=== PATIENT | male | born 1965 | race Caucasian/White ===

== ENCOUNTER 2018-01-11 09:26 | Inpatient (IN) | payer MEDICARE, OTHER ==
[2018-01-11 09:26] VITALS: BMI 33.5
--- NOTE | 2018-01-11 09:33 | C.PDOC ---
History Of Present Illness 52 years old male is transferred from [facility] for admission for cellulitis and Hemodialysis.Patient denies new symptoms since transfer. Patient also reports last Hemodialysis was 5 days ago. TRANSFERED FROM [facility] FOR ADMISSION CELLULITIS AND HD. PER PT, NO NEW SX SINCE TRANSFER. LAST HD 5 DAYS AGO. EXAM NAD NONTOXIC SKIN right 1st and 3rd toe discoloration C/W GANGRENE REMAINDER NEG Time Seen by Provider: 01/11/18 09:32 History Per: Patient History/Exam Limitations: no limitations Onset/Duration Of Symptoms: Hrs Current Symptoms Are (Timing): Still Present Recent travel outside of the [place]: No Past Medical History Reviewed: Historical Data, Nursing Documentation, Vital Signs Vital Signs: Last Vital Signs Temp 97.8 F 01/11/18 09:43 Pulse 80 01/11/18 09:43 Resp 18 01/11/18 09:43 BP 131/59 L 01/11/18 09:43 Pulse Ox 95 01/11/18 09:43 - Medical History PMH: Anemia (With transfusions), Anxiety, Arthritis, Asthma, Benign Prostatic Hyperplasia (on Flomax, seen by Dr. Shay), Bronchitis, CHF, Colonic Polyps, COPD, Diabetes, Fractures (L arm), Gall Bladder Disease (CHOLECYSTECTOMY), HTN, Hypercholesterolemia, Hyperlipidemia, Kidney Stones (08/15), Pancreatitis, Peripheral Edema, Pneumonia, End Stage Renal Disease, Chronic Kidney Disease, Sleep Apnea (c pap 2), TIA Surgical History: Cholecystectomy (12/27/12), Coronary Stent (x2 tuesday10/25/17 ), Pacemaker - [facility] Procedures (12/20/17) ASSISTANCE WITH RESPIRATORY VENTILATION, 24-96 HRS, CPAP (11/04/17) ASSISTANCE WITH RESPIRATORY VENTILATION, <24 HRS, CPAP (12/20/17) CENTRAL VENOUS CATHETER PLACEMENT WITH GUIDANCE (12/11/12) CLOSED ENDOSCOPIC BIOPSY OF LARGE INTESTINE (03/14/14) CORONAR ARTERIOGR-2 CATH (03/07/15) DILATION OF 1 COR ART WITH 2 DRUG-ELUT, PERC APPROACH (10/23/17) DX ULTRASOUND-DIGESTIVE (06/20/12) ENDO RECTUM POLYPECTOMY (03/14/14) ESOPHAGOGASTRODUODENOSCOPY [EGD] W/CLOSED BIOPSY (12/11/12) EXCISION OF LEFT FOOT SKIN, EXTERNAL APPROACH (12/03/17) FLUOROSCOPY OF LEFT HEART USING OTHER CONTRAST (10/23/17) FLUOROSCOPY OF MULTIPLE CORONARY ARTERIES USING OTH CONTRAST (10/23/17) GAIT TRAINING/AMBULAT TREATMENT USING ASSIST EQUIPMENT (11/16/17) HEMODIALYSIS (03/07/15) HOME MANAGEMENT TREATMENT (11/16/17) INJECT STEROID (04/21/14) INJECT/INFUSE NEC (08/31/13) INJECT/INFUSE THROMBOLYTIC AGENT (11/22/14) INJECTION INTO JOINT (04/21/14) INSERT PACE. DUAL TABITHA IN CHEST SUBCU/FASCIA, OPEN (11/04/17) INSERTION OF INFUSION DEVICE INTO LOWER VEIN, PERC APPROACH (12/20/17) INSERTION OF INFUSION DEVICE INTO UPPER VEIN, PERC APPROACH (12/20/17) INSERTION OF ONE VASCULAR STENT (03/07/15) INSERTION OF PACEMAKER LEAD INTO R VENTRICLE, PERC APPROACH (11/04/17) INSERTION OF PACEMAKER LEAD INTO RIGHT ATRIUM, PERC APPROACH (11/04/17) INSRT OF DRUG-ELUTING CORON ARTERY STENTS(S) (03/07/15) INTRAOPER CHOLANGIOGRAM (12/27/12) INTRODUCE OF OTH THERAP SUBST INTO RESP TRACT, VIA OPENING (12/20/17) LAPAROSCOP LYSIS-PERITONEAL ADHES (12/27/12) LAPAROSCOPIC CHOLECYSTECTOMY (12/27/12) LEFT HEART CARDIAC CATH (03/07/15) LT HEART ANGIOCARDIOGRAM (03/07/15) MEASURE OF CARDIAC SAMPL & PRESSURE, L HEART, PERC APPROACH (10/23/17) MEASUREMENT OF ARTERIAL FLOW, CORONARY, PERC APPROACH (04/24/16) MEASUREMENT OF ARTERIAL PRESSURE, CORONARY, PERC APPROACH (10/23/17) MEASUREMENT OF CARDIAC PACEMAKER, EXTERNAL APPROACH (12/20/17) NEBULIZER THERAPY (11/22/14) NON-INVASIVE MECHANICAL VENTILATION (11/27/14) OCCUPATIONAL THERAPY (11/27/14) OTHER ENDOSCOPY OF SM INTEST (06/20/12) OTHER SKIN & SUBQ I D (07/05/02) PACKED CELL TRANSFUSION (05/04/14) PERCUTANEOUS TRANSLUMINAL CORONARY ANGIOPLASTY [PTCA] (03/07/15) PERFORMANCE OF URINARY FILTRATION, MULTIPLE (04/24/16) PERFORMANCE OF URINARY FILTRATION, SINGLE (10/28/15) PHYSICAL THERAPY NEC (11/27/14) PLAIN RADIOGRAPHY OF LEFT HEART USING LOW OSMOLAR CONTRAST (04/24/16) PLAIN RADIOGRAPHY OF MULT COR ART USING L OSM CONTRAST (04/24/16) PROCEDURE ON SINGLE VESSEL (03/07/15) TETANUS TOXOID ADMINIST (08/10/14) TRANSFUSE NONAUT FROZEN PLASMA IN PERIPH VEIN, PERC (12/20/17) TRANSFUSE NONAUT PLATELETS IN PERIPH VEIN, PERC (12/20/17) TRANSFUSE NONAUT RED BLOOD CELLS IN PERIPH VEIN, PERC (10/28/17) ULTRASONOGRAPHY OF MULTIPLE CORONARY ARTERIES, INTRAVASCULAR (04/24/16) Family History: States: Diabetes (mother & grandmother) - Social History Hx Tobacco Use: No Hx Alcohol Use: No Hx Substance Use: No - Immunization History Hx Tetanus Toxoid Vaccination: No Hx Influenza Vaccination: No Hx Pneumococcal Vaccination: No Review Of Systems Constitutional: Negative for: Fever, Chills Gastrointestinal: Negative for: Nausea, Vomiting, Abdominal Pain, Diarrhea Neurological: Negative for: Weakness, Numbness Physical Exam - Physical Exam Appears: Non-toxic, No Acute Distress Skin: Other (Right 1st and 3rd toe discoloration consistent with GANGRENE) Head: Atraumatic, Normacephalic Eye(s): bilateral: Normal Inspection, PERRL, EOMI Oral Mucosa: Moist Neck: Supple Chest: Symmetrical, No Tenderness Cardiovascular: Rhythm Regular, No Murmur Respiratory: Normal Breath Sounds, No Decreased Breath Sounds, No Rales, No Rhonchi, No Wheezing Gastrointestinal/Abdominal: Soft, No Tenderness Extremity: Normal ROM, No Deformity Extremity: Bilateral: Atraumatic, Normal Color And Temperature, Normal ROM Pulses: Left Radial: Normal, Right Radial: Normal Neurological/Psych: Oriented x3 (Awake and Alert), Normal Speech, Other (No focal deficits ) Gait: Steady Progress - Re-Evaluation Re-evaluation Note: 01/11/18 09:33 D/W DR LAGUNAS FROM [facility], STATES PT ACCEPTED FOR ADMISSION BY DR DONATO. NEPHRO CONSULT TO BE ARRANGED BY PMD. Disposition Counseled Patient/Family Regarding: Diagnosis - Disposition Disposition: HOSPITALIZED Disposition Time: 09:32 Condition: STABLE - POA Present On Arrival: None - Clinical Impression Clinical Impression: Cellulitis, ESRD (end stage renal disease) - Scribe Statement The provider has reviewed the documentation as recorded by the Kathleenibmervin Mock All medical record entries made by the Scribe were at my direction and personally dictated by me. I have reviewed the chart and agree that the record accurately reflects my personal performance of the history, physical exam, medical decision making, and the department course for this patient. I have also personally directed, reviewed, and agree with the discharge instructions and disposition. Decision To Admit - Pt Status Changed To: Hospital Disposition Of: Inpatient - Admit Certification Admit to Inpatient:: After my assessment, the patient will require hospitalization for at least two midnights. This is because of the severity of symptoms shown, intensity of services needed, and/or the medical risk in this patient being treated as an outpatient. - InPatient: Physician Admission Certification: I certify that this patient requires 2 or more midnights of care for the following reason:: SEE NOTE - . Bed Request Type: Regular Admitting Physician: Nel Donato Patient Diagnosis: Cellulitis, ESRD (end stage renal disease)
[2018-01-11 11:43] VITALS: O2SAT 99
[2018-01-11 14:34] LABS: HEPATITIS B SURFACE AG Negative (NEGATIVE)
[2018-01-11 14:39] LABS: HEPATITIS B CORE AB NEGATIVE (NEGATIVE)
[2018-01-11 14:52] LABS: HEPATITIS C ANTIBODY NEGATIVE (NEGATIVE)
[2018-01-11] MEDS ORDERED: Sodium Chloride Nasal 0.65% Soln (30ml) NAS PRN (15:25)
[2018-01-11] MEDS ORDERED: Albuterol-Ipratrop 3 mg / 0.5 (3 ml) UD IH SCH (15:30)
[2018-01-11 16:23] VITALS: BP 132/53; PULSE 72; RESP 20; TEMP 97.5
[2018-01-11] MEDS ORDERED: Ergocalciferol 50,000 Intl Units Cap PO SCH (16:30)
[2018-01-11] MEDS ORDERED: CALCIUM ACETATE 1334 MG PO SCH (16:30)
[2018-01-11] MEDS ORDERED: Omega-3-Acid Ethyl Esters 1 GM Cap PO SCH (18:00)
[2018-01-11] MEDS ORDERED: (Novolin N) Insulin Human Isophane (NPH) 100 u/ml 10 ml vial SC SCH ×2 (18:00)
--- NOTE | 2018-01-11 19:41 | CP.PCM.HP ---
History of Present Illness - History of Present Illness History of Present Illness: CC: hypocalcemia 43F presents to ED sent from clinic for Hypocalcemia with cramping of hands, numbness and tingling to hands for 3 days. Patient reports taking calcium and vitamin D at home. Patient states she felt a little shaky prior to being given calcium here. Patient denies weakness, headache, lightheadedness, nausea, vomiting or any other complaints at this time. PMH: hyperthyroid s/p thyroidectomy with hypocalcemia PSH: Thyroid surgery in 2004 with calcium supplementation started in in 2011 Social: never smoker, never drinker, no illicit drug us family history: mother and father have hyperthyroid, aunt has thyroid nodules Allergies: insulin aspart, moxifloxacin, penicillins Present on Admission - Present on Admission Any Indicators Present on Admission: No History of DVT/PE: No History of Uncontrolled Diabetes: No Urinary Catheter: No Decubitus Ulcer Present: No Review of Systems - Review of Systems All systems: reviewed and no additional remarkable complaints except - Constitutional Constitutional: absent: Chills, Frequent Falls, Lethargy, Malaise, Weight Gain, Weight Loss - EENT Eyes: absent: Change in Vision, Decreased Night Vision, Exophthalmos Ears: absent: Abnormal Hearing, Disequilibrium Nose/Mouth/Throat: absent: Dry Mouth, Dysphagia - Cardiovascular Cardiovascular: absent: Chest Pain, Chest Pain at Rest - Respiratory Respiratory: absent: Dyspnea, Hemoptysis, Dyspnea on Exertion - Musculoskeletal Musculoskeletal: absent: Abnormal Gait, Back Pain - Neurological Neurological: Tremor. absent: Abnormal Gait, Dizziness, Focal Weakness, Lack of Coordination, Loss of Vision, Restless Legs, Tingling Past Patient History - Infectious Disease Hx of Infectious Diseases: None - Tetanus Immunizations Tetanus Immunization: Up to Date - Past Medical History & Family History Past Medical History?: Yes - Past Social History Smoking Status: Never Smoked - CARDIAC Hx Congestive Heart Failure: Yes Hx Hypercholesterolemia: Yes Hx Hypertension: Yes Hx Pacemaker: Yes Hx Peripheral Edema: Yes - PULMONARY Hx Asthma: Yes Hx Bronchitis: Yes Hx Chronic Obstructive Pulmonary Disease (COPD): Yes Hx Pneumonia: Yes Hx Sleep Apnea: Yes (c pap 2) - NEUROLOGICAL Hx Transient Ischemic Attacks (TIA): Yes - HEENT Hx HEENT Problems: Yes (BILATERAL EYE WITH BLURRY VISION) Hx Cataracts: Yes (HAD SX 10/10/12) Other/Comment: left eye cornea transplant,RENAL RETINOPATHY, glasses - RENAL Hx Chronic Kidney Disease: Yes Date of Last Dialysis Treatment: 01/06/18 Hx Kidney Stones: Yes (08/15) - ENDOCRINE/METABOLIC Hx Endocrine Disorders: Yes Hx Diabetes Mellitus Type 2: Yes - HEMATOLOGICAL/ONCOLOGICAL Hx Anemia: Yes (With transfusions) - INTEGUMENTARY Hx Dermatological Problems: Yes (BILATERAL EDEMA TO UPPER AND LE,SKIN DRYNESS) - MUSCULOSKELETAL/RHEUMATOLOGICAL Hx Arthritis: Yes Hx Falls: No Hx Fractures: Yes (L arm) - GASTROINTESTINAL Hx Gall Bladder Disease: Yes (CHOLECYSTECTOMY) Hx Pancreatitis: Yes - GENITOURINARY/GYNECOLOGICAL Hx Genitourinary Disorders: Yes (esrd on HD MWF) - PSYCHIATRIC Hx Anxiety: Yes Hx Substance Use: No - SURGICAL HISTORY Hx Cholecystectomy: Yes (12/27/12) Hx Coronary Stent: Yes (tuesday10/25/17) - ANESTHESIA Hx Anesthesia: Yes Hx Anesthesia Reactions: No Hx Malignant Hyperthermia: No Meds Allergies/Adverse Reactions: Allergies Allergy/AdvReac Type Severity Reaction Status Date / Time insulin aspart [From Novolog] Allergy Intermediate ITCHING Verified 01/11/18 09: 48 moxifloxacin Allergy Intermediate ITCHING Verified 01/11/18 09:48 Penicillins Allergy Intermediate ITCHING Verified 01/11/18 09:48 Physical Exam - Constitutional Appears: Non-toxic, Younger Than Stated Age - Head Exam Head Exam: ATRAUMATIC, NORMAL INSPECTION, NORMOCEPHALIC - Eye Exam Eye Exam: EOMI, Normal appearance Pupil Exam: NORMAL ACCOMODATION, PERRL - ENT Exam ENT Exam: Mucous Membranes Moist, Normal Exam - Neck Exam Neck exam: Positive for: Full Rom, Normal Inspection - Respiratory Exam Respiratory Exam: Clear to Auscultation Bilateral, NORMAL BREATHING PATTERN. absent: Decreased Breath Sounds - Cardiovascular Exam Cardiovascular Exam: REGULAR RHYTHM, +S1, +S2. absent: Bradycardia, Tachycardia - GI/Abdominal Exam GI & Abdominal Exam: Soft. absent: Tenderness - Extremities Exam Extremities exam: Positive for: full ROM. Negative for: pedal edema - Neurological Exam Neurological exam: Alert, CN II-XII Intact, Normal Gait - Psychiatric Exam Psychiatric exam: Flat Affect, Normal Affect, Normal Mood - Skin Skin Exam: Dry, Intact, Normal Color, Warm Results - Vital Signs Recent Vital Signs: Last Vital Signs Temp 97.5 F L 06/13/18 16:22 Pulse 72 01/11/18 16:22 Resp 20 01/11/18 16:22 BP 132/53 L 01/11/18 16:22 Pulse Ox 99 01/11/18 16:22 - Labs Labs: Laboratory Results - last 24 hr 01/11/18 01/11/18 01/11/18 13:44 13:44 16:34 POC Glucose (mg/dL) 145 H Hep Bs Antigen Negative Hep Bs Antibody Positive Hep B Core IgM Ab Negative Hepatitis C Antibody Negative
[2018-01-11] MEDS ORDERED: Fluticasone-Salmeterol 250-50mcg Diskus INH SCH (20:00)
[2018-01-11] MEDS ORDERED: (Novolog) Insulin Aspart, Recombinant 100 u/ml 10 ml vial SC SCH (22:00)
[2018-01-11] MEDS ORDERED: Latanoprost 2.5 ml Opht Soln OU SCH (22:00)
[2018-01-11] MEDS ORDERED: Rosuvastatin Calcium 2.5 mg Tab PO SCH (22:00)
--- NOTE | 2018-01-12 04:37 | CON ---
DATE: 01/11/2018 NEPHROLOGY CONSULTATION HISTORY OF PRESENT ILLNESS: The patient is a 52-year-old male with a past medical history of hypertension, diabetes, COPD, CAD, status post stents, status post pacemaker placement, and ESRD, on hemodialysis (Tuesday, Tuesday, Tuesday). Medical Records Assistant, Dr. Sabina Hnery presented to [place] ED today with complaint of darkening discoloration of right third toe. Subsequently, the patient was transferred to [facility] due to dialysis need. Nephrology being consulted for ESRD care. The patient with recent admission for intracranial hemorrhage, which was relatively mild; he had been taken off Brilinta, had Brilinta held for almost two weeks before being restarted last week. The patient, otherwise, reports feeling well. Denies any shortness of breath. Denies any chest pain or palpitations; appetite has been well. Denies any nausea or vomiting or diarrhea; does not make any urine. PAST MEDICAL HISTORY: As above. SOCIAL HISTORY: Denies smoking. FAMILY HISTORY: Mother CAD, diabetes, hypertension, ESRD, on hemodialysis. REVIEW OF SYSTEMS: CONSTITUTIONAL: No fevers or chills. HEENT: Reportedly legally blind. Reports some nasal discomfort. RESPIRATORY: No difficulty breathing. CARDIOVASCULAR: As per HPI. GI: As per HPI. : As per HPI. MUSCULOSKELETAL: Denies any aches or pains. PSYCHIATRIC: Has issues with anxiety. Does not take any anti-anxiety medications. NEUROLOGIC: Has some numbness in his feet. PHYSICAL EXAMINATION: VITAL SIGNS: This afternoon, blood pressure 114/52, heart rate 66, respirations 20, temperature 97.2, O2 saturation 99% on room air. GENERAL: No distress, lying comfortably in bed, receiving hemodialysis. HEENT: Moist mucous membranes. Nonicteric. No cervical lymphadenopathy. RESPIRATORY: Lungs are clear to auscultation bilaterally. No rales. No rhonchi. No wheezes. CARDIOVASCULAR: Heart sounds S1 and S2 normal. No murmurs. No gallops. No rubs. GASTROINTESTINAL: Abdomen is soft, nontender, and nondistended. GENITOURINARY: No bladder distention. EXTREMITIES: Mild lower leg edema. SKIN: Warm. No cyanosis, darkened discoloration at the base of first right toe and affecting third right toe. NEUROLOGIC: Decreased sensation of the right foot. PSYCHIATRIC: Normal mood. Normal affect. LABORATORY DATA: From this morning, CBC, WBC 8.1, hemoglobin 8.9, hematocrit 27.7, platelets 126. Chemistry panel: Sodium 141, potassium 6, chloride 96, bicarbonate 23, BUN 79, creatinine 12.5, glucose 240, calcium 8.7. AST 93, ALT 53, albumin 3.9. Coags: PT 19.2, PTT 34.8, INR 1.67. ASSESSMENT AND PLAN: 1. End-stage renal disease, on hemodialysis; patient with mild hyperkalemia today, dialyzing per routine. Otherwise relatively stable volume status, targeting 3.5 L net ultrafiltration. 2. Hypertensive chronic kidney disease/end-stage renal disease, currently on hydralazine 25 mg b.i.d. Blood pressure relatively well controlled. Continue the same. 3. Anemia of end-stage renal disease, hemoglobin well below goal, but stable; we will give Epogen if not given recently. 4. Chronic kidney disease, mineral bone disorder. The patient was relatively well controlled per labs last week. We will continue with binders. We will give sevelamer three tablets with each meal. 5. Right foot cellulitis/dry gangrene. The patient with multiple risk factors for peripheral vascular disease, needs podiatry evaluation; was given 1 gm of vancomycin earlier today. Should re-dose after checking random level tomorrow as the patient was dialyzed this afternoon. 6. Pulmonary hypertension per echocardiogram report was relatively severe; has mild leg edema currently, but is otherwise appearing asymptomatic; we will continue to target the patient's dry weight. Thank you for this referral. We will be following up closely. Reginaldo Penny MD
[2018-01-12] MEDS ORDERED: Levothyroxine 25 MCG TAB PO SCH (06:30)
[2018-01-12] MEDS ORDERED: Multivitamin With Minerals Tab PO SCH (10:00)
[2018-01-12] MEDS ORDERED: Capsaicin 0.025% Cream (60 gm) TOP SCH (10:00)
[2018-01-12] MEDS ORDERED: Pantoprazole 40 mg EC Tab PO SCH (10:00)
== END 2018-01-11 20:34 | disposition left against medical advice (07) | DRG 299 ==
LOC: C.ER 09:26 → C.3T 09:49
PROVIDERS: ADMIT Internal Medicine; ATTEND Internal Medicine
PROC: 5A1D70Z Performance of Urinary Filtration, Intermittent, Less than 6 Hours Per Day (ICD-10-PCS; principal; 2018-01-11)
DX: E11.52 Type 2 diabetes mellitus with diabetic peripheral angiopathy with gangrene (principal); N18.6 End stage renal disease; I13.2 Hypertensive heart and chronic kidney disease with heart failure and with stage 5 chronic kidney disease, or end stage renal disease; L03.115 Cellulitis of right lower limb; D63.1 Anemia in chronic kidney disease; E11.22 Type 2 diabetes mellitus with diabetic chronic kidney disease; E78.00 Pure hypercholesterolemia, unspecified; E87.5 Hyperkalemia; I50.9 Heart failure, unspecified; J44.9 Chronic obstructive pulmonary disease, unspecified; I27.20 Pulmonary hypertension, unspecified; I25.10 Atherosclerotic heart disease of native coronary artery without angina pectoris; N40.0 Benign prostatic hyperplasia without lower urinary tract symptoms; Z99.2 Dependence on renal dialysis; Z86.73 Personal history of transient ischemic attack (TIA), and cerebral infarction without residual deficits

== ENCOUNTER 2018-01-13 21:53 | Inpatient (IN) | payer MEDICARE, OTHER ==
[2018-01-13 21:54] VITALS: BMI 33.5
--- NOTE | 2018-01-13 22:11 | C.PDOC ---
History Of Present Illness Patient is a 52 y/o male who presents to the ED transferred from [facility] for admission for cellulitis and ESRD. Patient was previously admitted here 01/11 but left AMA. Patient denies any new symptoms since transfer. TRANSFERRED FROM [facility], ADMISSION FOR CELLULITIS, ESRD. ADMITTED @ [facility] BUT PS LEFT AMA. NO NEW SX SINCE TRANSFER EXAM NAD NONTOXIC HEENT +R NARE NASAL PACKING IN PLACE SKIN B/L LOWER LEG CELLULITIS REMAINDER NEG Time Seen by Provider: 01/13/18 22:07 Chief Complaint (Nursing): Abnormal Skin Integrity History Per: Patient, Other ([facility]) History/Exam Limitations: no limitations Onset/Duration Of Symptoms: Hrs Current Symptoms Are (Timing): Still Present Recent travel outside of the [place]: No Past Medical History Reviewed: Historical Data, Nursing Documentation, Vital Signs Vital Signs: Last Vital Signs Temp 98.2 F 01/13/18 22:05 Pulse 89 01/13/18 22:05 Resp 16 01/13/18 22:05 BP 158/63 H 01/13/18 22:05 Pulse Ox 100 01/13/18 22:13 - Medical History PMH: Anemia (With transfusions), Anxiety, Arthritis, Asthma, Benign Prostatic Hyperplasia (on Flomax, seen by Dr. Shay), Bronchitis, CHF, Colonic Polyps, COPD, Diabetes, Fractures (L arm), Gall Bladder Disease (CHOLECYSTECTOMY), HTN, Hypercholesterolemia, Hyperlipidemia, Kidney Stones (08/15), Pancreatitis, Peripheral Edema, Pneumonia, End Stage Renal Disease, Chronic Kidney Disease, Sleep Apnea (c pap 2), TIA Denies: Cardia Arrhythmia, Depression, Emphysema Surgical History: Cholecystectomy (12/27/12), Coronary Stent (x2 tuesday10/25/17 ), Pacemaker - [facility] Procedures (01/11/18) ASSISTANCE WITH RESPIRATORY VENTILATION, 24-96 HRS, CPAP (11/04/17) ASSISTANCE WITH RESPIRATORY VENTILATION, <24 HRS, CPAP (12/20/17) CENTRAL VENOUS CATHETER PLACEMENT WITH GUIDANCE (12/11/12) CLOSED ENDOSCOPIC BIOPSY OF LARGE INTESTINE (03/14/14) CORONAR ARTERIOGR-2 CATH (03/07/15) DILATION OF 1 COR ART WITH 2 DRUG-ELUT, PERC APPROACH (10/23/17) DX ULTRASOUND-DIGESTIVE (06/20/12) ENDO RECTUM POLYPECTOMY (03/14/14) ESOPHAGOGASTRODUODENOSCOPY [EGD] W/CLOSED BIOPSY (12/11/12) EXCISION OF LEFT FOOT SKIN, EXTERNAL APPROACH (12/03/17) FLUOROSCOPY OF LEFT HEART USING OTHER CONTRAST (10/23/17) FLUOROSCOPY OF MULTIPLE CORONARY ARTERIES USING OTH CONTRAST (10/23/17) GAIT TRAINING/AMBULAT TREATMENT USING ASSIST EQUIPMENT (11/16/17) HEMODIALYSIS (03/07/15) HOME MANAGEMENT TREATMENT (11/16/17) INJECT STEROID (04/21/14) INJECT/INFUSE NEC (08/31/13) INJECT/INFUSE THROMBOLYTIC AGENT (11/22/14) INJECTION INTO JOINT (04/21/14) INSERT PACE. DUAL TABITHA IN CHEST SUBCU/FASCIA, OPEN (11/04/17) INSERTION OF INFUSION DEVICE INTO LOWER VEIN, PERC APPROACH (12/20/17) INSERTION OF INFUSION DEVICE INTO UPPER VEIN, PERC APPROACH (12/20/17) INSERTION OF ONE VASCULAR STENT (03/07/15) INSERTION OF PACEMAKER LEAD INTO R VENTRICLE, PERC APPROACH (11/04/17) INSERTION OF PACEMAKER LEAD INTO RIGHT ATRIUM, PERC APPROACH (11/04/17) INSRT OF DRUG-ELUTING CORON ARTERY STENTS(S) (03/07/15) INTRAOPER CHOLANGIOGRAM (12/27/12) INTRODUCE OF OTH THERAP SUBST INTO RESP TRACT, VIA OPENING (12/20/17) LAPAROSCOP LYSIS-PERITONEAL ADHES (12/27/12) LAPAROSCOPIC CHOLECYSTECTOMY (12/27/12) LEFT HEART CARDIAC CATH (03/07/15) LT HEART ANGIOCARDIOGRAM (03/07/15) MEASURE OF CARDIAC SAMPL & PRESSURE, L HEART, PERC APPROACH (10/23/17) MEASUREMENT OF ARTERIAL FLOW, CORONARY, PERC APPROACH (04/24/16) MEASUREMENT OF ARTERIAL PRESSURE, CORONARY, PERC APPROACH (10/23/17) MEASUREMENT OF CARDIAC PACEMAKER, EXTERNAL APPROACH (12/20/17) NEBULIZER THERAPY (11/22/14) NON-INVASIVE MECHANICAL VENTILATION (11/27/14) OCCUPATIONAL THERAPY (11/27/14) OTHER ENDOSCOPY OF SM INTEST (06/20/12) OTHER SKIN & SUBQ I D (07/05/02) PACKED CELL TRANSFUSION (05/04/14) PERCUTANEOUS TRANSLUMINAL CORONARY ANGIOPLASTY [PTCA] (03/07/15) PERFORMANCE OF URINARY FILTRATION, MULTIPLE (04/24/16) PERFORMANCE OF URINARY FILTRATION, SINGLE (10/28/15) PHYSICAL THERAPY NEC (11/27/14) PLAIN RADIOGRAPHY OF LEFT HEART USING LOW OSMOLAR CONTRAST (04/24/16) PLAIN RADIOGRAPHY OF MULT COR ART USING L OSM CONTRAST (04/24/16) PROCEDURE ON SINGLE VESSEL (03/07/15) TETANUS TOXOID ADMINIST (08/10/14) TRANSFUSE NONAUT FROZEN PLASMA IN PERIPH VEIN, PERC (12/20/17) TRANSFUSE NONAUT PLATELETS IN PERIPH VEIN, PERC (12/20/17) TRANSFUSE NONAUT RED BLOOD CELLS IN PERIPH VEIN, PERC (10/28/17) ULTRASONOGRAPHY OF MULTIPLE CORONARY ARTERIES, INTRAVASCULAR (04/24/16) Family History: States: Diabetes (mother & grandmother) - Social History Hx Tobacco Use: No Hx Alcohol Use: No Hx Substance Use: No - Immunization History Hx Tetanus Toxoid Vaccination: No Hx Influenza Vaccination: No Hx Pneumococcal Vaccination: No Review Of Systems Constitutional: Negative for: Fever, Chills Genitourinary: Positive for: Other (ESRD) Skin: Positive for: Other (cellulitis) Neurological: Negative for: Weakness, Numbness Physical Exam - Physical Exam Appears: Non-toxic, No Acute Distress Skin: Other (bilateral lower leg cellulitis) Head: Atraumatic, Normacephalic Nose: No Flaring, Other (right nare nasal packing in place) Oral Mucosa: Moist Chest: Symmetrical Cardiovascular: Rhythm Regular, No Murmur Respiratory: Normal Breath Sounds, No Rales, No Rhonchi, No Wheezing Gastrointestinal/Abdominal: Soft, No Tenderness, No Guarding, No Rebound Extremity: Normal ROM (x4), No Swelling Neurological/Psych: Oriented x3, Normal Speech, Normal Cognition Gait: Steady ED Course And Treatment O2 Sat by Pulse Oximetry: 100 Progress Note: Patient admitted and accepted under Dr Donato. Progress - Re-Evaluation Re-evaluation Note: 01/13/18 22:13 PER XIN, ADMISSION ACCEPTED BY DR DONATO - Data Reviewed Data Reviewed: Old records Disposition Counseled Patient/Family Regarding: Diagnosis - Disposition Disposition: HOSPITALIZED Disposition Time: 22:12 Condition: STABLE Forms: [employer] (Czech) - POA Present On Arrival: None - Clinical Impression Clinical Impression: ESRD (end stage renal disease) on dialysis, Cellulitis - Scribe Statement The provider has reviewed the documentation as recorded by the Scribe Bridgett Dimas All medical record entries made by the Kathleenibe were at my direction and personally dictated by me. I have reviewed the chart and agree that the record accurately reflects my personal performance of the history, physical exam, medical decision making, and the department course for this patient. I have also personally directed, reviewed, and agree with the discharge instructions and disposition. Decision To Admit - Pt Status Changed To: Hospital Disposition Of: Inpatient - Admit Certification Admit to Inpatient:: After my assessment, the patient will require hospitalization for at least two midnights. This is because of the severity of symptoms shown, intensity of services needed, and/or the medical risk in this patient being treated as an outpatient. - InPatient: Physician Admission Certification: I certify that this patient requires 2 or more midnights of care for the following reason:: SEE NOTE - . Bed Request Type: Regular Admitting Physician: Nel Donato Patient Diagnosis: ESRD (end stage renal disease) on dialysis, Cellulitis
[2018-01-13] MEDS ORDERED: Home Med 1 UNIT (Atorvastatin [Lipitor] 40 MG) PO SCH (23:30)
[2018-01-14] MEDS: Oxycodone/Acetaminophen 5/325 mg Tab PO PRN ×3 (03:50→20:38)
[2018-01-14] MEDS: Sodium Chloride Nasal 0.65% Soln (30ml) NAS PRN ×2 (03:59→12:11)
[2018-01-14] MEDS: Levothyroxine 25 MCG TAB PO SCH (06:13)
[2018-01-14 06:31] LABS: HEMOGLOBIN 9.5 g/dL (12.0-18.0); MEAN CELL VOLUME 94.2 fL (80.0-94.0); MEAN CORPUSCULAR HEMOGLOBIN 30.7 pg (27.0-31.0); MEAN CORPUSCULAR HGB CONC 32.6 g/dL (33.0-37.0); MEAN PLATELET VOLUME 10.3 fL (7.2-11.7); RBC 3.1 Mil/uL (4.40-5.90); RED CELL DISTRIBUTION WIDTH 18.8 % (11.5-14.5); WHITE BLOOD COUNT 4.8 K/uL (4.8-10.8)
[2018-01-14 06:46] LABS: CALCIUM 8.2 mg/dl (8.6-10.4)
[2018-01-14] MEDS ORDERED: Fluticasone-Salmeterol 250-50mcg Diskus INH SCH (08:00)
[2018-01-14] MEDS: Albuterol-Ipratrop 3 mg / 0.5 (3 ml) UD IH SCH ×4 (08:20→19:51)
[2018-01-14] MEDS: (Novolin N) Insulin Human Isophane (NPH) 100 u/ml 10 ml vial SC SCH ×2 (08:26→10:00)
[2018-01-14] MEDS: (Novolin R) Insulin Human Regular 100 units/ml vial SC SCH ×4 (08:26→22:07)
[2018-01-14] MEDS: Multivitamin With Minerals Tab PO SCH (09:58)
[2018-01-14] MEDS: Pantoprazole 40 mg EC Tab PO SCH (09:58)
[2018-01-14] MEDS: Omega-3-Acid Ethyl Esters 1 GM Cap PO SCH ×2 (09:58→17:20)
[2018-01-14] MEDS ORDERED: (Novolin N) Insulin Human Isophane (NPH) 100 u/ml 10 ml vial SC SCH (10:00)
--- NOTE | 2018-01-14 13:00 | CP.PCM.CON ---
History of Present Illness - History of Present Illness History of Present Illness: Podiatry consult note: Dr. Colon 52 year old male was seen and evaluated at bedside for discolored digits on the right foot and healing ulceration of left foot. Patient reports that he was seen at [place] prior to coming to the hospital here. Reports that he was not able to stay at [place] because he is currently on dialysis. Reports that his friend noticed his foot and said he needs to be admitted to the hospital which led him here. Denies of any pain to the legs today. Denies any recent N/V/F/C/CP /SOB/D/posterior calf pain when squeezed. No other pedal complains at this time. PMH: As stated above PMH: COPD, CAD with 4 stents, ESRD on HD MWF, IDDM2 and HTN PSH: Multiple cardiac caths, left cornea transplant and AV fistula in left arm Family History: Mother-CAD, IDDM2, HTN Social history: Denies tobacco, alcohol or illicit drug use; Lives at home with mother Allergies: insulin aspart, moxifloxacin, penicillin Home Medications: As per MAR Review of Systems - Constitutional Constitutional: As Per HPI Past Patient History - Infectious Disease Hx of Infectious Diseases: None - Tetanus Immunizations Tetanus Immunization: Up to Date - Past Medical History & Family History Past Medical History?: Yes - Past Social History Smoking Status: Never Smoked - CARDIAC Hx Cardia Arrhythmia: No Hx Congestive Heart Failure: Yes Hx Hypercholesterolemia: Yes Hx Hypertension: Yes Hx Pacemaker: Yes Hx Peripheral Edema: Yes - PULMONARY Hx Asthma: Yes Hx Bronchitis: Yes Hx Emphysema: No Hx Pneumonia: Yes Hx Sleep Apnea: Yes (c pap 2) - NEUROLOGICAL Hx Transient Ischemic Attacks (TIA): Yes - HEENT Hx HEENT Problems: Yes (BILATERAL EYE WITH BLURRY VISION) Hx Cataracts: Yes (HAD SX 10/10/12) Other/Comment: left eye cornea transplant,RENAL RETINOPATHY, glasses - RENAL Date of Last Dialysis Treatment: 01/13/18 - ENDOCRINE/METABOLIC Hx Endocrine Disorders: Yes Hx Diabetes Mellitus Type 2: Yes Hx Hypothyroidism: Yes - HEMATOLOGICAL/ONCOLOGICAL Hx Anemia: Yes (With transfusions) - INTEGUMENTARY Hx Dermatological Problems: Yes (BILATERAL EDEMA TO UPPER AND LE,SKIN DRYNESS) - MUSCULOSKELETAL/RHEUMATOLOGICAL Hx Falls: Yes - GASTROINTESTINAL Hx Gall Bladder Disease: Yes (CHOLECYSTECTOMY) Hx Pancreatitis: Yes - GENITOURINARY/GYNECOLOGICAL Hx Genitourinary Disorders: Yes (esrd on HD MWF) - PSYCHIATRIC Hx Substance Use: No - SURGICAL HISTORY Hx Cholecystectomy: Yes (12/27/12) Hx Coronary Stent: Yes (x2 tuesday10/25/17) - ANESTHESIA Hx Anesthesia: Yes Hx Anesthesia Reactions: No Hx Malignant Hyperthermia: No Has any member of the family had a problem w/ anesthesia?: No Meds Allergies/Adverse Reactions: Allergies Allergy/AdvReac Type Severity Reaction Status Date / Time insulin aspart [From Novolog] Allergy Intermediate ITCHING Verified 01/11/18 09: 48 moxifloxacin Allergy Intermediate ITCHING Verified 01/11/18 09:48 Penicillins Allergy Intermediate ITCHING Verified 01/11/18 09:48 - Medications Medications: Current Medications Albuterol/Ipratropium (Duoneb 3 Mg/0.5 Mg (3 Ml) Ud) 3 ml IH RQ6 [facility] Last Admin: 01/14/18 08:20 Dose: 3 ml Aspirin (Ecotrin) 81 mg PO DAILY [facility] Last Admin: 01/14/18 09:58 Dose: 81 mg Calcium Acetate (Phoslo) 1,334 mg PO ACTID [facility] Last Admin: 01/14/18 12:12 Dose: 1,334 mg Ergocalciferol (Drisdol 50,000 Intl Units Cap) 1 cap PO QWK [facility] Gemfibrozil (Lopid) 600 mg PO BID [facility] Glipizide (Glucotrol) 5 mg PO BID [facility] Last Admin: 01/14/18 09:59 Dose: 5 mg Heparin Sodium (Porcine) (Heparin) 5,000 units SC Q12 [facility] Last Admin: 01/14/18 09:59 Dose: Not Given Hydralazine HCl (Apresoline) 25 mg PO BID [facility] Last Admin: 01/14/18 09:59 Dose: 25 mg Insulin Human NPH (Novolin N) 60 unit SC DAILY [facility] Last Admin: 01/14/18 10:00 Dose: Not Given Insulin Human Regular (Novolin R) 0 unit SC ACHS [facility] PRN Reason: Protocol Last Admin: 01/14/18 12:12 Dose: 2 units Latanoprost (Xalatan Opht) 0 ml OU HS [facility] Levothyroxine Sodium (Synthroid) 25 mcg PO DAILY@0630 [facility] Last Admin: 01/14/18 06:13 Dose: 25 mcg Montelukast Sodium (Singulair) 10 mg PO HS [facility] Multivitamins/Minerals (Therapeutic-M Tab) 1 tab PO DAILY [facility] Last Admin: 01/14/18 09:58 Dose: 1 tab Vfoah-[id number] Ethyl Esters (Lovaza) 2 gm PO BID [facility] Last Admin: 01/14/18 09:58 Dose: 2 gm Oxycodone/Acetaminophen (Percocet 5/325 Mg Tab) 1 tab PO Q8H PRN PRN Reason: Pain, severe (8-10) Stop: 01/17/18 03:34 Last Admin: 01/14/18 12:14 Dose: 1 tab Pantoprazole Sodium (Protonix Ec Tab) 40 mg PO DAILY [facility] Last Admin: 01/14/18 09:58 Dose: 40 mg Pregabalin (Lyrica) 50 mg PO HS [facility] Rosuvastatin Calcium (Crestor) 20 mg PO HS [facility] Fluticasone/Salmeterol (Advair Diskus 250/50) 1 puff INH RQ12 [facility] Sevelamer Carbonate (Renvela) 1,600 mg PO TID [facility] Last Admin: 01/14/18 09:58 Dose: 1,600 mg Sodium Chloride ([place] Baby Saline 30 Ml) 0 ml VIRAL Q2H PRN PRN Reason: Nasal congestion Last Admin: 01/14/18 12:11 Dose: 2 spray Tamsulosin HCl (Flomax) 0.4 mg PO DAILY [facility] Last Admin: 01/14/18 09:58 Dose: 0.4 mg Ticagrelor (Brilinta) 90 mg PO BID [facility] Last Admin: 01/14/18 09:59 Dose: 90 mg Physical Exam - Constitutional Appears: Well, Non-toxic, No Acute Distress - Extremities Exam Additional comments: Lower extremity focused exam: Vasc: DP/PT pulses are faintly palpable 1/4. Cap refill time: < 3 sec to all digits; Temp gradient: warm to cool with patches of warmth from proximal to distal, mild non-pitting edema noted on the right LE Derm: hyperpigmentation changes to the RLE digit 1 and 3 on the dorsal and plantar aspect, no active drainage, erythema extending proximally from the foot up to the leg, ulceration roofed with hyperkeratotic skin measuring approx 0.6cm x 0.6cm x 0.1cm noted to level of plantar first metatarsal head. No malodor, no saba-wound erythema, no fluctuance, no drainage, no tunneling, no probe to bone or undermining. No sinus tract formation in any direction. No other clinic signs of infection. L Neuro: Epicritic and protective sensation grossly absent b/l Ortho: No tenderness to palpation of left foot sub met 1 ulceration or right heel fissure. No other gross deformities noted - Neurological Exam Neurological exam: Alert, Oriented x3 - Psychiatric Exam Psychiatric exam: Normal Affect, Normal Mood Results - Vital Signs Recent Vital Signs: Last Vital Signs Temp 97.6 F 01/14/18 08:48 Pulse 62 01/14/18 09:57 Resp 20 01/14/18 08:48 BP 136/56 L 01/14/18 09:57 Pulse Ox 96 01/14/18 08:48 - Labs Result Diagrams: 01/14/18 06:23 01/14/18 06:23 Labs: Laboratory Results - last 24 hr 01/13/18 01/14/18 01/14/18 23:41 06:23 06:23 WBC 4.8 RBC 3.10 L Hgb 9.5 L D Hct 29.2 L MCV 94.2 H D MCH 30.7 MCHC 32.6 L RDW 18.8 H Plt Count 106 L D MPV 10.3 Sodium 141 Potassium 4.6 Chloride 95 L Carbon Dioxide 33 H Anion Gap 18 BUN 33 H Creatinine 6.3 H Est GFR ( Amer) 11 Est GFR (Non-Af Amer) 9 POC Glucose (mg/dL) 154 H Random Glucose 181 H Calcium 8.2 L 01/14/18 01/14/18 06:36 11:50 WBC RBC Hgb Hct MCV MCH MCHC RDW Plt Count MPV Sodium Potassium Chloride Carbon Dioxide Anion Gap BUN Creatinine Est GFR ( Amer) Est GFR (Non-Af Amer) POC Glucose (mg/dL) 174 H 248 H Random Glucose Calcium Assessment & Plan - Assessment and Plan (Free Text) Assessment: 52 year old male was seen and evaluated for necrotic changes to hallux and 3rd digit on the right foot and pressure induced ulceration of left foot. Plan: Patient seen and evaluated at bedside with attending Dr. Colon Labs, vitals and charts reviewed - afebrile, absent leukocytosis Right foot dressed with betadine, DSD, no dressing on the left X-rays of the Right foot reviewed - No acute signs of OM, cellulitic changes noted, previously healed fractures noted at the 5th metatarsal level, fracture noted on the distal medial aspect of the proximal phalanx of the 2nd digit MARY/PVR ordered Vascular Consult - recs appreciated Continue IV abx as per ID Podiatry will follow vascular recs prior to considering surgical intervention Continue local wound care Thank you for the podiatry consult and allowing to take part in patient care Will monitor patient closely while on floor - Date & Time Date: 01/14/18 Time: 13:19
[2018-01-14] MEDS ORDERED: Vancomycin 1 gm/NS 200 ml 1 GM/200 ML BAG IVPB STA (13:04)
--- NOTE | 2018-01-14 13:06 | CP.PCM.CON ---
History of Present Illness - History of Present Illness History of Present Illness: INFECTIOUS DISEASE CONSULT; HPI; 52-year-old male with history off end-stage renal disease on hemodialysis MWF, IDDM2, HTN, CAD with 4 stents, COPD, diabetic retinopathy, left corneal transplant, AV fistula left arm was admitted to the emergency room on 01/13/18 and he presented to the hospital because off discolored digits on the right foot and a healing ulceration plantar aspect of the left foot. He was also told by his friend that he is having hyperpigmentation his legs and that he has bilateral lower extremity foot pain with decrease in sensation. Patient denies any fever or chills, nausea vomiting or shortness of breath or chest pain at present. INFECTIOUS DISEASE CONSULTATION REQUESTED BY DR. DONATO FOR CELLULITIS AND IMPENDING GANGRENE AND BILATERAL DIABETIC FOOT ULCERS. PMH: COPD, CAD with 4 stents, ESRD on HD MWF, IDDM2 and HTN PSH: Multiple cardiac caths, left cornea transplant and AV fistula in left arm Family History: Mother-CAD, IDDM2, HTN Social history: Denies tobacco, alcohol or illicit drug use; Lives at home with mother Allergies: insulin aspart, moxifloxacin, penicillin. Home Medications: As per MAR Review of Systems - Constitutional Constitutional: absent: Chills, Fever, Weight Loss - EENT Eyes: Blurred Vision Nose/Mouth/Throat: absent: Dry Mouth, Mouth Lesions - Cardiovascular Cardiovascular: absent: Chest Pain, Dyspnea - Respiratory Respiratory: absent: Cough, Hemoptysis - Genitourinary Genitourinary: As Per HPI (PATIENT ON HEMODIALYSIS MWF .) - Integumentary Integumentary: Dry Skin, Non-Healing Lesions - Neurological Neurological: Sensory Deficit (LOWER EXTREMITIES) - Hematologic/Lymphatic Hematologic: As Per HPI Past Patient History - Infectious Disease Hx of Infectious Diseases: None - Tetanus Immunizations Tetanus Immunization: Up to Date - Past Medical History & Family History Past Medical History?: Yes - Past Social History Smoking Status: Never Smoked - CARDIAC Hx Cardia Arrhythmia: No Hx Congestive Heart Failure: Yes Hx Hypercholesterolemia: Yes Hx Hypertension: Yes Hx Pacemaker: Yes Hx Peripheral Edema: Yes - PULMONARY Hx Asthma: Yes Hx Bronchitis: Yes Hx Emphysema: No Hx Pneumonia: Yes Hx Sleep Apnea: Yes (c pap 2) - NEUROLOGICAL Hx Transient Ischemic Attacks (TIA): Yes - HEENT Hx HEENT Problems: Yes (BILATERAL EYE WITH BLURRY VISION) Hx Cataracts: Yes (HAD SX 10/10/12) Other/Comment: left eye cornea transplant,RENAL RETINOPATHY, glasses - RENAL Date of Last Dialysis Treatment: 01/13/18 - ENDOCRINE/METABOLIC Hx Endocrine Disorders: Yes Hx Diabetes Mellitus Type 2: Yes Hx Hypothyroidism: Yes - HEMATOLOGICAL/ONCOLOGICAL Hx Anemia: Yes (With transfusions) - INTEGUMENTARY Hx Dermatological Problems: Yes (BILATERAL EDEMA TO UPPER AND LE,SKIN DRYNESS) - MUSCULOSKELETAL/RHEUMATOLOGICAL Hx Falls: Yes - GASTROINTESTINAL Hx Gall Bladder Disease: Yes (CHOLECYSTECTOMY) Hx Pancreatitis: Yes - GENITOURINARY/GYNECOLOGICAL Hx Genitourinary Disorders: Yes (esrd on HD MWF) - PSYCHIATRIC Hx Substance Use: No - SURGICAL HISTORY Hx Cholecystectomy: Yes (12/27/12) Hx Coronary Stent: Yes (x2 tuesday10/25/17) - ANESTHESIA Hx Anesthesia: Yes Hx Anesthesia Reactions: No Hx Malignant Hyperthermia: No Has any member of the family had a problem w/ anesthesia?: No Meds Allergies/Adverse Reactions: Allergies Allergy/AdvReac Type Severity Reaction Status Date / Time insulin aspart [From Novolog] Allergy Intermediate ITCHING Verified 01/11/18 09: 48 moxifloxacin Allergy Intermediate ITCHING Verified 01/11/18 09:48 Penicillins Allergy Intermediate ITCHING Verified 01/11/18 09:48 - Medications Medications: Current Medications Albuterol/Ipratropium (Duoneb 3 Mg/0.5 Mg (3 Ml) Ud) 3 ml IH RQ6 [facility] Last Admin: 01/14/18 08:20 Dose: 3 ml Aspirin (Ecotrin) 81 mg PO DAILY [facility] Last Admin: 01/14/18 09:58 Dose: 81 mg Calcium Acetate (Phoslo) 1,334 mg PO ACTID [facility] Last Admin: 01/14/18 12:12 Dose: 1,334 mg Ergocalciferol (Drisdol 50,000 Intl Units Cap) 1 cap PO QWK [facility] Gemfibrozil (Lopid) 600 mg PO BID [facility] Glipizide (Glucotrol) 5 mg PO BID [facility] Last Admin: 01/14/18 09:59 Dose: 5 mg Heparin Sodium (Porcine) (Heparin) 5,000 units SC Q12 [facility] Last Admin: 01/14/18 09:59 Dose: Not Given Hydralazine HCl (Apresoline) 25 mg PO BID [facility] Last Admin: 01/14/18 09:59 Dose: 25 mg Vancomycin/Sodium Chloride (Vancomycin 1 Gm/Ns 200 Ml) 1 gm in 200 mls @ 166.7 mls/hr IVPB STAT STA PRN Reason: Protocol Stop: 01/14/18 14:15 Insulin Human NPH (Novolin N) 60 unit SC DAILY [facility] Last Admin: 01/14/18 10:00 Dose: Not Given Insulin Human Regular (Novolin R) 0 unit SC ACHS [facility] PRN Reason: Protocol Last Admin: 01/14/18 12:12 Dose: 2 units Latanoprost (Xalatan Opht) 0 ml OU HS [facility] Levothyroxine Sodium (Synthroid) 25 mcg PO DAILY@0630 [facility] Last Admin: 01/14/18 06:13 Dose: 25 mcg Montelukast Sodium (Singulair) 10 mg PO HS [facility] Multivitamins/Minerals (Therapeutic-M Tab) 1 tab PO DAILY [facility] Last Admin: 01/14/18 09:58 Dose: 1 tab Yhnzx-2-Aifu Ethyl Esters (Lovaza) 2 gm PO BID [facility] Last Admin: 01/14/18 09:58 Dose: 2 gm Oxycodone/Acetaminophen (Percocet 5/325 Mg Tab) 1 tab PO Q8H PRN PRN Reason: Pain, severe (8-10) Stop: 01/17/18 03:34 Last Admin: 01/14/18 12:14 Dose: 1 tab Pantoprazole Sodium (Protonix Ec Tab) 40 mg PO DAILY [facility] Last Admin: 01/14/18 09:58 Dose: 40 mg Pregabalin (Lyrica) 50 mg PO HS [facility] Rosuvastatin Calcium (Crestor) 20 mg PO HS [facility] Fluticasone/Salmeterol (Advair Diskus 250/50) 1 puff INH RQ12 [facility] Sevelamer Carbonate (Renvela) 1,600 mg PO TID [facility] Last Admin: 01/14/18 09:58 Dose: 1,600 mg Sodium Chloride ([place] Baby Saline 30 Ml) 0 ml VIRAL Q2H PRN PRN Reason: Nasal congestion Last Admin: 01/14/18 12:11 Dose: 2 spray Tamsulosin HCl (Flomax) 0.4 mg PO DAILY [facility] Last Admin: 01/14/18 09:58 Dose: 0.4 mg Ticagrelor (Brilinta) 90 mg PO BID [facility] Last Admin: 01/14/18 09:59 Dose: 90 mg Physical Exam - Constitutional Appears: No Acute Distress - Head Exam Head Exam: NORMAL INSPECTION - Eye Exam Eye Exam: EOMI, PERRL - ENT Exam ENT Exam: Normal Oropharynx - Neck Exam Neck exam: Positive for: Normal Inspection - Respiratory Exam Respiratory Exam: Clear to Auscultation Bilateral - Cardiovascular Exam Cardiovascular Exam: REGULAR RHYTHM, +S1, +S2 - GI/Abdominal Exam GI & Abdominal Exam: Normal Bowel Sounds, Soft - Extremities Exam Extremities exam: Positive for: full ROM. Negative for: calf tenderness Additional comments: BILATERAL LOWER EXTREMITY CELLULITIS. ULCER LEFT PLANTAR ASPECT FIRST METATARSAL-DRY NO DRAINAGE. RIGHT LOWER EXTREMITY FIRST AND THIRD DIGIT DISCOLORATION AND HYPERPIGMENTATION- WITH NO ACTIVE DRAINAGE, CELLULITIS AND ERYTHEMA EXTENDING FROM THE FOOT UP TO THE MID LEG. - Neurological Exam Neurological exam: Alert, CN II-XII Intact, Oriented x3, Reflexes Normal - Psychiatric Exam Psychiatric exam: Normal Mood - Skin Skin Exam: Normal Color, Warm Results - Vital Signs Recent Vital Signs: Last Vital Signs Temp 97.6 F 01/14/18 08:48 Pulse 62 01/14/18 09:57 Resp 20 01/14/18 08:48 BP 136/56 L 01/14/18 09:57 Pulse Ox 96 01/14/18 08:48 - Labs Result Diagrams: 01/15/18 09:29 01/15/18 09:29 Labs: Laboratory Results - last 24 hr 01/13/18 01/14/18 01/14/18 23:41 06:23 06:23 WBC 4.8 RBC 3.10 L Hgb 9.5 L D Hct 29.2 L MCV 94.2 H D MCH 30.7 MCHC 32.6 L RDW 18.8 H Plt Count 106 L D MPV 10.3 Sodium 141 Potassium 4.6 Chloride 95 L Carbon Dioxide 33 H Anion Gap 18 BUN 33 H Creatinine 6.3 H Est GFR ( Amer) 11 Est GFR (Non-Af Amer) 9 POC Glucose (mg/dL) 154 H Random Glucose 181 H Calcium 8.2 L 01/14/18 01/14/18 06:36 11:50 WBC RBC Hgb Hct MCV MCH MCHC RDW Plt Count MPV Sodium Potassium Chloride Carbon Dioxide Anion Gap BUN Creatinine Est GFR ( Amer) Est GFR (Non-Af Amer) POC Glucose (mg/dL) 174 H 248 H Random Glucose Calcium - Imaging and Cardiology X-RAY RIGHT FOOT Status: Report reviewed by me (SEE HIS REPORT) Assessment & Plan (1) Diabetic foot ulcers Assessment and Plan: -Xrays of the Right foot reviewed - No acute signs of OM, cellulitic changes noted, previously healed fractures noted at the 5th metatarsal level, fracture noted on the distal medial aspect of the proximal phalanx of the 2nd digit START iv VANCOMYCIN 1 G POST EACH HEMODIALYSIS MWF X TOTAL 6 DOSES.FIRST DOSE WAS GIVEN ON 01/13/18. MONITOR VANCO TROUGH LEVEL PRIOR TO THE THIRD DOSE AND KEEP BETWEEN 10 AND 20. PERIPHERAL VASCULAR DISEASE RECOMMENDATIONS PER VASCULAR SURGERY LOCAL WOUND CARE PER PODIATRY. Status: Acute (2) Cellulitis Assessment and Plan: PATIENT ON iv ANTIBIOTICS. Status: Acute (3) ESRD (end stage renal disease) on dialysis Assessment and Plan: LEFT av FISTULA IN PLACE. hEMODIALYSIS ON mwf PER RENAL Status: Acute (4) Diabetes Status: Chronic (5) Hypertension Status: Acute
[2018-01-14 16:35] LABS: ALB/GLOB RATIO 0.9 (1.0-2.1); ALBUMIN 3.9 g/dL (3.5-5.0); BILIRUBIN,DIRECT 1.1 mg/dL (0.0-0.4)
--- NOTE | 2018-01-14 17:58 | CP.PCM.CON ---
History of Present Illness - History of Present Illness History of Present Illness: SURGERY CONSULT NOTE FOR DR. LECHUGA 52M presents with bilateral lower extremity foot pain. Patient states he as been having neuropathic pains for a long time and states he came to the hospital because his friend told him he was having hyperpigmentation in his legs. He describes the pain as He admits in decrease in sensation, but motor function is still there. He does have ulceration in the left feet on the plantar surface, and he is not sure when that first began. PMH: COPD, CAD, ERSD, IDDM, HTN PSH: Cardiac stent, left cornea transplant, Left AVF Allergies: Insulin, Aspart, moxifloxacin, penicillins Past Patient History - Infectious Disease Hx of Infectious Diseases: None - Tetanus Immunizations Tetanus Immunization: Up to Date - Past Medical History & Family History Past Medical History?: Yes - Past Social History Smoking Status: Never Smoked - CARDIAC Hx Cardia Arrhythmia: No Hx Congestive Heart Failure: Yes Hx Hypercholesterolemia: Yes Hx Hypertension: Yes Hx Pacemaker: Yes Hx Peripheral Edema: Yes - PULMONARY Hx Asthma: Yes Hx Bronchitis: Yes Hx Emphysema: No Hx Pneumonia: Yes Hx Sleep Apnea: Yes (c pap 2) - NEUROLOGICAL Hx Transient Ischemic Attacks (TIA): Yes - HEENT Hx HEENT Problems: Yes (BILATERAL EYE WITH BLURRY VISION) Hx Cataracts: Yes (HAD SX 10/10/12) Other/Comment: left eye cornea transplant,RENAL RETINOPATHY, glasses - RENAL Date of Last Dialysis Treatment: 01/13/18 - ENDOCRINE/METABOLIC Hx Endocrine Disorders: Yes Hx Diabetes Mellitus Type 2: Yes Hx Hypothyroidism: Yes - HEMATOLOGICAL/ONCOLOGICAL Hx Anemia: Yes (With transfusions) - INTEGUMENTARY Hx Dermatological Problems: Yes (BILATERAL EDEMA TO UPPER AND LE,SKIN DRYNESS) - MUSCULOSKELETAL/RHEUMATOLOGICAL Hx Falls: Yes - GASTROINTESTINAL Hx Gall Bladder Disease: Yes (CHOLECYSTECTOMY) Hx Pancreatitis: Yes - GENITOURINARY/GYNECOLOGICAL Hx Genitourinary Disorders: Yes (esrd on HD MWF) - PSYCHIATRIC Hx Substance Use: No - SURGICAL HISTORY Hx Cholecystectomy: Yes (12/27/12) Hx Coronary Stent: Yes (x2 tuesday10/25/17) - ANESTHESIA Hx Anesthesia: Yes Hx Anesthesia Reactions: No Hx Malignant Hyperthermia: No Has any member of the family had a problem w/ anesthesia?: No Meds Allergies/Adverse Reactions: Allergies Allergy/AdvReac Type Severity Reaction Status Date / Time insulin aspart [From Novolog] Allergy Intermediate ITCHING Verified 01/11/18 09: 48 moxifloxacin Allergy Intermediate ITCHING Verified 01/11/18 09:48 Penicillins Allergy Intermediate ITCHING Verified 01/11/18 09:48 - Medications Medications: Current Medications Albuterol/Ipratropium (Duoneb 3 Mg/0.5 Mg (3 Ml) Ud) 3 ml IH RQ6 [facility] Last Admin: 01/14/18 13:44 Dose: 3 ml Aspirin (Ecotrin) 81 mg PO DAILY [facility] Last Admin: 01/14/18 09:58 Dose: 81 mg Calcium Acetate (Phoslo) 1,334 mg PO ACTID [facility] Last Admin: 01/14/18 17:16 Dose: 1,334 mg Ergocalciferol (Drisdol 50,000 Intl Units Cap) 1 cap PO QWK [facility] Gemfibrozil (Lopid) 600 mg PO BID [facility] Glipizide (Glucotrol) 5 mg PO BID [facility] Last Admin: 01/14/18 17:17 Dose: Not Given Heparin Sodium (Porcine) (Heparin) 5,000 units SC Q12 [facility] Last Admin: 01/14/18 09:59 Dose: Not Given Hydralazine HCl (Apresoline) 25 mg PO BID [facility] Last Admin: 01/14/18 17:09 Dose: 25 mg Insulin Human NPH (Novolin N) 60 unit SC DAILY [facility] Last Admin: 01/14/18 10:00 Dose: Not Given Insulin Human Regular (Novolin R) 0 unit SC ACHS [facility] PRN Reason: Protocol Last Admin: 01/14/18 17:13 Dose: 2 units Latanoprost (Xalatan Opht) 0 ml OU HS [facility] Levothyroxine Sodium (Synthroid) 25 mcg PO DAILY@0630 [facility] Last Admin: 01/14/18 06:13 Dose: 25 mcg Montelukast Sodium (Singulair) 10 mg PO HS [facility] Multivitamins/Minerals (Therapeutic-M Tab) 1 tab PO DAILY [facility] Last Admin: 01/14/18 09:58 Dose: 1 tab Gwhod-8-[id number] Ethyl Esters (Lovaza) 2 gm PO BID [facility] Last Admin: 01/14/18 17:20 Dose: 2 gm Oxycodone/Acetaminophen (Percocet 5/325 Mg Tab) 1 tab PO Q8H PRN PRN Reason: Pain, severe (8-10) Stop: 01/17/18 03:34 Last Admin: 01/14/18 12:14 Dose: 1 tab Pantoprazole Sodium (Protonix Ec Tab) 40 mg PO DAILY [facility] Last Admin: 01/14/18 09:58 Dose: 40 mg Pregabalin (Lyrica) 50 mg PO HS [facility] Rosuvastatin Calcium (Crestor) 20 mg PO HS [facility] Fluticasone/Salmeterol (Advair Diskus 250/50) 1 puff INH RQ12 [facility] Sevelamer Carbonate (Renvela) 1,600 mg PO TID [facility] Last Admin: 01/14/18 17:16 Dose: 1,600 mg Sodium Chloride ([place] Baby Saline 30 Ml) 0 ml VIRAL Q2H PRN PRN Reason: Nasal congestion Last Admin: 01/14/18 12:11 Dose: 2 spray Tamsulosin HCl (Flomax) 0.4 mg PO DAILY [facility] Last Admin: 01/14/18 09:58 Dose: 0.4 mg Ticagrelor (Brilinta) 90 mg PO BID [facility] Last Admin: 01/14/18 17:19 Dose: 90 mg Physical Exam - Constitutional Appears: Non-toxic, No Acute Distress - Respiratory Exam Respiratory Exam: Clear to Auscultation Bilateral, NORMAL BREATHING PATTERN - Cardiovascular Exam Cardiovascular Exam: REGULAR RHYTHM, +S1, +S2 - GI/Abdominal Exam GI & Abdominal Exam: Soft. absent: Distended, Firm, Guarding, Rebound, Rigid, Tenderness - Extremities Exam Additional comments: left arm AVF with palpable thrill Left lower extremity: ulceration on the plantar aspect of first metatarsal head , erythematous changes around the ulcer and extending up the leg bilaterally. Palpable pulses on left DP/PT. Palpable right DP/PT slightly weak. Dopplerable signals DP/PT bilaterally Tenderness to palpation bilaterally from mid lower leg to distal - Neurological Exam Neurological exam: Alert, Oriented x3 - Psychiatric Exam Psychiatric exam: Normal Affect, Normal Mood - Skin Skin Exam: Dry, Intact, Normal Color, Warm Results - Vital Signs Recent Vital Signs: Last Vital Signs Temp 98.5 F 01/14/18 16:40 Pulse 64 01/14/18 16:40 Resp 20 01/14/18 16:40 BP 127/46 L 01/14/18 16:40 Pulse Ox 97 01/14/18 16:40 - Labs Result Diagrams: 01/14/18 06:23 01/14/18 06:23 Labs: Laboratory Results - last 24 hr 01/13/18 01/14/18 01/14/18 23:41 06:23 06:23 WBC 4.8 RBC 3.10 L Hgb 9.5 L D Hct 29.2 L MCV 94.2 H D MCH 30.7 MCHC 32.6 L RDW 18.8 H Plt Count 106 L D MPV 10.3 Sodium 141 Potassium 4.6 Chloride 95 L Carbon Dioxide 33 H Anion Gap 18 BUN 33 H Creatinine 6.3 H Est GFR ( Amer) 11 Est GFR (Non-Af Amer) 9 POC Glucose (mg/dL) 154 H Random Glucose 181 H Calcium 8.2 L Total Bilirubin Direct Bilirubin AST ALT Alkaline Phosphatase C-Reactive Protein Total Protein Albumin Globulin Albumin/Globulin Ratio 01/14/18 01/14/18 01/14/18 06:36 11:50 16:12 WBC RBC Hgb Hct MCV MCH MCHC RDW Plt Count MPV Sodium Potassium Chloride Carbon Dioxide Anion Gap BUN Creatinine Est GFR ( Amer) Est GFR (Non-Af Amer) POC Glucose (mg/dL) 174 H 248 H 249 H Random Glucose Calcium Total Bilirubin Direct Bilirubin AST ALT Alkaline Phosphatase C-Reactive Protein Total Protein Albumin Globulin Albumin/Globulin Ratio 01/14/18 16:23 WBC RBC Hgb Hct MCV MCH MCHC RDW Plt Count MPV Sodium Potassium Chloride Carbon Dioxide Anion Gap BUN Creatinine Est GFR ( Amer) Est GFR (Non-Af Amer) POC Glucose (mg/dL) Random Glucose Calcium Total Bilirubin 1.2 Direct Bilirubin 1.1 H AST 101 H ALT 50 Alkaline Phosphatase 77 C-Reactive Protein 74.10 H Total Protein 8.3 Albumin 3.9 Globulin 4.4 H Albumin/Globulin Ratio 0.9 L Assessment & Plan - Assessment and Plan (Free Text) Assessment: 52M with infected diabetic foot ulcers Plan: - consider CTA of lower extremities to fully evaluate vasculature Further recs discuss with Dr. Ellen Conley, PGY2
[2018-01-15] MEDS: Latanoprost 2.5 ml Opht Soln OU SCH ×2 (00:06→21:33)
[2018-01-15] MEDS: Albuterol-Ipratrop 3 mg / 0.5 (3 ml) UD IH SCH ×4 (01:23→19:37)
[2018-01-15] MEDS: Oxycodone/Acetaminophen 5/325 mg Tab PO PRN ×3 (06:09→21:34)
[2018-01-15] MEDS: Levothyroxine 25 MCG TAB PO SCH (06:27)
[2018-01-15] MEDS: (Novolin R) Insulin Human Regular 100 units/ml vial SC SCH ×4 (08:13→22:02)
[2018-01-15] MEDS: Pantoprazole 40 mg EC Tab PO SCH (09:46)
[2018-01-15 09:47] LABS: HEMOGLOBIN 9.6 g/dL (12.0-18.0); MEAN CELL VOLUME 94.7 fL (80.0-94.0); MEAN CORPUSCULAR HEMOGLOBIN 30.6 pg (27.0-31.0); MEAN CORPUSCULAR HGB CONC 32.3 g/dL (33.0-37.0); MEAN PLATELET VOLUME 11.2 fL (7.2-11.7); RBC 3.12 Mil/uL (4.40-5.90); RED CELL DISTRIBUTION WIDTH 18.5 % (11.5-14.5); WHITE BLOOD COUNT 7.2 K/uL (4.8-10.8)
[2018-01-15] MEDS: Multivitamin With Minerals Tab PO SCH (09:54)
[2018-01-15] MEDS: Omega-3-Acid Ethyl Esters 1 GM Cap PO SCH ×2 (09:55→17:22)
[2018-01-15 10:42] LABS: CALCIUM 8.6 mg/dl (8.6-10.4)
[2018-01-15] MEDS: (Novolin N) Insulin Human Isophane (NPH) 100 u/ml 10 ml vial SC SCH (11:37)
--- NOTE | 2018-01-15 14:20 | CP.PCM.PN ---
Subjective - Date & Time of Evaluation Date of Evaluation: 01/15/18 Time of Evaluation: 14:17 - Subjective Subjective: Podiatry Progress note: Dr. Colon 52 year old male was seen and evaluated at bedside for ischemic digits on the right foot and healing ulceration of left foot. Patient appears to be resting comfortably, AAOx3 and in NAD. Denies of having acute overnight events. Denies F /N/V/C/SOB/CP/headache. Denies any other pedal complains at this time. Objective - Vital Signs/Intake and Output Vital Signs (last 24 hours): Temp Pulse Resp BP Pulse Ox 97.7 F 68 20 156/68 H 100 01/15/18 07:00 01/15/18 07:00 01/15/18 07:00 01/15/18 07:00 01/15/18 07:00 - Medications Medications: Current Medications Albuterol/Ipratropium (Duoneb 3 Mg/0.5 Mg (3 Ml) Ud) 3 ml IH RQ6 [facility] Last Admin: 01/15/18 13:19 Dose: 3 ml Aspirin (Ecotrin) 81 mg PO DAILY [facility] Last Admin: 01/15/18 09:47 Dose: 81 mg Calcium Acetate (Phoslo) 1,334 mg PO ACTID [facility] Last Admin: 01/15/18 13:58 Dose: 1,334 mg Ergocalciferol (Drisdol 50,000 Intl Units Cap) 1 cap PO QWK [facility] Glipizide (Glucotrol) 5 mg PO BID ON [facility] Last Admin: 01/15/18 09:47 Dose: 5 mg Heparin Sodium (Porcine) (Heparin) 5,000 units SC Q12 [facility] Last Admin: 01/15/18 10:00 Dose: Not Given Hydralazine HCl (Apresoline) 25 mg PO BID [facility] Last Admin: 01/15/18 09:55 Dose: 25 mg Insulin Human NPH (Novolin N) 60 unit SC DAILY [facility] Last Admin: 01/15/18 11:37 Dose: 60 units Insulin Human Regular (Novolin R) 0 unit SC ACHS [facility] PRN Reason: Protocol Last Admin: 01/15/18 11:37 Dose: 6 units Latanoprost (Xalatan Opht) 0 ml OU HS [facility] Last Admin: 01/15/18 00:06 Dose: 1 ml Levothyroxine Sodium (Synthroid) 25 mcg PO DAILY@0630 [facility] Last Admin: 01/15/18 06:27 Dose: 25 mcg Montelukast Sodium (Singulair) 10 mg PO HS [facility] Last Admin: 01/14/18 22:06 Dose: 10 mg Multivitamins/Minerals (Therapeutic-M Tab) 1 tab PO DAILY [facility] Last Admin: 01/15/18 09:54 Dose: 1 tab Cyhmc-2-Wvmp Ethyl Esters (Lovaza) 2 gm PO BID [facility] Last Admin: 01/15/18 09:55 Dose: 2 gm Oxycodone/Acetaminophen (Percocet 5/325 Mg Tab) 1 tab PO Q8H PRN PRN Reason: Pain, severe (8-10) Stop: 01/17/18 03:34 Last Admin: 01/15/18 13:52 Dose: 1 tab Pantoprazole Sodium (Protonix Ec Tab) 40 mg PO DAILY [facility] Last Admin: 01/15/18 09:46 Dose: 40 mg Pregabalin (Lyrica) 50 mg PO HS [facility] Last Admin: 01/14/18 22:06 Dose: 50 mg Rosuvastatin Calcium (Crestor) 5 mg PO HS [facility] Fluticasone/Salmeterol (Advair Diskus 250/50) 1 puff INH RQ12 [facility] Sevelamer Carbonate (Renvela) 1,600 mg PO TID ON [facility] Last Admin: 01/15/18 09:45 Dose: 1,600 mg Sodium Chloride ([place] Baby Saline 30 Ml) 0 ml VIRAL Q2H PRN PRN Reason: Nasal congestion Last Admin: 01/14/18 12:11 Dose: 2 spray Tamsulosin HCl (Flomax) 0.4 mg PO DAILY [facility] Last Admin: 01/15/18 09:54 Dose: 0.4 mg Ticagrelor (Brilinta) 90 mg PO BID [facility] Last Admin: 01/15/18 09:54 Dose: 90 mg - Labs Labs: 01/15/18 09:29 01/15/18 09:29 - Constitutional Appears: Well, Non-toxic, No Acute Distress - Extremities Exam Additional comments: Lower extremity focused exam: Vasc: DP/PT pulses are faintly palpable 1/4. Cap refill time: < 3 sec to all digits; Temp gradient: warm to cool with patches of warmth from proximal to distal, mild non-pitting edema noted on the right LE Derm: hyperpigmentation changes to the RLE digit 1 and 3 on the dorsal and plantar aspect, no active drainage, erythema extending proximally from the foot up to the leg, ulceration roofed with hyperkeratotic skin measuring approx 0.6cm x 0.6cm x 0.1cm noted to level of plantar first metatarsal head. No malodor, no saba-wound erythema, no fluctuance, no drainage, no tunneling, no probe to bone or undermining. No sinus tract formation in any direction. No other clinic signs of infection. L Neuro: Epicritic and protective sensation grossly absent b/l Ortho: No tenderness to palpation of left foot sub met 1 ulceration or right heel fissure. No other gross deformities noted - Neurological Exam Neurological Exam: Alert, Awake, Oriented x3 - Psychiatric Exam Psychiatric exam: Normal Affect, Normal Mood Assessment and Plan - Assessment and Plan (Free Text) Assessment: 52 year old male was seen and evaluated for necrotic changes to hallux and 3rd digit on the right foot and pressure induced ulceration of left foot. Plan: Patient seen and evaluated at bedside Discussed plan with attending Dr. Colon Labs, vitals and charts reviewed - afebrile, absent leukocytosis Right foot dressed with betadine, DSD, no dressing on the left - Will debride the left wound tomorrow and take cultures X-rays of the Right foot reviewed - No acute signs of OM, cellulitic changes noted, previously healed fractures noted at the 5th metatarsal level, fracture noted on the distal medial aspect of the proximal phalanx of the 2nd digit MARY/PVR ordered - pending Vascular Consult - recs appreciated Continue IV abx as per ID Podiatry will follow vascular recs prior to considering surgical intervention Continue local wound care Will monitor patient closely while on floor
--- NOTE | 2018-01-15 23:57 | CP.PCM.PN ---
Subjective - Date & Time of Evaluation Date of Evaluation: 01/15/18 Time of Evaluation: 23:57 - Subjective Subjective: CHIEF COMPLAINTS TODAY : afebrile. AAO No new complaints ROS. HEENT : N. Resp : No cough, wheezing ,pleuritic CP ,or hemoptysis Cardio : No anginal CP, PND, orthopnea, palpitation GI : No abd.pain, n/v ,diarrhea or GI bleeding . 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 Musculoskel : No joint swelling , Derm : No rash Psych : Normal affect. Ext : No swelling ,calf pain PE. Pt. is alert awake in no distress. V.S As noted in the chart Head ,ear nose,throat and eyes : Normal. Neck : Supple with normal carotids. Lungs: Clear air entry. Heart : S1 & S2 normal with S4. No murmur. Abd : Soft non tender with normal bowel sounds. Neuro : Moves all ext. with no localized deficit. Ext : BILATERAL LOWER EXTREMITY CELLULITIS. ULCER LEFT PLANTAR ASPECT 1st METATARSAL-DRY NO DRAINAGE. RIGHT LOWER EXTREMITY 1st AND 3rd DIGIT DISCOLORATION AND HYPERPIGMENTATION- WITH NO ACTIVE DRAINAGE, RT. LE CELLULITIS AND ERYTHEMA EXTENDING FROM THE FOOT UP TO THE MID LEG. NO CALF TENDERNESS Derm : No rashes LABS/RADIOLOGY: REVIEWED ESR 100. CRP 74.35 HIGH BLOOD CULTURES 2:2 SET -VE X 24HRS. : Objective - Vital Signs/Intake and Output Vital Signs (last 24 hours): Temp Pulse Resp BP Pulse Ox 98.1 F 68 20 159/61 H 99 01/15/18 15:50 01/15/18 15:50 01/15/18 15:50 01/15/18 15:50 01/15/18 15:50 - Medications Medications: Current Medications Albuterol/Ipratropium (Duoneb 3 Mg/0.5 Mg (3 Ml) Ud) 3 ml IH RQ6 [facility] Last Admin: 01/15/18 19:37 Dose: 3 ml Aspirin (Ecotrin) 81 mg PO DAILY [facility] Last Admin: 01/15/18 09:47 Dose: 81 mg Calcium Acetate (Phoslo) 1,334 mg PO ACTID [facility] Last Admin: 01/15/18 16:05 Dose: 1,334 mg Ergocalciferol (Drisdol 50,000 Intl Units Cap) 1 cap PO QWK [facility] Glipizide (Glucotrol) 5 mg PO BID [facility] Last Admin: 01/15/18 17:22 Dose: 5 mg Heparin Sodium (Porcine) (Heparin) 5,000 units SC Q12 [facility] Last Admin: 01/15/18 21:35 Dose: Not Given Hydralazine HCl (Apresoline) 25 mg PO BID [facility] Last Admin: 01/15/18 17:22 Dose: 25 mg Insulin Human NPH (Novolin N) 60 unit SC DAILY [facility] Last Admin: 01/15/18 11:37 Dose: 60 units Insulin Human Regular (Novolin R) 0 unit SC ACHS [facility] PRN Reason: Protocol Last Admin: 01/15/18 22:02 Dose: Not Given Latanoprost (Xalatan Opht) 0 ml OU HS [facility] Last Admin: 01/15/18 21:33 Dose: 2.5 ml Levothyroxine Sodium (Synthroid) 25 mcg PO DAILY@0630 [facility] Last Admin: 01/15/18 06:27 Dose: 25 mcg Montelukast Sodium (Singulair) 10 mg PO HS [facility] Last Admin: 01/15/18 21:33 Dose: 10 mg Multivitamins/Minerals (Therapeutic-M Tab) 1 tab PO DAILY [facility] Last Admin: 01/15/18 09:54 Dose: 1 tab Eqdvn-7-Flew Ethyl Esters (Lovaza) 2 gm PO BID [facility] Last Admin: 01/15/18 17:22 Dose: 2 gm Oxycodone/Acetaminophen (Percocet 5/325 Mg Tab) 1 tab PO Q8H PRN PRN Reason: Pain, severe (8-10) Stop: 01/17/18 03:34 Last Admin: 01/15/18 21:34 Dose: 1 tab Pantoprazole Sodium (Protonix Ec Tab) 40 mg PO DAILY [facility] Last Admin: 01/15/18 09:46 Dose: 40 mg Pregabalin (Lyrica) 50 mg PO HS [facility] Last Admin: 01/15/18 21:33 Dose: 50 mg Rosuvastatin Calcium (Crestor) 5 mg PO HS [facility] Last Admin: 01/15/18 21:33 Dose: 5 mg Fluticasone/Salmeterol (Advair Diskus 250/50) 1 puff INH RQ12 [facility] Sevelamer Carbonate (Renvela) 1,600 mg PO TID [facility] Last Admin: 01/15/18 17:22 Dose: 1,600 mg Sodium Chloride ([place] Baby Saline 30 Ml) 0 ml VIRAL Q2H PRN PRN Reason: Nasal congestion Last Admin: 01/14/18 12:11 Dose: 2 spray Tamsulosin HCl (Flomax) 0.4 mg PO DAILY [facility] Last Admin: 01/15/18 09:54 Dose: 0.4 mg Ticagrelor (Brilinta) 90 mg PO BID [facility] Last Admin: 01/15/18 17:22 Dose: 90 mg - Labs Labs: 01/15/18 09:29 01/15/18 09:29 Assessment and Plan (1) Diabetic foot ulcers Assessment & Plan: CONTINUE iv VANCOMYCIN 1 G POST EACH HEMODIALYSIS MWF X TOTAL 6 DOSES.FIRST DOSE WAS GIVEN ON 01/13/18. MONITOR VANCO TROUGH LEVEL PRIOR TO THE THIRD DOSE AND KEEP BETWEEN 10 AND 20. PERIPHERAL VASCULAR DISEASE RECOMMENDATIONS PER VASCULAR SURGERY. LOCAL WOUND CARE PER PODIATRY. Status: Acute (2) Cellulitis Assessment & Plan: PATIENT ON iv VANCOMYCIN. sINCE 01/13/18. Status: Acute (3) ESRD (end stage renal disease) on dialysis Assessment & Plan: LEFT av FISTULA IN PLACE. HEMODIALYSIS ON MWF PER RENAL Status: Acute (4) Diabetes Status: Chronic (5) Hypertension Status: Acute
[2018-01-16] MEDS: Albuterol-Ipratrop 3 mg / 0.5 (3 ml) UD IH SCH ×4 (02:25→20:10)
[2018-01-16] MEDS: Levothyroxine 25 MCG TAB PO SCH (06:10)
[2018-01-16] MEDS ORDERED: Dextrose 50% SYRINGE Inj (50 ml) ONE (06:58)
[2018-01-16] MEDS ORDERED: Dextrose 50% SYRINGE Inj (50 ml) IV STA (07:00)
--- NOTE | 2018-01-16 07:45 | CON ---
DATE: 01/15/2018 ENDOCRINOLOGY CONSULTATION Coverage for Dr. Gracie Waters. LOCATION: Room 668. HISTORY OF PRESENT ILLNESS: This is a 52-year-old male with known history of type 1 insulin-dependent diabetes, presenting here with lower extremity cellulitis and underlying neuropathic foot ulcerations with possible gangrene and is now being referred for diabetic evaluation because of extremes of glycemic fluctuations as noted thereof. PAST MEDICAL HISTORY: History of type 1 insulin-dependent diabetes, currently on high-dose insulin therapy with NPH given as 90 units subcutaneous b.i.d. with regular insulin only at 2 units b.i.d. with Glucotrol 10 mg once daily as noted. History of hypertension and dyslipidemia. History of diabetic retinopathy, polyneuropathy, and nephropathy with end-stage renal disease and dialysis dependence. History of coronary artery disease with prior coronary stent placement as noted. History of chronic obstructive lung disease. He also had a previous left corneal transplant as noted. History of peripheral arterial disease and vasculopathy with lower extremity neuropathic ulcerations as noted. FAMILY HISTORY: Positive for diabetes and hypertension. SOCIAL HISTORY: The patient has a supportive family. No known substance use. He lives with his mother at home. REVIEW OF SYSTEMS: Admits to generalized body weakness with easy fatigability and tiredness and suboptimal energy level. Also admits to episodic bouts of dizziness and lightheadedness with visual blurring. No chest pain or palpitations or PNDs. His oral intake is variable with nausea, dyspepsia, and vague upper abdominal pain. Also admits to lower extremity painful paresthesias, especially nocturnally. PHYSICAL EXAMINATION: GENERAL: This is an average-built male, in no apparent distress. VITAL SIGNS: Blood pressure of 150/90, pulse of 100 beats per minute and regular, temperature 98, respirations 20, height is 5 feet 6 inches, weight is 206 pounds. HEENT: Head is normocephalic. Eyes are anicteric with pink conjunctivae. Funduscopy not possible at this time. Ears, nose, and throat otherwise normal. NECK: Supple. Thyroid gland is normal size. No carotid bruits or any cervical adenopathy. CARDIOPULMONARY: Some adynamic precordium. S1 and S2 are rapid and regular. LUNGS: Clear to auscultation. ABDOMEN: Flat, soft with positive bowel sounds. EXTREMITIES: There is hyperpigmentation in both distal lower extremities with a healing ulceration on the plantar aspect of the left foot and discolored in the right foot and possible gangrene as noted. LABORATORY DATA: His chemistries showed a BUN of 54, sodium 137, potassium 5, chloride 91, CO2 of 30, glucose 276, and creatinine 8.7. His glucose levels have ranged today from 78 to 312 and 400 mg/dL. ASSESSMENT: This is a 52-year-old male with uncontrolled and decompensated type 1 insulin-dependent diabetes, presenting here with nonhealing neuropathic ulcerations with possible gangrene and concomitant cellulitis with severe underlying peripheral arterial disease and vasculopathy. He also has diabetic microvascular complications of retinopathy, polyneuropathy, and nephropathy with end-stage renal disease and dialysis dependence. Moreover, he also has diabetic macrovascular complications of coronary artery disease and peripheral arterial disease and vasculopathy. PLAN OF MANAGEMENT: I have discussed with the patient lengthily at bedside. We will continue the current basal insulin, which is really much lower dose than his whole insulin regimen with NPH given at 60 units once daily in the morning as ordered. However, if prandial or mealtime glucose acceleration persist, then may decide to add Humalog or NovoLog given 3 times a day as indicated. We will modify his coverage scale to obviate hypoglycemia and detailed orders have been given. We will obtain a hemoglobin A1c to confirm his prior poor glycemic control and baseline thyroid function studies and lipid panel with a PTH level will be ordered accordingly. We will follow. Em Yost MD
--- NOTE | 2018-01-16 07:49 | HP ---
The patient is a 52-year-old male. CHIEF COMPLAINT: DRESSing in the right nostril, cellulitis of the leg HISTORY OF PRESENT ILLNESS: A 52-year-old likely a private patient was admitted in [facility] Emergency Room but because of dialysis problem, the patient was transferred to [facility]. Has cellulitis of the legs and has packing in the right nostril. admitted in [facility] on 01/11/2018, but left against medical advice. Denies fever or chills. Was admitted to [facility] for cellulitis of the legs. Has right nasal packing. Both legs are red and warm, especially right one streaking up. No fever. No chills. No headaches or dizziness. PAST MEDICAL HISTORY: Anemia, with transfusion, anxiety, arthritis, asthma, benign prostatic hyperplasia, bronchitis, congestive heart failure, colonic polyps, COPD, diabetes mellitus, cholecystectomy, hypertension, hypercholesterolemia, hyperlipidemia, kidney stones, pancreatitis, peripheral edema, pneumonia, chronic kidney disease, sleep apnea, cardiac arrhythmia, depression, emphysema. HABITS: Never smoking. No drugs. No ethanol. FAMILY HISTORY: Father and brother have kidney failure, on dialysis. REVIEW OF SYSTEMS: The patient was seen and examined in the emergency room. Having a packing in the right nostril. According to him, it is still hurting. He is feeling pressure in the nostril. Legs are red and warm, especially the right one. No weakness or numbness. No fevers. No chills. No hematuria or hematochezia. PHYSICAL EXAMINATION: VITAL SIGNS: Temperature 98.5, pulse 64, blood pressure 127/46, respiratory rate 20. HEENT: Head is normocephalic and atraumatic. Eyes: PERRLA. Extraocular movements intact. Conjunctivae clear. Nose patent. Mucous membranes moist. NECK: Supple. No carotid bruits, JVD, or thyromegaly. CHEST: Bilaterally symmetrical. HEART: S1 and S2 are positive. LUNGS: Clear to auscultation. ABDOMEN: Soft. Bowel sounds present. No organomegaly. EXTREMITIES: No edema. No cyanosis. NEUROLOGIC: Alert and awake x3. Follows simple commands. LABORATORY DATA: White blood cells 4.8, hemoglobin 9.5, hematocrit 29.2, platelets 106. Sodium 141, potassium 4.6, BUN 30, creatinine 6.3, glucose 174. ASSESSMENT AND PLAN: The patient is a 52-year-old male with hypochloremia, renal insufficiency, hyperglycemia, hypocalcemia, abnormal liver function tests, and anemia. Seen by Dr. Israel Perez of Infectious Disease. 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 Gastrointestinal and deep venous thrombosis prophylaxis. Repeat labs. Infectious Disease is on the case. Podiatry is on the case. Call ENT consult. Waiting for the input. We will follow up. Nel Montalvo MD MTDD
[2018-01-16] MEDS ORDERED: Iodixanol 320 mg/ml 150 ml Bottle IV ONE (08:15)
[2018-01-16] MEDS: (Novolin R) Insulin Human Regular 100 units/ml vial SC SCH ×6 (08:30→17:38)
[2018-01-16] MEDS: Multivitamin With Minerals Tab PO SCH (10:50)
[2018-01-16] MEDS: Pantoprazole 40 mg EC Tab PO SCH (10:50)
[2018-01-16] MEDS: Omega-3-Acid Ethyl Esters 1 GM Cap PO SCH ×2 (10:55→18:32)
--- NOTE | 2018-01-16 11:23 | CP.PCM.PN ---
<Patria Mujica - Last Filed: 01/16/18 11:20> Subjective - Date & Time of Evaluation Date of Evaluation: 01/16/18 Time of Evaluation: 10:20 - Subjective Subjective: Podiatry Progress note: Dr. Colon 52 year old male was seen and evaluated at bedside for ischemic hallux and 3rd digit on the right foot and unstageable ulceration to left foot. Patient appears to be resting comfortably, AAOx3 and in NAD. Patient complains of pain to right foot secondary to ischemia. Denies N/V/F/C or SOB today. Denies any other pedal complains at this time. Objective - Vital Signs/Intake and Output Vital Signs (last 24 hours): Temp Pulse Resp BP Pulse Ox 97.2 F L 61 20 109/49 L 97 01/16/18 08:29 01/16/18 08:29 01/16/18 08:29 01/16/18 08:29 01/16/18 08:29 Intake and Output: 01/16/18 01/16/18 06:59 18:59 Intake Total 480 Balance 480 - Medications Medications: Current Medications Albuterol/Ipratropium (Duoneb 3 Mg/0.5 Mg (3 Ml) Ud) 3 ml IH RQ6 [facility] Last Admin: 01/16/18 08:19 Dose: 3 ml Aspirin (Ecotrin) 81 mg PO DAILY [facility] Last Admin: 01/15/18 09:47 Dose: 81 mg Calcium Acetate (Phoslo) 1,334 mg PO ACTID [facility] Last Admin: 01/16/18 08:40 Dose: 1,334 mg Ergocalciferol (Drisdol 50,000 Intl Units Cap) 1 cap PO QWK [facility] Glipizide (Glucotrol) 10 mg PO ACBD [facility] Last Admin: 01/16/18 08:30 Dose: Not Given Heparin Sodium (Porcine) (Heparin) 5,000 units SC Q12 [facility] Last Admin: 01/15/18 21:35 Dose: Not Given Hydralazine HCl (Apresoline) 25 mg PO BID [facility] Last Admin: 01/15/18 17:22 Dose: 25 mg Insulin Human NPH (Novolin N) 50 unit SC DAILY [facility] Insulin Human Regular (Novolin R) 8 unit SC AC [facility] Last Admin: 01/16/18 08:30 Dose: Not Given Insulin Human Regular (Novolin R) 0 unit SC ACHS [facility] Last Admin: 01/16/18 08:30 Dose: Not Given Latanoprost (Xalatan Opht) 0 ml OU HS [facility] Last Admin: 01/15/18 21:33 Dose: 2.5 ml Levothyroxine Sodium (Synthroid) 25 mcg PO DAILY@0630 [facility] Last Admin: 01/16/18 06:10 Dose: 25 mcg Montelukast Sodium (Singulair) 10 mg PO HS [facility] Last Admin: 01/15/18 21:33 Dose: 10 mg Multivitamins/Minerals (Therapeutic-M Tab) 1 tab PO DAILY [facility] Last Admin: 01/15/18 09:54 Dose: 1 tab [id number] Ethyl Esters (Lovaza) 2 gm PO BID [facility] Last Admin: 01/15/18 17:22 Dose: 2 gm Oxycodone/Acetaminophen (Percocet 5/325 Mg Tab) 1 tab PO Q8H PRN PRN Reason: Pain, severe (8-10) Stop: 01/17/18 03:34 Last Admin: 01/15/18 21:34 Dose: 1 tab Pantoprazole Sodium (Protonix Ec Tab) 40 mg PO DAILY [facility] Last Admin: 01/15/18 09:46 Dose: 40 mg Pregabalin (Lyrica) 50 mg PO HS [facility] Last Admin: 01/15/18 21:33 Dose: 50 mg Rosuvastatin Calcium (Crestor) 5 mg PO HS [facility] Last Admin: 01/15/18 21:33 Dose: 5 mg Fluticasone/Salmeterol (Advair Diskus 250/50) 1 puff INH RQ12 [facility] Sevelamer Carbonate (Renvela) 1,600 mg PO TID [facility] Last Admin: 01/15/18 17:22 Dose: 1,600 mg Sodium Chloride ([place] Baby Saline 30 Ml) 0 ml VIRAL Q2H PRN PRN Reason: Nasal congestion Last Admin: 01/14/18 12:11 Dose: 2 spray Tamsulosin HCl (Flomax) 0.4 mg PO DAILY [facility] Last Admin: 01/15/18 09:54 Dose: 0.4 mg Ticagrelor (Brilinta) 90 mg PO BID [facility] Last Admin: 01/15/18 17:22 Dose: 90 mg - Labs Labs: 01/15/18 09:29 06/17/18 09:29 - Constitutional Appears: Well, Non-toxic, No Acute Distress - Head Exam Head Exam: ATRAUMATIC - Extremities Exam Additional comments: Lower extremity focused exam: Derm: Right lower extremity: Gangrenous change to RLE digit 1 and 3, no active drainage, Erythema appears to be resolving with marked reduction in area. Mild mal odor present, no PTB, No purulent drainage noted. Left lower extremity: Open wound noted to plantar aspect of 1st meatatarsal head. No malodor, no saba- wound erythema, no fluctuance, no drainage, no tunneling, no probe to bone or undermining. No sinus tract formation in any direction. No other clinic signs of infection. L Vasc: DP/PT pulses are faintly palpable 1/4. Cap refill time: < 3 sec to all digits; Temp gradient: warm to cool with patches of warmth from proximal to distal, mild non-pitting edema noted on the right LE Neuro: Epicritic and protective sensation grossly absent b/l Ortho: No tenderness to palpation of left foot sub met 1 ulceration or right heel fissure. No other gross deformities noted - Neurological Exam Neurological Exam: Alert, Awake, Oriented x3 - Psychiatric Exam Psychiatric exam: Normal Affect, Normal Mood - Skin Skin Exam: Normal Color, Warm Assessment and Plan - Assessment and Plan (Free Text) Assessment: 52 year old male was seen and evaluated for right foot necrotic hallux and 3rd digit and open ulceration to left foot. Plan: Patient seen and evaluated at bedside Discussed plan with attending Dr. Colon Labs, vitals and charts reviewed - afebrile, absent leukocytosis Right foot dressed with betadine, DSD, Left foot hyperkaratotic lesion debrided with #15 blade, revealing superficial ulceration. Left foot wound culture taken X-rays of the Right foot reviewed - No acute signs of OM, cellulitic changes noted, previously healed fractures noted at the 5th metatarsal level, fracture noted on the distal medial aspect of the proximal phalanx of the 2nd digit MARY/PVR ordered - pending Vascular Consult - recs appreciated Continue IV abx as per ID Podiatry will follow vascular recs prior to considering surgical intervention Continue local wound care Will monitor patient closely while on floor <Ollie Colon - Last Filed: 01/17/18 22:13> Subjective - Subjective Subjective: pt was seen at bedside with resident and condition of foot was discussed in detail as was need for vascular testing and determination by Dr Hughes if vascular intervention would be needed ./Dr Cloon . Objective - Vital Signs/Intake and Output Vital Signs (last 24 hours): Temp Pulse Resp BP Pulse Ox 98 F 74 16 116/76 98 01/16/18 18:00 01/16/18 18:00 01/16/18 18:00 01/16/18 18:00 01/16/18 18:00 - Labs Labs: 01/16/18 15:40 01/16/18 15:20
--- NOTE | 2018-01-16 13:54 | CP.PCM.PN ---
Subjective - Date & Time of Evaluation Date of Evaluation: 01/16/18 Time of Evaluation: 13:48 - Subjective Subjective: Surgery Pt seen and examined with Dr. Hughes. CTA reviewed with attending. No vascular disease seen. Denies fever, nausea, diarrhea. Pain controlled. Objective - Vital Signs/Intake and Output Vital Signs (last 24 hours): Temp Pulse Resp BP Pulse Ox 97.2 F L 61 20 109/49 L 97 01/16/18 08:29 01/16/18 08:29 01/16/18 08:29 01/16/18 08:29 01/16/18 08:29 Intake and Output: 01/16/18 01/16/18 06:59 18:59 Intake Total 480 Balance 480 - Medications Medications: Current Medications Albuterol/Ipratropium (Duoneb 3 Mg/0.5 Mg (3 Ml) Ud) 3 ml IH RQ6 [facility] Last Admin: 01/16/18 13:23 Dose: 3 ml Aspirin (Ecotrin) 81 mg PO DAILY [facility] Last Admin: 01/16/18 10:50 Dose: Not Given Calcium Acetate (Phoslo) 1,334 mg PO ACTID [facility] Last Admin: 01/16/18 11:37 Dose: 1,334 mg Ergocalciferol (Drisdol 50,000 Intl Units Cap) 1 cap PO QWK [facility] Glipizide (Glucotrol) 10 mg PO ACBD [facility] Last Admin: 01/16/18 08:30 Dose: Not Given Heparin Sodium (Porcine) (Heparin) 5,000 units SC Q12 [facility] Last Admin: 01/16/18 10:52 Dose: Not Given Hydralazine HCl (Apresoline) 25 mg PO BID [facility] Last Admin: 01/16/18 10:50 Dose: Not Given Insulin Human NPH (Novolin N) 50 unit SC DAILY [facility] Insulin Human Regular (Novolin R) 8 unit SC AC [facility] Last Admin: 01/16/18 12:30 Dose: Not Given Insulin Human Regular (Novolin R) 0 unit SC ACHS [facility] Last Admin: 01/16/18 12:30 Dose: Not Given Latanoprost (Xalatan Opht) 0 ml OU HS [facility] Last Admin: 01/15/18 21:33 Dose: 2.5 ml Levothyroxine Sodium (Synthroid) 25 mcg PO DAILY@0630 [facility] Last Admin: 01/16/18 06:10 Dose: 25 mcg Montelukast Sodium (Singulair) 10 mg PO HS [facility] Last Admin: 01/15/18 21:33 Dose: 10 mg Multivitamins/Minerals (Therapeutic-M Tab) 1 tab PO DAILY [facility] Last Admin: 01/16/18 10:50 Dose: 1 tab Hopjj-1-Exwd Ethyl Esters (Lovaza) 2 gm PO BID [facility] Last Admin: 01/16/18 10:55 Dose: 1 gm Oxycodone/Acetaminophen (Percocet 5/325 Mg Tab) 1 tab PO Q8H PRN PRN Reason: Pain, severe (8-10) Stop: 01/17/18 03:34 Last Admin: 01/15/18 21:34 Dose: 1 tab Pantoprazole Sodium (Protonix Ec Tab) 40 mg PO DAILY [facility] Last Admin: 01/16/18 10:50 Dose: 40 mg Pregabalin (Lyrica) 50 mg PO HS [facility] Last Admin: 01/15/18 21:33 Dose: 50 mg Rosuvastatin Calcium (Crestor) 5 mg PO HS [facility] Last Admin: 01/15/18 21:33 Dose: 5 mg Fluticasone/Salmeterol (Advair Diskus 250/50) 1 puff INH RQ12 [facility] Sevelamer Carbonate (Renvela) 1,600 mg PO TID [facility] Last Admin: 01/16/18 10:50 Dose: 1,600 mg Sodium Chloride ([place] Baby Saline 30 Ml) 0 ml VIRAL Q2H PRN PRN Reason: Nasal congestion Last Admin: 01/14/18 12:11 Dose: 2 spray Tamsulosin HCl (Flomax) 0.4 mg PO DAILY [facility] Last Admin: 01/16/18 10:50 Dose: 0.4 mg Ticagrelor (Brilinta) 90 mg PO BID [facility] Last Admin: 01/16/18 10:50 Dose: Not Given - Labs Labs: 01/15/18 09:29 01/15/18 09:29 - Constitutional Appears: No Acute Distress - Head Exam Head Exam: ATRAUMATIC, NORMAL INSPECTION, NORMOCEPHALIC - Eye Exam Eye Exam: EOMI, Normal appearance, PERRL Pupil Exam: NORMAL ACCOMODATION, PERRL - ENT Exam ENT Exam: Mucous Membranes Moist, Normal Exam - Neck Exam Neck Exam: Full ROM, Normal Inspection. absent: Lymphadenopathy - Respiratory Exam Respiratory Exam: Clear to Ausculation Bilateral, NORMAL BREATHING PATTERN - Cardiovascular Exam Cardiovascular Exam: REGULAR RHYTHM, +S1, +S2. absent: Murmur - GI/Abdominal Exam GI & Abdominal Exam: Soft, Normal Bowel Sounds. absent: Tenderness - Extremities Exam Extremities Exam: Full ROM. absent: Normal Inspection Additional comments: L LE dressing in place. TTP. Thready palpable popliteal pulses - Back Exam Back Exam: NORMAL INSPECTION - Neurological Exam Neurological Exam: Alert, Awake, CN II-XII Intact, Normal Gait, Oriented x3 - Psychiatric Exam Psychiatric exam: Normal Affect, Normal Mood - Skin Skin Exam: Warm Assessment and Plan - Assessment and Plan (Free Text) Assessment: 52M with infected diabetic foot ulcers Plan: -Glucose control -CTA reviewed with Dr. Hughes: patent distal LE vessels -No surgical intervention at this time. discussed with Dr. Hughes
[2018-01-16] MEDS: Oxycodone/Acetaminophen 5/325 mg Tab PO PRN (15:21)
[2018-01-16 15:33] VITALS: O2SAT 98
[2018-01-16 15:43] LABS: BASO % 0.4 % (0.0-2.0); EOS # 0.2 K/uL (0.0-0.7); EOS % 3.3 % (0.0-4.0); HEMOGLOBIN 8.9 g/dL (12.0-18.0); LYMPH # 1.2 K/uL (1.0-4.3); LYMPH % 23.5 % (20.0-40.0); MEAN CELL VOLUME 93.1 fL (80.0-94.0); MEAN CORPUSCULAR HEMOGLOBIN 30.4 pg (27.0-31.0); MEAN CORPUSCULAR HGB CONC 32.7 g/dL (33.0-37.0); MEAN PLATELET VOLUME 10.5 fL (7.2-11.7); MONO # 0.6 K/uL (0.0-0.8); MONO % 12.1 % (0.0-10.0); NEUT # 3.2 K/uL (1.8-7.0); NEUT % 60.7 % (50.0-75.0); NRBC % 0.1 % (0.0-2.0); RBC 2.94 Mil/uL (4.40-5.90); RED CELL DISTRIBUTION WIDTH 18.1 % (11.5-14.5); WHITE BLOOD COUNT 5.2 K/uL (4.8-10.8)
[2018-01-16 15:58] LABS: ALB/GLOB RATIO 0.9 (1.0-2.1); ALBUMIN 3.8 g/dL (3.5-5.0); CALCIUM 8.6 mg/dl (8.6-10.4)
--- NOTE | 2018-01-16 17:13 | CP.PCM.PN ---
Subjective - Date & Time of Evaluation Date of Evaluation: 01/16/18 Time of Evaluation: 17:13 - Subjective Subjective: CHIEF COMPLAINTS TODAY : afebrile. AAO,VERY EMOTIONAL, CRYING. SEEN WITH RENAL DR MEDINA. S/P B/L WOUND DRESSINGS PER \ PODIATRY ROS. HEENT : N. Resp : No cough, wheezing ,pleuritic CP ,or hemoptysis Cardio : No anginal CP, PND, orthopnea, palpitation GI : No abd.pain, n/v ,diarrhea or GI bleeding . PILING SETTER : No headache, vertigo, focal deficit. Musculoskel : No joint swelling , Derm : No rash Psych : Normal affect. Ext : No swelling ,calf pain PE. Pt. is alert awake in no distress. V.S As noted in the chart Head ,ear nose,throat and eyes : Normal. Neck : Supple with normal carotids. Lungs: Clear air entry. Heart : S1 & S2 normal with S4. No murmur. Abd : Soft non tender with normal bowel sounds. Neuro : Moves all ext. with no localized deficit. Ext : BILATERAL LOWER EXTREMITY CELLULITIS IMPROVING . ULCER LEFT PLANTAR ASPECT 1st METATARSAL-DRY NO DRAINAGE. RIGHT LOWER EXTREMITY 1st AND 3rd DIGIT DISCOLORATION AND HYPERPIGMENTATION- WITH NO ACTIVE DRAINAGE, RT. LE CELLULITIS AND ERYTHEMA EXTENDING FROM THE FOOT UP TO THE MID LEG IMPROVING. NO CALF TENDERNESS Derm : No rashes LABS/RADIOLOGY: REVIEWED ESR 100. CRP 74.35 HIGH BLOOD CULTURES 2:2 SET -VE X 24HRS. : Objective - Vital Signs/Intake and Output Vital Signs (last 24 hours): Temp Pulse Resp BP Pulse Ox 98.2 F 67 18 129/59 L 98 01/16/18 14:30 01/16/18 16:28 01/16/18 16:28 01/16/18 16:28 01/16/18 14:30 Intake and Output: 01/16/18 01/16/18 06:59 18:59 Intake Total 480 Balance 480 - Medications Medications: Current Medications Albuterol/Ipratropium (Duoneb 3 Mg/0.5 Mg (3 Ml) Ud) 3 ml IH RQ6 [facility] Last Admin: 01/16/18 13:23 Dose: 3 ml Aspirin (Ecotrin) 81 mg PO DAILY [facility] Last Admin: 01/16/18 10:50 Dose: Not Given Calcium Acetate (Phoslo) 1,334 mg PO ACTID [facility] Last Admin: 01/16/18 11:37 Dose: 1,334 mg Ergocalciferol (Drisdol 50,000 Intl Units Cap) 1 cap PO QWK [facility] Glipizide (Glucotrol) 10 mg PO ACBD [facility] Last Admin: 01/16/18 08:30 Dose: Not Given Heparin Sodium (Porcine) (Heparin) 5,000 units SC Q12 [facility] Last Admin: 01/16/18 10:52 Dose: Not Given Hydralazine HCl (Apresoline) 25 mg PO BID [facility] Last Admin: 01/16/18 10:50 Dose: Not Given Insulin Human NPH (Novolin N) 50 unit SC DAILY [facility] Insulin Human Regular (Novolin R) 8 unit SC AC [facility] Last Admin: 01/16/18 12:30 Dose: Not Given Insulin Human Regular (Novolin R) 0 unit SC ACHS [facility] Last Admin: 01/16/18 12:30 Dose: Not Given Latanoprost (Xalatan Opht) 0 ml OU HS [facility] Last Admin: 01/15/18 21:33 Dose: 2.5 ml Levothyroxine Sodium (Synthroid) 25 mcg PO DAILY@0630 [facility] Last Admin: 01/16/18 06:10 Dose: 25 mcg Montelukast Sodium (Singulair) 10 mg PO HS [facility] Last Admin: 01/15/18 21:33 Dose: 10 mg Multivitamins/Minerals (Therapeutic-M Tab) 1 tab PO DAILY [facility] Last Admin: 01/16/18 10:50 Dose: 1 tab [id number]-Kkkd Ethyl Esters (Lovaza) 2 gm PO BID [facility] Last Admin: 01/16/18 10:55 Dose: 1 gm Oxycodone/Acetaminophen (Percocet 5/325 Mg Tab) 1 tab PO Q8H PRN PRN Reason: Pain, severe (8-10) Stop: 01/17/18 03:34 Last Admin: 01/16/18 15:21 Dose: 1 tab Pantoprazole Sodium (Protonix Ec Tab) 40 mg PO DAILY [facility] Last Admin: 01/16/18 10:50 Dose: 40 mg Pregabalin (Lyrica) 50 mg PO HS [facility] Last Admin: 01/15/18 21:33 Dose: 50 mg Rosuvastatin Calcium (Crestor) 5 mg PO HS [facility] Last Admin: 01/15/18 21:33 Dose: 5 mg Fluticasone/Salmeterol (Advair Diskus 250/50) 1 puff INH RQ12 [facility] Sevelamer Carbonate (Renvela) 1,600 mg PO TID [facility] Last Admin: 01/16/18 10:50 Dose: 1,600 mg Sodium Chloride ([place] Baby Saline 30 Ml) 0 ml VIRAL Q2H PRN PRN Reason: Nasal congestion Last Admin: 01/14/18 12:11 Dose: 2 spray Tamsulosin HCl (Flomax) 0.4 mg PO DAILY [facility] Last Admin: 01/16/18 10:50 Dose: 0.4 mg Ticagrelor (Brilinta) 90 mg PO BID [facility] Last Admin: 01/16/18 10:50 Dose: Not Given - Labs Labs: 01/16/18 15:40 01/16/18 15:20 Assessment and Plan (1) Diabetic foot ulcers Assessment & Plan: CONTINUE iv VANCOMYCIN 1 G POST EACH HEMODIALYSIS MWF X TOTAL 6 DOSES.FIRST DOSE WAS GIVEN ON 01/13/18. MONITOR VANCO TROUGH LEVEL PRIOR TO THE THIRD DOSE AND KEEP BETWEEN 10 AND 20. PERIPHERAL VASCULAR DISEASE RECOMMENDATIONS PER VASCULAR SURGERY. LOCAL WOUND CARE PER PODIATRY. Status: Acute (2) Cellulitis Assessment & Plan: IMPROVING Status: Acute (3) ESRD (end stage renal disease) on dialysis Assessment & Plan: ON HD MWF. Status: Acute (4) Diabetes Status: Chronic (5) Hypertension Status: Acute
--- NOTE | 2018-01-16 18:19 | PN ---
DATE: 01/16/2018 ENDO FOLLOWUP NOTE LOCATION: In room 668. SUBJECTIVE: This is a 52-year-old male with recent uncontrolled type 1 insulin-dependent diabetes, presenting here with lower extremity cellulitis and possible gangrene with ongoing IV antibiotic management as given and is also being followed closely now for metabolic management with his extremely poor appetite at this time with variable and suboptimal meal portions with supervening hypoglycemic episodes overnight as noted. His glucose level at 6 o'clock was 40, and it was 78 at bedtime last night. His latest chemistry showed a BUN of 54, sodium 137, potassium 5.0, chloride 91, CO2 of 30, glucose 276, and creatinine 8.7. His latest glucose levels now at noon time today running from 223 to 236 mg/dL. ASSESSMENT: This is a 52-year-old male with recent uncontrolled type 1 insulin-dependent diabetes, presenting here with lower extremity cellulitis and gangrene in the right foot as noted. He also has diabetic microvascular complications of retinopathy, polyneuropathy, and nephropathy with end-stage renal disease and dialysis dependent. Moreover, he also has diabetic macrovascular complications of coronary artery disease with coronary stent placements and peripheral arterial disease and vasculopathy as noted. PLAN OF MANAGEMENT: I discussed with the patient and the staff we will adjust once again his basal and bolus insulin regimen because of the variability of his oral intake as discussed with the nursing staff today. We will hold the NPH today and lower the dosing to 50 units subcu every 10 a.m. daily to start tomorrow morning as ordered. We will also lower the regular insulin to 8 units subcu t.i.d. before meals to start at lunch time today as ordered. We will modify the coverage scale to obviate hypoglycemia, and detailed orders have been given. We will obtain serial chemistries and supplement accordingly as needed. We will follow with you. mE Yost MD
[2018-01-16 19:16] VITALS: BP 116/76; PULSE 74; RESP 16; TEMP 98
[2018-01-16] MEDS ORDERED: Epoetin Alfa 10,000 unit/ml Dialysis SC ONE (19:45)
[2018-01-16] MEDS ORDERED: Hydrocortisone 1% Cream (30 GM) TOP SCH (21:30)
--- NOTE | 2018-01-17 00:33 | CON ---
DATE: 01/16/2018 REASON FOR CONSULTATION: Epistaxis. HISTORY OF PRESENT ILLNESS: This is an 52-year-old male who was admitted to the hospital few days ago. The patient has an episode of epistaxis in the year; however, he has not had one since. It was mild on the left. It was constant, lasted a few minutes and then stopped, none since. PAST MEDICAL HISTORY: As noted in the chart by me. MEDICATIONS: As noted in the chart by me. PHYSICAL EXAMINATION: HEAD: Atraumatic, normocephalic. FACE: Good facial movements bilaterally. CONSTITUTIONAL: Well fed, well nourished. COMMUNICATION: The patient is not communicating well at this time, he is . EXTERNAL NOSE AND EARS: No masses. No lesions. No erythema. No edema. INTERNAL NOSE: Deviated septum. No masses. No lesions. No erythema. No edema. No bleeding. ORAL CAVITY AND OROPHARYNX: No bloody postnasal drip. No masses. No lesions. No erythema. No edema. LIPS AND GUMS: No masses. No lesions. No erythema. No edema. NECK: Supple. THYROID: No thyromegaly. No goiter. LYMPH NODES: No lymphadenopathy of the neck. ASSESSMENT: 1. Epistaxis, resolved. 2. The patient is somewhat out of it. Therefore, I advised the nurse to call his primary medical doctor immediately to advise on the patient's condition. PLAN: No ENT intervention at this time; however, I advised the nurse to run vitals on him and call his primary care doctor soon. David Machuca MD MTDGlen
--- NOTE | 2018-01-17 06:57 | CON ---
DATE: 01/16/2018 LOCATION: [facility]. NEPHROLOGY CONSULTATION HISTORY OF PRESENT ILLNESS: The patient is a 52-year-old male with past medical history of hypertension, diabetes, COPD, CAD, status post stents, status post pacemaker placement, and ESRD, on hemodialysis (Tuesday, Tuesday and Tuesday at [facility] under brick setter operator Dr. Sabina Henry), presented to [facility] yesterday with darkening discoloration of right third toe. Subsequently, transferred to [facility] due to dialysis need and Nephrology being consulted for ESRD care. The patient admitted just last week for similar complaint; however, signed out AMA without any workup being done; at this time the patient had abdominal angiography reviewed by vascular surgeon and read as patent distal lower extremity vessels with no surgical intervention recommended currently. The patient has blood cultures, which have been negative for the last 48 hours. Otherwise, the patient reports feeling well, was having diarrhea and vomiting yesterday. Denies any difficulty breathing. No chest pain or palpitations. PAST MEDICAL HISTORY: As above. SOCIAL HISTORY: Denies smoking. FAMILY HISTORY: Mother with CAD, diabetes, hypertension, ESRD, on hemodialysis. REVIEW OF SYSTEMS: CONSTITUTIONAL: No fevers recorded. HEENT: The patient with no epistaxis. RESPIRATORY: No difficulty breathing. CARDIOVASCULAR: As per HPI. GASTROINTESTINAL: As per HPI. GENITOURINARY: Anuric. No urethral discharge. MUSCULOSKELETAL: No pain per records. PSYCHIATRIC: Has issues with anxiety. NEUROLOGIC: Has numbness in feet. PHYSICAL EXAMINATION: VITAL SIGNS: This afternoon blood pressure 138/54, heart rate 67, respirations 16, temperature 98.2, O2 sat 98% on room air. GENERAL: No distress, conversing coherently in full sentences. HEENT: Moist mucous membranes. Nonicteric. RESPIRATORY: Lungs are clear to auscultation bilaterally. No rales. No rhonchi. No wheezes. CARDIOVASCULAR: Heart sounds S1 and S2 normal. No murmurs , no gallops, no rubs. GASTROINTESTINAL: Abdomen is soft, nontender, and distended. GENITOURINARY: No bladder distention. EXTREMITIES: Mild lower leg edema bilaterally. SKIN: Darkened discoloration of right foot third toe and first toe. Otherwise distal extremity is warm. PSYCHIATRIC: Normal mood, normal affect. NEUROLOGIC: Decreased sensation in feet. LABORATORY DATA: CBC: WBC 5.2, hemoglobin 8.9, hematocrit 27.4, platelets 108. Chemistry panel: Sodium 134, potassium 5.3, chloride 91, bicarb 24, BUN 64, creatinine 10.5, glucose 285, calcium 8.6. T bili 1.1. AST 62, ALT 34, albumin 3.8. ASSESSMENT AND PLAN: 1. End-stage renal disease, on hemodialysis, mild hyperkalemia, otherwise relatively stable volume status; dialyzing today per routine on 2 K, 2.5 calcium, dialysate with ultrafiltration goal of 3.5 L net. 2. Hypertensive end-stage renal disease. Blood pressure relatively well controlled with the patient on hydralazine 25 mg b.i.d. Continue the same. 3. Chronic kidney disease, mineral bone disorder. The patient on PhosLo three tablets and sevelamer two tablets at home with each meal. Continue the same. 4. Anemia with end-stage renal disease/chronic kidney disease. Hemoglobin below goal. No recent iron studies available. We will give EPO 10,000 units today. 5. Lower extremity cellulitis. The patient currently is status post 1 gm of vancomycin received day before yesterday. Just continuing the same. Should redose medications today after dialysis. Thank you for this referral. We will be following up. Reginaldo Penny MD
[2018-01-17] MEDS ORDERED: (Novolin N) Insulin Human Isophane (NPH) 100 u/ml 10 ml vial SC SCH (10:00)
--- NOTE | 2018-01-17 11:39 | CT ---
PROCEDURE: CT Angiography Abdomen, Pelvis and Lower Extremity with Contrast HISTORY: pvd right foot COMPARISON: None. TECHNIQUE: Technique: CT angiography of the abdomen, pelvis and bilateral lower extremities performed in the arterial phase of enhancement. Coronal and sagittal reformats, and well as rotating MIP images of the vessels generated at the workstation. Intravenous contrast dose: 150 milliliters Visipaque 320 Radiation dose: Total exam DLP = 2698.37 MGy-cm. This CT exam was performed using one or more of the following dose reduction techniques: Automated exposure control, adjustment of the mA and/or kV according to patient size, and/or use of iterative reconstruction technique. FINDINGS: CT ANGIOGRAPHY: ABDOMINAL AORTA:: The abdominal was unremarkable. MAJOR AORTIC BRANCHES: Celiac [place]: Unremarkable. Superior mesenteric artery: Unremarkable. Inferior mesenteric artery: Unremarkable. Renal arteries: Duplicated left renal artery. Renal artery is otherwise unremarkable. PELVIC ARTERIES: Right Common Iliac: Unremarkable. Right External Iliac: Unremarkable. Right Internal Iliac: Unremarkable. Left Common Iliac: Unremarkable. Left External Iliac: Unremarkable. Left Internal Iliac: Unremarkable. RIGHT LOWER EXTREMITY ARTERIES: Right Common Femoral: Mild calcific plaque in the common femoral artery with no stenosis. Right Superficial Femoral: Mild calcific plaque throughout the superficial femoral artery with no stenosis. Right Profunda Femoris: Moderate calcific plaque throughout the profunda femoral artery. No stenosis. Right Popliteal:Unremarkable. Right Anterior Tibial: Clear calcified which limits evaluation. Believed to be patent. Right Tibioperoneal Trunk: Unremarkable. Right Posterior Tibial: Severe calcific plaque throughout the posterior tibial artery which limits evaluation. Believed to be patent. Right Peroneal: . Severe calcific plaque throughout the peroneal artery which limits evaluation. Believed to be patent. Right dorsalis pedis : Unremarkable. LEFT LOWER EXTREMITY ARTERIES: Left Common Femoral: Unremarkable. Left Superficial Femoral: Moderate calcific plaque throughout the SFA with no stenosis. Left Profunda Femoris: Unremarkable. Left Popliteal: Unremarkable. Left Anterior Tibial: Severe calcific plaque throughout the anterior tibial artery which limits evaluation. Believed to be patent. Left Tibioperoneal Trunk: Unremarkable. Left Posterior Tibial: Severe calcific throughout the posterior tibial artery which limits evaluation. Believed to be patent. Left Peroneal: Air calcific plaque throughout the peroneal artery which limits evaluation. Peroneal artery is believed to be patent. Left Dorsalis pedis: Unremarkable. NON-ANGIOGRAPHIC ASPECT OF THE EXAM: LOWER THORAX: Unremarkable. LIVER: Unremarkable. No gross lesion or ductal dilatation. GALLBLADDER AND BILE DUCTS: Unremarkable. PANCREAS: Unremarkable. No gross lesion or ductal dilatation. SPLEEN: Unremarkable. ADRENALS: Unremarkable. No mass. KIDNEYS AND URETERS: Unremarkable. No hydronephrosis. No solid mass. STOMACH AND BOWEL: Unremarkable. No obstruction. No gross mural thickening. APPENDIX: Normal appendix. PERITONEUM: Unremarkable. No free fluid. No free air. LYMPH NODES: Unremarkable. No enlarged lymph nodes. BLADDER: Unremarkable. REPRODUCTIVE: Unremarkable. BONES: No acute fracture. OTHER FINDINGS: None. IMPRESSION: CT ANGIOGRAM ABDOMEN/ PELVIS: 1. Essentially unremarkable CT angiogram of the pelvis. RIGHT LOWER EXTREMITY CT ANGIOGRAM: 1. Common femoral, superficial femoral artery, popliteal artery are unremarkable. 2. There is moderate plaque throughout the profunda femoral artery which has no stenosis. 3. Runoff shows severely calcified anterior tibial artery, posterior tibial artery, and peroneal artery which limits evaluation. The tibial arteries are believed to be patent. LEFT LOWER EXTREMITY CT ANGIOGRAM: 1. Common femoral, superficial femoral artery, popliteal artery are unremarkable. 2. There is moderate plaque throughout the profunda femoral artery which has no stenosis. 3. Runoff shows severely calcified anterior tibial artery, posterior tibial artery, and peroneal artery which limits evaluation. The tibial arteries are believed to be patent.
--- NOTE | 2018-01-17 12:46 | PN ---
DATE: 01/15/2018 SUBJECTIVE: The patient is a 52-year-old male. The patient was seen and examined at the bedside on 01/15/2018. No fever, no chills. No nausea, vomiting, diarrhea. No hematuria or hematochezia. No dizziness, chest pain or palpitation. Still complaining of pain in the feet. No more nosebleeding. PHYSICAL EXAMINATION: VITAL SIGNS: Temperature 98.1, pulse 58, respiratory rate 20, blood pressure 120/80 , pulse oximetry 99. HEENT: Head normocephalic and atraumatic. Eyes, PERRLA. Extraocular muscles intact. Conjunctivae clear. Nose patient. Mucous membrane moist. NECK: Supple. No carotid bruit or JVD. No thyromegaly. CHEST; Bilaterally symmetrical. HEART: S1, S2 positive. LUNGS: Clear to auscultation. ABDOMEN: Soft. Positive organomegaly. EXTREMITIES: Both feet has dressing. Upper extremities, no edema, no cyanosis. NEUROLOGICAL: The patient is awake, alert, moving all four extremities. No focal deficits. MEDICATIONS: DuoNeb, aspirin, vitamin D, Glucotrol, heparin, Novolin, Synthroid, Singulair, Percocet, Protonix, Crestor, Advair. LAB: White blood cell 7.3, hemoglobin 9.6, hematocrit 29.6, platelets 120. Sodium 137, potassium 5, BUN 54, creatinine 8.7, glucose 276. ASSESSMENT AND PLAN: Mr. Shonda Gutierrez is a 52-year-old male with renal insufficiency, hyperglycemia, diabetic foot ulcer, diabetic neuropathy, diabetic nephropathy, diabetic retinopathy, cellulitis. He is on vancomycin since 01/13/2018. , history of anemia. Podiatry is on the case. Diabetes mellitus is always uncontrolled, seen by [facility] N[facility] Throat, Dr. David Machuca. History of episodes of epistaxis, it was mild on the left side, epistaxis resolved. Neurology intervention was needed at that moment. I appreciate Dr. David Machuca's input. History of hypothyroidism and peripheral neuropathy. We will continue present treatment, gastrointestinal and deep vein thrombosis prophylaxes. Continue antibiotics. [employer] Mill Tender is on the case. Infectious Disease is on the case. Podiatry is on the case. I appreciate everybody's help. Nel Montalvo MD [facility]
[2018-01-20] MEDS ORDERED: Ergocalciferol 50,000 Intl Units Cap PO SCH (10:00)
== END 2018-01-16 22:17 | disposition left against medical advice (07) | DRG 602 ==
LOC: C.ER 21:53 → C.6T 22:13 → C.9E 22:13 → C.6T 01-14 21:42
PROVIDERS: ADMIT Internal Medicine; ATTEND Internal Medicine
PROC: 5A1D70Z Performance of Urinary Filtration, Intermittent, Less than 6 Hours Per Day (ICD-10-PCS; principal; 2018-01-16)
DX: L03.115 Cellulitis of right lower limb (principal); N18.6 End stage renal disease; I13.2 Hypertensive heart and chronic kidney disease with heart failure and with stage 5 chronic kidney disease, or end stage renal disease; L97.419 Non-pressure chronic ulcer of right heel and midfoot with unspecified severity; Z68.1 Body mass index [BMI] 19.9 or less, adult; L03.116 Cellulitis of left lower limb; N40.0 Benign prostatic hyperplasia without lower urinary tract symptoms; R04.0 Epistaxis; Z79.4 Long term (current) use of insulin; Z99.2 Dependence on renal dialysis; J43.9 Emphysema, unspecified; I25.10 Atherosclerotic heart disease of native coronary artery without angina pectoris; I50.9 Heart failure, unspecified; E87.5 Hyperkalemia; G47.30 Sleep apnea, unspecified; E78.5 Hyperlipidemia, unspecified; Z95.0 Presence of cardiac pacemaker; Z95.5 Presence of coronary angioplasty implant and graft; E11.621 Type 2 diabetes mellitus with foot ulcer; E11.65 Type 2 diabetes mellitus with hyperglycemia; L97.529 Non-pressure chronic ulcer of other part of left foot with unspecified severity; E03.9 Hypothyroidism, unspecified; D63.1 Anemia in chronic kidney disease

== ENCOUNTER 2018-01-29 23:04 | Inpatient (IN) | payer MEDICARE, OTHER ==
[2018-01-29 23:05] VITALS: BMI 33.5
--- NOTE | 2018-01-29 23:11 | C.PDOC ---
History Of Present Illness 52 year old male with PMHx of ESRD is a transfer from [facility] ED for cellulitis. Patient was seen and medically cleared at [facility], patient was accepted by Dr. Montalvo and Dr. Colon for for podiatry and Dr. Bluefor dialysis. Patient goes to dialysis on Mondays, Tuesday and Fridays. Patient denies CP, nausea, vomiting, diarrhea. Time Seen by Provider: 01/29/18 23:11 History Per: Patient, EMS, Other ([place] [facility]) History/Exam Limitations: no limitations Onset/Duration Of Symptoms: Days Current Symptoms Are (Timing): Still Present Reports Recently: Seen In ED ([place] [facility] today) Recent travel outside of the [place]: No Additional History Per: Patient Past Medical History Reviewed: Historical Data, Nursing Documentation, Vital Signs Vital Signs: Last Vital Signs Temp 99.7 F H 01/29/18 23:20 Pulse 82 01/29/18 23:20 Resp 16 01/29/18 23:20 BP 116/38 L 01/29/18 23:20 Pulse Ox 99 01/29/18 23:20 - Medical History PMH: Anemia (With transfusions), Anxiety, Arthritis, Asthma, Benign Prostatic Hyperplasia (on Flomax, seen by Dr. Shay), Bronchitis, CHF, Colonic Polyps, COPD, Diabetes, Fractures (L arm), Gall Bladder Disease (CHOLECYSTECTOMY), HTN, Hypercholesterolemia, Hyperlipidemia, Hypothyroidism, Kidney Stones (08/15), Pancreatitis, Peripheral Edema, Pneumonia, End Stage Renal Disease, Chronic Kidney Disease, Sleep Apnea (c pap 2), TIA Denies: Cardia Arrhythmia, Depression, Emphysema Surgical History: Cholecystectomy (12/27/12), Coronary Stent (x2 tuesday10/25/17 ), Pacemaker ([employer]) - [facility] Procedures (01/13/18) ASSISTANCE WITH RESPIRATORY VENTILATION, 24-96 HRS, CPAP (11/04/17) ASSISTANCE WITH RESPIRATORY VENTILATION, <24 HRS, CPAP (12/20/17) CENTRAL VENOUS CATHETER PLACEMENT WITH GUIDANCE (12/11/12) CLOSED ENDOSCOPIC BIOPSY OF LARGE INTESTINE (03/14/14) CORONAR ARTERIOGR-2 CATH (03/07/15) DILATION OF 1 COR ART WITH 2 DRUG-ELUT, PERC APPROACH (10/23/17) DX ULTRASOUND-DIGESTIVE (06/20/12) ENDO RECTUM POLYPECTOMY (03/14/14) ESOPHAGOGASTRODUODENOSCOPY [EGD] W/CLOSED BIOPSY (12/11/12) EXCISION OF LEFT FOOT SKIN, EXTERNAL APPROACH (12/03/17) FLUOROSCOPY OF LEFT HEART USING OTHER CONTRAST (10/23/17) FLUOROSCOPY OF MULTIPLE CORONARY ARTERIES USING OTH CONTRAST (10/23/17) GAIT TRAINING/AMBULAT TREATMENT USING ASSIST EQUIPMENT (11/16/17) HEMODIALYSIS (03/07/15) HOME MANAGEMENT TREATMENT (11/16/17) INJECT STEROID (04/21/14) INJECT/INFUSE NEC (08/31/13) INJECT/INFUSE THROMBOLYTIC AGENT (11/22/14) INJECTION INTO JOINT (04/21/14) INSERT PACE. DUAL TABITHA IN CHEST SUBCU/FASCIA, OPEN (11/04/17) INSERTION OF INFUSION DEVICE INTO LOWER VEIN, PERC APPROACH (12/20/17) INSERTION OF INFUSION DEVICE INTO UPPER VEIN, PERC APPROACH (12/20/17) INSERTION OF ONE VASCULAR STENT (03/07/15) INSERTION OF PACEMAKER LEAD INTO R VENTRICLE, PERC APPROACH (11/04/17) INSERTION OF PACEMAKER LEAD INTO RIGHT ATRIUM, PERC APPROACH (11/04/17) INSRT OF DRUG-ELUTING CORON ARTERY STENTS(S) (03/07/15) INTRAOPER CHOLANGIOGRAM (12/27/12) INTRODUCE OF OTH THERAP SUBST INTO RESP TRACT, VIA OPENING (12/20/17) LAPAROSCOP LYSIS-PERITONEAL ADHES (12/27/12) LAPAROSCOPIC CHOLECYSTECTOMY (12/27/12) LEFT HEART CARDIAC CATH (03/07/15) LT HEART ANGIOCARDIOGRAM (03/07/15) MEASURE OF CARDIAC SAMPL & PRESSURE, L HEART, PERC APPROACH (10/23/17) MEASUREMENT OF ARTERIAL FLOW, CORONARY, PERC APPROACH (04/24/16) MEASUREMENT OF ARTERIAL PRESSURE, CORONARY, PERC APPROACH (10/23/17) MEASUREMENT OF CARDIAC PACEMAKER, EXTERNAL APPROACH (12/20/17) NEBULIZER THERAPY (11/22/14) NON-INVASIVE MECHANICAL VENTILATION (11/27/14) OCCUPATIONAL THERAPY (11/27/14) OTHER ENDOSCOPY OF SM INTEST (06/20/12) OTHER SKIN & SUBQ I D (07/05/02) PACKED CELL TRANSFUSION (05/04/14) PERCUTANEOUS TRANSLUMINAL CORONARY ANGIOPLASTY [PTCA] (03/07/15) PERFORMANCE OF URINARY FILTRATION, MULTIPLE (04/24/16) PERFORMANCE OF URINARY FILTRATION, SINGLE (10/28/15) PHYSICAL THERAPY NEC (11/27/14) PLAIN RADIOGRAPHY OF LEFT HEART USING LOW OSMOLAR CONTRAST (04/24/16) PLAIN RADIOGRAPHY OF MULT COR ART USING L OSM CONTRAST (04/24/16) PROCEDURE ON SINGLE VESSEL (03/07/15) TETANUS TOXOID ADMINIST (08/10/14) TRANSFUSE NONAUT FROZEN PLASMA IN PERIPH VEIN, PERC (12/20/17) TRANSFUSE NONAUT PLATELETS IN PERIPH VEIN, PERC (12/20/17) TRANSFUSE NONAUT RED BLOOD CELLS IN PERIPH VEIN, PERC (10/28/17) ULTRASONOGRAPHY OF MULTIPLE CORONARY ARTERIES, INTRAVASCULAR (04/24/16) Family History: States: Diabetes (mother & grandmother) - Social History Hx Tobacco Use: No Hx Alcohol Use: No Hx Substance Use: No - Immunization History Hx Tetanus Toxoid Vaccination: No Hx Influenza Vaccination: No Hx Pneumococcal Vaccination: No Review Of Systems Constitutional: Negative for: Fever, Chills Cardiovascular: Negative for: Chest Pain, Palpitations Respiratory: Negative for: Cough, Shortness of Breath Gastrointestinal: Negative for: Nausea, Vomiting, Abdominal Pain Musculoskeletal: Positive for: Foot Pain Skin: Positive for: Other (cullulitis) Neurological: Negative for: Weakness, Numbness Physical Exam - Physical Exam Appears: Non-toxic Skin: Warm, Dry Head: Normacephalic Eye(s): bilateral: Normal Inspection Oral Mucosa: Moist Neck: Supple Chest: Symmetrical Cardiovascular: Rhythm Regular Respiratory: No Rales, No Rhonchi, No Wheezing Gastrointestinal/Abdominal: Soft, No Tenderness, No Guarding, No Rebound Extremity: Normal ROM, No Swelling, Other (erythema right foot and right leg. surgical wound to right foot distally with ulcer. Necrotic 1st and 3rd freat toes.) Pulses: Left Dorsalis Pedis: Normal, Right Dorsalis Pedis: Normal Neurological/Psych: Oriented x3, Normal Speech Gait: Unable To Assess ED Course And Treatment Pulse Ox Interpretation: Normal Disposition Discussed With : Nel Montalvo Comment: accepted the p ton his service and took over the care at 11:40 PM Doctor Will See Patient In The: Hospital Counseled Patient/Family Regarding: Studies Performed, Diagnosis - Disposition Disposition: HOSPITALIZED Disposition Time: 23:11 Condition: FAIR - POA Present On Arrival: Poor Glycemic Control - Clinical Impression Clinical Impression: Renal failure, Edema leg, Gangrene, ESRD (end stage renal disease) on dialysis , Diabetic foot ulcers - Scribe Statement The provider has reviewed the documentation as recorded by the Scribe Golden Wayne All medical record entries made by the Scribe were at my direction and personally dictated by me. I have reviewed the chart and agree that the record accurately reflects my personal performance of the history, physical exam, medical decision making, and the department course for this patient. I have also personally directed, reviewed, and agree with the discharge instructions and disposition. Decision To Admit - Pt Status Changed To: Hospital Disposition Of: Inpatient - Admit Certification Admit to Inpatient:: After my assessment, the patient will require hospitalization for at least two midnights. This is because of the severity of symptoms shown, intensity of services needed, and/or the medical risk in this patient being treated as an outpatient. - InPatient: Physician Admission Certification: I certify that this patient requires 2 or more midnights of care for the following reason:: After my assessment, the patient will require hospitalization for at least two midnights. This is because of the severity of symptoms shown, intensity of services needed, and/or the medical risk in this patient being treated as an outpatient. - . Bed Request Type: Regular Admitting Physician: Nel Montalvo Patient Diagnosis: Renal failure, Edema leg, Gangrene, ESRD (end stage renal disease) on dialysis , Diabetic foot ulcers
[2018-01-30] MEDS ORDERED: Oxycodone/Acetaminophen 5/325 mg Tab PO PRN (02:47)
[2018-01-30] MEDS ORDERED: Levothyroxine 25 MCG TAB PO SCH (06:30)
[2018-01-30] MEDS: Oxycodone/Acetaminophen 5/325 mg Tab PO PRN ×2 (06:58→20:35)
[2018-01-30] MEDS: Albuterol-Ipratrop 3 mg / 0.5 (3 ml) UD INH SCH ×3 (07:23→19:13)
[2018-01-30] MEDS ORDERED: Multivitamin With Minerals Tab PO SCH (10:00)
[2018-01-30] MEDS ORDERED: Enoxaparin 30 mg Syringe SC SCH (10:00)
[2018-01-30] MEDS ORDERED: Pantoprazole 40 mg EC Tab PO SCH (10:00)
--- NOTE | 2018-01-30 10:32 | RAD ---
PROCEDURE: Right Foot Radiographs. HISTORY: right hallux and 3rd digit gangrene COMPARISON: None. FINDINGS: BONES: There is an acute nondisplaced intra-articular intra-articular fracture in the lateral base of the distal phalanx of the great toe There is an age indeterminate intra-articular comminuted fracture in the distal aspect of the proximal phalanx of the 2nd toe. Bone alignment is normal. There is diffuse bone demineralization. No evidence for bone erosion or destruction. JOINTS: Normal. SOFT TISSUES: There is soft tissue swelling, soft tissue emphysema and irregularity in the great toe and 3rd toe. OTHER FINDINGS: There are atherosclerotic vascular calcifications. IMPRESSION: 1. Acute nondisplaced intra-articular fracture in the lateral base of the distal phalanx of the great toe. 2. Age indeterminate intra-articular comminuted fracture in the distal aspect of the proximal phalanx of the 2nd toe. 3. Soft tissue swelling, emphysema in irregularity in the great toe and 3rd toe which may represent cellulitis and ulceration. No definite evidence for bone erosion or destruction however MRI is more sensitive for evaluation of early osteomyelitis.
[2018-01-30] MEDS: Omega-3-Acid Ethyl Esters 1 GM Cap PO SCH ×2 (10:51→20:26)
[2018-01-30] MEDS ORDERED: EPOETIN ALFA 4,000 UNIT/ML ML Dialysis IV SCH (11:00)
[2018-01-30] MEDS: (Novolin R) Insulin Human Regular 100 units/ml vial SC SCH ×3 (11:38→22:18)
--- NOTE | 2018-01-30 11:55 | CP.PCM.CON ---
History of Present Illness - History of Present Illness History of Present Illness: INFECTIOUS DISEASE CONSULT; HPI 52 year old male was seen and evaluated at bedside for gangrene on the right foot digits and healing ulceration of left foot. Patient reports that he was seen at [place] prior to coming to the hospital here. Reports that he was not able to stay at [place] because he is currently on dialysis. Patient reports that he had fever for the past couple of days so decided to come to the hospital. Reports that he had a vascular procedure performed at [place] with Dr. Gaming. Denies of any pain to the legs today. Denies any recent N/V/F/C/CP/ SOB/D/posterior calf pain when squeezed. No other pedal complains at this time. PATIENT WAS RECENTLY HOSPITALIZED AT [facility] ON 01/13/18 FOR SIMILAR COMPLAINTS. INFECTIOUS DISEASE CONSULTATION REQUESTED BY PMD BECAUSE OF CELLULITIS AND GANGRENE TOES RTFOOT PATIENT SEEN ON HEMODIALYSIS TODAY (MWF ).PATIENT HAS A LEFT AV FISTULA NOTED PATIENT STARTED ON IV GENTAMICIN 100 MG EVERY 24 HOURLY BY NEPHROLOGY. PMH: COPD, CAD with 4 stents, ESRD on HD MWF, IDDM2 and HTN PSH: Multiple cardiac caths, left cornea transplant and AV fistula in left arm Family History: Mother-CAD, IDDM2, HTN Social history: Denies tobacco, alcohol or illicit drug use; Lives at home with mother Allergies: insulin aspart, moxifloxacin, penicillin Home Medications: As per MAR - Immunization History Hx Tetanus Toxoid Vaccination: No Hx Influenza Vaccination: No Hx Pneumococcal Vaccination: No Review of Systems - Constitutional Constitutional: Fever. absent: Chills - EENT Eyes: absent: Change in Vision (PATIENT HAS POOR VISION BOTH EYES.) Nose/Mouth/Throat: absent: Mouth Lesions, Sore Throat - Cardiovascular Cardiovascular: absent: Chest Pain at Rest, Dyspnea - Respiratory Respiratory: absent: Cough - Gastrointestinal Gastrointestinal: absent: Abdominal Pain, Heartburn, Loose Stools, Vomiting - Musculoskeletal Additional comments: RIGHT FOOT PAIN. - Integumentary Integumentary: Non-Healing Lesions (RIGHT FOOT NECROSIS FIRST AND THIRD TOES) - Hematologic/Lymphatic Hematologic: As Per HPI. absent: Easy Bleeding, Easy Bruising Past Patient History - Infectious Disease Hx of Infectious Diseases: None - Tetanus Immunizations Tetanus Immunization: Up to Date - Past Medical History & Family History Past Medical History?: Yes - Past Social History Smoking Status: Never Smoked - CARDIAC Hx Cardiac Disorders: Yes Hx Cardia Arrhythmia: No Hx Circulatory Problems: Yes Hx Congestive Heart Failure: Yes Hx Heart Attack: Yes Hx Hypercholesterolemia: Yes Hx Hypertension: Yes Hx Pacemaker: Yes (MEDTRONIC) Hx Peripheral Edema: Yes Hx Peripheral Vascular Disease: Yes - PULMONARY Hx Respiratory Disorders: Yes Hx Asthma: Yes Hx Bronchitis: Yes Hx Chronic Obstructive Pulmonary Disease (COPD): Yes Hx Emphysema: No Hx Pneumonia: Yes Hx Sleep Apnea: Yes (c pap 2) - NEUROLOGICAL Hx Neurological Disorder: Yes HX Cerebrovascular Accident: Yes Hx Dizziness: Yes Hx Transient Ischemic Attacks (TIA): Yes Other/Comment: Peripheral Neuropathy - HEENT Hx HEENT Problems: Yes (BILATERAL EYE WITH BLURRY VISION) Hx Cataracts: Yes (HAD SX 10/10/12) Hx Epistaxis: Yes Other/Comment: left eye cornea transplant,RENAL RETINOPATHY, glasses - RENAL Hx Chronic Kidney Disease: Yes Hx Dialysis: Yes (MWF) Type of Dialysis Access: AV Fistula Date of Last Dialysis Treatment: 01/27/18 Hx Kidney Stones: Yes (08/15) Hx Renal Failure: Yes Other/Comment: Hematuria,BPH,UTI - ENDOCRINE/METABOLIC Hx Endocrine Disorders: Yes Hx Diabetes Mellitus Type 1: Yes Hx Diabetes Mellitus Type 2: Yes Hx Hypothyroidism: Yes - HEMATOLOGICAL/ONCOLOGICAL Hx Blood Disorders: Yes Hx Anemia: Yes (With transfusions) Hx Blood Transfusions: Yes - INTEGUMENTARY Hx Dermatological Problems: Yes Hx Cellulitis: Yes - MUSCULOSKELETAL/RHEUMATOLOGICAL Hx Musculoskeletal Disorders: Yes Hx Arthritis: Yes Hx Back Pain: Yes Hx Falls: No Hx Fractures: Yes Hx Gout: Yes Hx Spinal Stenosis: Yes Hx Unsteady Gait: Yes - GASTROINTESTINAL Hx Gastrointestinal Disorders: Yes Hx Gall Bladder Disease: Yes (CHOLECYSTECTOMY) Hx Gastroesophageal Reflux: Yes Hx Liver Failure: Yes (CKD) Hx Pancreatitis: Yes Hx Ulcer: Yes - GENITOURINARY/GYNECOLOGICAL Hx Genitourinary Disorders: Yes (esrd on HD MWF) Hx Hematuria: Yes Hx Prostate Problems: Yes Hx Urinary Tract Infection: Yes - PSYCHIATRIC Hx Psychophysiologic Disorder: Yes Hx Anxiety: Yes Hx Depression: No Hx Substance Use: No - SURGICAL HISTORY Hx Surgeries: Yes Hx Cholecystectomy: Yes (12/27/12) Hx Coronary Stent: Yes (x2 tuesday10/25/17) - ANESTHESIA Hx Anesthesia: Yes Hx Anesthesia Reactions: No Hx Malignant Hyperthermia: No Meds Allergies/Adverse Reactions: Allergies Allergy/AdvReac Type Severity Reaction Status Date / Time insulin aspart [From Novolog] Allergy Intermediate RASH Verified 01/24/18 11:30 moxifloxacin Allergy Intermediate RASH Verified 01/24/18 11:30 Penicillins Allergy Intermediate RASH Verified 01/24/18 11:30 insulin regular Allergy Verified 01/29/18 23:36 [From Novolin R Regular U-100 Insuln] - Medications Medications: Current Medications Albuterol/Ipratropium (Duoneb 3 Mg/0.5 Mg (3 Ml) Ud) 3 ml INH RQ6 [facility] Last Admin: 01/30/18 07:23 Dose: 3 ml Aspirin (Ecotrin) 81 mg PO DAILY [facility] Enoxaparin Sodium (Lovenox) 30 mg SC DAILY [facility] Last Admin: 01/30/18 10:52 Dose: Not Given Epoetin Alexey (Procrit) 8,000 unit IV MWF [facility] Ergocalciferol (Drisdol 50,000 Intl Units Cap) 1 cap PO Q7D [facility] Gemfibrozil (Lopid) 300 mg PO BID [facility] Last Admin: 01/30/18 11:08 Dose: 300 mg Glipizide (Glucotrol) 10 mg PO DAILY [facility] Last Admin: 01/30/18 10:50 Dose: 10 mg Hydralazine HCl (Apresoline) 25 mg PO BID [facility] Last Admin: 01/30/18 10:51 Dose: 25 mg Gentamicin Sulfate 100 mg/ (Sodium Chloride) 102.5 mls @ 100 mls/hr IVPB Q24H [facility] PRN Reason: Protocol Stop: 01/30/18 13:02 Insulin Human NPH (Novolin N) 30 unit SC BIDBS [facility] Insulin Human Regular (Novolin R) 0 unit SC ACHS [facility] PRN Reason: Protocol Last Admin: 01/30/18 11:38 Dose: 4 unit Levothyroxine Sodium (Synthroid) 25 mcg PO DAILY@0630 [facility] Last Admin: 01/30/18 06:57 Dose: 25 mcg Metoprolol Tartrate (Lopressor) 50 mg PO QPM [facility] Montelukast Sodium (Singulair) 10 mg PO HS [facility] Multivitamins/Minerals (Therapeutic-M Tab) 1 tab PO DAILY [facility] Last Admin: 01/30/18 10:51 Dose: 1 tab [id number] Ethyl Esters (Lovaza) 1 gm PO BID [facility] Last Admin: 01/30/18 10:51 Dose: 1 gm Oxycodone/Acetaminophen (Percocet 5/325 Mg Tab) 1 tab PO TID PRN PRN Reason: Pain, moderate (4-7) Stop: 02/02/18 10:01 Last Admin: 01/30/18 06:58 Dose: 1 tab Pantoprazole Sodium (Protonix Ec Tab) 40 mg PO DAILY [facility] Last Admin: 01/30/18 10:51 Dose: 40 mg Pregabalin (Lyrica) 50 mg PO HS [facility] Sevelamer Carbonate (Renvela) 1,600 mg PO TID [facility] Last Admin: 01/30/18 10:50 Dose: 1,600 mg Tamsulosin HCl (Flomax) 0.4 mg PO DAILY [facility] Last Admin: 01/30/18 10:51 Dose: 0.4 mg Ticagrelor (Brilinta) 90 mg PO BID [facility] Last Admin: 01/30/18 10:51 Dose: 90 mg Physical Exam - Constitutional Appears: No Acute Distress - Head Exam Head Exam: NORMAL INSPECTION - Eye Exam Eye Exam: EOMI, PERRL - ENT Exam ENT Exam: Normal Oropharynx - Neck Exam Neck exam: Positive for: Normal Inspection - Respiratory Exam Respiratory Exam: Clear to Auscultation Bilateral - Cardiovascular Exam Cardiovascular Exam: REGULAR RHYTHM, +S1, +S2 - GI/Abdominal Exam GI & Abdominal Exam: Normal Bowel Sounds, Soft - Extremities Exam Extremities exam: Positive for: pedal edema (RT FOOT IN DRESSING . PT IN HD . ( REVIEWED PODIATRY NOTES ) RIGHT LOWER EXTREMITY CELLULITIS WITH OLD SCARRING AND GANGRENE IS FIRST AND THIRD TOES RIGHT FOOT.). Negative for: calf tenderness - Neurological Exam Neurological exam: Alert, CN II-XII Intact, Oriented x3, Reflexes Normal - Psychiatric Exam Psychiatric exam: Normal Mood - Skin Skin Exam: Normal Color, Warm Results - Vital Signs Recent Vital Signs: Last Vital Signs Temp 97.5 F L 01/30/18 07:00 Pulse 73 01/30/18 10:39 Resp 18 01/30/18 07:00 BP 132/51 L 01/30/18 10:39 Pulse Ox 100 01/30/18 07:00 - Labs Result Diagrams: 01/30/18 15:00 01/30/18 15:00 Labs: Laboratory Results - last 24 hr 01/30/18 01/30/18 06:50 11:19 POC Glucose (mg/dL) 273 H 340 H Assessment & Plan (1) Diabetic foot ulcers Assessment and Plan: Pancultures. Blood cultures 2 sets on hemodialysis today. Discussed with RN paper cone machine tender [address]. X-rays of the Right foot ordered PER PODIATRY MARY/PVR reviewed - Calcified vessels with possible SFA disease Vascular Consult IN PROGRESS Wound cultures taken Continue IV gentamicin 100 mg X1 DOSE TODAY 01/30/18 F/U GENTAMICIN 100 MG POST EACH HEMODIALYSIS MWF X 5 DOSES. ADD iv VANCOMYCIN 1 G POST-EACH HEMODIALYSIS MWF X 6 DOSES 01/30/18. fOLLOW-UP vANCO TROUGH LEVEL PRIOR TO THE THIRD DOSE AND KEEP BETWEEN 10 AND 20. Status: Acute (2) Gangrene Assessment and Plan: VASCULAR CONSULT IN PROGRESS. Status: Acute (3) Cellulitis Assessment and Plan: PATIENT BEING OBSERVED CLOSELY FOR EXTENSION OF GANGRENE OR CELLULITIS. VASCULAR CONSULT IN PROGRESS. Status: Acute (4) ESRD (end stage renal disease) on dialysis Assessment and Plan: on hemodialysis MWF. Patient presently in hemodialysis. Status: Acute (5) Hypertension Status: Acute
--- NOTE | 2018-01-30 12:49 | CP.PCM.CON ---
History of Present Illness - History of Present Illness History of Present Illness: Nephrology Consultation Note: Assessment: Stable Rt foot non healing wound with GNR sepsis Diabetic chronic Kidney Disease (E11.22) Hypertensive Chronic Kidney Disease (I12.0) End stage renal disease (N18.6) dependence on hemodialysis (Z99.2) (MWF) via AVF Anemia (D64.9), Hyperphosphatemia (E83.39), Secondary Hyperparathyroidism (E21.1 ), HTN (I12.0) severe pulmonary HTN CAD s/p stent, hx of PPM Plan: Will plan for HD today as ordered. Continue with Nephrovite 1 tab/day. PRBC as needed for anemia. on SHANAE with dialysis as last Hb 9.3 Continue with phos binders, last phos level 3.9 BP control with meds as ordered. Patient not on RAAS fred as BP controlled already, consider to add if needed for high BP Glycemic control, Dialysis consistent diet Further work up/management as per primary team Dose meds/antibiotics for ESRD status. Avoid fleets enema/magnesium based laxatives. ordered one dose of Gentamycin 100 mg today as last blood cx from [facility] showing GNR, d/w Primary team will defer further antibiotics to ID Thanks for allowing me to participate in care of your patient. Will follow patient with you. Please call if any Qs. had d/w team Dr Frederic Thao Office: [phone] Chief Complaint;Rt foot wound Reason for consult: ESRD HPI: Pt is a 52 M with hx of ESRD on hemodialysis (MWF) via left AVF @ [facility] with Dr Henry/Dr Bateman , last dialysis fri, chronic anemia, hyperphosphatemia, secondary hyperparathyroidism, Diabetes Mellitus, hypertension, CAD s/p stent, hx of PPM severe pHTN presented with complaints of Rt foot non healing wound and found to have GNR sepsis. Renal consult requested for ESRD management. bedside Rt foot pain, pt feels in usual health. denies fever/chills pt on HD x 4 years, doesn't make urine ROS: Cardiovascular: No chest pain. Pulmonary: c/o mild shortness of breath Gastrointestinal: denies abdominal pain No nausea. No vomiting. Genitourinary: No pain while urinating. Denies blood in urine. All other negative except as mentioned in HPI Physical Examination: General Appearance: Comfortable, in no acute respiratory distress, co-operative . Vitals reviewed and noted as below Head; Atraumatic, normocephalic ENT: no ulcers no thrush. Tongue is midline. Oropharynx: no rash or ulcers. EYES: Pupils are equal, round and reactive to light accommodation. Eye muscles and extraocular movement intact. Sclera is anicteric. Neck; supple no lymphadenopathy, no thyromegaly or bruit Lungs: Normal respiratory rate/effort. Breath sounds bilateral equal and clear except occasional crackle Heart: Normal rate. s1s2 normal. No rub or gallop. has PPM Extremities: no edema. No varicose veins. Rt foot dressed Neurological: Patient is alert, awake and oriented to person, place and time. No focal deficit. Strength bilateral appropriate and equal Skin: Warm and dry. Normal turgor. No rash. Palpitation: Normal elasticity for age Abdomen: Abdomen is soft. Bowel sounds +. There is no abdominal tenderness, no guarding/rigidity or organomegaly Psych: normal insight and normal affect/mood MSK: no joint tenderness or swelling. Digits and nails normal, no deformity : kidney or bladder not palpable Access: Left AVF Labs/imaging reviewed. Past medical history, past surgical history, family history, social history, allergy reviewed and noted as below Family Hx: no hx of CKD. Non contributory Past Patient History - Infectious Disease Hx of Infectious Diseases: None - Tetanus Immunizations Tetanus Immunization: Up to Date - Past Medical History & Family History Past Medical History?: Yes - Past Social History Smoking Status: Never Smoked - CARDIAC Hx Cardiac Disorders: Yes Hx Cardia Arrhythmia: No Hx Circulatory Problems: Yes Hx Congestive Heart Failure: Yes Hx Heart Attack: Yes Hx Hypercholesterolemia: Yes Hx Hypertension: Yes Hx Pacemaker: Yes ([employer]TRONIC) Hx Peripheral Edema: Yes Hx Peripheral Vascular Disease: Yes - PULMONARY Hx Respiratory Disorders: Yes Hx Asthma: Yes Hx Bronchitis: Yes Hx Chronic Obstructive Pulmonary Disease (COPD): Yes Hx Emphysema: No Hx Pneumonia: Yes Hx Sleep Apnea: Yes (c pap 2) - NEUROLOGICAL Hx Neurological Disorder: Yes HX Cerebrovascular Accident: Yes Hx Dizziness: Yes Hx Transient Ischemic Attacks (TIA): Yes Other/Comment: Peripheral Neuropathy - HEENT Hx HEENT Problems: Yes (BILATERAL EYE WITH BLURRY VISION) Hx Cataracts: Yes (HAD SX 10/10/12) Hx Epistaxis: Yes Other/Comment: left eye cornea transplant,RENAL RETINOPATHY, glasses - RENAL Hx Chronic Kidney Disease: Yes Hx Dialysis: Yes (MWF) Type of Dialysis Access: AV Fistula Date of Last Dialysis Treatment: 01/27/18 Hx Kidney Stones: Yes (08/15) Hx Renal Failure: Yes Other/Comment: Hematuria,BPH,UTI - ENDOCRINE/METABOLIC Hx Endocrine Disorders: Yes Hx Diabetes Mellitus Type 1: Yes Hx Diabetes Mellitus Type 2: Yes Hx Hypothyroidism: Yes - HEMATOLOGICAL/ONCOLOGICAL Hx Blood Disorders: Yes Hx Anemia: Yes (With transfusions) Hx Blood Transfusions: Yes - INTEGUMENTARY Hx Dermatological Problems: Yes Hx Cellulitis: Yes - MUSCULOSKELETAL/RHEUMATOLOGICAL Hx Musculoskeletal Disorders: Yes Hx Arthritis: Yes Hx Back Pain: Yes Hx Falls: No Hx Fractures: Yes Hx Gout: Yes Hx Spinal Stenosis: Yes Hx Unsteady Gait: Yes - GASTROINTESTINAL Hx Gastrointestinal Disorders: Yes Hx Gall Bladder Disease: Yes (CHOLECYSTECTOMY) Hx Gastroesophageal Reflux: Yes Hx Liver Failure: Yes (CKD) Hx Pancreatitis: Yes Hx Ulcer: Yes - GENITOURINARY/GYNECOLOGICAL Hx Genitourinary Disorders: Yes (esrd on HD MWF) Hx Hematuria: Yes Hx Prostate Problems: Yes Hx Urinary Tract Infection: Yes - PSYCHIATRIC Hx Psychophysiologic Disorder: Yes Hx Anxiety: Yes Hx Depression: No Hx Substance Use: No - SURGICAL HISTORY Hx Surgeries: Yes Hx Cholecystectomy: Yes (12/27/12) Hx Coronary Stent: Yes (x2 tuesday10/25/17) - ANESTHESIA Hx Anesthesia: Yes Hx Anesthesia Reactions: No Hx Malignant Hyperthermia: No Meds Allergies/Adverse Reactions: Allergies Allergy/AdvReac Type Severity Reaction Status Date / Time insulin aspart [From Novolog] Allergy Intermediate RASH Verified 01/24/18 11:30 moxifloxacin Allergy Intermediate RASH Verified 01/24/18 11:30 Penicillins Allergy Intermediate RASH Verified 01/24/18 11:30 insulin regular Allergy Verified 01/29/18 23:36 [From Novolin R Regular U-100 Insuln] - Medications Medications: Current Medications Albuterol/Ipratropium (Duoneb 3 Mg/0.5 Mg (3 Ml) Ud) 3 ml INH RQ6 [facility] Last Admin: 01/30/18 07:23 Dose: 3 ml Aspirin (Ecotrin) 81 mg PO DAILY [facility] Enoxaparin Sodium (Lovenox) 30 mg SC DAILY [facility] Last Admin: 01/30/18 10:52 Dose: Not Given Epoetin Alexey (Procrit) 8,000 unit IV MWF [facility] Ergocalciferol (Drisdol 50,000 Intl Units Cap) 1 cap PO Q7D [facility] Gemfibrozil (Lopid) 300 mg PO BID [facility] Last Admin: 01/30/18 11:08 Dose: 300 mg Glipizide (Glucotrol) 10 mg PO DAILY [facility] Last Admin: 01/30/18 10:50 Dose: 10 mg Hydralazine HCl (Apresoline) 25 mg PO BID [facility] Last Admin: 01/30/18 10:51 Dose: 25 mg Gentamicin Sulfate 100 mg/ (Sodium Chloride) 102.5 mls @ 100 mls/hr IVPB Q24H [facility] PRN Reason: Protocol Stop: 01/30/18 13:02 Last Admin: 01/30/18 12:30 Dose: 100 mls/hr Vancomycin/Sodium Chloride (Vancomycin 1 Gm/Ns 200 Ml) 1 gm in 200 mls @ 133 mls/hr [place] [facility] [place] Reason: Protocol Stop: 02/13/18 10:31 Insulin Human NPH (Novolin N) 30 unit SC BIDBS [facility] Insulin Human Regular (Novolin R) 0 unit SC ACHS [facility] PRN Reason: Protocol Last Admin: 01/30/18 11:38 Dose: 4 unit Levothyroxine Sodium (Synthroid) 25 mcg PO DAILY@0630 [facility] Last Admin: 01/30/18 06:57 Dose: 25 mcg Metoprolol Tartrate (Lopressor) 50 mg PO QPM [facility] Montelukast Sodium (Singulair) 10 mg PO HS [facility] Multivitamins/Minerals (Therapeutic-M Tab) 1 tab PO DAILY [facility] Last Admin: 01/30/18 10:51 Dose: 1 tab Htsya-6-Ezpe Ethyl Esters (Lovaza) 1 gm PO BID [facility] Last Admin: 01/30/18 10:51 Dose: 1 gm Oxycodone/Acetaminophen (Percocet 5/325 Mg Tab) 1 tab PO TID PRN PRN Reason: Pain, moderate (4-7) Stop: 02/02/18 10:01 Last Admin: 01/30/18 06:58 Dose: 1 tab Pantoprazole Sodium (Protonix Ec Tab) 40 mg PO DAILY [facility] Last Admin: 01/30/18 10:51 Dose: 40 mg Pregabalin (Lyrica) 50 mg PO HS [facility] Sevelamer Carbonate (Renvela) 1,600 mg PO TID [facility] Last Admin: 01/30/18 10:50 Dose: 1,600 mg Tamsulosin HCl (Flomax) 0.4 mg PO DAILY [facility] Last Admin: 01/30/18 10:51 Dose: 0.4 mg Ticagrelor (Brilinta) 90 mg PO BID [facility] Last Admin: 01/30/18 10:51 Dose: 90 mg Results - Vital Signs Recent Vital Signs: Last Vital Signs Temp 97.5 F L 01/30/18 07:00 Pulse 73 01/30/18 10:39 Resp 18 01/30/18 07:00 BP 132/51 L 01/30/18 10:39 Pulse Ox 100 01/30/18 07:00 - Labs Labs: Laboratory Results - last 24 hr 01/30/18 01/30/18 06:50 11:19 POC Glucose (mg/dL) 273 H 340 H
--- NOTE | 2018-01-30 14:58 | CP.PCM.CON ---
History of Present Illness - History of Present Illness History of Present Illness: Podiatry consult note: Dr. Colon 52 year old male was seen and evaluated at bedside for gangrene on the right foot digits and healing ulceration of left foot. Patient reports that he was seen at [facility] prior to coming to the hospital here. Reports that he was not able to stay at [facility] because he is currently on dialysis. Patient reports that he had fever for the past couple of days so decided to come to the hospital. Reports that she had a vascular procedure performed at [facility] with Dr. Gaming. Denies of any pain to the legs today. Denies any recent N/V/F/C/CP/ SOB/D/posterior calf pain when squeezed. No other pedal complains at this time. PMH: COPD, CAD with 4 stents, ESRD on HD MWF, IDDM2 and HTN PSH: Multiple cardiac caths, left cornea transplant and AV fistula in left arm Family History: Mother-CAD, IDDM2, HTN Social history: Denies tobacco, alcohol or illicit drug use; Lives at home with mother Allergies: insulin aspart, moxifloxacin, penicillin Home Medications: As per MAR Review of Systems - Constitutional Constitutional: As Per HPI Past Patient History - Infectious Disease Hx of Infectious Diseases: None - Tetanus Immunizations Tetanus Immunization: Up to Date - Past Medical History & Family History Past Medical History?: Yes - Past Social History Smoking Status: Never Smoked - CARDIAC Hx Congestive Heart Failure: Yes - PULMONARY Hx Respiratory Disorders: Yes Hx Asthma: Yes Hx Bronchitis: Yes Hx Chronic Obstructive Pulmonary Disease (COPD): Yes Hx Emphysema: No Hx Pneumonia: Yes Hx Sleep Apnea: Yes (c pap 2) - NEUROLOGICAL Hx Neurological Disorder: Yes HX Cerebrovascular Accident: Yes Hx Dizziness: Yes Hx Transient Ischemic Attacks (TIA): Yes Other/Comment: Peripheral Neuropathy - HEENT Hx HEENT Problems: Yes (BILATERAL EYE WITH BLURRY VISION) Hx Cataracts: Yes (HAD SX 10/10/12) Hx Epistaxis: Yes Other/Comment: left eye cornea transplant,RENAL RETINOPATHY, glasses - RENAL Hx Chronic Kidney Disease: Yes Hx Dialysis: Yes (MWF) Type of Dialysis Access: AV Fistula Date of Last Dialysis Treatment: 01/27/18 Hx Kidney Stones: Yes (08/15) Hx Renal Failure: Yes Other/Comment: Hematuria,BPH,UTI - ENDOCRINE/METABOLIC Hx Endocrine Disorders: Yes Hx Diabetes Mellitus Type 1: Yes Hx Diabetes Mellitus Type 2: Yes Hx Hypothyroidism: Yes - HEMATOLOGICAL/ONCOLOGICAL Hx Blood Disorders: Yes Hx Anemia: Yes (With transfusions) Hx Blood Transfusions: Yes - INTEGUMENTARY Hx Dermatological Problems: Yes Hx Cellulitis: Yes - MUSCULOSKELETAL/RHEUMATOLOGICAL Hx Arthritis: Yes - GASTROINTESTINAL Hx Gastrointestinal Disorders: Yes Hx Gall Bladder Disease: Yes (CHOLECYSTECTOMY) Hx Gastroesophageal Reflux: Yes Hx Liver Failure: Yes (CKD) Hx Pancreatitis: Yes Hx Ulcer: Yes - GENITOURINARY/GYNECOLOGICAL Hx Genitourinary Disorders: Yes (esrd on HD MWF) Hx Hematuria: Yes Hx Prostate Problems: Yes Hx Urinary Tract Infection: Yes - PSYCHIATRIC Hx Psychophysiologic Disorder: Yes Hx Anxiety: Yes Hx Depression: No Hx Substance Use: No - SURGICAL HISTORY Hx Surgeries: Yes Hx Cholecystectomy: Yes (12/27/12) Hx Coronary Stent: Yes (x2 tuesday10/25/17) - ANESTHESIA Hx Anesthesia: Yes Hx Anesthesia Reactions: No Hx Malignant Hyperthermia: No Meds Allergies/Adverse Reactions: Allergies Allergy/AdvReac Type Severity Reaction Status Date / Time insulin aspart [From Novolog] Allergy Intermediate RASH Verified 01/24/18 11:30 moxifloxacin Allergy Intermediate RASH Verified 01/24/18 11:30 Penicillins Allergy Intermediate RASH Verified 01/24/18 11:30 insulin regular Allergy Verified 01/29/18 23:36 [From Novolin R Regular U-100 Insuln] - Medications Medications: Current Medications Albuterol/Ipratropium (Duoneb 3 Mg/0.5 Mg (3 Ml) Ud) 3 ml INH RQ6 [facility] Last Admin: 01/30/18 13:13 Dose: 3 ml Aspirin (Ecotrin) 81 mg PO DAILY ON [facility] Enoxaparin Sodium (Lovenox) 30 mg SC DAILY [facility] Last Admin: 01/30/18 10:52 Dose: Not Given Epoetin Alexey (Procrit) 8,000 unit IV MWF ON [facility] Ergocalciferol (Drisdol 50,000 Intl Units Cap) 1 cap PO Q7D ON [facility] Gemfibrozil (Lopid) 300 mg PO BID [facility] Last Admin: 01/30/18 11:08 Dose: 300 mg Glipizide (Glucotrol) 10 mg PO DAILY [facility] Last Admin: 01/30/18 10:50 Dose: 10 mg Hydralazine HCl (Apresoline) 25 mg PO BID [facility] Last Admin: 01/30/18 10:51 Dose: 25 mg Vancomycin/Sodium Chloride (Vancomycin 1 Gm/Ns 200 Ml) 1 gm in 200 mls @ 133 mls/hr IVPB MWF ON [facility] PRN Reason: Protocol Stop: 02/13/18 10:31 Insulin Human NPH (Novolin N) 30 unit SC BIDBS ON [facility] Insulin Human Regular (Novolin R) 0 unit SC ACHS ON [facility] PRN Reason: Protocol Last Admin: 01/30/18 11:38 Dose: 4 unit Levothyroxine Sodium (Synthroid) 25 mcg PO DAILY@0630 [facility] Last Admin: 01/30/18 06:57 Dose: 25 mcg Metoprolol Tartrate (Lopressor) 50 mg PO QPM ON [facility] Montelukast Sodium (Singulair) 10 mg PO HS ON [facility] Multivitamins/Minerals (Therapeutic-M Tab) 1 tab PO DAILY [facility] Last Admin: 01/30/18 10:51 Dose: 1 tab [id number] Ethyl Esters (Lovaza) 1 gm PO BID ON [facility] Last Admin: 01/30/18 10:51 Dose: 1 gm Oxycodone/Acetaminophen (Percocet 5/325 Mg Tab) 1 tab PO TID PRN PRN Reason: Pain, moderate (4-7) Stop: 02/02/18 10:01 Last Admin: 01/30/18 06:58 Dose: 1 tab Pantoprazole Sodium (Protonix Ec Tab) 40 mg PO DAILY [facility] Last Admin: 01/30/18 10:51 Dose: 40 mg Pregabalin (Lyrica) 50 mg PO HS ON [facility] Sevelamer Carbonate (Renvela) 1,600 mg PO TID ON [facility] Last Admin: 01/30/18 13:24 Dose: 1,600 mg Tamsulosin HCl (Flomax) 0.4 mg PO DAILY [facility] Last Admin: 01/30/18 10:51 Dose: 0.4 mg Ticagrelor (Brilinta) 90 mg PO BID ON [facility] Last Admin: 01/30/18 10:51 Dose: 90 mg Physical Exam - Constitutional Appears: Well, Non-toxic, No Acute Distress - Extremities Exam Additional comments: Lower extremity focused exam: Vasc: DP/PT pulses are faintly palpable 1/4. Cap refill time: < 3 sec to all digits; Temp gradient: warm to cool with patches of warmth from proximal to distal, mild non-pitting edema noted on the right LE Derm: hyperpigmentation changes with dry gangrene to the RLE digit 1 and 3, mild drainage expressed during deep palpation of the medial arch, minimal erythema extending proximally from the forefoot to the plantar medial arch, ulceration roofed with hyperkeratotic skin measuring approx 0.6cm x 0.6cm x 0.1cm noted to level of plantar first metatarsal head. No malodor, no saba- wound erythema, no fluctuance, no drainage, no tunneling, no probe to bone or undermining. No sinus tract formation in any direction. No other clinic signs of infection. L Neuro: Epicritic and protective sensation grossly absent b/l Ortho: No tenderness to palpation of left foot sub met 1 ulceration or right heel fissure. No other gross deformities noted - Neurological Exam Neurological exam: Alert - Psychiatric Exam Psychiatric exam: Normal Affect, Normal Mood Results - Vital Signs Recent Vital Signs: Last Vital Signs Temp 97.5 F L 01/30/18 07:00 Pulse 73 01/30/18 13:09 Resp 18 01/30/18 07:00 BP 132/51 L 01/30/18 10:39 Pulse Ox 100 01/30/18 07:00 - Labs Labs: Laboratory Results - last 24 hr 01/30/18 01/30/18 06:50 11:19 POC Glucose (mg/dL) 273 H 340 H Assessment & Plan - Assessment and Plan (Free Text) Assessment: 52 year old male was seen and evaluated for dry gangrene to hallux and 3rd digit on the right foot and pressure induced ulceration of left foot. Plan: Patient seen and evaluated at bedside with attending Dr. Colon Labs, vitals and charts reviewed - afebrile today WBC @ 12.6 Right foot dressed with betadine, DSD, no dressing on the left X-rays of the Right foot ordered MARY/PVR reviewed - Calcified vessels with possible SFA disease Vascular Consult Wound cultures taken Continue IV abx as per ID Continue local wound care Thank you for the podiatry consult and allowing to take part in patient care Will monitor patient closely while on floor - Date & Time Date: 01/30/18 Time: 09:00
[2018-01-30 15:07] LABS: BASO % 0.3 % (0.0-2.0); EOS % 0.2 % (0.0-4.0); HEMOGLOBIN 8.9 g/dL (12.0-18.0); LYMPH # 0.9 K/uL (1.0-4.3); MEAN CELL VOLUME 89.9 fL (80.0-94.0); MEAN CORPUSCULAR HEMOGLOBIN 29.4 pg (27.0-31.0); MEAN CORPUSCULAR HGB CONC 32.7 g/dL (33.0-37.0); MEAN PLATELET VOLUME 11.1 fL (7.2-11.7); MONO # 1.2 K/uL (0.0-0.8); MONO % 8.8 % (0.0-10.0); NEUT # 11.3 K/uL (1.8-7.0); NEUT % 83.7 % (50.0-75.0); PLATELET COUNT 150 K/uL (130-400); RBC 3.04 Mil/uL (4.40-5.90); RED CELL DISTRIBUTION WIDTH 17.8 % (11.5-14.5); WHITE BLOOD COUNT 13.5 K/uL (4.8-10.8)
[2018-01-30 15:50] LABS: ALB/GLOB RATIO 0.8 (1.0-2.1); ALBUMIN 3.1 g/dL (3.5-5.0); ALT/SGPT 31 U/L (21-72); ANISOCYTOSIS SLIGHT; AST/SGOT 64 U/L (17-59); BANDS 2 % (0-2); BILIRUBIN,DIRECT 1.4 mg/dL (0.0-0.4); BLOOD UREA NITROGEN 62 mg/dL (9-20); CALCIUM 8.6 mg/dl (8.6-10.4); HYPOCHROMIC SLIGHT; LYMPHOCYTE 4 % (20-40); MONOCYTE 3 % (0-10); NEUTROPHIL 91 % (50-75); PLATELET ESTIMATE NORMAL (NORMAL); TOTAL CELLS COUNTED 100
[2018-01-30 15:51] LABS: POLYCHROMIC SLIGHT
[2018-01-30 16:06] LABS: GFR AFRICAN-AMERICAN 8; GFR NON-AFRICAN AMERICAN 6
--- NOTE | 2018-01-30 16:09 | CP.PCM.CON ---
Past Patient History - Infectious Disease Hx of Infectious Diseases: None - Tetanus Immunizations Tetanus Immunization: Up to Date - Past Medical History & Family History Past Medical History?: Yes - Past Social History Smoking Status: Never Smoked - CARDIAC Hx Congestive Heart Failure: Yes - PULMONARY Hx Respiratory Disorders: Yes Hx Asthma: Yes Hx Bronchitis: Yes Hx Chronic Obstructive Pulmonary Disease (COPD): Yes Hx Emphysema: No Hx Pneumonia: Yes Hx Sleep Apnea: Yes (c pap 2) - NEUROLOGICAL Hx Neurological Disorder: Yes HX Cerebrovascular Accident: Yes Hx Dizziness: Yes Hx Transient Ischemic Attacks (TIA): Yes Other/Comment: Peripheral Neuropathy - HEENT Hx HEENT Problems: Yes (BILATERAL EYE WITH BLURRY VISION) Hx Cataracts: Yes (HAD SX 10/10/12) Hx Epistaxis: Yes Other/Comment: left eye cornea transplant,RENAL RETINOPATHY, glasses - RENAL Hx Chronic Kidney Disease: Yes Hx Dialysis: Yes (MWF) Type of Dialysis Access: AV Fistula Date of Last Dialysis Treatment: 01/27/18 Hx Kidney Stones: Yes (08/15) Hx Renal Failure: Yes Other/Comment: Hematuria,BPH,UTI - ENDOCRINE/METABOLIC Hx Endocrine Disorders: Yes Hx Diabetes Mellitus Type 1: Yes Hx Diabetes Mellitus Type 2: Yes Hx Hypothyroidism: Yes - HEMATOLOGICAL/ONCOLOGICAL Hx Blood Disorders: Yes Hx Anemia: Yes (With transfusions) Hx Blood Transfusions: Yes - INTEGUMENTARY Hx Dermatological Problems: Yes Hx Cellulitis: Yes - MUSCULOSKELETAL/RHEUMATOLOGICAL Hx Arthritis: Yes - GASTROINTESTINAL Hx Gastrointestinal Disorders: Yes Hx Gall Bladder Disease: Yes (CHOLECYSTECTOMY) Hx Gastroesophageal Reflux: Yes Hx Liver Failure: Yes (CKD) Hx Pancreatitis: Yes Hx Ulcer: Yes - GENITOURINARY/GYNECOLOGICAL Hx Genitourinary Disorders: Yes (esrd on HD MWF) Hx Hematuria: Yes Hx Prostate Problems: Yes Hx Urinary Tract Infection: Yes - PSYCHIATRIC Hx Psychophysiologic Disorder: Yes Hx Anxiety: Yes Hx Depression: No Hx Substance Use: No - SURGICAL HISTORY Hx Surgeries: Yes Hx Cholecystectomy: Yes (12/27/12) Hx Coronary Stent: Yes (tuesday10/25/17) - ANESTHESIA Hx Anesthesia: Yes Hx Anesthesia Reactions: No Hx Malignant Hyperthermia: No Meds Allergies/Adverse Reactions: Allergies Allergy/AdvReac Type Severity Reaction Status Date / Time insulin aspart [From Novolog] Allergy Intermediate RASH Verified 01/24/18 11:30 moxifloxacin Allergy Intermediate RASH Verified 01/24/18 11:30 Penicillins Allergy Intermediate RASH Verified 01/24/18 11:30 insulin regular Allergy Verified 01/29/18 23:36 [From Novolin R Regular U-100 Insuln] - Medications Medications: Current Medications Albuterol/Ipratropium (Duoneb 3 Mg/0.5 Mg (3 Ml) Ud) 3 ml INH RQ6 [facility] Last Admin: 01/30/18 13:13 Dose: 3 ml Aspirin (Ecotrin) 81 mg PO DAILY [facility] Enoxaparin Sodium (Lovenox) 30 mg SC DAILY [facility] Last Admin: 01/30/18 10:52 Dose: Not Given Epoetin Alexey (Procrit) 8,000 unit IV MWF [facility] Ergocalciferol (Drisdol 50,000 Intl Units Cap) 1 cap PO Q7D [facility] Gemfibrozil (Lopid) 300 mg PO BID [facility] Last Admin: 01/30/18 11:08 Dose: 300 mg Glipizide (Glucotrol) 10 mg PO DAILY [facility] Last Admin: 01/30/18 10:50 Dose: 10 mg Hydralazine HCl (Apresoline) 25 mg PO BID [facility] Last Admin: 01/30/18 10:51 Dose: 25 mg Vancomycin/Sodium Chloride (Vancomycin 1 Gm/Ns 200 Ml) 1 gm in 200 mls @ 133 mls/hr [place] [facility] [place] Reason: Protocol Stop: 02/13/18 10:31 Insulin Human NPH (Novolin N) 30 unit SC BIDBS [facility] Insulin Human Regular (Novolin R) 0 unit SC ACHS [facility] PRN Reason: Protocol Last Admin: 01/30/18 11:38 Dose: 4 unit Levothyroxine Sodium (Synthroid) 25 mcg PO DAILY@0630 [facility] Last Admin: 01/30/18 06:57 Dose: 25 mcg Metoprolol Tartrate (Lopressor) 50 mg PO QPM [facility] Montelukast Sodium (Singulair) 10 mg PO HS [facility] Multivitamins/Minerals (Therapeutic-M Tab) 1 tab PO DAILY [facility] Last Admin: 01/30/18 10:51 Dose: 1 tab [id number] Ethyl Esters (Lovaza) 1 gm PO BID [facility] Last Admin: 01/30/18 10:51 Dose: 1 gm Oxycodone/Acetaminophen (Percocet 5/325 Mg Tab) 1 tab PO TID PRN PRN Reason: Pain, moderate (4-7) Stop: 02/02/18 10:01 Last Admin: 01/30/18 06:58 Dose: 1 tab Pantoprazole Sodium (Protonix Ec Tab) 40 mg PO DAILY [facility] Last Admin: 01/30/18 10:51 Dose: 40 mg Pregabalin (Lyrica) 50 mg PO HS [facility] Sevelamer Carbonate (Renvela) 1,600 mg PO TID [facility] Last Admin: 01/30/18 13:24 Dose: 1,600 mg Tamsulosin HCl (Flomax) 0.4 mg PO DAILY [facility] Last Admin: 01/30/18 10:51 Dose: 0.4 mg Ticagrelor (Brilinta) 90 mg PO BID [facility] Last Admin: 01/30/18 10:51 Dose: 90 mg Results - Vital Signs Recent Vital Signs: Last Vital Signs Temp 98.8 F 01/30/18 14:30 Pulse 68 01/30/18 14:30 Resp 18 01/30/18 14:30 BP 111/50 L 01/30/18 16:00 Pulse Ox 99 01/30/18 14:30 - Labs Result Diagrams: 01/30/18 15:00 01/30/18 15:00 Labs: Laboratory Results - last 24 hr 01/30/18 01/30/18 01/30/18 06:50 11:19 15:00 WBC RBC Hgb Hct MCV MCH MCHC RDW Plt Count MPV Neut % (Auto) Lymph % (Auto) Smyth % (Auto) Eos % (Auto) Baso % (Auto) Neut # (Auto) Lymph # (Auto) Smyth # (Auto) Eos # (Auto) Baso # (Auto) Neutrophils % (Manual) Band Neutrophils % Lymphocytes % (Manual) Monocytes % (Manual) Platelet Estimate Polychromasia Hypochromasia (manual) Anisocytosis (manual) Sodium 132 Potassium 4.8 Chloride 90 L Carbon Dioxide 24 Anion Gap 22 H BUN 62 H Creatinine 8.7 H* Est GFR ( Amer) 8 Est GFR (Non-Af Amer) 6 POC Glucose (mg/dL) 273 H 340 H Random Glucose 269 H Calcium 8.6 Total Bilirubin 1.4 H Direct Bilirubin 1.4 H AST 64 H D ALT 31 Alkaline Phosphatase 83 C-Reactive Protein > 270.00 H Total Protein 7.1 Albumin 3.1 L Globulin 4.0 H Albumin/Globulin Ratio 0.8 L 01/30/18 15:00 WBC 13.5 H D RBC 3.04 L Hgb 8.9 L Hct 27.3 L MCV 89.9 D MCH 29.4 MCHC 32.7 L RDW 17.8 H Plt Count 150 MPV 11.1 Neut % (Auto) 83.7 H Lymph % (Auto) 7.0 L Smyth % (Auto) 8.8 Eos % (Auto) 0.2 Baso % (Auto) 0.3 Neut # (Auto) 11.3 H Lymph # (Auto) 0.9 L Smyth # (Auto) 1.2 H Eos # (Auto) 0.0 Baso # (Auto) 0.0 Neutrophils % (Manual) 91 H Band Neutrophils % 2 Lymphocytes % (Manual) 4 L Monocytes % (Manual) 3 Platelet Estimate Normal Polychromasia Slight Hypochromasia (manual) Slight Anisocytosis (manual) Slight Sodium Potassium Chloride Carbon Dioxide Anion Gap BUN Creatinine Est GFR ( Amer) Est GFR (Non-Af Amer) POC Glucose (mg/dL) Random Glucose Calcium Total Bilirubin Direct Bilirubin AST ALT Alkaline Phosphatase C-Reactive Protein Total Protein Albumin Globulin Albumin/Globulin Ratio
[2018-01-30] MEDS ORDERED: (Novolin R) Insulin Human Regular 100 units/ml vial SC SCH (18:00)
[2018-01-30] MEDS ORDERED: (Novolin N) Insulin Human Isophane (NPH) 100 u/ml 10 ml vial SC SCH (18:00)
[2018-01-30 20:25] VITALS: BP 146/51; PULSE 78; RESP 20; O2SAT 98
[2018-01-30 22:41] VITALS: TEMP 98.8
[2018-02-01] MEDS ORDERED: Vancomycin 1 gm/NS 200 ml 1 GM/200 ML BAG IVPB SCH (09:00)
[2018-02-01] MEDS ORDERED: Ergocalciferol 50,000 Intl Units Cap PO SCH (10:00)
== END 2018-01-30 23:25 | disposition left against medical advice (07) | DRG 871 ==
LOC: C.ER 23:04 → C.9E 23:40 → C.6T 01-30 00:40
PROVIDERS: ADMIT Internal Medicine; ATTEND Internal Medicine
PROC: 5A1D70Z Performance of Urinary Filtration, Intermittent, Less than 6 Hours Per Day (ICD-10-PCS; principal; 2018-01-30)
DX: A41.50 Gram-negative sepsis, unspecified (principal); N18.6 End stage renal disease; L03.115 Cellulitis of right lower limb; N25.81 Secondary hyperparathyroidism of renal origin; I13.2 Hypertensive heart and chronic kidney disease with heart failure and with stage 5 chronic kidney disease, or end stage renal disease; E10.52 Type 1 diabetes mellitus with diabetic peripheral angiopathy with gangrene; J44.9 Chronic obstructive pulmonary disease, unspecified; N40.0 Benign prostatic hyperplasia without lower urinary tract symptoms; Z79.4 Long term (current) use of insulin; Z86.73 Personal history of transient ischemic attack (TIA), and cerebral infarction without residual deficits; Z87.01 Personal history of pneumonia (recurrent); Z95.5 Presence of coronary angioplasty implant and graft; Z99.2 Dependence on renal dialysis; Z95.0 Presence of cardiac pacemaker; I25.10 Atherosclerotic heart disease of native coronary artery without angina pectoris; I50.9 Heart failure, unspecified; G47.30 Sleep apnea, unspecified; E78.5 Hyperlipidemia, unspecified; E03.9 Hypothyroidism, unspecified; I27.20 Pulmonary hypertension, unspecified; D64.9 Anemia, unspecified; E10.22 Type 1 diabetes mellitus with diabetic chronic kidney disease; E10.621 Type 1 diabetes mellitus with foot ulcer; L97.529 Non-pressure chronic ulcer of other part of left foot with unspecified severity

== ENCOUNTER 2018-04-28 15:49 | Inpatient (IN) | payer MEDICARE, OTHER ==
--- NOTE | 2018-04-28 18:07 | CP.PCM.HP ---
<Jose Shields - Last Filed: 04/28/18 22:04> History of Present Illness - History of Present Illness History of Present Illness: Medicine History and Physical for Hospitalist Service Jose Shields DO PGY-1, [employer] This is a 52 y o male PMhx ESRD on HD, PAD, CAD, COPD, CHF, pacemaker placement who presented today as direct admit from [facility] to [facility] for possible DRIL of L middle finger with Dr. Burden. Pt was brought to [facility] on 04/27/18 after being found on the floor. Pt was at time, confused, hypoglycemic, and hypothermic, and stated that prior to incident he did not eat much that day and took his nighttime insulin prior to going to sleep, and the next thing he remembered he was in the ED. Did not remember falling or hitting his head during that episode. Pt was given glucagon and sugars increased. Pt was also recently admitted on 04/21/18 for L necrotic middle finger that was supposed to be amputated, but patient at time left against medical advice. Patient also has hx of R BKA performed at [facility] in Mar 2018. Today, patient states that he feels much better, denies any acute complaints, but states he is anxious about what is going to happen to his L middle finger. Reporting associated numbness and tingling in L upper extremity. Denies fever, chills, chest pain, sob, n/v/d/c, urinary complaints, abd pain, or other symptoms. Reporting pain on his bottom secondary to small sacral ulcer from sitting in hospital beds. PMhx: ESRD on HD MWF (last received HD today at [facility]), PAD, IDDM, CHF, COPD, CAD s/p stents, pacemaker PSurgHx: L AV fistula, cholecystectomy, R BKA in Mar 2018, L cornea transplant, pacemaker placement Home meds: Reviewed as per SEP Allergies: insulin (aspart and regular), PCN, moxifloxacin Soc Hx: denies EtOH, tobacco, or drug use Fam Hx: Mom - ERSD, end-stage coronary disease Present on Admission - Present on Admission Any Indicators Present on Admission: Yes Decubitus Ulcer Present: Yes Decubitus Ulcer Location: Lower buttock adjacent to anus History Surgical Site Infection Following: None Review of Systems - Constitutional Constitutional: absent: Chills, Fatigue, Fever, Malaise, Night Sweats - Cardiovascular Cardiovascular: Leg Ulcers. absent: Chest Pain, Dyspnea, Leg Edema - Respiratory Respiratory: absent: Cough, Hemoptysis, Chest Congestion - Gastrointestinal Gastrointestinal: absent: Abdominal Pain, Change in Bowel Habits, Constipation, Diarrhea, Hematochezia, Nausea, Vomiting - Musculoskeletal Musculoskeletal: Numbness, Tingling. absent: Neck Pain Past Patient History - Infectious Disease Hx of Infectious Diseases: None - Tetanus Immunizations Tetanus Immunization: Up to Date - Past Medical History & Family History Past Medical History?: Yes - Past Social History Smoking Status: Never Smoked - CARDIAC Hx Cardiac Disorders: Yes (mi) Hx Angina: No Hx Cardia Arrhythmia: Yes Hx Circulatory Problems: Yes Hx Congestive Heart Failure: Yes Hx Heart Murmur: Yes Hx Heart Transplant: Yes Hx Hypercholesterolemia: Yes Hx Hypertension: Yes Hx Internal Defibrillator: Yes Hx Pacemaker: Yes (medtronic) Hx Peripheral Edema: Yes Hx Peripheral Vascular Disease: Yes - PULMONARY Hx Respiratory Disorders: Yes Hx Asthma: Yes Hx Bronchitis: Yes Hx Chronic Obstructive Pulmonary Disease (COPD): Yes Hx Pneumonia: Yes Hx Respiratory Aspiration: No Hx Respiratory Tract Infection: Yes Hx Sleep Apnea: Yes Hx Tuberculosis: No - NEUROLOGICAL Hx Neurological Disorder: Yes HX Cerebrovascular Accident: Yes Hx Transient Ischemic Attacks (TIA): Yes - HEENT Hx HEENT Problems: Yes Hx Blind: No Hx Cataracts: Yes Hx Deafness: No Hx Difficulty Chewing: No - RENAL Hx Chronic Kidney Disease: Yes Hx Dialysis: Yes Date of Last Dialysis Treatment: 04/28/18 Hx Kidney Stones: Yes Hx Renal Failure: Yes - ENDOCRINE/METABOLIC Hx Endocrine Disorders: Yes Hx Adrenal Cancer: No Hx Diabetes Insipidus: Yes Hx Diabetes Mellitus Type 1: Yes Hx Hypothyroidism: Yes Hx Systemic Lupus Erythematosus: No - HEMATOLOGICAL/ONCOLOGICAL Hx AIDS: No Hx Anemia: Yes Hx Blood Transfusions: Yes Hx Blood Transfusion Reaction: No - INTEGUMENTARY Hx Dermatological Problems: No - MUSCULOSKELETAL/RHEUMATOLOGICAL Hx Musculoskeletal Disorders: Yes Hx Arthritis: Yes Hx Back Pain: Yes Hx Falls: Yes Hx Fractures: Yes Hx Gout: Yes Hx Unsteady Gait: Yes - GASTROINTESTINAL Hx Gastrointestinal Disorders: Yes Hx Colostomy: No Hx Liver Failure: Yes Hx Pancreatitis: Yes - GENITOURINARY/GYNECOLOGICAL Hx Genitourinary Disorders: Yes Hx Hematuria: Yes - PSYCHIATRIC Hx Psychophysiologic Disorder: Yes Hx Anxiety: Yes Hx Substance Use: No - SURGICAL HISTORY Hx Surgeries: Yes Hx Amputation: Yes Hx Cardiac Catheterization: Yes Hx Cholecystectomy: Yes Hx Coronary Stent: Yes Hx Musculoskeletal Surgery: Yes - ANESTHESIA Hx Anesthesia: Yes Hx Anesthesia Reactions: No Hx Malignant Hyperthermia: No Meds Allergies/Adverse Reactions: Allergies Allergy/AdvReac Type Severity Reaction Status Date / Time insulin aspart [From Novolog] Allergy Intermediate RASH Verified 04/26/18 15:49 moxifloxacin Allergy Intermediate RASH Verified 04/26/18 15:49 Penicillins Allergy Intermediate RASH Verified 04/26/18 15:49 insulin regular Allergy ITCHING Verified 04/26/18 15:49 [From Novolin R Regular U-100 Insuln] Physical Exam - Constitutional Appears: Non-toxic, No Acute Distress, Older Than Stated Age, Chronically Ill - Head Exam Head Exam: ATRAUMATIC, NORMOCEPHALIC - Eye Exam Eye Exam: EOMI, Normal appearance, PERRL - ENT Exam ENT Exam: Mucous Membranes Moist - Respiratory Exam Respiratory Exam: Clear to Auscultation Bilateral, NORMAL BREATHING PATTERN. absent: Rales, Rhonchi, Wheezes - Cardiovascular Exam Cardiovascular Exam: REGULAR RHYTHM, +S1, +S2. absent: Gallop, Rubs, Systolic Murmur - GI/Abdominal Exam GI & Abdominal Exam: Normal Bowel Sounds, Soft. absent: Distended, Firm, Guarding, Rebound, Rigid, Tenderness - Extremities Exam Extremities exam: Positive for: full ROM Additional comments: S/p R BKA, dressing site c/d/i; L middle finger necrotic down to PIP, no abnormal drainage noted, painful with movement - Neurological Exam Neurological exam: Alert, CN II-XII Intact, Oriented x3 - Psychiatric Exam Psychiatric exam: Normal Affect, Normal Mood - Skin Skin Exam: Dry, Intact, Warm Results - Vital Signs Recent Vital Signs: Last Vital Signs Temp 97.7 F 04/28/18 15:57 Pulse 85 04/28/18 16:41 Resp 18 04/28/18 15:57 BP 102/47 L 04/28/18 15:57 Pulse Ox 99 04/28/18 15:57 Assessment & Plan - Assessment and Plan (Free Text) Assessment: 52 y o male PMhx ESRD on HD, PAD, CAD, COPD, CHF, pacemaker placement who presented today as direct admit from [facility] to [facility] for possible DRIL of L middle finger with Dr. Burden. Plan: L necrotic middle finger Surgery consulted (Dr. Burden), recs appreciated Plan for possible OR on Tuesday 05/01 for DRIL +/or amputation Pt cleared by cardiology at [facility] (Dr. Jim) for procedure, deemed moderate risk for low-risk procedure Dr. Foster consulted (ID), recs appreciated C/w Meropenem 500 mg daily L hand XR at [facility] demonstrated no signs of osteomyelitis Fistulogram by IR (Dr. Gaming) on 04/27 at [facility] demonstrated significant retrograde flow in L brachial artery distal to AV fistula anastomosis, likely represents steal syndrome; calcified but patent L radial and interosseous arteries, L ulnar artery diffusely diseased, significant L metacarpal and digital small vessel disease, pt may benefit from DRIL procedure. Percocet prn for pain control ESRD On HD -S/p dialysis today (MWF) -Dr. Penny consulted (Nephrology) recs appreciated -BUN/Cr was 65/6.5 at [facility], continue to trend IDDM -C/w insulin regimen -Low sliding scale -Fingersticks achs -HHD Hx CAD s/p stents C/w ASA, Crestor 10 mg PO hs Hx hypothyroidism C/w synthroid daily Hx HTN Metoprolol 25 mg PO bid DVT ppx: Heparin 5000U subQ q 8 h GI ppx: not indicated at this time Pt seen, examined with, and plan discussed with Dr. Garber, attending. Jose Shields DO PGY-1, [employer] Pager #[phone] <Merritt Garber - Last Filed: 05/07/18 07:49> Results - Vital Signs Recent Vital Signs: Last Vital Signs Temp 97.7 F 05/04/18 15:43 Pulse 59 L 05/04/18 15:43 Resp 20 05/04/18 15:43 BP 112/54 L 05/04/18 15:43 Pulse Ox 95 05/04/18 15:43 - Labs Result Diagrams: 05/07/18 07:16 05/06/18 07:03 Labs: Laboratory Results - last 24 hr 05/03/18 05/03/18 05/04/18 16:54 21:05 06:28 WBC RBC Hgb Hct MCV MCH MCHC RDW Plt Count MPV Neut % (Auto) Lymph % (Auto) [place] % (Auto) Eos % (Auto) Baso % (Auto) Neut # (Auto) Lymph # (Auto) [place] # (Auto) Eos # (Auto) Baso # (Auto) Neutrophils % (Manual) Lymphocytes % (Manual) Monocytes % (Manual) Eosinophils % (Manual) Nucleated RBC % Platelet Estimate Hypochromasia (manual) Poikilocytosis (manual Anisocytosis (manual) Target Cells PT INR APTT Sodium Potassium Chloride Carbon Dioxide Anion Gap BUN Creatinine Est GFR ( Amer) Est GFR (Non-Af Amer) POC Glucose (mg/dL) 195 H 251 H 316 H Random Glucose Calcium Phosphorus Magnesium Total Bilirubin AST ALT Alkaline Phosphatase Total Protein Albumin Globulin Albumin/Globulin Ratio 05/04/18 05/04/18 05/04/18 10:45 10:45 10:45 WBC 7.5 RBC 3.17 L Hgb 10.3 L Hct 32.0 L MCV 101.0 H MCH 32.4 H MCHC 32.1 L RDW 19.4 H Plt Count 90 L MPV 11.4 Neut % (Auto) 77.7 H Lymph % (Auto) 9.5 L [place] % (Auto) 8.9 Eos % (Auto) 2.1 Baso % (Auto) 1.8 Neut # (Auto) 5.8 Lymph # (Auto) 0.7 L [place] # (Auto) 0.7 Eos # (Auto) 0.2 Baso # (Auto) 0.1 Neutrophils % (Manual) 75 Lymphocytes % (Manual) 12 L Monocytes % (Manual) 8 Eosinophils % (Manual) 5 H Nucleated RBC % 1 H Platelet Estimate Decreased L Hypochromasia (manual) Slight Poikilocytosis (manual Slight Anisocytosis (manual) Slight Target Cells Slight PT 18.5 H INR 1.7 APTT 37 H Sodium 138 Potassium 3.7 Chloride 95 L Carbon Dioxide 30 Anion Gap 17 BUN 34 H Creatinine 4.3 H Est GFR ( Amer) 18 Est GFR (Non-Af Amer) 14 POC Glucose (mg/dL) Random Glucose 209 H Calcium 8.6 Phosphorus 5.0 H Magnesium 2.1 Total Bilirubin 1.2 AST 63 H D ALT 38 Alkaline Phosphatase 89 Total Protein 7.5 Albumin 3.2 L Globulin 4.2 H Albumin/Globulin Ratio 0.8 L 05/04/18 11:44 WBC RBC Hgb Hct MCV MCH MCHC RDW Plt Count MPV Neut % (Auto) Lymph % (Auto) [place] % (Auto) Eos % (Auto) Baso % (Auto) Neut # (Auto) Lymph # (Auto) [place] # (Auto) Eos # (Auto) Baso # (Auto) Neutrophils % (Manual) Lymphocytes % (Manual) Monocytes % (Manual) Eosinophils % (Manual) Nucleated RBC % Platelet Estimate Hypochromasia (manual) Poikilocytosis (manual Anisocytosis (manual) Target Cells PT INR APTT Sodium Potassium Chloride Carbon Dioxide Anion Gap BUN Creatinine Est GFR ( Amer) Est GFR (Non-Af Amer) POC Glucose (mg/dL) 232 H Random Glucose Calcium Phosphorus Magnesium Total Bilirubin AST ALT Alkaline Phosphatase Total Protein Albumin Globulin Albumin/Globulin Ratio Attending/Attestation - Attestation I have personally seen and examined this patient.: Yes I have fully participated in the care of the patient.: Yes I have reviewed all pertinent clinical information: Yes Notes (Text): Seen and examined with the resident History reviewed from previous admission and discuss with DR Stover Assessment and the plan discussed with the resident. Plan discussed with the patient. I agree with the documentation
[2018-04-28 18:12] VITALS: BMI 32.0
[2018-04-28] MEDS ORDERED: Dextrose 50% SYRINGE Inj (50 ml) IVP PRN (19:28)
[2018-04-28] MEDS ORDERED: Dextrose 50% SYRINGE Inj (50 ml) IV PRN (19:28)
[2018-04-28] MEDS ORDERED: Glucagon Recombinant 1 mg Inj IM PRN (19:28)
--- NOTE | 2018-04-28 19:41 | CP.PCM.PCO ---
Physician Communication Note - Physician Communication Note Physician Communication Note: Scheduled for DRIL procedure tuesday
[2018-04-28] MEDS: Oxycodone/Acetaminophen 5/325 mg Tab PO PRN (20:03)
[2018-04-28] MEDS: Meropenem 500 MG in Sodium Chloride 0.9% 100 ML IVPB SCH (22:15)
[2018-04-28] MEDS: Latanoprost 2.5 ml Opht Soln OU SCH (22:18)
[2018-04-28] MEDS: (Novolin R) Insulin Human Regular 100 units/ml vial SC SCH (22:19)
[2018-04-28] MEDS: (Novolin N) Insulin Human Isophane (NPH) 100 u/ml 10 ml vial SC SCH (22:20)
[2018-04-29] MEDS: Oxycodone/Acetaminophen 5/325 mg Tab PO PRN ×4 (02:05→21:57)
[2018-04-29] MEDS ORDERED: Simethicone 80 mg Chewtab PO STA (02:10)
[2018-04-29] MEDS ORDERED: Simethicone 40 mg/0.6 ml Liquid (30 ml) PO SCH ×2 (02:30→10:00)
[2018-04-29] MEDS: Levothyroxine 25 MCG TAB PO SCH (06:14)
[2018-04-29 08:04] LABS: BASO % 0.4 % (0.0-2.0); EOS # 0.1 K/uL (0.0-0.7); EOS % 0.8 % (0.0-4.0); LYMPH # 1.7 K/uL (1.0-4.3); LYMPH % 21.3 % (20.0-40.0); MEAN CELL VOLUME 96.6 fL (80.0-94.0); MEAN CORPUSCULAR HEMOGLOBIN 33.4 pg (27.0-31.0); MEAN CORPUSCULAR HGB CONC 34.5 g/dL (33.0-37.0); MEAN PLATELET VOLUME 10.5 fL (7.2-11.7); MONO # 0.8 K/uL (0.0-0.8); MONO % 9.7 % (0.0-10.0); NEUT # 5.3 K/uL (1.8-7.0); NEUT % 67.8 % (50.0-75.0); NRBC % 0.1 % (0.0-2.0); RED CELL DISTRIBUTION WIDTH 19.6 % (11.5-14.5); WHITE BLOOD COUNT 7.8 K/uL (4.8-10.8)
[2018-04-29] MEDS: (Novolin R) Insulin Human Regular 100 units/ml vial SC SCH ×4 (08:09→21:17)
[2018-04-29 08:10] LABS: INR 1.9; PROTHROMBIN TIME 20.7 SECONDS (9.7-12.2)
[2018-04-29 08:33] LABS: ALB/GLOB RATIO 0.7 (1.0-2.1); ALBUMIN 3.2 g/dL (3.5-5.0); CALCIUM 8.3 mg/dl (8.6-10.4)
[2018-04-29] MEDS: Omega-3-Acid Ethyl Esters 1 GM Cap PO SCH ×2 (09:25→17:33)
[2018-04-29] MEDS: Multiple Vitamins Tab PO SCH (09:25)
[2018-04-29] MEDS ORDERED: Home Med 1 UNIT (Fenofibrate [Triglide] 160 MG) PO SCH (10:00)
[2018-04-29] MEDS: Simethicone 80 mg Chewtab PO SCH ×3 (14:48→21:57)
[2018-04-29] MEDS ORDERED: Dextrose 50% SYRINGE Inj (50 ml) IV STA (16:17)
--- NOTE | 2018-04-29 16:17 | CP.PCM.CON ---
History of Present Illness - History of Present Illness History of Present Illness: Vascular surgery consult note for Dr Kody Field, PGY-2 Pt S & E at bedside at 1530 52M w/PMH sig for ESRD on HD, PAD, DM, CAD s/p MY 7 mos ago, currently on ASA, CHF, COPD, TIA transferred from [place] for vascular intervention, consulted for PVD, left 3rd digit gangrene, Steal syndrome. Pt originally seen in [place] aft er evaluation with general surgeon for possible Left 3rd digit amputation, reported fevers & chills at home. Pt was evaluated at [place] with findings of Steal syndrome causing left 3rd digit ischemia. PMH: ESRD on HD, PAD, DM, CAD s/p stents, CHF, COPD, TIA PSH: L eye cornea transplant, AVF LUE, cholecystectomy, R BKA All: Aspart, moxifloxacin, PCN, regular insulin SH: Denies ETOH, tobacco or illicit drug use FH: mother- ESRD, end stage coronary disease Review of Systems - Review of Systems All systems: reviewed and no additional remarkable complaints except - Constitutional Constitutional: absent: Chills, Fever - EENT Nose/Mouth/Throat: absent: Sore Throat - Cardiovascular Cardiovascular: absent: Chest Pain - Gastrointestinal Gastrointestinal: Nausea, Vomiting. absent: Constipation, Diarrhea - Psychiatric Psychiatric: absent: Change in Appetite Past Patient History - Infectious Disease Hx of Infectious Diseases: None - Tetanus Immunizations Tetanus Immunization: Up to Date - Past Medical History & Family History Past Medical History?: Yes - Past Social History Smoking Status: Never Smoked - CARDIAC Hx Cardiac Disorders: Yes (mi) Hx Angina: No Hx Cardia Arrhythmia: Yes Hx Circulatory Problems: Yes Hx Congestive Heart Failure: Yes Hx Heart Murmur: Yes Hx Heart Transplant: Yes Hx Hypercholesterolemia: Yes Hx Hypertension: Yes Hx Internal Defibrillator: Yes Hx Pacemaker: Yes (medtronic) Hx Peripheral Edema: Yes Hx Peripheral Vascular Disease: Yes - PULMONARY Hx Respiratory Disorders: Yes Hx Asthma: Yes Hx Bronchitis: Yes Hx Chronic Obstructive Pulmonary Disease (COPD): Yes Hx Pneumonia: Yes Hx Respiratory Aspiration: No Hx Respiratory Tract Infection: Yes Hx Sleep Apnea: Yes Hx Tuberculosis: No - NEUROLOGICAL Hx Neurological Disorder: Yes HX Cerebrovascular Accident: Yes Hx Transient Ischemic Attacks (TIA): Yes - HEENT Hx HEENT Problems: Yes Hx Blind: No Hx Cataracts: Yes Hx Deafness: No Hx Difficulty Chewing: No - RENAL Hx Chronic Kidney Disease: Yes Hx Dialysis: Yes Date of Last Dialysis Treatment: 04/28/18 Hx Kidney Stones: Yes Hx Renal Failure: Yes - ENDOCRINE/METABOLIC Hx Endocrine Disorders: Yes Hx Adrenal Cancer: No Hx Diabetes Insipidus: Yes Hx Diabetes Mellitus Type 1: Yes Hx Hypothyroidism: Yes Hx Systemic Lupus Erythematosus: No - HEMATOLOGICAL/ONCOLOGICAL Hx AIDS: No Hx Anemia: Yes Hx Blood Transfusions: Yes Hx Blood Transfusion Reaction: No - INTEGUMENTARY Hx Dermatological Problems: No - MUSCULOSKELETAL/RHEUMATOLOGICAL Hx Musculoskeletal Disorders: Yes Hx Arthritis: Yes Hx Back Pain: Yes Hx Falls: Yes Hx Fractures: Yes Hx Gout: Yes Hx Unsteady Gait: Yes - GASTROINTESTINAL Hx Gastrointestinal Disorders: Yes Hx Colostomy: No Hx Liver Failure: Yes Hx Pancreatitis: Yes - GENITOURINARY/GYNECOLOGICAL Hx Genitourinary Disorders: Yes Hx Hematuria: Yes - PSYCHIATRIC Hx Psychophysiologic Disorder: Yes Hx Anxiety: Yes Hx Substance Use: No - SURGICAL HISTORY Hx Surgeries: Yes Hx Amputation: Yes Hx Cardiac Catheterization: Yes Hx Cholecystectomy: Yes Hx Coronary Stent: Yes Hx Musculoskeletal Surgery: Yes - ANESTHESIA Hx Anesthesia: Yes Hx Anesthesia Reactions: No Hx Malignant Hyperthermia: No Meds Allergies/Adverse Reactions: Allergies Allergy/AdvReac Type Severity Reaction Status Date / Time insulin aspart [From Novolog] Allergy Intermediate RASH Verified 04/26/18 15:49 moxifloxacin Allergy Intermediate RASH Verified 04/26/18 15:49 Penicillins Allergy Intermediate RASH Verified 04/26/18 15:49 insulin regular Allergy ITCHING Verified 04/26/18 15:49 [From Novolin R Regular U-100 Insuln] - Medications Medications: Current Medications Acetaminophen (Tylenol 325mg Tab) 650 mg PO Q4 PRN PRN Reason: Pain, Mild (1-3) Aspirin (Ecotrin) 81 mg PO DAILY YSABEL Last Admin: 04/29/18 09:29 Dose: 81 mg Dextrose (Dextrose 50% Inj) 50 ml IVP ONCE PRN PRN Reason: Hypoglycemia Dextrose (Dextrose 50% Inj) 0 ml IV STAT PRN; Protocol PRN Reason: Hypoglycemia Protocol Dextrose (Glutose 15) 0 gm PO ONCE PRN; Protocol PRN Reason: Hypoglycemia Protocol Glucagon (Glucagen Diagnostic Kit) 0 mg IM STAT PRN; Protocol PRN Reason: Hypoglycemia Protocol Heparin Sodium (Porcine) (Heparin) 5,000 units SC Q8 [facility] Last Admin: 04/29/18 06:14 Dose: 5,000 units Meropenem 500 mg/ Sodium (Chloride) 100 mls @ 100 mls/hr IVPB DAILY@2200 YSABEL; Protocol Last Admin: 04/28/18 22:15 Dose: 100 mls/hr Dextrose (Dextrose 5% In Water 1000 Ml) 1,000 mls @ 0 mls/hr IV .Q0M PRN; Protocol PRN Reason: Hypoglycemia Protocol Dextrose (Dextrose 5% In Water 1000 Ml) 1,000 mls @ 40 mls/hr IV .Q24H [facility] Insulin Human NPH (Novolin N) 20 unit SC HS [facility] Last Admin: 04/28/18 22:20 Dose: 20 units Insulin Human Regular (Novolin R) 0 unit SC ACHS [facility]; Protocol Last Admin: 04/29/18 08:09 Dose: Not Given Latanoprost (Xalatan Opht) 1 ml [facility] Last Admin: 04/28/18 22:18 Dose: 1 ml Levothyroxine Sodium (Synthroid) 25 mcg PO 0630 [facility] Last Admin: 04/29/18 06:14 Dose: 25 mcg Loratadine (Claritin) 10 mg PO [facility] Last Admin: 04/28/18 22:18 Dose: 10 mg Metoprolol Tartrate (Lopressor) 25 mg PO BID [facility] Last Admin: 04/29/18 09:26 Dose: 25 mg Montelukast Sodium (Singulair) 10 mg PO [facility] Last Admin: 04/28/18 22:19 Dose: 10 mg Multivitamins (Hexavitamin) 1 tab PO DAILY [facility] Last Admin: 04/29/18 09:25 Dose: 1 tab James-4-Bhpm Ethyl Esters (Lovaza) 2 gm PO BID [facility] Last Admin: 04/29/18 09:25 Dose: 2 gm Ondansetron HCl (Zofran Inj) 4 mg IVP Q6 PRN PRN Reason: Nausea/Vomiting Last Admin: 04/29/18 14:48 Dose: 4 mg Oxycodone/Acetaminophen (Percocet 5/325 Mg Tab) 2 tab PO Q6H PRN PRN Reason: Pain, severe (8-10) Stop: 05/01/18 18:47 Last Admin: 04/29/18 09:24 Dose: 2 tab Pregabalin (Lyrica) 50 mg PO [facility] Last Admin: 04/28/18 22:18 Dose: 50 mg Rosuvastatin Calcium (Crestor) 10 mg PO HS [facility] Last Admin: 04/28/18 22:19 Dose: 10 mg Sevelamer Carbonate (Renvela) 1,600 mg PO [facility] Last Admin: 04/29/18 12:00 Dose: Not Given Simethicone (Mylicon Chew Tab) 80 mg PO QID [facility] Last Admin: 04/29/18 14:48 Dose: 80 mg Physical Exam - Constitutional Appears: Non-toxic, No Acute Distress - Head Exam Head Exam: ATRAUMATIC, NORMAL INSPECTION, NORMOCEPHALIC - Eye Exam Eye Exam: EOMI, Normal appearance - ENT Exam ENT Exam: Mucous Membranes Moist, Normal Exam - Neck Exam Neck exam: Positive for: Full Rom, Normal Inspection - Respiratory Exam Respiratory Exam: NORMAL BREATHING PATTERN - Cardiovascular Exam Cardiovascular Exam: REGULAR RHYTHM, +S1, +S2 - GI/Abdominal Exam GI & Abdominal Exam: Normal Bowel Sounds, Soft. absent: Distended, Tenderness - Extremities Exam Additional comments: LUE w/AVF 3rd digit of left hand with dressing in place - Neurological Exam Neurological exam: Alert, CN II-XII Intact, Oriented x3 - Psychiatric Exam Psychiatric exam: Normal Affect, Normal Mood - Skin Skin Exam: Dry, Intact, Normal Color, Warm Additional comments: excluding left finger 3rd digit, unable to assess Results - Vital Signs Recent Vital Signs: Last Vital Signs Temp 97.4 F L 04/29/18 07:00 Pulse 74 04/29/18 07:00 Resp 20 04/29/18 07:00 BP 117/68 04/29/18 09:26 Pulse Ox 99 04/29/18 07:00 - Labs Result Diagrams: 04/29/18 07:57 04/29/18 07:57 Labs: Laboratory Results - last 24 hr 04/28/18 04/28/18 04/29/18 16:22 20:58 06:38 WBC RBC Hgb Hct MCV MCH MCHC RDW Plt Count MPV Neut % (Auto) Lymph % (Auto) [place] % (Auto) Eos % (Auto) Baso % (Auto) Neut # (Auto) Lymph # (Auto) [place] # (Auto) Eos # (Auto) Baso # (Auto) PT INR APTT Sodium Potassium Chloride Carbon Dioxide Anion Gap BUN Creatinine Est GFR ( Amer) Est GFR (Non-Af Amer) POC Glucose (mg/dL) 149 H 176 H 99 Random Glucose Calcium Phosphorus Magnesium Total Bilirubin AST ALT Alkaline Phosphatase Total Protein Albumin Globulin Albumin/Globulin Ratio 04/29/18 04/29/18 04/29/18 07:57 07:57 07:57 WBC 7.8 RBC 3.00 L Hgb 10.0 L Hct 29.0 L MCV 96.6 H D MCH 33.4 H MCHC 34.5 RDW 19.6 H Plt Count 109 L D MPV 10.5 Neut % (Auto) 67.8 Lymph % (Auto) 21.3 [place] % (Auto) 9.7 Eos % (Auto) 0.8 Baso % (Auto) 0.4 Neut # (Auto) 5.3 Lymph # (Auto) 1.7 [place] # (Auto) 0.8 Eos # (Auto) 0.1 Baso # (Auto) 0.0 PT 20.7 H INR 1.9 APTT 37 H Sodium 138 Potassium 4.3 Chloride 95 L Carbon Dioxide 29 Anion Gap 19 BUN 53 H Creatinine 4.7 H Est GFR ( Amer) 16 Est GFR (Non-Af Amer) 13 POC Glucose (mg/dL) Random Glucose 36 L* D Calcium 8.3 L Phosphorus 5.7 H Magnesium 2.1 Total Bilirubin 0.9 AST 78 H ALT 42 Alkaline Phosphatase 66 Total Protein 7.6 Albumin 3.2 L Globulin 4.4 H Albumin/Globulin Ratio 0.7 L 04/29/18 11:25 WBC RBC Hgb Hct MCV MCH MCHC RDW Plt Count MPV Neut % (Auto) Lymph % (Auto) [place] % (Auto) Eos % (Auto) Baso % (Auto) Neut # (Auto) Lymph # (Auto) [place] # (Auto) Eos # (Auto) Baso # (Auto) PT INR APTT Sodium Potassium Chloride Carbon Dioxide Anion Gap BUN Creatinine Est GFR ( Amer) Est GFR (Non-Af Amer) POC Glucose (mg/dL) 115 H Random Glucose Calcium Phosphorus Magnesium Total Bilirubin AST ALT Alkaline Phosphatase Total Protein Albumin Globulin Albumin/Globulin Ratio Assessment & Plan - Assessment and Plan (Free Text) Assessment: 52M w/multiple co-morbidities consulted for 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 Jenise Field, PGY-2 - Date & Time Date: 04/29/18 Time: 16:17
--- NOTE | 2018-04-29 19:51 | CP.PCM.PN ---
<Jose Shields - Last Filed: 04/29/18 19:51> Subjective - Date & Time of Evaluation Date of Evaluation: 04/29/18 Time of Evaluation: 09:10 - Subjective Subjective: Medicine Progress Note for Hospitalist Service Pt seen and examined at bedside this am. States he is feeling well today, denies pain currently. No acute events reported overnight. Denies fever, chills, chest painl, sob, n/v/d/c, urinary complaints, abd pain, or other symptoms. Reported nausea prior to eating dinner last night but states that symptoms had resolved after eating. Objective - Vital Signs/Intake and Output Vital Signs (last 24 hours): Temp Pulse Resp BP Pulse Ox 96.7 F L 68 20 99/57 L 20 L 04/29/18 15:00 04/29/18 16:00 04/29/18 15:00 04/29/18 17:44 04/29/18 15:00 - Medications Medications: Current Medications Acetaminophen (Tylenol 325mg Tab) 650 mg PO Q4 PRN PRN Reason: Pain, Mild (1-3) Aspirin (Ecotrin) 81 mg PO DAILY [facility] Last Admin: 04/29/18 09:29 Dose: 81 mg Dextrose (Dextrose 50% Inj) 50 ml IVP ONCE PRN PRN Reason: Hypoglycemia Dextrose (Dextrose 50% Inj) 0 ml IV STAT PRN; Protocol PRN Reason: Hypoglycemia Protocol Dextrose (Glutose 15) 0 gm PO ONCE PRN; Protocol PRN Reason: Hypoglycemia Protocol Glucagon (Glucagen Diagnostic Kit) 0 mg IM STAT PRN; Protocol PRN Reason: Hypoglycemia Protocol Heparin Sodium (Porcine) (Heparin) 5,000 units SC Q8 [facility] Last Admin: 04/29/18 06:14 Dose: 5,000 units Meropenem 500 mg/ Sodium (Chloride) 100 mls @ 100 mls/hr IVPB DAILY@2200 [facility]; Protocol Last Admin: 04/28/18 22:15 Dose: 100 mls/hr Dextrose (Dextrose 5% In Water 1000 Ml) 1,000 mls @ 0 mls/hr IV .Q0M PRN; Protocol PRN Reason: Hypoglycemia Protocol Dextrose (Dextrose 5% In Water 1000 Ml) 1,000 mls @ 40 mls/hr IV .Q24H [facility] Insulin Human NPH (Novolin N) 20 unit SC HS [facility] Last Admin: 04/28/18 22:20 Dose: 20 units Insulin Human Regular (Novolin R) 0 unit SC ACHS [facility]; Protocol Last Admin: 04/29/18 16:41 Dose: Not Given Latanoprost (Xalatan Opht) 1 ml OU [facility] Last Admin: 04/28/18 22:18 Dose: 1 ml Levothyroxine Sodium (Synthroid) 25 mcg PO 0630 [facility] Last Admin: 04/29/18 06:14 Dose: 25 mcg Loratadine (Claritin) 10 mg PO HS [facility] Last Admin: 04/28/18 22:18 Dose: 10 mg Metoprolol Tartrate (Lopressor) 25 mg PO BID [facility] Last Admin: 04/29/18 17:44 Dose: Not Given Montelukast Sodium (Singulair) 10 mg PO [facility] Last Admin: 04/28/18 22:19 Dose: 10 mg Multivitamins (Hexavitamin) 1 tab PO DAILY [facility] Last Admin: 04/29/18 09:25 Dose: 1 tab [id number]-[id number] Ethyl Esters (Lovaza) 2 gm PO BID [facility] Last Admin: 04/29/18 17:33 Dose: 2 gm Ondansetron HCl (Zofran Inj) 4 mg IVP Q6 PRN PRN Reason: Nausea/Vomiting Last Admin: 04/29/18 14:48 Dose: 4 mg Oxycodone/Acetaminophen (Percocet 5/325 Mg Tab) 2 tab PO Q6H PRN PRN Reason: Pain, severe (8-10) Stop: 05/01/18 18:47 Last Admin: 04/29/18 16:18 Dose: 2 tab Pregabalin (Lyrica) 50 mg PO [facility] Last Admin: 04/28/18 22:18 Dose: 50 mg Rosuvastatin Calcium (Crestor) 10 mg PO HS [facility] Last Admin: 04/28/18 22:19 Dose: 10 mg Sevelamer Carbonate (Renvela) 1,600 mg PO AC [facility] Last Admin: 04/29/18 16:33 Dose: 1,600 mg Simethicone (Mylicon Chew Tab) 80 mg PO QID [facility] Last Admin: 04/29/18 17:33 Dose: 80 mg - Labs Labs: 04/29/18 07:57 04/29/18 07:57 PT 20.7 SECONDS (9.7-12.2) H 04/29/18 07:57 INR 1.9 04/29/18 07:57 APTT 37 SECONDS (21-34) H 04/29/18 07:57 - Constitutional Appears: Non-toxic, No Acute Distress, Chronically Ill - Head Exam Head Exam: ATRAUMATIC, NORMOCEPHALIC - Eye Exam Eye Exam: EOMI, Normal appearance, PERRL - ENT Exam ENT Exam: Mucous Membranes Moist - Respiratory Exam Respiratory Exam: Clear to Ausculation Bilateral, NORMAL BREATHING PATTERN. absent: Rales, Rhonchi, Wheezes - Cardiovascular Exam Cardiovascular Exam: REGULAR RHYTHM, +S1, +S2. absent: Gallop, Rubs, Murmur - GI/Abdominal Exam GI & Abdominal Exam: Soft, Normal Bowel Sounds. absent: Distended, Firm, Gu arding, Rigid, Tenderness, Organomegaly, Rebound - Extremities Exam Additional comments: L middle finger necrosis down to PIP, mild tenderness to palpation, s/p R BKA, both covered with dressings - Neurological Exam Neurological Exam: Alert, Awake, CN II-XII Intact, Oriented x3 - Psychiatric Exam Psychiatric exam: Normal Affect, Normal Mood - Skin Skin Exam: Dry, Intact, Warm Assessment and Plan - Assessment and Plan (Free Text) Assessment: 52 y o male PMhx ESRD on HD, PAD, CAD, COPD, CHF, pacemaker placement who presented as direct admit from [facility] to [facility] for possible DRIL of L middle finger with Dr. Burden. Plan: L necrotic middle finger Surgery consulted (Dr. Burden), recs appreciated Plan for possible OR on Tuesday 05/01 for DRIL +/or amputation Pt cleared by cardiology at [facility] (Dr. Jim) for procedure, deemed moderate risk for low-risk procedure Dr. Foster consulted (ID), recs appreciated C/w Meropenem 500 mg daily L hand XR at [facility] demonstrated no signs of osteomyelitis Fistulogram by IR (Dr. Gaming) on 04/27 at [facility] demonstrated significant retrograde flow in L brachial artery distal to AV fistula anastomosis, likely represents steal syndrome; calcified but patent L radial and interosseous arteries, L ulnar artery diffusely diseased, significant L metacarpal and digital small vessel disease, pt may benefit from DRIL procedure. Percocet prn for pain control ESRD On HD -Dialysis (MWF) -Dr. Penny consulted (Nephrology) recs appreciated -BUN/Cr was 65/6.5 at [facility], continue to trend IDDM -C/w insulin regimen -Low sliding scale -Fingersticks achs -HHD -Zofran prn for nausea Hx CAD s/p stents C/w ASA, Crestor 10 mg PO hs Hx hypothyroidism C/w synthroid daily Hx HTN Metoprolol 25 mg PO bid DVT ppx: Heparin 5000U subQ q 8 h GI ppx: not indicated at this time Pt seen, examined with, and plan discussed with Dr. Garber, attending. Jose Shields DO PGY-1, Event Designer Pager #[phone] <Merritt Garber - Last Filed: 05/04/18 16:56> Objective - Vital Signs/Intake and Output Vital Signs (last 24 hours): Temp Pulse Resp BP Pulse Ox 97.7 F 59 L 20 112/54 L 95 05/04/18 15:43 05/04/18 15:43 05/04/18 15:43 05/04/18 15:43 05/04/18 15:43 Intake and Output: 05/04/18 05/04/18 06:59 18:59 Intake Total 100 Balance 100 - Medications Medications: Current Medications Acetaminophen (Tylenol 325mg Tab) 650 mg PO Q4 PRN PRN Reason: Pain, Mild (1-3) Last Admin: 05/04/18 02:17 Dose: 650 mg Aspirin (Ecotrin) 81 mg PO DAILY [facility] Last Admin: 04/30/18 09:45 Dose: 81 mg Dextrose (Dextrose 50% Inj) 50 ml IVP ONCE PRN PRN Reason: Hypoglycemia Dextrose (Dextrose 50% Inj) 0 ml IV STAT PRN; Protocol PRN Reason: Hypoglycemia Protocol Dextrose (Glutose 15) 0 gm PO ONCE PRN; Protocol PRN Reason: Hypoglycemia Protocol Diphenhydramine HCl (Benadryl) 25 mg PO HS PRN PRN Reason: Insomnia Last Admin: 05/03/18 21:51 Dose: 25 mg Glucagon (Glucagen Diagnostic Kit) 0 mg IM STAT PRN; Protocol PRN Reason: Hypoglycemia Protocol Heparin Sodium (Porcine) (Heparin) 5,000 units SC Q8 [facility] Last Admin: 05/04/18 06:03 Dose: Not Given Meropenem 500 mg/ Sodium (Chloride) 100 mls @ 100 mls/hr IVPB DAILY@2200 [facility]; Protocol Last Admin: 05/03/18 21:50 Dose: 100 mls/hr Dextrose (Dextrose 5% In Water 1000 Ml) 1,000 mls @ 0 mls/hr IV .Q0M PRN; Protocol PRN Reason: Hypoglycemia Protocol Vancomycin HCl 500 mg/ Sodium (Chloride) 100 mls @ 100 mls/hr IVPB MWF [facility]; Protocol Last Admin: 05/03/18 15:02 Dose: 100 mls/hr Desmopressin Acetate 25 mcg/ (Sodium Chloride) 56.25 mls @ 100 mls/hr IV ONCE ONE Stop: 05/05/18 02:33 Insulin Human Regular (Novolin R) 0 unit SC [facility]; Protocol Last Admin: 05/04/18 12:29 Dose: Not Given Latanoprost (Xalatan Opht) 1 ml OU [facility] Last Admin: 05/03/18 22:02 Dose: 1 ml Levothyroxine Sodium (Synthroid) 25 mcg PO 0630 [facility] Last Admin: 05/04/18 06:07 Dose: 25 mcg Loratadine (Claritin) 10 mg PO [facility] Last Admin: 05/03/18 21:51 Dose: 10 mg Metoprolol Tartrate (Lopressor) 25 mg PO BID [facility] Last Admin: 05/04/18 10:13 Dose: Not Given Montelukast Sodium (Singulair) 10 mg PO [facility] Last Admin: 05/03/18 21:51 Dose: 10 mg Multivitamins (Hexavitamin) 1 tab PO DAILY [facility] Last Admin: 05/04/18 10:00 Dose: Not Given Hwzre-2-Derv Ethyl Esters (Lovaza) 2 gm PO BID [facility] Last Admin: 05/04/18 10:17 Dose: Not Given Ondansetron HCl (Zofran Inj) 4 mg IVP Q6 PRN PRN Reason: Nausea/Vomiting Last Admin: 05/04/18 08:40 Dose: 4 mg Pregabalin (Lyrica) 50 mg PO [facility] Last Admin: 05/03/18 22:02 Dose: 50 mg Rosuvastatin Calcium (Crestor) 10 mg PO [facility] Last Admin: 10/03/18 21:51 Dose: 10 mg Sevelamer Carbonate (Renvela) 2,400 mg PO ACTID [facility] Last Admin: 05/04/18 12:17 Dose: Not Given Simethicone (Mylicon Chew Tab) 80 mg PO QID [facility] Last Admin: 05/04/18 14:51 Dose: 80 mg - Labs Labs: 05/04/18 10:45 05/04/18 10:45 PT 18.5 SECONDS (9.7-12.2) H 05/04/18 10:45 INR 1.7 05/04/18 10:45 APTT 37 SECONDS (21-34) H 05/04/18 10:45 Attending/Attestation - Attestation I have personally seen and examined this patient.: Yes I have fully participated in the care of the patient.: Yes I have reviewed all pertinent clinical information, including history, physical exam and plan: Yes Notes (Text): Seen and examined by me. Patient has no complain.Discussed about his insulin and pain medication Patient is going for DRIL procedure on Tuesday. d/w DR Penny. He will discuss with Dr Burden about dialysis before surgery Assessment and the discussed with the resident and I agree with the documentat ion
[2018-04-29] MEDS: (Novolin N) Insulin Human Isophane (NPH) 100 u/ml 10 ml vial SC SCH (21:17)
[2018-04-29] MEDS: Meropenem 500 MG in Sodium Chloride 0.9% 100 ML IVPB SCH (21:57)
[2018-04-29] MEDS: Latanoprost 2.5 ml Opht Soln OU SCH (22:33)
--- NOTE | 2018-04-29 23:01 | CP.PCM.CON ---
History of Present Illness - History of Present Illness History of Present Illness: 52 yo M w/ pmh of htn, dm, CAD s/p stent (09/2017), PAD s/p R BKA (03/2018), s/p CVA, ARASH not on CPAP, COPD w/ severe pulmonary htn and ESRD on HD (MWF, at [facility], under Dr. Nakul Neely), admitted to [facility] 2 days ago after being found to be hypoglycemic, transferred to [facility] yesterday for vascular procedure; nephrology being consulted for ESRD care; Patient was supposed to have L middle finger amputation last week at [facility] but left AMA; this time, patient underwent arteriogram of L upper extremity which showed evidence of steal syndrome involving L arm AVF; patient was therefore transferred to [facility] to undergo DRIL procedure (distal revascularization- interval ligation); Patient currently denies any shortness of breath; he has been drowsy and lethargic today; found to be hypoglycemic this morning and again during our encounter; also had episode of vomiting earlier; patient otherwise last had HD yesterday but reports getting less volume removed than usual; Review of Systems - Constitutional Constitutional: Daytime Sleepiness - EENT Additional comments: facial swelling reported by staff; - Cardiovascular Cardiovascular: absent: Chest Pain, Palpitations - Respiratory Respiratory: absent: Dyspnea - Gastrointestinal Gastrointestinal: Vomiting - Genitourinary Additional comments: anuric - Musculoskeletal Musculoskeletal: absent: Arthralgias, Back Pain - Integumentary Additional comments: necrotic L middle finger; - Neurological Additional comments: drowsiness - Psychiatric Psychiatric: Anxiety - Endocrine Additional Comments: hypoglycemia lately; Past Patient History - Infectious Disease Hx of Infectious Diseases: None - Tetanus Immunizations Tetanus Immunization: Up to Date - Past Medical History & Family History Past Medical History?: Yes Pertinent Family History: Mother - ESRD on HD; - Past Social History Smoking Status: Never Smoked - CARDIAC Hx Cardiac Disorders: Yes (mi) Hx Angina: No Hx Cardia Arrhythmia: Yes Hx Circulatory Problems: Yes Hx Congestive Heart Failure: Yes Hx Heart Murmur: Yes Hx Heart Transplant: Yes Hx Hypercholesterolemia: Yes Hx Hypertension: Yes Hx Internal Defibrillator: Yes Hx Pacemaker: Yes (medtronic) Hx Peripheral Edema: Yes Hx Peripheral Vascular Disease: Yes - PULMONARY Hx Respiratory Disorders: Yes Hx Asthma: Yes Hx Bronchitis: Yes Hx Chronic Obstructive Pulmonary Disease (COPD): Yes Hx Pneumonia: Yes Hx Respiratory Aspiration: No Hx Respiratory Tract Infection: Yes Hx Sleep Apnea: Yes Hx Tuberculosis: No - NEUROLOGICAL Hx Neurological Disorder: Yes HX Cerebrovascular Accident: Yes Hx Transient Ischemic Attacks (TIA): Yes - HEENT Hx HEENT Problems: Yes Hx Blind: No Hx Cataracts: Yes Hx Deafness: No Hx Difficulty Chewing: No - RENAL Hx Chronic Kidney Disease: Yes Hx Dialysis: Yes Date of Last Dialysis Treatment: 04/28/18 Hx Kidney Stones: Yes Hx Renal Failure: Yes - ENDOCRINE/METABOLIC Hx Endocrine Disorders: Yes Hx Adrenal Cancer: No Hx Diabetes Insipidus: Yes Hx Diabetes Mellitus Type 1: Yes Hx Hypothyroidism: Yes Hx Systemic Lupus Erythematosus: No - HEMATOLOGICAL/ONCOLOGICAL Hx AIDS: No Hx Anemia: Yes Hx Blood Transfusions: Yes Hx Blood Transfusion Reaction: No - INTEGUMENTARY Hx Dermatological Problems: No - MUSCULOSKELETAL/RHEUMATOLOGICAL Hx Musculoskeletal Disorders: Yes Hx Arthritis: Yes Hx Back Pain: Yes Hx Falls: Yes Hx Fractures: Yes Hx Gout: Yes Hx Unsteady Gait: Yes - GASTROINTESTINAL Hx Gastrointestinal Disorders: Yes Hx Colostomy: No Hx Liver Failure: Yes Hx Pancreatitis: Yes - GENITOURINARY/GYNECOLOGICAL Hx Genitourinary Disorders: Yes Hx Hematuria: Yes - PSYCHIATRIC Hx Psychophysiologic Disorder: Yes Hx Anxiety: Yes Hx Substance Use: No - SURGICAL HISTORY Hx Surgeries: Yes Hx Amputation: Yes Hx Cardiac Catheterization: Yes Hx Cholecystectomy: Yes Hx Coronary Stent: Yes Hx Musculoskeletal Surgery: Yes - ANESTHESIA Hx Anesthesia: Yes Hx Anesthesia Reactions: No Hx Malignant Hyperthermia: No Meds Allergies/Adverse Reactions: Allergies Allergy/AdvReac Type Severity Reaction Status Date / Time insulin aspart [From Novolog] Allergy Intermediate RASH Verified 04/26/18 15:49 moxifloxacin Allergy Intermediate RASH Verified 04/26/18 15:49 Penicillins Allergy Intermediate RASH Verified 04/26/18 15:49 insulin regular Allergy ITCHING Verified 04/26/18 15:49 [From Novolin R Regular U-100 Insuln] - Medications Medications: Current Medications Acetaminophen (Tylenol 325mg Tab) 650 mg PO Q4 PRN PRN Reason: Pain, Mild (1-3) Aspirin (Ecotrin) 81 mg PO DAILY [facility] Last Admin: 04/29/18 09:29 Dose: 81 mg Dextrose (Dextrose 50% Inj) 50 ml IVP ONCE PRN PRN Reason: Hypoglycemia Dextrose (Dextrose 50% Inj) 0 ml IV STAT PRN; Protocol PRN Reason: Hypoglycemia Protocol Dextrose (Glutose 15) 0 gm PO ONCE PRN; Protocol PRN Reason: Hypoglycemia Protocol Glucagon (Glucagen Diagnostic Kit) 0 mg IM STAT PRN; Protocol PRN Reason: Hypoglycemia Protocol Heparin Sodium (Porcine) (Heparin) 5,000 units SC Q8 [facility] Last Admin: 04/29/18 22:45 Dose: Not Given Meropenem 500 mg/ Sodium (Chloride) 100 mls @ 100 mls/hr IVPB DAILY@2200 [facility]; Protocol Last Admin: 04/29/18 21:57 Dose: 100 mls/hr Dextrose (Dextrose 5% In Water 1000 Ml) 1,000 mls @ 0 mls/hr IV .Q0M PRN; Protocol PRN Reason: Hypoglycemia Protocol Dextrose (Dextrose 5% In Water 1000 Ml) 1,000 mls @ 40 mls/hr IV .Q24H [facility] Insulin Human NPH (Novolin N) 20 unit SC [facility] Last Admin: 04/29/18 21:17 Dose: Not Given Insulin Human Regular (Novolin R) 0 unit SC ACHS [facility]; Protocol Last Admin: 04/29/18 21:17 Dose: Not Given Latanoprost (Xalatan Opht) 1 ml OU HS [facility] Last Admin: 04/29/18 22:33 Dose: 1 ml Levothyroxine Sodium (Synthroid) 25 mcg PO 0630 [facility] Last Admin: 04/29/18 06:14 Dose: 25 mcg Loratadine (Claritin) 10 mg PO HS [facility] Last Admin: 04/29/18 21:57 Dose: 10 mg Metoprolol Tartrate (Lopressor) 25 mg PO BID [facility] Last Admin: 04/29/18 17:44 Dose: Not Given Montelukast Sodium (Singulair) 10 mg PO HS [facility] Last Admin: 04/29/18 21:57 Dose: 10 mg Multivitamins (Hexavitamin) 1 tab PO DAILY [facility] Last Admin: 04/29/18 09:25 Dose: 1 tab Hhhza-5-Exzn Ethyl Esters (Lovaza) 2 gm PO BID [facility] Last Admin: 04/29/18 17:33 Dose: 2 gm Ondansetron HCl (Zofran Inj) 4 mg IVP Q6 PRN PRN Reason: Nausea/Vomiting Last Admin: 04/29/18 14:48 Dose: 4 mg Oxycodone/Acetaminophen (Percocet 5/325 Mg Tab) 2 tab PO Q6H PRN PRN Reason: Pain, severe (8-10) Stop: 05/01/18 18:47 Last Admin: 04/29/18 21:57 Dose: 2 tab Pregabalin (Lyrica) 50 mg PO HS [facility] Last Admin: 04/29/18 21:57 Dose: 50 mg Rosuvastatin Calcium (Crestor) 10 mg PO HS [facility] Last Admin: 04/29/18 21:57 Dose: 10 mg Sevelamer Carbonate (Renvela) 1,600 mg PO AC [facility] Last Admin: 04/29/18 16:33 Dose: 1,600 mg Simethicone (Mylicon Chew Tab) 80 mg PO QID [facility] Last Admin: 04/29/18 21:57 Dose: 80 mg Physical Exam - Constitutional Appears: Non-toxic, No Acute Distress Additional comments: somnolent; - Eye Exam Eye Exam: Normal appearance. absent: Scleral icterus - Neck Exam Neck exam: Negative for: Lymphadenopathy - Respiratory Exam Respiratory Exam: Clear to Auscultation Bilateral. absent: Respiratory Distress - Cardiovascular Exam Cardiovascular Exam: RRR. absent: Gallop, Rubs - GI/Abdominal Exam GI & Abdominal Exam: Soft. absent: Distended, Tenderness - Extremities Exam Additional comments: moderately edematous legs b/l; edematous b/l UE; - Back Exam Back exam: absent: CVA tenderness (L), CVA tenderness (R) - Neurological Exam Neurological exam: Alert - Psychiatric Exam Psychiatric exam: Normal Affect, Normal Mood - Skin Additional comments: cold L hand; pulsatile bruit/thrill of L arm AVF; Results - Vital Signs Recent Vital Signs: Last Vital Signs Temp 96.7 F L 04/29/18 15:00 Pulse 68 04/29/18 16:00 Resp 20 04/29/18 15:00 BP 99/57 L 04/29/18 17:44 Pulse Ox 20 L 04/29/18 15:00 - Labs Result Diagrams: 04/29/18 07:57 04/29/18 07:57 Labs: Laboratory Results - last 24 hr 04/29/18 04/29/18 04/29/18 06:38 07:57 07:57 WBC 7.8 RBC 3.00 L Hgb 10.0 L Hct 29.0 L MCV 96.6 H D MCH 33.4 H MCHC 34.5 RDW 19.6 H Plt Count 109 L D MPV 10.5 Neut % (Auto) 67.8 Lymph % (Auto) 21.3 Sutter % (Auto) 9.7 Eos % (Auto) 0.8 Baso % (Auto) 0.4 Neut # (Auto) 5.3 Lymph # (Auto) 1.7 Sutter # (Auto) 0.8 Eos # (Auto) 0.1 Baso # (Auto) 0.0 PT INR APTT Sodium 138 Potassium 4.3 Chloride 95 L Carbon Dioxide 29 Anion Gap 19 BUN 53 H Creatinine 4.7 H Est GFR ( Amer) 16 Est GFR (Non-Af Amer) 13 POC Glucose (mg/dL) 99 Random Glucose 36 L* D Calcium 8.3 L Phosphorus 5.7 H Magnesium 2.1 Total Bilirubin 0.9 AST 78 H ALT 42 Alkaline Phosphatase 66 Total Protein 7.6 Albumin 3.2 L Globulin 4.4 H Albumin/Globulin Ratio 0.7 L 04/29/18 04/29/18 04/29/18 07:57 11:25 15:51 WBC RBC Hgb Hct MCV MCH MCHC RDW Plt Count MPV Neut % (Auto) Lymph % (Auto) Sutter % (Auto) Eos % (Auto) Baso % (Auto) Neut # (Auto) Lymph # (Auto) Sutter # (Auto) Eos # (Auto) Baso # (Auto) PT 20.7 H INR 1.9 APTT 37 H Sodium Potassium Chloride Carbon Dioxide Anion Gap BUN Creatinine Est GFR ( Amer) Est GFR (Non-Af Amer) POC Glucose (mg/dL) 115 H 63 L Random Glucose Calcium Phosphorus Magnesium Total Bilirubin AST ALT Alkaline Phosphatase Total Protein Albumin Globulin Albumin/Globulin Ratio 04/29/18 04/29/18 16:39 21:15 WBC RBC Hgb Hct MCV MCH MCHC RDW Plt Count MPV Neut % (Auto) Lymph % (Auto) Sutter % (Auto) Eos % (Auto) Baso % (Auto) Neut # (Auto) Lymph # (Auto) Sutter # (Auto) Eos # (Auto) Baso # (Auto) PT INR APTT Sodium Potassium Chloride Carbon Dioxide Anion Gap BUN Creatinine Est GFR ( Amer) Est GFR (Non-Af Amer) POC Glucose (mg/dL) 128 H 135 H Random Glucose Calcium Phosphorus Magnesium Total Bilirubin AST ALT Alkaline Phosphatase Total Protein Albumin Globulin Albumin/Globulin Ratio - Imaging and Cardiology Chest x-ray Status: Image reviewed by me (from 04/27: some vascular congestion possible;) Assessment & Plan (1) ESRD on hemodialysis Assessment and Plan: Stable electrolyte status; concern for R sided volume overload given severe pulmonary htn; plan for HD tomorrow with 3.5L UF goal over 3.5 hrs (dialyzing tomorrow, Tuesday, since Tuesday patient will have procedure and we cannot say whether AVF will need to be rested temporarily; Status: Chronic (2) Steal syndrome dialysis vascular access Assessment and Plan: Patient with diseased L upper extremity calcified/diseased upper extremity vasculature with concomitant steal syndrome from AVF and subsequent necrotic L middle finger; for revascularization procedure Tuesday (DRIL involving AVF); for now will remain on abx (meropenem, dosed for HD); Status: Acute (3) Anemia in CKD (chronic kidney disease) Assessment and Plan: Hgb just at low end of goal for CKD; will re-dose EPO and check iron stores; Status: Acute (4) Chronic kidney disease-mineral and bone disorder Assessment and Plan: Secondary hyperparathyroidism of CKD; PTH recently suppressed; will give only non-Ca based phos binders; Status: Chronic (5) Hypertensive CKD, ESRD on dialysis Assessment and Plan: BP stable, only on metoprolol, continue; Status: Chronic Priority: Medium
[2018-04-30] MEDS: Oxycodone/Acetaminophen 5/325 mg Tab PO PRN ×4 (04:40→22:10)
[2018-04-30] MEDS: Levothyroxine 25 MCG TAB PO SCH (05:53)
[2018-04-30 08:22] LABS: BASO # 0.1 K/uL (0.0-0.2); BASO % 0.7 % (0.0-2.0); EOS # 0.1 K/uL (0.0-0.7); EOS % 0.7 % (0.0-4.0); HEMOGLOBIN 9.7 g/dL (12.0-18.0); INR 2.3; LYMPH # 1.5 K/uL (1.0-4.3); LYMPH % 19.6 % (20.0-40.0); MEAN CELL VOLUME 97.6 fL (80.0-94.0); MEAN CORPUSCULAR HEMOGLOBIN 33.4 pg (27.0-31.0); MEAN CORPUSCULAR HGB CONC 34.2 g/dL (33.0-37.0); MEAN PLATELET VOLUME 11.3 fL (7.2-11.7); MONO # 0.9 K/uL (0.0-0.8); MONO % 11.6 % (0.0-10.0); NEUT # 5.1 K/uL (1.8-7.0); NEUT % 67.4 % (50.0-75.0); NRBC % 0.3 % (0.0-2.0); PROTHROMBIN TIME 25.4 SECONDS (9.7-12.2); RBC 2.91 Mil/uL (4.40-5.90); RED CELL DISTRIBUTION WIDTH 19.6 % (11.5-14.5); WHITE BLOOD COUNT 7.6 K/uL (4.8-10.8)
[2018-04-30] MEDS: (Novolin R) Insulin Human Regular 100 units/ml vial SC SCH ×4 (08:23→21:14)
--- NOTE | 2018-04-30 08:29 | CP.PCM.PN ---
Subjective - Date & Time of Evaluation Date of Evaluation: 04/30/18 Time of Evaluation: 08:28 - Subjective Subjective: Vascular surgery consult note for Dr Kody Field, PGY-2 Pt S & E at bedside at 0635 Pt reports LUE pain overnight, nausea is improved. Sitting up at bedside. Denies emesis, F & C, ab pain. Objective - Vital Signs/Intake and Output Vital Signs (last 24 hours): Temp Pulse Resp BP Pulse Ox 98.2 F 65 20 119/58 L 100 04/29/18 23:05 04/30/18 04:57 04/30/18 03:07 04/30/18 03:07 04/30/18 03:07 Intake and Output: 04/30/18 04/30/18 06:59 18:59 Intake Total 240 Balance 240 - Medications Medications: Current Medications Acetaminophen (Tylenol 325mg Tab) 650 mg PO Q4 PRN PRN Reason: Pain, Mild (1-3) Aspirin (Ecotrin) 81 mg PO DAILY [facility] Last Admin: 04/29/18 09:29 Dose: 81 mg Dextrose (Dextrose 50% Inj) 50 ml IVP ONCE PRN PRN Reason: Hypoglycemia Dextrose (Dextrose 50% Inj) 0 ml IV STAT PRN; Protocol PRN Reason: Hypoglycemia Protocol Dextrose (Glutose 15) 0 gm PO ONCE PRN; Protocol PRN Reason: Hypoglycemia Protocol Glucagon (Glucagen Diagnostic Kit) 0 mg IM STAT PRN; Protocol PRN Reason: Hypoglycemia Protocol Heparin Sodium (Porcine) (Heparin) 5,000 units SC Q8 [facility] Last Admin: 04/30/18 05:55 Dose: Not Given Meropenem 500 mg/ Sodium (Chloride) 100 mls @ 100 mls/hr IVPB DAILY@2200 [facility]; Protocol Last Admin: 04/29/18 21:57 Dose: 100 mls/hr Dextrose (Dextrose 5% In Water 1000 Ml) 1,000 mls @ 0 mls/hr IV .Q0M PRN; Protocol PRN Reason: Hypoglycemia Protocol Dextrose (Dextrose 5% In Water 1000 Ml) 1,000 mls @ 40 mls/hr IV .Q24H [facility] Insulin Human NPH (Novolin N) 20 unit SC HS [facility] Last Admin: 04/29/18 21:17 Dose: Not Given Insulin Human Regular (Novolin R) 0 unit SC ACHS [facility]; Protocol Last Admin: 04/30/18 08:23 Dose: Not Given Latanoprost (Xalatan Opht) 1 ml OU HS [facility] Last Admin: 04/29/18 22:33 Dose: 1 ml Levothyroxine Sodium (Synthroid) 25 mcg PO 30 [facility] Last Admin: 04/30/18 05:53 Dose: 25 mcg Loratadine (Claritin) 10 mg PO HS [facility] Last Admin: 04/29/18 21:57 Dose: 10 mg Metoprolol Tartrate (Lopressor) 25 mg PO BID [facility] Last Admin: 04/29/18 17:44 Dose: Not Given Montelukast Sodium (Singulair) 10 mg PO HS [facility] Last Admin: 04/29/18 21:57 Dose: 10 mg Multivitamins (Hexavitamin) 1 tab PO DAILY [facility] Last Admin: 04/29/18 09:25 Dose: 1 tab Fioab-1-Jfei Ethyl Esters (Lovaza) 2 gm PO BID [facility] Last Admin: 04/29/18 17:33 Dose: 2 gm Ondansetron HCl (Zofran Inj) 4 mg IVP Q6 PRN PRN Reason: Nausea/Vomiting Last Admin: 04/29/18 14:48 Dose: 4 mg Oxycodone/Acetaminophen (Percocet 5/325 Mg Tab) 2 tab PO Q6H PRN PRN Reason: Pain, severe (8-10) Stop: 05/01/18 18:47 Last Admin: 04/30/18 04:40 Dose: 2 tab Pregabalin (Lyrica) 50 mg PO HS [facility] Last Admin: 04/29/18 21:57 Dose: 50 mg Rosuvastatin Calcium (Crestor) 10 mg PO HS [facility] Last Admin: 04/29/18 21:57 Dose: 10 mg Sevelamer Carbonate (Renvela) 1,600 mg PO AC [facility] Last Admin: 04/30/18 08:21 Dose: 1,600 mg Simethicone (Mylicon Chew Tab) 80 mg PO QID [facility] Last Admin: 04/29/18 21:57 Dose: 80 mg - Labs Labs: 04/29/18 07:57 04/29/18 07:57 PT 25.4 SECONDS (9.7-12.2) H 04/30/18 08:04 INR 2.3 04/30/18 08:04 APTT 37 SECONDS (21-34) H 04/30/18 08:04 - Constitutional Appears: Non-toxic, No Acute Distress - Head Exam Head Exam: ATRAUMATIC, NORMAL INSPECTION, NORMOCEPHALIC - Eye Exam Eye Exam: EOMI, Normal appearance - ENT Exam ENT Exam: Mucous Membranes Moist, Normal Exam - Neck Exam Neck Exam: Full ROM, Normal Inspection - Respiratory Exam Respiratory Exam: NORMAL BREATHING PATTERN - Cardiovascular Exam Cardiovascular Exam: REGULAR RHYTHM, +S1, +S2 - GI/Abdominal Exam GI & Abdominal Exam: Soft. 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
[2018-04-30 08:39] LABS: ALB/GLOB RATIO 0.7 (1.0-2.1); ALBUMIN 3.2 g/dL (3.5-5.0); CALCIUM 8.2 mg/dl (8.6-10.4)
[2018-04-30] MEDS: Simethicone 80 mg Chewtab PO SCH ×4 (09:30→22:07)
[2018-04-30] MEDS: Omega-3-Acid Ethyl Esters 1 GM Cap PO SCH ×2 (09:31→18:48)
[2018-04-30] MEDS: Multiple Vitamins Tab PO SCH (09:31)
--- NOTE | 2018-04-30 15:08 | CP.PCM.CON ---
History of Present Illness - History of Present Illness History of Present Illness: 52M w/PMH sig for ESRD on HD, PAD, DM, CAD s/p MY 7 mos ago, currently on ASA, CHF, COPD, TIA transferred from [place] for vascular intervention, consulted left 3rd digit gangrene, Steal syndrome. Pt originally seen in [place] after evaluation with general surgeon for possible Left 3rd digit amputation, reported fevers & chills at home. Pt was evaluated at [place] with findings of Steal syndrome causing left 3rd digit ischemia. Started on antibiotics at [place] PMH: ESRD on HD, PAD, DM, CAD s/p stents, CHF, COPD, TIA candoida glabrata bacteremia PSH: L eye cornea transplant, AVF LUE, cholecystectomy, R BKA All: Aspart, moxifloxacin, PCN, regular insulin SH: Denies ETOH, tobacco or illicit drug use FH: mother- ESRD, end stage coronary disease Review of Systems - Review of Systems All systems: reviewed and no additional remarkable complaints except - Constitutional Constitutional: absent: Chills, Fever - EENT Nose/Mouth/Throat: absent: Sore Throat - Cardiovascular Cardiovascular: absent: Chest Pain - Gastrointestinal Gastrointestinal: Nausea, Vomiting. absent: Constipation, Diarrhea - Psychiatric Psychiatric: absent: Change in Appetite Past Patient History - Infectious Disease Hx of Infectious Diseases: None - Tetanus Immunizations Tetanus Immunization: Up to Date - Past Medical History & Family History Past Medical History?: Yes - Past Social History Smoking Status: Never Smoked - CARDIAC Hx Cardiac Disorders: Yes (mi) Hx Angina: No Hx Cardia Arrhythmia: Yes Hx Circulatory Problems: Yes Hx Congestive Heart Failure: Yes Hx Heart Murmur: Yes Hx Heart Transplant: Yes Hx Hypercholesterolemia: Yes Hx Hypertension: Yes Hx Internal Defibrillator: Yes Hx Pacemaker: Yes (medtronic) Hx Peripheral Edema: Yes Hx Peripheral Vascular Disease: Yes - PULMONARY Hx Respiratory Disorders: Yes Hx Asthma: Yes Hx Bronchitis: Yes Hx Chronic Obstructive Pulmonary Disease (COPD): Yes Hx Pneumonia: Yes Hx Respiratory Aspiration: No Hx Respiratory Tract Infection: Yes Hx Sleep Apnea: Yes Hx Tuberculosis: No - NEUROLOGICAL Hx Neurological Disorder: Yes HX Cerebrovascular Accident: Yes Hx Transient Ischemic Attacks (TIA): Yes - HEENT Hx HEENT Problems: Yes Hx Blind: No Hx Cataracts: Yes Hx Deafness: No Hx Difficulty Chewing: No - RENAL Hx Chronic Kidney Disease: Yes Hx Dialysis: Yes Date of Last Dialysis Treatment: 04/28/18 Hx Kidney Stones: Yes Hx Renal Failure: Yes - ENDOCRINE/METABOLIC Hx Endocrine Disorders: Yes Hx Adrenal Cancer: No Hx Diabetes Insipidus: Yes Hx Diabetes Mellitus Type 1: Yes Hx Hypothyroidism: Yes Hx Systemic Lupus Erythematosus: No - HEMATOLOGICAL/ONCOLOGICAL Hx AIDS: No Hx Anemia: Yes Hx Blood Transfusions: Yes Hx Blood Transfusion Reaction: No - INTEGUMENTARY Hx Dermatological Problems: No - MUSCULOSKELETAL/RHEUMATOLOGICAL Hx Musculoskeletal Disorders: Yes Hx Arthritis: Yes Hx Back Pain: Yes Hx Falls: Yes Hx Fractures: Yes Hx Gout: Yes Hx Unsteady Gait: Yes - GASTROINTESTINAL Hx Gastrointestinal Disorders: Yes Hx Colostomy: No Hx Liver Failure: Yes Hx Pancreatitis: Yes - GENITOURINARY/GYNECOLOGICAL Hx Genitourinary Disorders: Yes Hx Hematuria: Yes - PSYCHIATRIC Hx Psychophysiologic Disorder: Yes Hx Anxiety: Yes Hx Substance Use: No - SURGICAL HISTORY Hx Surgeries: Yes Hx Amputation: Yes Hx Cardiac Catheterization: Yes Hx Cholecystectomy: Yes Hx Coronary Stent: Yes Hx Musculoskeletal Surgery: Yes - ANESTHESIA Hx Anesthesia: Yes Hx Anesthesia Reactions: No Hx Malignant Hyperthermia: No Meds Allergies/Adverse Reactions: Allergies Allergy/AdvReac Type Severity Reaction Status Date / Time insulin aspart [From Novolog] Allergy Intermediate RASH Verified 04/26/18 15:49 moxifloxacin Allergy Intermediate RASH Verified 04/26/18 15:49 Penicillins Allergy Intermediate RASH Verified 04/26/18 15:49 insulin regular Allergy ITCHING Verified 04/26/18 15:49 [From Novolin R Regular U-100 Insuln] - Medications Medications: Current Medications Acetaminophen (Tylenol 325mg Tab) 650 mg PO Q4 PRN PRN Reason: Pain, Mild (1-3) Aspirin (Ecotrin) 81 mg PO DAILY [facility] Last Admin: 04/30/18 09:45 Dose: 81 mg Dextrose (Dextrose 50% Inj) 50 ml IVP ONCE PRN PRN Reason: Hypoglycemia Dextrose (Dextrose 50% Inj) 0 ml IV STAT PRN; Protocol PRN Reason: Hypoglycemia Protocol Dextrose (Glutose 15) 0 gm PO ONCE PRN; Protocol PRN Reason: Hypoglycemia Protocol Glucagon (Glucagen Diagnostic Kit) 0 mg IM STAT PRN; Protocol PRN Reason: Hypoglycemia Protocol Heparin Sodium (Porcine) (Heparin) 5,000 units SC Q8 [facility] Last Admin: 04/30/18 05:55 Dose: Not Given Meropenem 500 mg/ Sodium (Chloride) 100 mls @ 100 mls/hr IVPB DAILY@2200 [facility]; Protocol Last Admin: 04/29/18 21:57 Dose: 100 mls/hr Dextrose (Dextrose 5% In Water 1000 Ml) 1,000 mls @ 0 mls/hr IV .Q0M PRN; Protocol PRN Reason: Hypoglycemia Protocol Dextrose (Dextrose 5% In Water 1000 Ml) 1,000 mls @ 40 mls/hr IV .Q24H [facility] Insulin Human NPH (Novolin N) [address] [facility] Insulin Human Regular (Novolin R) 0 unit SC [facility]; Protocol Last Admin: 04/30/18 08:23 Dose: Not Given Latanoprost (Xalatan Opht) [address] [facility] Last Admin: 04/29/18 22:33 Dose: 1 ml Levothyroxine Sodium (Synthroid) 25 mcg PO 0630 [facility] Last Admin: 04/30/18 05:53 Dose: 25 mcg Loratadine (Claritin) [address] [facility] Last Admin: 04/29/18 21:57 Dose: 10 mg Metoprolol Tartrate (Lopressor) 25 mg PO BID [facility] Last Admin: 04/30/18 09:31 Dose: 25 mg Montelukast Sodium (Singulair) [address] [facility] Last Admin: 04/29/18 21:57 Dose: 10 mg Multivitamins (Hexavitamin) 1 tab PO DAILY [facility] Last Admin: 04/30/18 09:31 Dose: 1 tab Vlgpn-0-Kjpn Ethyl Esters (Lovaza) 2 gm PO BID [facility] Last Admin: 04/30/18 09:31 Dose: 2 gm Ondansetron HCl (Zofran Inj) 4 mg IVP Q6 PRN PRN Reason: Nausea/Vomiting Last Admin: 04/30/18 12:27 Dose: 4 mg Oxycodone/Acetaminophen (Percocet 5/325 Mg Tab) 1 tab PO Q4H PRN PRN Reason: Pain, moderate (4-7) Stop: 05/03/18 10:40 Last Admin: 04/30/18 11:00 Dose: 1 tab Pregabalin (Lyrica) [address] [facility] Last Admin: 04/29/18 21:57 Dose: 50 mg Rosuvastatin Calcium (Crestor) [address] [facility] Last Admin: 04/29/18 21:57 Dose: 10 mg Sevelamer Carbonate (Renvela) 1,600 mg PO AC [facility] Last Admin: 04/30/18 08:21 Dose: 1,600 mg Simethicone (Mylicon Chew Tab) 80 mg PO QID [facility] Last Admin: 04/30/18 09:30 Dose: 80 mg Physical Exam - Constitutional Appears: Chronically Ill - Head Exam Head Exam: ATRAUMATIC - Eye Exam Eye Exam: PERRL - ENT Exam ENT Exam: Mucous Membranes Dry - Neck Exam Neck exam: Negative for: Lymphadenopathy - Respiratory Exam Respiratory Exam: Decreased Breath Sounds - Cardiovascular Exam Cardiovascular Exam: REGULAR RHYTHM - GI/Abdominal Exam GI & Abdominal Exam: Diminished Bowel Sounds, Soft. absent: Tenderness - Rectal Exam Rectal Exam: Deferred - Exam Exam: NORMAL INSPECTION - Extremities Exam Extremities exam: Negative for: pedal edema Additional comments: right BKA left hand 3rd digit with dry gangrene - Back Exam Back exam: absent: CVA tenderness (L), CVA tenderness (R) - Neurological Exam Neurological exam: Alert, CN II-XII Intact, Oriented x3, Reflexes Normal - Psychiatric Exam Psychiatric exam: Depressed - Skin Skin Exam: Dry Results - Vital Signs Recent Vital Signs: Last Vital Signs Temp 97.3 F L 04/30/18 14:00 Pulse 60 04/30/18 14:00 Resp 16 04/30/18 14:00 BP 114/80 04/30/18 14:18 Pulse Ox 96 04/30/18 14:00 - Labs Result Diagrams: 05/03/18 06:40 05/03/18 06:40 Labs: Laboratory Results - last 24 hr 04/29/18 04/29/18 04/29/18 15:51 16:39 21:15 WBC RBC Hgb Hct MCV MCH MCHC RDW Plt Count MPV Neut % (Auto) Lymph % (Auto) Fannin % (Auto) Eos % (Auto) Baso % (Auto) Neut # (Auto) Lymph # (Auto) Fannin # (Auto) Eos # (Auto) Baso # (Auto) Differential Comment PT INR APTT Sodium Potassium Chloride Carbon Dioxide Anion Gap BUN Creatinine Est GFR ( Amer) Est GFR (Non-Af Amer) POC Glucose (mg/dL) 63 L 128 H 135 H Random Glucose Calcium Phosphorus Magnesium Total Bilirubin AST ALT Alkaline Phosphatase Total Protein Albumin Globulin Albumin/Globulin Ratio 04/30/18 04/30/18 04/30/18 01:59 06:21 08:04 WBC RBC Hgb Hct MCV MCH MCHC RDW Plt Count MPV Neut % (Auto) Lymph % (Auto) Fannin % (Auto) Eos % (Auto) Baso % (Auto) Neut # (Auto) Lymph # (Auto) Fannin # (Auto) Eos # (Auto) Baso # (Auto) Differential Comment PT INR APTT Sodium 135 Potassium 5.1 Chloride 93 L Carbon Dioxide 27 Anion Gap 21 H BUN 61 H Creatinine 5.7 H Est GFR ( Amer) 13 Est GFR (Non-Af Amer) 10 POC Glucose (mg/dL) 158 H 162 H Random Glucose 157 H Calcium 8.2 L Phosphorus 6.7 H Magnesium 2.1 Total Bilirubin 1.1 AST 90 H ALT 47 Alkaline Phosphatase 82 Total Protein 7.6 Albumin 3.2 L Globulin 4.4 H Albumin/Globulin Ratio 0.7 L 04/30/18 04/30/18 04/30/18 08:04 08:04 11:26 WBC 7.6 RBC 2.91 L Hgb 9.7 L Hct 28.3 L MCV 97.6 H MCH 33.4 H MCHC 34.2 RDW 19.6 H Plt Count 98 L MPV 11.3 Neut % (Auto) 67.4 Lymph % (Auto) 19.6 L Fannin % (Auto) 11.6 H Eos % (Auto) 0.7 Baso % (Auto) 0.7 Neut # (Auto) 5.1 Lymph # (Auto) 1.5 Fannin # (Auto) 0.9 H Eos # (Auto) 0.1 Baso # (Auto) 0.1 Differential Comment PT 25.4 H INR 2.3 APTT 37 H Sodium Potassium Chloride Carbon Dioxide Anion Gap BUN Creatinine Est GFR ( Amer) Est GFR (Non-Af Amer) POC Glucose (mg/dL) 163 H Random Glucose Calcium Phosphorus Magnesium Total Bilirubin AST ALT Alkaline Phosphatase Total Protein Albumin Globulin Albumin/Globulin Ratio Assessment & Plan (1) Steal syndrome dialysis vascular access Status: Acute (2) Anemia in CKD (chronic kidney disease) Status: Acute - Assessment and Plan (Free Text) Assessment: steal syndrome left hand with redness swelling reportedly had foul smelling drainage left 3rd digit / gangrene cont iv antibiotics may lose digit ? cont IV antibioltics
[2018-04-30] MEDS: Vancomycin 1 gm/NS 200 ml 1 GM/200 ML BAG IVPB STA ×2 (16:30→18:45)
[2018-04-30] MEDS: Latanoprost 2.5 ml Opht Soln OU SCH ×2 (22:07→22:54)
[2018-04-30] MEDS: Meropenem 500 MG in Sodium Chloride 0.9% 100 ML IVPB SCH (22:07)
--- NOTE | 2018-04-30 22:37 | CP.PCM.PN ---
Subjective - Date & Time of Evaluation Date of Evaluation: 04/30/18 Time of Evaluation: 16:00 - Subjective Subjective: Patient not vomiting today but was nauseous earlier; breathing ok; tolerating diet; Objective - Vital Signs/Intake and Output Vital Signs (last 24 hours): Temp Pulse Resp BP Pulse Ox 97.5 F L 64 20 117/52 L 99 04/30/18 18:36 04/30/18 19:00 04/30/18 18:36 04/30/18 18:36 04/30/18 18:36 - Medications Medications: Current Medications Acetaminophen (Tylenol 325mg Tab) 650 mg PO Q4 PRN PRN Reason: Pain, Mild (1-3) Aspirin (Ecotrin) 81 mg PO DAILY [facility] Last Admin: 04/30/18 09:45 Dose: 81 mg Dextrose (Dextrose 50% Inj) 50 ml IVP ONCE PRN PRN Reason: Hypoglycemia Dextrose (Dextrose 50% Inj) 0 ml IV STAT PRN; Protocol PRN Reason: Hypoglycemia Protocol Dextrose (Glutose 15) 0 gm PO ONCE PRN; Protocol PRN Reason: Hypoglycemia Protocol Glucagon (Glucagen Diagnostic Kit) 0 mg IM STAT PRN; Protocol PRN Reason: Hypoglycemia Protocol Heparin Sodium (Porcine) (Heparin) 5,000 units SC Q8 [facility] Last Admin: 04/30/18 22:06 Dose: 5,000 units Meropenem 500 mg/ Sodium (Chloride) 100 mls @ 100 mls/hr IVPB DAILY@2200 [facility]; Protocol Last Admin: 04/30/18 22:07 Dose: 100 mls/hr Dextrose (Dextrose 5% In Water 1000 Ml) 1,000 mls @ 0 mls/hr IV .Q0M PRN; Protocol PRN Reason: Hypoglycemia Protocol Dextrose (Dextrose 5% In Water 1000 Ml) 1,000 mls @ 40 mls/hr IV .Q24H [facility] Vancomycin HCl 500 mg/ Sodium (Chloride) 100 mls @ 100 mls/hr IVPB MWF [facility]; Protocol Insulin Human NPH (Novolin N) 15 unit SC HS [facility] Insulin Human Regular (Novolin R) 0 unit SC ACHS [facility]; Protocol Last Admin: 04/30/18 21:14 Dose: Not Given Latanoprost (Xalatan Opht) 1 ml OU HS [facility] Last Admin: 04/29/18 22:33 Dose: 1 ml Levothyroxine Sodium (Synthroid) 25 mcg PO 629 [facility] Last Admin: 04/30/18 05:53 Dose: 25 mcg Loratadine (Claritin) 10 mg PO [facility] Last Admin: 04/30/18 22:07 Dose: 10 mg Metoprolol Tartrate (Lopressor) 25 mg PO BID [facility] Last Admin: 04/30/18 18:41 Dose: Not Given Montelukast Sodium (Singulair) 10 mg PO [facility] Last Admin: 04/30/18 22:07 Dose: 10 mg Multivitamins (Hexavitamin) 1 tab PO DAILY [facility] Last Admin: 04/30/18 09:31 Dose: 1 tab Ejsyr-6-Hpel Ethyl Esters (Lovaza) 2 gm PO BID [facility] Last Admin: 04/30/18 18:48 Dose: 2 gm Ondansetron HCl (Zofran Inj) 4 mg IVP Q6 PRN PRN Reason: Nausea/Vomiting Last Admin: 04/30/18 12:27 Dose: 4 mg Oxycodone/Acetaminophen (Percocet 5/325 Mg Tab) 1 tab PO Q4H PRN PRN Reason: Pain, moderate (4-7) Stop: 05/03/18 10:40 Last Admin: 04/30/18 22:10 Dose: 1 tab Pregabalin (Lyrica) 50 mg PO [facility] Last Admin: 04/30/18 22:07 Dose: 50 mg Rosuvastatin Calcium (Crestor) 10 mg PO [facility] Last Admin: 04/30/18 22:07 Dose: 10 mg Sevelamer Carbonate (Renvela) 2,400 mg PO [facility] Simethicone (Mylicon Chew Tab) 80 mg PO QID [facility] Last Admin: 04/30/18 22:07 Dose: 80 mg - Labs Labs: 04/30/18 08:04 04/30/18 08:04 PT 25.4 SECONDS (9.7-12.2) H 04/30/18 08:04 INR 2.3 04/30/18 08:04 APTT 37 SECONDS (21-34) H 04/30/18 08:04 - Constitutional Appears: Non-toxic, No Acute Distress - Eye Exam Eye Exam: Normal appearance - Respiratory Exam Respiratory Exam: Clear to Ausculation Bilateral. absent: Respiratory Distress - Cardiovascular Exam Cardiovascular Exam: RRR. absent: Gallop, Rubs - GI/Abdominal Exam GI & Abdominal Exam: Soft. absent: Distended (m), Tenderness - Extremities Exam Additional comments: marked leg edema b/l; - Neurological Exam Neurological Exam: Alert, Awake - Psychiatric Exam Psychiatric exam: Normal Mood. absent: Agitated - Skin Skin Exam: Warm. absent: Cyanosis Assessment and Plan (1) ESRD on hemodialysis Assessment & Plan: High/normal K level; markedly edematous in the setting of pulm htn; dialyzing today for clearance and volume removal with 3L UF goal over 3.5 hrs; next HD possibly tomorrow (to keep him on his usual schedule) after DRIL procedure but more likely for Tuesday; Status: Chronic (2) Steal syndrome dialysis vascular access Assessment & Plan: Involving LUE on side of AVF with cool distal hand and necrotic 3rd digit; for DRIL procedure tomorrow in an attempt to restore perfusion distally; Status: Acute (3) Anemia in CKD (chronic kidney disease) Assessment & Plan: Hgb below gaol but stable, will give EPO; Status: Acute (4) Chronic kidney disease-mineral and bone disorder Assessment & Plan: Phos elevated, will increase sevalamer to 3 tabs w/ meals; Status: Chronic (5) Hypertensive CKD, ESRD on dialysis Assessment & Plan: BP controlled, continue metoprolol; Status: Chronic
[2018-05-01] MEDS: Levothyroxine 25 MCG TAB PO SCH (05:44)
[2018-05-01 07:29] LABS: BASO % 0.6 % (0.0-2.0); EOS # 0.1 K/uL (0.0-0.7); EOS % 1.1 % (0.0-4.0); HEMOGLOBIN 9.7 g/dL (12.0-18.0); LYMPH # 1.1 K/uL (1.0-4.3); LYMPH % 14.9 % (20.0-40.0); MEAN CELL VOLUME 99.5 fL (80.0-94.0); MEAN CORPUSCULAR HEMOGLOBIN 33.1 pg (27.0-31.0); MEAN CORPUSCULAR HGB CONC 33.2 g/dL (33.0-37.0); MEAN PLATELET VOLUME 11.2 fL (7.2-11.7); MONO # 0.5 K/uL (0.0-0.8); MONO % 6.9 % (0.0-10.0); NEUT # 5.4 K/uL (1.8-7.0); NEUT % 76.5 % (50.0-75.0); NRBC % 0.3 % (0.0-2.0); RBC 2.93 Mil/uL (4.40-5.90); RED CELL DISTRIBUTION WIDTH 19.4 % (11.5-14.5); WHITE BLOOD COUNT 7.1 K/uL (4.8-10.8)
[2018-05-01] MEDS: (Novolin R) Insulin Human Regular 100 units/ml vial SC SCH ×5 (07:30→22:09)
[2018-05-01] MEDS ORDERED: Propofol 10 mg/ml Inj (20 ML) ONE (07:31)
[2018-05-01] MEDS ORDERED: Midazolam 2 MG/2 ML VIAL ONE (07:31)
[2018-05-01] MEDS ORDERED: Lidocaine Hydrochloride 0 ML INJ ONE (07:45)
[2018-05-01] MEDS ORDERED: ceFAZolin IV 1 gm in Dextrose 0 GM/0 ML BAG IVPB ONE (07:45)
[2018-05-01] MEDS ORDERED: HEPARIN-NS 5,000 UNITS/500 ML 5,000 UNIT/500 ML BAG IV ONE (07:45)
[2018-05-01 07:54] LABS: ALB/GLOB RATIO 0.7 (1.0-2.1); ALBUMIN 3.3 g/dL (3.5-5.0); CALCIUM 8.2 mg/dl (8.6-10.4)
[2018-05-01] MEDS: Oxycodone/Acetaminophen 5/325 mg Tab PO PRN ×2 (09:11→20:28)
[2018-05-01] MEDS: Omega-3-Acid Ethyl Esters 1 GM Cap PO SCH ×2 (09:28→20:27)
[2018-05-01] MEDS: Multiple Vitamins Tab PO SCH (09:28)
[2018-05-01] MEDS: Simethicone 80 mg Chewtab PO SCH ×4 (09:30→22:01)
--- NOTE | 2018-05-01 09:31 | CP.PCM.PN ---
<Jose Shields - Last Filed: 05/01/18 15:07> Subjective - Date & Time of Evaluation Date of Evaluation: 05/01/18 Time of Evaluation: 08:45 - Subjective Subjective: Medicine Progress Note for Hospitalist Service Pt seen and examined at bedside this am. C/o pain in L middle finger well controlled on percocet prn. No acute events reported overnight. OR procedure on hold today due to elevated INR. Otherwise pt denies any acute complaints. Reports nausea is improving. Had dialysis yesterday. Denies headache, fever, chills, chest pain, sob, n/v/d/c, abd pain, urinary complaints, or other symptoms. Objective - Vital Signs/Intake and Output Vital Signs (last 24 hours): Temp Pulse Resp BP Pulse Ox 98.1 F 66 18 120/47 L 100 05/01/18 07:25 05/01/18 07:30 05/01/18 07:25 05/01/18 07:25 05/01/18 07:25 Intake and Output: 05/01/18 05/01/18 06:59 18:59 Intake Total 190 Balance 190 - Medications Medications: Current Medications Acetaminophen (Tylenol 325mg Tab) 650 mg PO Q4 PRN PRN Reason: Pain, Mild (1-3) Aspirin (Ecotrin) 81 mg PO DAILY [facility] Last Admin: 04/30/18 09:45 Dose: 81 mg Dextrose (Dextrose 50% Inj) 50 ml IVP ONCE PRN PRN Reason: Hypoglycemia Dextrose (Dextrose 50% Inj) 0 ml IV STAT PRN; Protocol PRN Reason: Hypoglycemia Protocol Dextrose (Glutose 15) 0 gm PO ONCE PRN; Protocol PRN Reason: Hypoglycemia Protocol Glucagon (Glucagen Diagnostic Kit) 0 mg IM STAT PRN; Protocol PRN Reason: Hypoglycemia Protocol Heparin Sodium (Porcine) (Heparin) 5,000 units SC Q8 [facility] Last Admin: 05/01/18 05:45 Dose: Not Given Meropenem 500 mg/ Sodium (Chloride) 100 mls @ 100 mls/hr IVPB DAILY@2200 [facility]; Protocol Last Admin: 04/30/18 22:07 Dose: 100 mls/hr Dextrose (Dextrose 5% In Water 1000 Ml) 1,000 mls @ 0 mls/hr IV .Q0M PRN; Protocol PRN Reason: Hypoglycemia Protocol Dextrose (Dextrose 5% In Water 1000 Ml) 1,000 mls @ 40 mls/hr IV .Q24H [facility] Last Admin: 05/01/18 02:15 Dose: 40 mls/hr Vancomycin HCl 500 mg/ Sodium (Chloride) 100 mls @ 100 mls/hr IVPB MWF [facility]; Protocol Insulin Human NPH (Novolin N) 15 unit SC [facility] Insulin Human Regular (Novolin R) 0 unit SC [facility]; Protocol Last Admin: 05/01/18 09:09 Dose: 3 u Latanoprost (Xalatan Opht) 1 ml OU [facility] Last Admin: 04/30/18 22:07 Dose: 1 ml Levothyroxine Sodium (Synthroid) 25 mcg PO 0630 [facility] Last Admin: 05/01/18 05:44 Dose: Not Given Loratadine (Claritin) 10 mg PO [facility] Last Admin: 04/30/18 22:07 Dose: 10 mg Metoprolol Tartrate (Lopressor) 25 mg PO BID [facility] Last Admin: 05/01/18 06:41 Dose: 25 mg Montelukast Sodium (Singulair) 10 mg PO [facility] Last Admin: 04/30/18 22:07 Dose: 10 mg Multivitamins (Hexavitamin) 1 tab PO DAILY [facility] Last Admin: 05/01/18 09:28 Dose: 1 tab [id number]-9-[id number] Ethyl Esters (Lovaza) 2 gm PO BID [facility] Last Admin: 05/01/18 09:28 Dose: 2 gm Ondansetron HCl (Zofran Inj) 4 mg IVP Q6 PRN PRN Reason: Nausea/Vomiting Last Admin: 04/30/18 12:27 Dose: 4 mg Oxycodone/Acetaminophen (Percocet 5/325 Mg Tab) 1 tab PO Q4H PRN PRN Reason: Pain, moderate (4-7) Stop: 05/03/18 10:40 Last Admin: 05/01/18 09:11 Dose: 1 tab Pregabalin (Lyrica) 50 mg PO [facility] Last Admin: 04/30/18 22:07 Dose: 50 mg Rosuvastatin Calcium (Crestor) 10 mg PO [facility] Last Admin: 04/30/18 22:07 Dose: 10 mg Sevelamer Carbonate (Renvela) 2,400 mg PO ACTID [facility] Last Admin: 05/01/18 09:08 Dose: 800 mg Simethicone (Mylicon Chew Tab) 80 mg PO QID [facility] Last Admin: 04/30/18 22:07 Dose: 80 mg - Labs Labs: 05/01/18 07:14 05/01/18 07:14 PT 25.4 SECONDS (9.7-12.2) H 04/30/18 08:04 INR 2.3 04/30/18 08:04 APTT 37 SECONDS (21-34) H 04/30/18 08:04 - Constitutional Appears: Non-toxic, No Acute Distress, Chronically Ill - Head Exam Head Exam: ATRAUMATIC, NORMAL INSPECTION - Eye Exam Eye Exam: EOMI, Normal appearance, PERRL - ENT Exam ENT Exam: Mucous Membranes Moist - Respiratory Exam Respiratory Exam: Clear to Ausculation Bilateral, NORMAL BREATHING PATTERN. absent: Rales, Rhonchi, Wheezes - GI/Abdominal Exam GI & Abdominal Exam: Soft, Normal Bowel Sounds. absent: Distended, Firm, Guarding, Rigid, Tenderness, Organomegaly, Rebound - Extremities Exam Extremities Exam: Normal Capillary Refill Additional comments: S/p R BKA, L middle finger wrapped in dressing c/d/i, tenderness to palpation - Neurological Exam Neurological Exam: Alert, Awake, CN II-XII Intact, Oriented x3 - Psychiatric Exam Psychiatric exam: Normal Affect, Normal Mood - Skin Skin Exam: Dry, Intact, Warm Assessment and Plan - Assessment and Plan (Free Text) Assessment: 52 y o male PMhx ESRD on HD, PAD, CAD, COPD, CHF, pacemaker placement who presented as direct admit from [facility] to [facility] for possible DRIL of L middle finger with Dr. Burden. Plan: L necrotic middle finger Surgery consulted (Dr. Burden), recs appreciated Plan for possible OR on Wednesday 05/02 for DRIL +/or amputation; procedure deferred today due to elevated INR S/p Vit K 10 mg x1, ordered 1 unit FFP, blood transfusion consent obtained from patient Repeat INR @20:00 tonight, @4:00 tomorrow am prior to OR procedure Pt cleared by cardiology at [facility] (Dr. Jim) for procedure, deemed moderate risk for low-risk procedure Dr. Foster consulted (ID), recs appreciated C/w Meropenem 500 mg daily; Vanco 500 mg MWF (renally dosed) added by Dr. Foster (1st dose given 04/30) L hand XR at [facility] demonstrated no signs of osteomyelitis Fistulogram by IR (Dr. Gaming) on 04/27 at [facility] demonstrated significant retrograde flow in L brachial artery distal to AV fistula anastomosis, likely represents steal syndrome; calcified but patent L radial and interosseous arteries, L ulnar artery diffusely diseased, significant L metacarpal and digital small vessel disease, pt may benefit from DRIL procedure. Percocet prn for pain control ESRD On HD -Dialysis (MWF) -Dr. Penny consulted (Nephrology) recs appreciated -BUN/Cr was 65/6.5 at [facility], tofay 43/4.2, continue to trend -Pt received dialysis yesterday, to go for repeat dialysis today as per Dr. Penny prior to OR procedure tomorrow IDDM -Home insulin held until pt post-op after procedure -Increased to high sliding scale today -Fingersticks achs -HHD -Zofran prn for nausea Hx CAD s/p stents C/w ASA, Crestor 10 mg PO hs Hx hypothyroidism C/w synthroid daily Hx HTN Metoprolol 25 mg PO bid DVT ppx: Heparin 5000U subQ q 8 h GI ppx: not indicated at this time Pt seen, examined with, and plan discussed with Dr. Islas, attending. Jose Shields DO PGY-1, [employer] Pager #[phone] <Jim Islas - Last Filed: 05/01/18 17:58> Objective - Vital Signs/Intake and Output Vital Signs (last 24 hours): Temp Pulse Resp BP Pulse Ox 97.4 F L 63 22 104/49 L 100 05/01/18 14:30 05/01/18 14:30 05/01/18 14:25 05/01/18 17:01 05/01/18 14:30 Intake and Output: 05/01/18 05/01/18 06:59 18:59 Intake Total 190 Balance 190 - Medications Medications: Current Medications Acetaminophen (Tylenol 325mg Tab) 650 mg PO Q4 PRN PRN Reason: Pain, Mild (1-3) Aspirin (Ecotrin) 81 mg PO DAILY [facility] Last Admin: 04/30/18 09:45 Dose: 81 mg Dextrose (Dextrose 50% Inj) 50 ml IVP ONCE PRN PRN Reason: Hypoglycemia Dextrose (Dextrose 50% Inj) 0 ml IV STAT PRN; Protocol PRN Reason: Hypoglycemia Protocol Dextrose (Glutose 15) 0 gm PO ONCE PRN; Protocol PRN Reason: Hypoglycemia Protocol Glucagon (Glucagen Diagnostic Kit) 0 mg IM STAT PRN; Protocol PRN Reason: Hypoglycemia Protocol Heparin Sodium (Porcine) (Heparin) 5,000 units SC Q8 [facility] Last Admin: 05/01/18 05:45 Dose: Not Given Meropenem 500 mg/ Sodium (Chloride) 100 mls @ 100 mls/hr IVPB DAILY@2200 [facility]; Protocol Last Admin: 04/30/18 22:07 Dose: 100 mls/hr Dextrose (Dextrose 5% In Water 1000 Ml) 1,000 mls @ 0 mls/hr IV .Q0M PRN; Protocol PRN Reason: Hypoglycemia Protocol Dextrose (Dextrose 5% In Water 1000 Ml) 1,000 mls @ 40 mls/hr IV .Q24H [facility] Last Admin: 05/01/18 02:15 Dose: 40 mls/hr Vancomycin HCl 500 mg/ Sodium (Chloride) 100 mls @ 100 mls/hr IVPB MWF [facility]; Protocol Insulin Human Regular (Novolin R) 0 unit SC ACHS [facility]; Protocol Last Admin: 05/01/18 12:43 Dose: 6 units Latanoprost (Xalatan Opht) 1 ml OU [facility] Last Admin: 04/30/18 22:07 Dose: 1 ml Levothyroxine Sodium (Synthroid) 25 mcg PO 0630 [facility] Last Admin: 05/01/18 05:44 Dose: Not Given Loratadine (Claritin) 10 mg PO HS [facility] Last Admin: 04/30/18 22:07 Dose: 10 mg Metoprolol Tartrate (Lopressor) 25 mg PO BID [facility] Last Admin: 05/01/18 10:00 Dose: Not Given Montelukast Sodium (Singulair) 10 mg PO [facility] Last Admin: 04/30/18 22:07 Dose: 10 mg Multivitamins (Hexavitamin) 1 tab PO DAILY [facility] Last Admin: 05/01/18 09:28 Dose: 1 tab [id number]-9-[id number] Ethyl Esters (Lovaza) 2 gm PO BID [facility] Last Admin: 05/01/18 09:28 Dose: 2 gm Ondansetron HCl (Zofran Inj) 4 mg IVP Q6 PRN PRN Reason: Nausea/Vomiting Last Admin: 04/30/18 12:27 Dose: 4 mg Oxycodone/Acetaminophen (Percocet 5/325 Mg Tab) 1 tab PO Q4H PRN PRN Reason: Pain, moderate (4-7) Stop: 05/03/18 10:40 Last Admin: 05/01/18 09:11 Dose: 1 tab Pregabalin (Lyrica) 50 mg PO HS [facility] Last Admin: 04/30/18 22:07 Dose: 50 mg Rosuvastatin Calcium (Crestor) 10 mg PO HS [facility] Last Admin: 04/30/18 22:07 Dose: 10 mg Sevelamer Carbonate (Renvela) 2,400 mg PO ACTID [facility] Last Admin: 05/01/18 12:30 Dose: Not Given Simethicone (Mylicon Chew Tab) 80 mg PO QID [facility] Last Admin: 05/01/18 14:08 Dose: 80 mg - Labs Labs: 05/01/18 07:14 05/01/18 07:14 PT 25.4 SECONDS (9.7-12.2) H 04/30/18 08:04 INR 2.3 04/30/18 08:04 APTT 37 SECONDS (21-34) H 04/30/18 08:04 Attending/Attestation - Attestation I have personally seen and examined this patient.: Yes I have fully participated in the care of the patient.: Yes I have reviewed all pertinent clinical information, including history, physical exam and plan: Yes Notes (Text): 05/01/18 17:58 Medical attending: Patient was seen and examined by me, reviewed the above note by the medical liaison the above Is a very nice 52-year-old individual with a history of end-stage renal disease on hemodialysis. He has a history of diabetes as well as CAD and hypertension. There is a history for recent below the knee amputation. This morning he is supposed to get a surgical procedure however given that his INR was elevated, recommend give the patient subcutaneous vitamin K as well as 1 unit of FFP will recheck INR again today as well as tomorrow morning Thank you very much, Jim Islas
--- NOTE | 2018-05-01 09:36 | CP.PCM.PN ---
<Syd Garcia - Last Filed: 05/01/18 14:18> Subjective - Date & Time of Evaluation Date of Evaluation: 05/01/18 Time of Evaluation: 09:34 - Subjective Subjective: Syd Garcia DO, PGY-2: Nephrology Progress Note for Dr. Penny Patient was seen and examined at bedside. Patient reports being awake since 4 AM in anticipation of going to Operating Room. He is not going today given his coagulation functions are subpar. He reports passing 3 bowel movements overnight. He reports mild dyspnea and the usual amount of fluid retention. Otherwise, no adverse events noted overnight. Objective - Vital Signs/Intake and Output Vital Signs (last 24 hours): Temp Pulse Resp BP Pulse Ox 98.1 F 66 18 120/47 L 100 05/01/18 07:25 05/01/18 07:30 05/01/18 07:25 05/01/18 07:25 05/01/18 07:25 Intake and Output: 05/01/18 05/01/18 06:59 18:59 Intake Total 190 Balance 190 - Medications Medications: Current Medications Acetaminophen (Tylenol 325mg Tab) 650 mg PO Q4 PRN PRN Reason: Pain, Mild (1-3) Aspirin (Ecotrin) 81 mg PO DAILY [facility] Last Admin: 04/30/18 09:45 Dose: 81 mg Dextrose (Dextrose 50% Inj) 50 ml IVP ONCE PRN PRN Reason: Hypoglycemia Dextrose (Dextrose 50% Inj) 0 ml IV STAT PRN; Protocol PRN Reason: Hypoglycemia Protocol Dextrose (Glutose 15) 0 gm PO ONCE PRN; Protocol PRN Reason: Hypoglycemia Protocol Glucagon (Glucagen Diagnostic Kit) 0 mg IM STAT PRN; Protocol PRN Reason: Hypoglycemia Protocol Heparin Sodium (Porcine) (Heparin) 5,000 units SC Q8 [facility] Last Admin: 05/01/18 05:45 Dose: Not Given Meropenem 500 mg/ Sodium (Chloride) 100 mls @ 100 mls/hr IVPB DAILY@2200 [facility]; Protocol Last Admin: 04/30/18 22:07 Dose: 100 mls/hr Dextrose (Dextrose 5% In Water 1000 Ml) 1,000 mls @ 0 mls/hr IV .Q0M PRN; Protocol PRN Reason: Hypoglycemia Protocol Dextrose (Dextrose 5% In Water 1000 Ml) 1,000 mls @ 40 mls/hr IV .Q24H [facility] Last Admin: 05/01/18 02:15 Dose: 40 mls/hr Vancomycin HCl 500 mg/ Sodium (Chloride) 100 mls @ 100 mls/hr IVPB MWF [facility]; Protocol Insulin Human NPH (Novolin N) 15 unit SC [facility] Insulin Human Regular (Novolin R) 0 unit SC ACHS [facility]; Protocol Last Admin: 05/01/18 09:09 Dose: 3 u Latanoprost (Xalatan Opht) 1 ml OU [facility] Last Admin: 04/30/18 22:07 Dose: 1 ml Levothyroxine Sodium (Synthroid) 25 mcg PO 30 [facility] Last Admin: 05/01/18 05:44 Dose: Not Given Loratadine (Claritin) 10 mg PO [facility] Last Admin: 04/30/18 22:07 Dose: 10 mg Metoprolol Tartrate (Lopressor) 25 mg PO BID [facility] Last Admin: 05/01/18 06:41 Dose: 25 mg Montelukast Sodium (Singulair) 10 mg PO [facility] Last Admin: 04/30/18 22:07 Dose: 10 mg Multivitamins (Hexavitamin) 1 tab PO DAILY [facility] Last Admin: 05/01/18 09:28 Dose: 1 tab Fiqgz-5-Hzmv Ethyl Esters (Lovaza) 2 gm PO BID [facility] Last Admin: 05/01/18 09:28 Dose: 2 gm Ondansetron HCl (Zofran Inj) 4 mg IVP Q6 PRN PRN Reason: Nausea/Vomiting Last Admin: 04/30/18 12:27 Dose: 4 mg Oxycodone/Acetaminophen (Percocet 5/325 Mg Tab) 1 tab PO Q4H PRN PRN Reason: Pain, moderate (4-7) Stop: 05/03/18 10:40 Last Admin: 05/01/18 09:11 Dose: 1 tab Pregabalin (Lyrica) 50 mg PO [facility] Last Admin: 04/30/18 22:07 Dose: 50 mg Rosuvastatin Calcium (Crestor) 10 mg PO [facility] Last Admin: 04/30/18 22:07 Dose: 10 mg Sevelamer Carbonate (Renvela) 2,400 mg PO ACTID [facility] Last Admin: 05/01/18 09:08 Dose: 800 mg Simethicone (Mylicon Chew Tab) 80 mg PO QID [facility] Last Admin: 04/30/18 22:07 Dose: 80 mg - Labs Labs: 05/01/18 07:14 05/01/18 07:14 PT 25.4 SECONDS (9.7-12.2) H 04/30/18 08:04 INR 2.3 04/30/18 08:04 APTT 37 SECONDS (21-34) H 04/30/18 08:04 - Constitutional Appears: Non-toxic, Chronically Ill - Head Exam Head Exam: ATRAUMATIC, NORMOCEPHALIC - ENT Exam ENT Exam: Mucous Membranes Moist - Respiratory Exam Respiratory Exam: Decreased Breath Sounds (bilaterally at lung base), NORMAL BREATHING PATTERN - Cardiovascular Exam Cardiovascular Exam: RRR, +S1, +S2 - GI/Abdominal Exam GI & Abdominal Exam: Soft. absent: Guarding, Rebound - Extremities Exam Additional comments: LE edema graded 2/4 bilaterally - Neurological Exam Neurological Exam: Alert, Awake, Oriented x3 - Psychiatric Exam Psychiatric exam: Normal Affect, Normal Mood - Skin Skin Exam: Dry, Intact, Normal Color, Warm Assessment and Plan - Assessment and Plan (Free Text) Assessment: (1) ESRD on hemodialysis Assessment & Plan: normal K level next HD possibly tomorrow (to keep him on his usual schedule) after DRIL procedure but more likely for Tuesday; Status: Chronic (2) Steal syndrome dialysis vascular access Assessment & Plan: Involving LUE on side of AVF with cool distal hand and necrotic 3rd digit; for DRIL procedure tomorrow in an attempt to restore perfusion distally; Status: Acute (3) Anemia in CKD (chronic kidney disease) Assessment & Plan: Hgb below gaol but stable, will give EPO; Status: Acute (4) Chronic kidney disease-mineral and bone disorder Assessment & Plan: Phos elevated, will increase sevalamer to 3 tabs w/ meals; Status: Chronic (5) Hypertensive CKD, ESRD on dialysis Assessment & Plan: BP controlled, continue metoprolol; Status: Chronic Plan: Will dialyse patient today <Reginaldo Penny - Last Filed: 05/02/18 07:55> Objective - Vital Signs/Intake and Output Vital Signs (last 24 hours): Temp Pulse Resp BP Pulse Ox 97.5 F L 70 20 129/66 100 05/02/18 06:50 05/02/18 06:50 10/02/18 06:50 05/02/18 06:50 05/02/18 06:50 Intake and Output: 05/02/18 05/02/18 06:59 18:59 Intake Total 100 Balance 100 - Medications Medications: Current Medications Acetaminophen (Tylenol 325mg Tab) 650 mg PO Q4 PRN PRN Reason: Pain, Mild (1-3) Aspirin (Ecotrin) 81 mg PO DAILY [facility] Last Admin: 04/30/18 09:45 Dose: 81 mg Dextrose (Dextrose 50% Inj) 50 ml IVP ONCE PRN PRN Reason: Hypoglycemia Dextrose (Dextrose 50% Inj) 0 ml IV STAT PRN; Protocol PRN Reason: Hypoglycemia Protocol Dextrose (Glutose 15) 0 gm PO ONCE PRN; Protocol PRN Reason: Hypoglycemia Protocol Glucagon (Glucagen Diagnostic Kit) 0 mg IM STAT PRN; Protocol PRN Reason: Hypoglycemia Protocol Heparin Sodium (Porcine) (Heparin) 5,000 units SC Q8 [facility] Last Admin: 05/01/18 05:45 Dose: Not Given Meropenem 500 mg/ Sodium (Chloride) 100 mls @ 100 mls/hr IVPB DAILY@2200 [facility]; Protocol Last Admin: 05/01/18 22:01 Dose: 100 mls/hr Dextrose (Dextrose 5% In Water 1000 Ml) 1,000 mls @ 0 mls/hr IV .Q0M PRN; Protocol PRN Reason: Hypoglycemia Protocol Dextrose (Dextrose 5% In Water 1000 Ml) 1,000 mls @ 40 mls/hr IV .Q24H [facility] Last Admin: 05/02/18 01:00 Dose: 40 mls/hr Vancomycin HCl 500 mg/ Sodium (Chloride) 100 mls @ 100 mls/hr IVPB MWF [facility]; Protocol Insulin Human Regular (Novolin R) 0 unit SC ACHS [facility]; Protocol Last Admin: 05/01/18 22:09 Dose: Not Given Latanoprost (Xalatan Opht) 1 ml OU [facility] Last Admin: 05/01/18 22:02 Dose: 1 ml Levothyroxine Sodium (Synthroid) 25 mcg PO 0630 [facility] Last Admin: 05/02/18 06:15 Dose: Not Given Loratadine (Claritin) 10 mg PO HS [facility] Last Admin: 05/01/18 22:01 Dose: 10 mg Metoprolol Tartrate (Lopressor) 25 mg PO BID [facility] Last Admin: 05/01/18 20:27 Dose: 25 mg Montelukast Sodium (Singulair) 10 mg PO [facility] Last Admin: 05/01/18 22:01 Dose: 10 mg Multivitamins (Hexavitamin) 1 tab PO DAILY [facility] Last Admin: 05/01/18 09:28 Dose: 1 tab Wyamr-4-Lbth Ethyl Esters (Lovaza) 2 gm PO BID [facility] Last Admin: 05/01/18 20:27 Dose: 2 gm Ondansetron HCl (Zofran Inj) 4 mg IVP Q6 PRN PRN Reason: Nausea/Vomiting Last Admin: 04/30/18 12:27 Dose: 4 mg Oxycodone/Acetaminophen (Percocet 5/325 Mg Tab) 1 tab PO Q4H PRN PRN Reason: Pain, moderate (4-7) Stop: 05/03/18 10:40 Last Admin: 05/01/18 20:28 Dose: 1 tab Pregabalin (Lyrica) 50 mg PO [facility] Last Admin: 05/01/18 22:01 Dose: 50 mg Rosuvastatin Calcium (Crestor) 10 mg PO [facility] Last Admin: 05/01/18 22:01 Dose: 10 mg Sevelamer Carbonate (Renvela) 2,400 mg PO ACTID [facility] Last Admin: 05/01/18 20:27 Dose: 2,400 mg Simethicone (Mylicon Chew Tab) 80 mg PO QID [facility] Last Admin: 05/01/18 22:01 Dose: 80 mg - Labs Labs: 05/02/18 04:17 05/02/18 04:17 PT 23.1 SECONDS (9.7-12.2) H 05/02/18 04:17 INR 2.1 05/02/18 04:17 APTT 35 SECONDS (21-34) H 05/02/18 04:17 Assessment and Plan (1) ESRD on hemodialysis Status: Chronic (2) Steal syndrome dialysis vascular access Status: Acute (3) Anemia in CKD (chronic kidney disease) Status: Acute (4) Chronic kidney disease-mineral and bone disorder Status: Chronic (5) Hypertensive CKD, ESRD on dialysis Status: Chronic Attending/Attestation - Attestation I have personally seen and examined this patient.: Yes I have fully participated in the care of the patient.: Yes I have reviewed all pertinent clinical information, including history, physical exam and plan: Yes Notes (Text): Patient seen and examined; I agree with the resident's note as above with the following additions/edits: Patient with htn, dm, severe PAD, pulm htn, ARASH, and ESRD on HD, admitted with hypoglycemia, necrotic L 3rd finger, found to have steal syndrome involving L arm AVF, transferred to [facility] from [facility] to undergo DRIL procedure; Patient s/p HD yesterday in anticipation of OR today, however, procedure postponed due to coagulopathy (patient had been on coumadin, last dose was last week); Still very edematous on exam though stable respiratory status; stable lytes; -HD again today to keep patient on his usual schedule and in anticipation of possibly not being able to use AVF immediately after DRIL procedure (due to ensuing edema); UF goal 3L; -Giving FFP at end of HD as patient has poor peripheral IV access; -Re-dose vanco and meropenem after HD; -continue metoprolol for BP control; -continue sevalamer for phos control;
[2018-05-01] MEDS ORDERED: Phytonadione 10 mg/ml Inj (Adult) IV STA (09:49)
--- NOTE | 2018-05-01 09:53 | CP.PCM.PN ---
Subjective - Date & Time of Evaluation Date of Evaluation: 05/01/18 Time of Evaluation: 07:10 - Subjective Subjective: Vascular surgery consult note for Dr. Burden Patient seen and examined at bedside this AM. No adverse events overnight. patient states that pain is well controlled on current regimen. Objective - Vital Signs/Intake and Output Vital Signs (last 24 hours): Temp Pulse Resp BP Pulse Ox 98.1 F 66 18 120/47 L 100 05/01/18 07:25 05/01/18 07:30 05/01/18 07:25 05/01/18 07:25 05/01/18 07:25 Intake and Output: 05/01/18 05/01/18 06:59 18:59 Intake Total 190 Balance 190 - Medications Medications: Current Medications Acetaminophen (Tylenol 325mg Tab) 650 mg PO Q4 PRN PRN Reason: Pain, Mild (1-3) Aspirin (Ecotrin) 81 mg PO DAILY [facility] Last Admin: 04/30/18 09:45 Dose: 81 mg Dextrose (Dextrose 50% Inj) 50 ml IVP ONCE PRN PRN Reason: Hypoglycemia Dextrose (Dextrose 50% Inj) 0 ml IV STAT PRN; Protocol PRN Reason: Hypoglycemia Protocol Dextrose (Glutose 15) 0 gm PO ONCE PRN; Protocol PRN Reason: Hypoglycemia Protocol Glucagon (Glucagen Diagnostic Kit) 0 mg IM STAT PRN; Protocol PRN Reason: Hypoglycemia Protocol Heparin Sodium (Porcine) (Heparin) 5,000 units SC Q8 [facility] Last Admin: 05/01/18 05:45 Dose: Not Given Meropenem 500 mg/ Sodium (Chloride) 100 mls @ 100 mls/hr IVPB DAILY@2200 [facility]; Protocol Last Admin: 04/30/18 22:07 Dose: 100 mls/hr Dextrose (Dextrose 5% In Water 1000 Ml) 1,000 mls @ 0 mls/hr IV .Q0M PRN; Protocol PRN Reason: Hypoglycemia Protocol Dextrose (Dextrose 5% In Water 1000 Ml) 1,000 mls @ 40 mls/hr IV .Q24H [facility] Last Admin: 05/01/18 02:15 Dose: 40 mls/hr Vancomycin HCl 500 mg/ Sodium (Chloride) 100 mls @ 100 mls/hr IVPB MWF [facility]; Protocol Insulin Human NPH (Novolin N) 15 unit SC HS [facility] Insulin Human Regular (Novolin R) 0 unit SC ACHS [facility]; Protocol Last Admin: 05/01/18 09:09 Dose: 3 u Latanoprost (Xalatan Opht) 1 ml OU [facility] Last Admin: 04/30/18 22:07 Dose: 1 ml Levothyroxine Sodium (Synthroid) 25 mcg PO 30 [facility] Last Admin: 05/01/18 05:44 Dose: Not Given Loratadine (Claritin) 10 mg PO [facility] Last Admin: 04/30/18 22:07 Dose: 10 mg Metoprolol Tartrate (Lopressor) 25 mg PO BID [facility] Last Admin: 05/01/18 06:41 Dose: 25 mg Montelukast Sodium (Singulair) 10 mg PO [facility] Last Admin: 04/30/18 22:07 Dose: 10 mg Multivitamins (Hexavitamin) 1 tab PO DAILY [facility] Last Admin: 05/01/18 09:28 Dose: 1 tab Lblak-1-Qmnb Ethyl Esters (Lovaza) 2 gm PO BID [facility] Last Admin: 05/01/18 09:28 Dose: 2 gm Ondansetron HCl (Zofran Inj) 4 mg IVP Q6 PRN PRN Reason: Nausea/Vomiting Last Admin: 04/30/18 12:27 Dose: 4 mg Oxycodone/Acetaminophen (Percocet 5/325 Mg Tab) 1 tab PO Q4H PRN PRN Reason: Pain, moderate (4-7) Stop: 05/03/18 10:40 Last Admin: 05/01/18 09:11 Dose: 1 tab Pregabalin (Lyrica) 50 mg PO [facility] Last Admin: 04/30/18 22:07 Dose: 50 mg Rosuvastatin Calcium (Crestor) 10 mg PO [facility] Last Admin: 04/30/18 22:07 Dose: 10 mg Sevelamer Carbonate (Renvela) 2,400 mg PO ACTID [facility] Last Admin: 05/01/18 09:08 Dose: 800 mg Simethicone (Mylicon Chew Tab) 80 mg PO QID [facility] Last Admin: 04/30/18 22:07 Dose: 80 mg - Labs Labs: 05/01/18 07:14 05/01/18 07:14 PT 25.4 SECONDS (9.7-12.2) H 04/30/18 08:04 INR 2.3 04/30/18 08:04 APTT 37 SECONDS (21-34) H 04/30/18 08:04 - Constitutional Appears: Well, Non-toxic, No Acute Distress - Head Exam Head Exam: ATRAUMATIC, NORMOCEPHALIC - Eye Exam Eye Exam: Normal appearance. absent: Conjunctival injection, Scleral icterus - ENT Exam ENT Exam: Mucous Membranes Moist, Normal Oropharynx - Respiratory Exam Respiratory Exam: NORMAL BREATHING PATTERN. absent: Accessory Muscle Use, Respiratory Distress - Cardiovascular Exam Cardiovascular Exam: RRR - GI/Abdominal Exam GI & Abdominal Exam: absent: Distended - Extremities Exam Additional comments: LUE AVF with palpable bruit and pulse, left third finger with bandage with small amount of serosanguinous drainage, proximal finger with good color, sensation intact, gross motor exam wnl right lower extremity BKA site with bandage C/D/i - Neurological Exam Neurological Exam: Alert, Awake, Oriented x3 - Psychiatric Exam Psychiatric exam: Normal Affect, Normal Mood - Skin Skin Exam: Dry, Intact (except as noted above), Normal Color, Warm Assessment and Plan - Assessment and Plan (Free Text) Assessment: 52M with steal syndrome of this LUE AVF and 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 Burden, who agrees with above Maryjane Gonzalez, PGY2
[2018-05-01] MEDS ORDERED: Phytonadione 10 MG in Sodium Chloride 0.9% 50 ML IV ONE (11:00)
--- NOTE | 2018-05-01 12:46 | CP.PCM.PN ---
Subjective - Date & Time of Evaluation Date of Evaluation: 05/01/18 Time of Evaluation: 06:00 - Subjective Subjective: iv rx renewed + steal syndrome OR on hold for today Objective - Vital Signs/Intake and Output Vital Signs (last 24 hours): Temp Pulse Resp BP Pulse Ox 98.1 F 66 18 120/47 L 100 05/01/18 07:25 05/01/18 07:30 05/01/18 07:25 05/01/18 07:25 05/01/18 07:25 Intake and Output: 05/01/18 05/01/18 06:59 18:59 Intake Total 190 Balance 190 - Medications Medications: Current Medications Acetaminophen (Tylenol 325mg Tab) 650 mg PO Q4 PRN PRN Reason: Pain, Mild (1-3) Aspirin (Ecotrin) 81 mg PO DAILY [facility] Last Admin: 04/30/18 09:45 Dose: 81 mg Dextrose (Dextrose 50% Inj) 50 ml IVP ONCE PRN PRN Reason: Hypoglycemia Dextrose (Dextrose 50% Inj) 0 ml IV STAT PRN; Protocol PRN Reason: Hypoglycemia Protocol Dextrose (Glutose 15) 0 gm PO ONCE PRN; Protocol PRN Reason: Hypoglycemia Protocol Glucagon (Glucagen Diagnostic Kit) 0 mg IM STAT PRN; Protocol PRN Reason: Hypoglycemia Protocol Heparin Sodium (Porcine) (Heparin) 5,000 units SC Q8 [facility] Last Admin: 05/01/18 05:45 Dose: Not Given Meropenem 500 mg/ Sodium (Chloride) 100 mls @ 100 mls/hr IVPB DAILY@2200 [facility]; Protocol Last Admin: 04/30/18 22:07 Dose: 100 mls/hr Dextrose (Dextrose 5% In Water 1000 Ml) 1,000 mls @ 0 mls/hr IV .Q0M PRN; Protocol PRN Reason: Hypoglycemia Protocol Dextrose (Dextrose 5% In Water 1000 Ml) 1,000 mls @ 40 mls/hr IV .Q24H [facility] Last Admin: 05/01/18 02:15 Dose: 40 mls/hr Vancomycin HCl 500 mg/ Sodium (Chloride) 100 mls @ 100 mls/hr IVPB MWF [facility]; Protocol Insulin Human Regular (Novolin R) 0 unit SC ACHS [facility]; Protocol Last Admin: 05/01/18 12:43 Dose: 6 units Latanoprost (Xalatan Opht) 1 ml OU HS [facility] Last Admin: 04/30/18 22:07 Dose: 1 ml Levothyroxine Sodium (Synthroid) 25 mcg PO 0630 [facility] Last Admin: 05/01/18 05:44 Dose: Not Given Loratadine (Claritin) 10 mg PO [facility] Last Admin: 04/30/18 22:07 Dose: 10 mg Metoprolol Tartrate (Lopressor) 25 mg PO BID [facility] Last Admin: 05/01/18 06:41 Dose: 25 mg Montelukast Sodium (Singulair) 10 mg PO [facility] Last Admin: 04/30/18 22:07 Dose: 10 mg Multivitamins (Hexavitamin) 1 tab PO DAILY [facility] Last Admin: 05/01/18 09:28 Dose: 1 tab Wljxs-6-Zfks Ethyl Esters (Lovaza) 2 gm PO BID [facility] Last Admin: 05/01/18 09:28 Dose: 2 gm Ondansetron HCl (Zofran Inj) 4 mg IVP Q6 PRN PRN Reason: Nausea/Vomiting Last Admin: 04/30/18 12:27 Dose: 4 mg Oxycodone/Acetaminophen (Percocet 5/325 Mg Tab) 1 tab PO Q4H PRN PRN Reason: Pain, moderate (4-7) Stop: 05/03/18 10:40 Last Admin: 05/01/18 09:11 Dose: 1 tab Pregabalin (Lyrica) 50 mg PO [facility] Last Admin: 04/30/18 22:07 Dose: 50 mg Rosuvastatin Calcium (Crestor) 10 mg PO [facility] Last Admin: 04/30/18 22:07 Dose: 10 mg Sevelamer Carbonate (Renvela) 2,400 mg PO ACTID [facility] Last Admin: 05/01/18 12:30 Dose: Not Given Simethicone (Mylicon Chew Tab) 80 mg PO QID [facility] Last Admin: 05/01/18 09:30 Dose: 80 mg - Labs Labs: 05/01/18 07:14 05/01/18 07:14 PT 25.4 SECONDS (9.7-12.2) H 04/30/18 08:04 INR 2.3 04/30/18 08:04 APTT 37 SECONDS (21-34) H 04/30/18 08:04 - Constitutional Appears: Non-toxic, Chronically Ill - Head Exam Head Exam: NORMOCEPHALIC - Eye Exam Eye Exam: PERRL - ENT Exam ENT Exam: Mucous Membranes Dry - Neck Exam Neck Exam: absent: Lymphadenopathy - Respiratory Exam Respiratory Exam: Decreased Breath Sounds - Cardiovascular Exam Cardiovascular Exam: REGULAR RHYTHM - GI/Abdominal Exam GI & Abdominal Exam: Distended, Soft Assessment and Plan (1) Steal syndrome dialysis vascular access Status: Acute (2) Anemia in CKD (chronic kidney disease) Status: Acute - Assessment and Plan (Free Text) Assessment: steal syndrome left hand with redness swelling reportedly had foul smelling drainage left 3rd digit / gangrene cont iv antibiotics may lose digit ?
[2018-05-01] MEDS ORDERED: (Novolin N) Insulin Human Isophane (NPH) 100 u/ml 10 ml vial SC SCH (22:00)
[2018-05-01] MEDS: Meropenem 500 MG in Sodium Chloride 0.9% 100 ML IVPB SCH (22:01)
[2018-05-01] MEDS: Latanoprost 2.5 ml Opht Soln OU SCH (22:02)
[2018-05-02 04:21] LABS: BASO % 0.4 % (0.0-2.0); EOS # 0.1 K/uL (0.0-0.7); HEMOGLOBIN 9.9 g/dL (12.0-18.0); LYMPH % 14.4 % (20.0-40.0); MEAN CELL VOLUME 99.6 fL (80.0-94.0); MEAN CORPUSCULAR HEMOGLOBIN 32.8 pg (27.0-31.0); MEAN CORPUSCULAR HGB CONC 32.9 g/dL (33.0-37.0); MONO # 0.6 K/uL (0.0-0.8); MONO % 8.1 % (0.0-10.0); NEUT # 5.3 K/uL (1.8-7.0); NEUT % 76.1 % (50.0-75.0); NRBC % 0.2 % (0.0-2.0); RBC 3.02 Mil/uL (4.40-5.90); RED CELL DISTRIBUTION WIDTH 19.4 % (11.5-14.5)
[2018-05-02 04:35] LABS: ALB/GLOB RATIO 0.8 (1.0-2.1); ALBUMIN 3.7 g/dL (3.5-5.0); CALCIUM 8.5 mg/dl (8.6-10.4)
[2018-05-02 05:01] LABS: INR 2.1; PROTHROMBIN TIME 23.1 SECONDS (9.7-12.2)
[2018-05-02] MEDS: Levothyroxine 25 MCG TAB PO SCH (06:15)
[2018-05-02] MEDS: (Novolin R) Insulin Human Regular 100 units/ml vial SC SCH ×4 (08:15→21:09)
[2018-05-02] MEDS: Oxycodone/Acetaminophen 5/325 mg Tab PO PRN ×2 (09:33→18:39)
--- NOTE | 2018-05-02 09:36 | CP.PCM.PN ---
<Syd Garcia - Last Filed: 05/02/18 13:32> Subjective - Date & Time of Evaluation Date of Evaluation: 05/02/18 Time of Evaluation: 09:00 - Subjective Subjective: Syd Garcia DO, PGY-2: Nephrology Progress Note for Dr. Penny Patient was seen and examined at bedside. He reports that he will be going to OR at 12:30 or so today. He also reports undergoing dialysis yesterday without incident. He complains that his stomach feels a bit unsteady. Otherwise, chart review indicates patient is receiving FFP prior to surgery scheduled for today. Objective - Vital Signs/Intake and Output Vital Signs (last 24 hours): Temp Pulse Resp BP Pulse Ox 97.6 F 64 20 129/52 L 100 05/02/18 08:30 05/02/18 08:30 05/02/18 08:30 05/02/18 09:32 05/02/18 08:30 Intake and Output: 05/02/18 05/02/18 06:59 18:59 Intake Total 100 Balance 100 - Medications Medications: Current Medications Acetaminophen (Tylenol 325mg Tab) 650 mg PO Q4 PRN PRN Reason: Pain, Mild (1-3) Aspirin (Ecotrin) 81 mg PO DAILY [facility] Last Admin: 04/30/18 09:45 Dose: 81 mg Dextrose (Dextrose 50% Inj) 50 ml IVP ONCE PRN PRN Reason: Hypoglycemia Dextrose (Dextrose 50% Inj) 0 ml IV STAT PRN; Protocol PRN Reason: Hypoglycemia Protocol Dextrose (Glutose 15) 0 gm PO ONCE PRN; Protocol PRN Reason: Hypoglycemia Protocol Glucagon (Glucagen Diagnostic Kit) 0 mg IM STAT PRN; Protocol PRN Reason: Hypoglycemia Protocol Heparin Sodium (Porcine) (Heparin) 5,000 units SC Q8 [facility] Last Admin: 05/01/18 05:45 Dose: Not Given Meropenem 500 mg/ Sodium (Chloride) 100 mls @ 100 mls/hr IVPB DAILY@2200 [facility]; Protocol Last Admin: 05/01/18 22:01 Dose: 100 mls/hr Dextrose (Dextrose 5% In Water 1000 Ml) 1,000 mls @ 0 mls/hr IV .Q0M PRN; Protocol PRN Reason: Hypoglycemia Protocol Dextrose (Dextrose 5% In Water 1000 Ml) 1,000 mls @ 40 mls/hr IV .Q24H [facility] Last Admin: 05/02/18 01:00 Dose: 40 mls/hr Vancomycin HCl 500 mg/ Sodium (Chloride) 100 mls @ 100 mls/hr IVPB MWF [facility]; Protocol Insulin Human Regular (Novolin R) 0 unit SC ACHS [facility]; Protocol Last Admin: 05/02/18 08:15 Dose: Not Given Latanoprost (Xalatan Opht) 1 ml OU [facility] Last Admin: 05/01/18 22:02 Dose: 1 ml Levothyroxine Sodium (Synthroid) 25 mcg PO 0630 [facility] Last Admin: 05/02/18 06:15 Dose: Not Given Loratadine (Claritin) 10 mg PO [facility] Last Admin: 05/01/18 22:01 Dose: 10 mg Metoprolol Tartrate (Lopressor) 25 mg PO BID [facility] Last Admin: 05/02/18 09:32 Dose: 25 mg Montelukast Sodium (Singulair) 10 mg PO [facility] Last Admin: 05/01/18 22:01 Dose: 10 mg Multivitamins (Hexavitamin) 1 tab PO DAILY [facility] Last Admin: 05/01/18 09:28 Dose: 1 tab Hcyde-0-[id number] Ethyl Esters (Lovaza) 2 gm PO BID [facility] Last Admin: 05/01/18 20:27 Dose: 2 gm Ondansetron HCl (Zofran Inj) 4 mg IVP Q6 PRN PRN Reason: Nausea/Vomiting Last Admin: 04/30/18 12:27 Dose: 4 mg Oxycodone/Acetaminophen (Percocet 5/325 Mg Tab) 1 tab PO Q4H PRN PRN Reason: Pain, moderate (4-7) Stop: 05/03/18 10:40 Last Admin: 05/02/18 09:33 Dose: 1 tab Pregabalin (Lyrica) 50 mg PO [facility] Last Admin: 05/01/18 22:01 Dose: 50 mg Rosuvastatin Calcium (Crestor) 10 mg PO [facility] Last Admin: 05/01/18 22:01 Dose: 10 mg Sevelamer Carbonate (Renvela) 2,400 mg PO ACTID [facility] Last Admin: 05/02/18 08:15 Dose: Not Given Simethicone (Mylicon Chew Tab) 80 mg PO QID [facility] Last Admin: 05/01/18 22:01 Dose: 80 mg - Labs Labs: 05/02/18 04:17 05/02/18 04:17 PT 23.1 SECONDS (9.7-12.2) H 05/02/18 04:17 INR 2.1 05/02/18 04:17 APTT 35 SECONDS (21-34) H 05/02/18 04:17 - Constitutional Appears: Well, Non-toxic - Head Exam Head Exam: ATRAUMATIC, NORMOCEPHALIC - Eye Exam Eye Exam: EOMI, Normal appearance - ENT Exam ENT Exam: Mucous Membranes Moist - Neck Exam Neck Exam: Normal Inspection - Respiratory Exam Respiratory Exam: Clear to Ausculation Bilateral, Rales (soft, left greater than right). absent: Accessory Muscle Use - Cardiovascular Exam Cardiovascular Exam: RRR, +S1, +S2 - GI/Abdominal Exam GI & Abdominal Exam: Soft, Normal Bowel Sounds. absent: Tenderness, Rebound - Extremities Exam Extremities Exam: Pedal Edema Additional comments: R BKA noted - Neurological Exam Neurological Exam: Alert, Awake, Oriented x3 - Psychiatric Exam Psychiatric exam: Normal Affect, Normal Mood - Skin Skin Exam: Dry, Intact, Normal Color, Warm Assessment and Plan - Assessment and Plan (Free Text) Assessment: 1) ESRD - Continue with dialysis MWF - Re-dose Vancomycin and Meropenem after next HD - Continue with Sevelamer 2) Coagulapathy - Continue with FFP 3) Steal syndrome involving left arm AVF; DRIL procedure scheduled today - Likely won't be able to dialyze patient immediately after surgery, but will hopefully resume dialysis on Tuesday 4) CAD - Continue Metoprolol Case reviewed and discussed with Dr. Penny <Reginaldo Penny - Last Filed: 05/03/18 06:29> Objective - Vital Signs/Intake and Output Vital Signs (last 24 hours): Temp Pulse Resp BP Pulse Ox 98.1 F 60 20 125/60 100 05/02/18 23:05 05/02/18 23:30 05/02/18 23:05 05/02/18 23:05 05/02/18 23:05 - Medications Medications: Current Medications Acetaminophen (Tylenol 325mg Tab) 650 mg PO Q4 PRN PRN Reason: Pain, Mild (1-3) Aspirin (Ecotrin) 81 mg PO DAILY [facility] Last Admin: 04/30/18 09:45 Dose: 81 mg Dextrose (Dextrose 50% Inj) 50 ml IVP ONCE PRN PRN Reason: Hypoglycemia Dextrose (Dextrose 50% Inj) 0 ml IV STAT PRN; Protocol PRN Reason: Hypoglycemia Protocol Dextrose (Glutose 15) 0 gm PO ONCE PRN; Protocol PRN Reason: Hypoglycemia Protocol Glucagon (Glucagen Diagnostic Kit) 0 mg IM STAT PRN; Protocol PRN Reason: Hypoglycemia Protocol Heparin Sodium (Porcine) (Heparin) 5,000 units SC Q8 [facility] Last Admin: 05/01/18 05:45 Dose: Not Given Meropenem 500 mg/ Sodium (Chloride) 100 mls @ 100 mls/hr IVPB DAILY@2200 [facility]; Protocol Last Admin: 05/02/18 21:26 Dose: 100 mls/hr Dextrose (Dextrose 5% In Water 1000 Ml) 1,000 mls @ 0 mls/hr IV .Q0M PRN; Protocol PRN Reason: Hypoglycemia Protocol Vancomycin HCl 500 mg/ Sodium (Chloride) 100 mls @ 100 mls/hr IVPB MWF [facility]; Protocol Insulin Human Regular (Novolin R) 0 unit SC ACHS [facility]; Protocol Last Admin: 05/02/18 21:09 Dose: Not Given Latanoprost (Xalatan Opht) 1 ml OU HS [facility] Last Admin: 05/02/18 21:26 Dose: 1 ml Levothyroxine Sodium (Synthroid) 25 mcg PO 0630 [facility] Last Admin: 05/02/18 06:15 Dose: Not Given Loratadine (Claritin) 10 mg PO HS [facility] Last Admin: 05/02/18 21:27 Dose: 10 mg Metoprolol Tartrate (Lopressor) 25 mg PO BID [facility] Last Admin: 05/02/18 17:32 Dose: 25 mg Montelukast Sodium (Singulair) 10 mg PO HS [facility] Last Admin: 05/02/18 21:27 Dose: 10 mg Multivitamins (Hexavitamin) 1 tab PO DAILY [facility] Last Admin: 05/02/18 09:37 Dose: Not Given Tisfv-4-Nqnx Ethyl Esters (Lovaza) 2 gm PO BID [facility] Last Admin: 05/02/18 17:27 Dose: 2 gm Ondansetron HCl (Zofran Inj) 4 mg IVP Q6 PRN PRN Reason: Nausea/Vomiting Last Admin: 04/30/18 12:27 Dose: 4 mg Oxycodone/Acetaminophen (Percocet 5/325 Mg Tab) 1 tab PO Q4H PRN PRN Reason: Pain, moderate (4-7) Stop: 05/03/18 10:40 Last Admin: 05/02/18 18:39 Dose: 1 tab Pregabalin (Lyrica) 50 mg PO HS [facility] Last Admin: 05/02/18 21:27 Dose: 50 mg Rosuvastatin Calcium (Crestor) 10 mg PO HS [facility] Last Admin: 05/02/18 21:27 Dose: 10 mg Sevelamer Carbonate (Renvela) 2,400 mg PO ACTID [facility] Last Admin: 05/02/18 17:27 Dose: 2,400 mg Simethicone (Mylicon Chew Tab) 80 mg PO QID [facility] Last Admin: 05/02/18 21:27 Dose: 80 mg - Labs Labs: 05/02/18 04:17 05/02/18 04:17 PT 21.0 SECONDS (9.7-12.2) H 05/02/18 11:26 INR 1.9 05/02/18 11:26 APTT 35 SECONDS (21-34) H 05/02/18 11:26 Assessment and Plan (1) ESRD on hemodialysis Status: Chronic (2) Steal syndrome dialysis vascular access Status: Acute (3) Anemia in CKD (chronic kidney disease) Status: Acute (4) Chronic kidney disease-mineral and bone disorder Status: Chronic (5) Hypertensive CKD, ESRD on dialysis Status: Chronic Attending/Attestation - Attestation I have personally seen and examined this patient.: Yes I have fully participated in the care of the patient.: Yes I have reviewed all pertinent clinical information, including history, physical exam and plan: Yes Notes (Text): Patient seen and examined; I agree with the resident's note as above with the following additions/edits: Patient with htn, dm, CAD s/p stent, pulm htn, ARASH, PAD s/p recent R BKA and ESRD on HD, admitted with necrotic L 3rd finger in the setting of distal arm arterial disease and steal syndrome from L arm AVF; Was set for DRIL procedure to correct steal syndrome but postponed due to ongoing coagulopathy despite receiving FFP; awaiting hematology input; Stable volume and electrolyte status; last HD yesterday, next for tomorrow per routine, 3.5L UF goal as patient is markedly edematous; HTN controlled, continue metoprolol; Hgb slightly below goal, will re-dose EPO;
[2018-05-02] MEDS: Multiple Vitamins Tab PO SCH (09:37)
[2018-05-02] MEDS: Simethicone 80 mg Chewtab PO SCH ×4 (09:38→21:27)
[2018-05-02] MEDS: Omega-3-Acid Ethyl Esters 1 GM Cap PO SCH ×2 (09:38→17:27)
[2018-05-02] MEDS ORDERED: Bupivacaine 0.5% Inj(30mL) IJ ONE (11:53)
[2018-05-02] MEDS ORDERED: HEPARIN-NS 5,000 UNITS/500 ML 0 UNIT/0 ML BAG IV ONE (12:02)
[2018-05-02 12:03] LABS: INR 1.9
--- NOTE | 2018-05-02 12:59 | CP.PCM.PN ---
Subjective - Date & Time of Evaluation Date of Evaluation: 05/02/18 Time of Evaluation: 08:00 - Subjective Subjective: events noted IV rx renewed for OR Objective - Vital Signs/Intake and Output Vital Signs (last 24 hours): Temp Pulse Resp BP Pulse Ox 97.8 F 66 20 128/62 99 05/02/18 10:15 05/02/18 10:15 05/02/18 10:15 05/02/18 10:15 05/02/18 10:15 Intake and Output: 05/02/18 05/02/18 06:59 18:59 Intake Total 100 Balance 100 - Medications Medications: Current Medications Acetaminophen (Tylenol 325mg Tab) 650 mg PO Q4 PRN PRN Reason: Pain, Mild (1-3) Aspirin (Ecotrin) 81 mg PO DAILY [facility] Last Admin: 04/30/18 09:45 Dose: 81 mg Dextrose (Dextrose 50% Inj) 50 ml IVP ONCE PRN PRN Reason: Hypoglycemia Dextrose (Dextrose 50% Inj) 0 ml IV STAT PRN; Protocol PRN Reason: Hypoglycemia Protocol Dextrose (Glutose 15) 0 gm PO ONCE PRN; Protocol PRN Reason: Hypoglycemia Protocol Glucagon (Glucagen Diagnostic Kit) 0 mg IM STAT PRN; Protocol PRN Reason: Hypoglycemia Protocol Heparin Sodium (Porcine) (Heparin) 5,000 units SC Q8 [facility] Last Admin: 05/01/18 05:45 Dose: Not Given Meropenem 500 mg/ Sodium (Chloride) 100 mls @ 100 mls/hr IVPB DAILY@2200 [facility]; Protocol Last Admin: 05/01/18 22:01 Dose: 100 mls/hr Dextrose (Dextrose 5% In Water 1000 Ml) 1,000 mls @ 0 mls/hr IV .Q0M PRN; Protocol PRN Reason: Hypoglycemia Protocol Dextrose (Dextrose 5% In Water 1000 Ml) 1,000 mls @ 40 mls/hr IV .Q24H [facility] Last Admin: 05/02/18 01:00 Dose: 40 mls/hr Vancomycin HCl 500 mg/ Sodium (Chloride) 100 mls @ 100 mls/hr IVPB MWF [facility]; Protocol Insulin Human Regular (Novolin R) 0 unit SC ACHS [facility]; Protocol Last Admin: 05/02/18 12:02 Dose: Not Given Latanoprost (Xalatan Opht) 1 ml OU HS [facility] Last Admin: 05/01/18 22:02 Dose: 1 ml Levothyroxine Sodium (Synthroid) 25 mcg PO 0630 [facility] Last Admin: 05/02/18 06:15 Dose: Not Given Loratadine (Claritin) 10 mg PO [facility] Last Admin: 05/01/18 22:01 Dose: 10 mg Metoprolol Tartrate (Lopressor) 25 mg PO BID [facility] Last Admin: 05/02/18 09:32 Dose: 25 mg Montelukast Sodium (Singulair) 10 mg PO [facility] Last Admin: 05/01/18 22:01 Dose: 10 mg Multivitamins (Hexavitamin) 1 tab PO DAILY [facility] Last Admin: 05/02/18 09:37 Dose: Not Given Emllx-9-Fwvz Ethyl Esters (Lovaza) 2 gm PO BID [facility] Last Admin: 05/02/18 09:38 Dose: Not Given Ondansetron HCl (Zofran Inj) 4 mg IVP Q6 PRN PRN Reason: Nausea/Vomiting Last Admin: 04/30/18 12:27 Dose: 4 mg Oxycodone/Acetaminophen (Percocet 5/325 Mg Tab) 1 tab PO Q4H PRN PRN Reason: Pain, moderate (4-7) Stop: 05/03/18 10:40 Last Admin: 05/02/18 09:33 Dose: 1 tab Phytonadione (Vitamin K Tab) 10 mg PO ONCE ONE Stop: 05/02/18 13:01 Pregabalin (Lyrica) 50 mg PO [facility] Last Admin: 05/01/18 22:01 Dose: 50 mg Rosuvastatin Calcium (Crestor) 10 mg PO [facility] Last Admin: 05/01/18 22:01 Dose: 10 mg Sevelamer Carbonate (Renvela) 2,400 mg PO ACTID [facility] Last Admin: 05/02/18 12:03 Dose: Not Given Simethicone (Mylicon Chew Tab) 80 mg PO QID [facility] Last Admin: 05/02/18 09:38 Dose: Not Given - Labs Labs: 05/02/18 04:17 05/02/18 04:17 PT 21.0 SECONDS (9.7-12.2) H 05/02/18 11:26 INR 1.9 05/02/18 11:26 APTT 35 SECONDS (21-34) H 05/02/18 11:26 - Constitutional Appears: Non-toxic, Chronically Ill - Head Exam Head Exam: NORMOCEPHALIC - Eye Exam Eye Exam: PERRL - ENT Exam ENT Exam: Mucous Membranes Dry - Neck Exam Neck Exam: absent: Lymphadenopathy - Respiratory Exam Respiratory Exam: Decreased Breath Sounds - Cardiovascular Exam Cardiovascular Exam: REGULAR RHYTHM - GI/Abdominal Exam GI & Abdominal Exam: Distended Assessment and Plan (1) Steal syndrome dialysis vascular access Status: Acute (2) Anemia in CKD (chronic kidney disease) Status: Acute - Assessment and Plan (Free Text) Assessment: for OR today
--- NOTE | 2018-05-02 15:05 | CP.PCM.PN ---
<Kalli Serrano P - Last Filed: 05/02/18 19:00> Subjective - Date & Time of Evaluation Date of Evaluation: 05/02/18 Time of Evaluation: 08:00 - Subjective Subjective: PGY-[address] Islas. Patient examined today at bedside. Patient sitting in bed, in no acute distress. Patient complains of mild paind to L 3rd finger, which improves with pain meds. Also admits to mild diffuse abdominal pain and one episode of vomiting yesterday. Patient denied dizziness, headaches, shortness of breath, chest tightness, palpitations, nausea, fevers, chills, leg swelling. Objective - Vital Signs/Intake and Output Vital Signs (last 24 hours): Temp Pulse Resp BP Pulse Ox 97.8 F 66 20 128/62 99 05/02/18 10:15 05/02/18 10:15 05/02/18 10:15 05/02/18 10:15 05/02/18 10:15 Intake and Output: 05/02/18 05/02/18 06:59 18:59 Intake Total 100 Balance 100 - Medications Medications: Current Medications Acetaminophen (Tylenol 325mg Tab) 650 mg PO Q4 PRN PRN Reason: Pain, Mild (1-3) Aspirin (Ecotrin) 81 mg PO DAILY [facility] Last Admin: 04/30/18 09:45 Dose: 81 mg Dextrose (Dextrose 50% Inj) 50 ml IVP ONCE PRN PRN Reason: Hypoglycemia Dextrose (Dextrose 50% Inj) 0 ml IV STAT PRN; Protocol PRN Reason: Hypoglycemia Protocol Dextrose (Glutose 15) 0 gm PO ONCE PRN; Protocol PRN Reason: Hypoglycemia Protocol Glucagon (Glucagen Diagnostic Kit) 0 mg IM STAT PRN; Protocol PRN Reason: Hypoglycemia Protocol Heparin Sodium (Porcine) (Heparin) 5,000 units SC Q8 [facility] Last Admin: 05/01/18 05:45 Dose: Not Given Meropenem 500 mg/ Sodium (Chloride) 100 mls @ 100 mls/hr IVPB DAILY@2200 [facility]; Protocol Last Admin: 05/01/18 22:01 Dose: 100 mls/hr Dextrose (Dextrose 5% In Water 1000 Ml) 1,000 mls @ 0 mls/hr IV .Q0M PRN; Protocol PRN Reason: Hypoglycemia Protocol Dextrose (Dextrose 5% In Water 1000 Ml) 1,000 mls @ 40 mls/hr IV .Q24H [facility] Last Admin: 05/02/18 01:00 Dose: 40 mls/hr Vancomycin HCl 500 mg/ Sodium (Chloride) 100 mls @ 100 mls/hr IVPB MWF [facility]; Protocol Insulin Human Regular (Novolin R) 0 unit SC ACHS [facility]; Protocol Last Admin: 05/02/18 12:02 Dose: Not Given Latanoprost (Xalatan Opht) 1 ml OU [facility] Last Admin: 05/01/18 22:02 Dose: 1 ml Levothyroxine Sodium (Synthroid) 25 mcg PO 0630 [facility] Last Admin: 05/02/18 06:15 Dose: Not Given Loratadine (Claritin) 10 mg PO [facility] Last Admin: 05/01/18 22:01 Dose: 10 mg Metoprolol Tartrate (Lopressor) 25 mg PO BID [facility] Last Admin: 05/02/18 09:32 Dose: 25 mg Montelukast Sodium (Singulair) 10 mg PO [facility] Last Admin: 05/01/18 22:01 Dose: 10 mg Multivitamins (Hexavitamin) 1 tab PO DAILY [facility] Last Admin: 05/02/18 09:37 Dose: Not Given Axlpl-1-Ecxy Ethyl Esters (Lovaza) 2 gm PO BID [facility] Last Admin: 05/02/18 09:38 Dose: Not Given Ondansetron HCl (Zofran Inj) 4 mg IVP Q6 PRN PRN Reason: Nausea/Vomiting Last Admin: 04/30/18 12:27 Dose: 4 mg Oxycodone/Acetaminophen (Percocet 5/325 Mg Tab) 1 tab PO Q4H PRN PRN Reason: Pain, moderate (4-7) Stop: 05/03/18 10:40 Last Admin: 05/02/18 09:33 Dose: 1 tab Pregabalin (Lyrica) 50 mg PO [facility] Last Admin: 05/01/18 22:01 Dose: 50 mg Rosuvastatin Calcium (Crestor) 10 mg PO [facility] Last Admin: 05/01/18 22:01 Dose: 10 mg Sevelamer Carbonate (Renvela) 2,400 mg PO ACTID [facility] Last Admin: 05/02/18 12:03 Dose: Not Given Simethicone (Mylicon Chew Tab) 80 mg PO QID [facility] Last Admin: 05/02/18 14:18 Dose: Not Given - Labs Labs: 05/02/18 04:17 05/02/18 04:17 PT 21.0 SECONDS (9.7-12.2) H 05/02/18 11:26 INR 1.9 05/02/18 11:26 APTT 35 SECONDS (21-34) H 05/02/18 11:26 - Constitutional Appears: Non-toxic, No Acute Distress - Head Exam Head Exam: ATRAUMATIC, NORMOCEPHALIC - Eye Exam Eye Exam: EOMI, PERRL - ENT Exam ENT Exam: Mucous Membranes Moist - Neck Exam Neck Exam: Full ROM, Normal Inspection - Respiratory Exam Respiratory Exam: Clear to Ausculation Bilateral, NORMAL BREATHING PATTERN. absent: Rales, Rhonchi, Wheezes - Cardiovascular Exam Cardiovascular Exam: +S1, +S2 - GI/Abdominal Exam GI & Abdominal Exam: Soft. absent: Guarding, Rigid, Tenderness, Rebound - Extremities Exam Additional comments: Dressing noted to L 3rd finger, + tender to palpation, L AV fistula, R BKA - Neurological Exam Neurological Exam: Alert, Awake - Psychiatric Exam Psychiatric exam: Normal Affect, Normal Mood - Skin Skin Exam: Dry, Intact, Normal Color, Warm Assessment and Plan - Assessment and Plan (Free Text) Plan: 52 y o male PMhx ESRD on HD, PAD, CAD, COPD, CHF, pacemaker placement who presented as direct admit from [facility] to [facility] for possible DRIL of L middle finger with Dr. Burden. L necrotic 3rd finger 2/2 Dialysis associated steal syndrome Fistulogram by IR (Dr. Gaming) on 04/27 at [facility] demonstrated significant retrograde flow in L brachial artery distal to AV fistula anastomosis, likely represents steal syndrome; calcified but patent L radial and interosseous arteries, L ulnar artery diffusely diseased, significant L metacarpal and digital small vessel disease, pt may benefit from DRIL procedure. Percocet prn for pain control Dr. Foster consulted (ID), recs appreciated C/w Meropenem 500 mg daily; Vanco 500 mg MWF (renally dosed) added by Dr. Foster (1st dose given 04/30) L hand XR at [facility] demonstrated no signs of osteomyelitis Surgery consulted (Dr. Burden), recs appreciated OR postponed for Saturday 05/05 for DRIL +/or amputation; procedure deferred tod ay due to elevated INR (1.9) despite 3 FFP Pt cleared by cardiology at [facility] (Dr. Jim) for procedure, deemed moderate risk for low-risk procedure Dr. Powell, Hematology, consulted. Help appreciated. Vit K 10mg in 50cc NS give over 30min PLT function tests Mixing study Coags daily ESRD On HD -Dialysis (MWF) -Dr. Penny consulted (Nephrology) recs appreciated -BUN/Cr was 65/6.5 at [facility], today 36/3.6, continue to trend IDDM -Home insulin held until pt post-op after procedure -Increased to high sliding scale today -Fingersticks achs -HHD -Zofran prn for nausea Hx CAD s/p stents C/w ASA, Crestor 10 mg PO hs Hx hypothyroidism C/w synthroid daily Hx HTN Metoprolol 25 mg PO bid DVT ppx: Heparin 5000U subQ i8o-stav GI ppx: not indicated at this time <Jim Islas H - Last Filed: 05/03/18 07:33> Objective - Vital Signs/Intake and Output Vital Signs (last 24 hours): Temp Pulse Resp BP Pulse Ox 98.1 F 60 20 125/60 100 05/02/18 23:05 05/02/18 23:30 05/02/18 23:05 05/02/18 23:05 05/02/18 23:05 - Medications Medications: Current Medications Acetaminophen (Tylenol 325mg Tab) 650 mg PO Q4 PRN PRN Reason: Pain, Mild (1-3) Aspirin (Ecotrin) 81 mg PO DAILY [facility] Last Admin: 04/30/18 09:45 Dose: 81 mg Dextrose (Dextrose 50% Inj) 50 ml IVP ONCE PRN PRN Reason: Hypoglycemia Dextrose (Dextrose 50% Inj) 0 ml IV STAT PRN; Protocol PRN Reason: Hypoglycemia Protocol Dextrose (Glutose 15) 0 gm PO ONCE PRN; Protocol PRN Reason: Hypoglycemia Protocol Glucagon (Glucagen Diagnostic Kit) 0 mg IM STAT PRN; Protocol PRN Reason: Hypoglycemia Protocol Heparin Sodium (Porcine) (Heparin) 5,000 units SC Q8 [facility] Last Admin: 05/01/18 05:45 Dose: Not Given Meropenem 500 mg/ Sodium (Chloride) 100 mls @ 100 mls/hr IVPB DAILY@2200 [facility]; Protocol Last Admin: 05/02/18 21:26 Dose: 100 mls/hr Dextrose (Dextrose 5% In Water 1000 Ml) 1,000 mls @ 0 mls/hr IV .Q0M PRN; Protocol PRN Reason: Hypoglycemia Protocol Vancomycin HCl 500 mg/ Sodium (Chloride) 100 mls @ 100 mls/hr IVPB MWF [facility]; Protocol Insulin Human Regular (Novolin R) 0 unit SC [facility]; Protocol Last Admin: 05/02/18 21:09 Dose: Not Given Latanoprost (Xalatan Opht) 1 ml OU [facility] Last Admin: 05/02/18 21:26 Dose: 1 ml Levothyroxine Sodium (Synthroid) 25 mcg PO 0630 [facility] Last Admin: 05/03/18 07:06 Dose: Not Given Loratadine (Claritin) 10 mg PO [facility] Last Admin: 05/02/18 21:27 Dose: 10 mg Metoprolol Tartrate (Lopressor) 25 mg PO BID [facility] Last Admin: 05/02/18 17:32 Dose: 25 mg Montelukast Sodium (Singulair) 10 mg PO [facility] Last Admin: 05/02/18 21:27 Dose: 10 mg Multivitamins (Hexavitamin) 1 tab PO DAILY [facility] Last Admin: 05/02/18 09:37 Dose: Not Given Wktfb-9-Gwbd Ethyl Esters (Lovaza) 2 gm PO BID [facility] Last Admin: 05/02/18 17:27 Dose: 2 gm Ondansetron HCl (Zofran Inj) 4 mg IVP Q6 PRN PRN Reason: Nausea/Vomiting Last Admin: 05/03/18 07:03 Dose: 4 mg Oxycodone/Acetaminophen (Percocet 5/325 Mg Tab) 1 tab PO Q4H PRN PRN Reason: Pain, moderate (4-7) Stop: 05/03/18 10:40 Last Admin: 05/02/18 18:39 Dose: 1 tab Pregabalin (Lyrica) 50 mg PO [facility] Last Admin: 05/02/18 21:27 Dose: 50 mg Rosuvastatin Calcium (Crestor) 10 mg PO [facility] Last Admin: 05/02/18 21:27 Dose: 10 mg Sevelamer Carbonate (Renvela) 2,400 mg PO ACTID [facility] Last Admin: 05/02/18 17:27 Dose: 2,400 mg Simethicone (Mylicon Chew Tab) 80 mg PO QID [facility] Last Admin: 05/02/18 21:27 Dose: 80 mg - Labs Labs: 05/03/18 06:40 05/02/18 04:17 PT 21.1 SECONDS (9.7-12.2) H 05/03/18 06:40 INR 1.9 05/03/18 06:40 APTT 37 SECONDS (21-34) H 05/03/18 06:40 Attending/Attestation - Attestation I have personally seen and examined this patient.: Yes I have fully participated in the care of the patient.: Yes I have reviewed all pertinent clinical information, including history, physical exam and plan: Yes Notes (Text): Medical attending: Patient was seen and examined by me, right reviewed the above note by the medical transcriptionist and agree with the above note. The patient's INR remained elevated despite getting several units of FFP as well as vitamin K. INR was 2.1, the surgery has been put on hold at this time. I did discuss we could give DDAVP for platelet uremic disorders however surgery ask for hematology oncology evaluation for the time being. Otherwise the patient remained stable. Patient reported that the left middle finger which is the area that has extensive necrosis, did have tenderness however was tolerating pain okay for the time being. Thank you very much Jim Islas
[2018-05-02] MEDS ORDERED: Phytonadione 10 mg/ml Inj (Adult) IV STA (16:28)
--- NOTE | 2018-05-02 16:42 | CP.PCM.PN ---
Subjective - Date & Time of Evaluation Date of Evaluation: 05/02/18 Time of Evaluation: 16:41 - Subjective Subjective: Surgery Surgery cancelled today because of elevated INR. PT was given 3 FFP and vitamin K with minimal improvement on INR. Objective - Vital Signs/Intake and Output Vital Signs (last 24 hours): Temp Pulse Resp BP Pulse Ox 97.6 F 60 20 125/64 100 05/02/18 15:22 05/02/18 15:22 05/02/18 15:22 05/02/18 15:22 05/02/18 15:22 Intake and Output: 05/02/18 05/02/18 06:59 18:59 Intake Total 100 Balance 100 - Medications Medications: Current Medications Acetaminophen (Tylenol 325mg Tab) 650 mg PO Q4 PRN PRN Reason: Pain, Mild (1-3) Aspirin (Ecotrin) 81 mg PO DAILY [facility] Last Admin: 04/30/18 09:45 Dose: 81 mg Dextrose (Dextrose 50% Inj) 50 ml IVP ONCE PRN PRN Reason: Hypoglycemia Dextrose (Dextrose 50% Inj) 0 ml IV STAT PRN; Protocol PRN Reason: Hypoglycemia Protocol Dextrose (Glutose 15) 0 gm PO ONCE PRN; Protocol PRN Reason: Hypoglycemia Protocol Glucagon (Glucagen Diagnostic Kit) 0 mg IM STAT PRN; Protocol PRN Reason: Hypoglycemia Protocol Heparin Sodium (Porcine) (Heparin) 5,000 units SC Q8 [facility] Last Admin: 05/01/18 05:45 Dose: Not Given Meropenem 500 mg/ Sodium (Chloride) 100 mls @ 100 mls/hr IVPB DAILY@2200 [facility]; Protocol Last Admin: 05/01/18 22:01 Dose: 100 mls/hr Dextrose (Dextrose 5% In Water 1000 Ml) 1,000 mls @ 0 mls/hr IV .Q0M PRN; Protocol PRN Reason: Hypoglycemia Protocol Dextrose (Dextrose 5% In Water 1000 Ml) 1,000 mls @ 40 mls/hr IV .Q24H [facility] Last Admin: 05/02/18 01:00 Dose: 40 mls/hr Vancomycin HCl 500 mg/ Sodium (Chloride) 100 mls @ 100 mls/hr IVPB MWF [facility]; Protocol Insulin Human Regular (Novolin R) 0 unit SC ACHS [facility]; Protocol Last Admin: 05/02/18 12:02 Dose: Not Given Latanoprost (Xalatan Opht) 1 ml OU [facility] Last Admin: 05/01/18 22:02 Dose: 1 ml Levothyroxine Sodium (Synthroid) 25 mcg PO 0630 [facility] Last Admin: 05/02/18 06:15 Dose: Not Given Loratadine (Claritin) 10 mg PO [facility] Last Admin: 05/01/18 22:01 Dose: 10 mg Metoprolol Tartrate (Lopressor) 25 mg PO BID [facility] Last Admin: 05/02/18 09:32 Dose: 25 mg Montelukast Sodium (Singulair) 10 mg PO [facility] Last Admin: 05/01/18 22:01 Dose: 10 mg Multivitamins (Hexavitamin) 1 tab PO DAILY [facility] Last Admin: 05/02/18 09:37 Dose: Not Given Oyuix-9-Wsoz Ethyl Esters (Lovaza) 2 gm PO BID [facility] Last Admin: 05/02/18 09:38 Dose: Not Given Ondansetron HCl (Zofran Inj) 4 mg IVP Q6 PRN PRN Reason: Nausea/Vomiting Last Admin: 04/30/18 12:27 Dose: 4 mg Oxycodone/Acetaminophen (Percocet 5/325 Mg Tab) 1 tab PO Q4H PRN PRN Reason: Pain, moderate (4-7) Stop: 05/03/18 10:40 Last Admin: 05/02/18 09:33 Dose: 1 tab Pregabalin (Lyrica) 50 mg PO [facility] Last Admin: 05/01/18 22:01 Dose: 50 mg Rosuvastatin Calcium (Crestor) 10 mg PO [facility] Last Admin: 05/01/18 22:01 Dose: 10 mg Sevelamer Carbonate (Renvela) 2,400 mg PO ACTID [facility] Last Admin: 05/02/18 12:03 Dose: Not Given Simethicone (Mylicon Chew Tab) 80 mg PO QID [facility] Last Admin: 05/02/18 14:18 Dose: Not Given - Labs Labs: 05/02/18 04:17 05/02/18 04:17 PT 21.0 SECONDS (9.7-12.2) H 05/02/18 11:26 INR 1.9 05/02/18 11:26 APTT 35 SECONDS (21-34) H 05/02/18 11:26 - Constitutional Appears: No Acute Distress - Head Exam Head Exam: ATRAUMATIC, NORMAL INSPECTION, NORMOCEPHALIC - Eye Exam Eye Exam: EOMI, Normal appearance, PERRL Pupil Exam: NORMAL ACCOMODATION, PERRL - ENT Exam ENT Exam: Mucous Membranes Moist, Normal Exam - Neck Exam Neck Exam: Full ROM, Normal Inspection. absent: Lymphadenopathy - Respiratory Exam Respiratory Exam: NORMAL BREATHING PATTERN - Cardiovascular Exam Cardiovascular Exam: REGULAR RHYTHM - GI/Abdominal Exam GI & Abdominal Exam: Soft, Normal Bowel Sounds. absent: Tenderness - Extremities Exam Additional comments: L arm AVF in place. Hand dressing C/D/I - Back Exam Back Exam: NORMAL INSPECTION - Neurological Exam Neurological Exam: Alert, Awake, CN II-XII Intact, Normal Gait, Oriented x3 - Psychiatric Exam Psychiatric exam: Normal Affect, Normal Mood - Skin Skin Exam: Pallor Assessment and Plan - Assessment and Plan (Free Text) Assessment: Steal syndrome of L hand -WIll plan for OR on Tue -Hematology recommendation -Vit K -Reverse INR DW Dr. Burden
[2018-05-02] MEDS: Meropenem 500 MG in Sodium Chloride 0.9% 100 ML IVPB SCH (21:26)
[2018-05-02] MEDS: Latanoprost 2.5 ml Opht Soln OU SCH (21:26)
[2018-05-03 06:49] LABS: PLT BASE COUNT 123 K/uL
[2018-05-03 06:51] LABS: BASO # 0.1 K/uL (0.0-0.2); BASO % 0.9 % (0.0-2.0); EOS # 0.1 K/uL (0.0-0.7); EOS % 1.8 % (0.0-4.0); HEMOGLOBIN 10.4 g/dL (12.0-18.0); LYMPH # 0.9 K/uL (1.0-4.3); LYMPH % 11.6 % (20.0-40.0); MEAN CORPUSCULAR HEMOGLOBIN 33.1 pg (27.0-31.0); MEAN CORPUSCULAR HGB CONC 33.1 g/dL (33.0-37.0); MEAN PLATELET VOLUME 11.6 fL (7.2-11.7); MONO # 0.7 K/uL (0.0-0.8); MONO % 8.9 % (0.0-10.0); NEUT # 5.8 K/uL (1.8-7.0); NEUT % 76.8 % (50.0-75.0); NRBC % 0.3 % (0.0-2.0); RBC 3.16 Mil/uL (4.40-5.90); RED CELL DISTRIBUTION WIDTH 18.7 % (11.5-14.5); WHITE BLOOD COUNT 7.6 K/uL (4.8-10.8)
[2018-05-03 06:53] LABS: FUNCTIONING PLTS 72 K/uL; PLT(ADP) 51 K/uL
[2018-05-03 06:56] LABS: INR 1.9; PROTHROMBIN TIME 21.1 SECONDS (9.7-12.2)
[2018-05-03] MEDS: Levothyroxine 25 MCG TAB PO SCH (07:06)
[2018-05-03] MEDS: (Novolin R) Insulin Human Regular 100 units/ml vial SC SCH ×4 (08:12→17:42)
--- NOTE | 2018-05-03 08:20 | CP.PCM.PN ---
<Syd Garcia - Last Filed: 05/03/18 13:31> Subjective - Date & Time of Evaluation Date of Evaluation: 05/03/18 Time of Evaluation: 08:20 - Subjective Subjective: Syd Garcia DO, PGY-2: Nephrology Progress Note for Dr. Penny Patient was seen and examined at bedside. He is not going for surgery today and tentatively will be going on Tuesday. His INR doesn't seem to be getting any lower despite the administration of 5 units of FFP. Otherwise, he is going for dialysis today. Objective - Vital Signs/Intake and Output Vital Signs (last 24 hours): Temp Pulse Resp BP Pulse Ox 97.3 F L 61 20 131/66 98 05/03/18 07:00 05/03/18 07:00 05/03/18 07:00 05/03/18 07:00 05/03/18 07:00 - Medications Medications: Current Medications Acetaminophen (Tylenol 325mg Tab) 650 mg PO Q4 PRN PRN Reason: Pain, Mild (1-3) Aspirin (Ecotrin) 81 mg PO DAILY [facility] Last Admin: 04/30/18 09:45 Dose: 81 mg Dextrose (Dextrose 50% Inj) 50 ml IVP ONCE PRN PRN Reason: Hypoglycemia Dextrose (Dextrose 50% Inj) 0 ml IV STAT PRN; Protocol PRN Reason: Hypoglycemia Protocol Dextrose (Glutose 15) 0 gm PO ONCE PRN; Protocol PRN Reason: Hypoglycemia Protocol Glucagon (Glucagen Diagnostic Kit) 0 mg IM STAT PRN; Protocol PRN Reason: Hypoglycemia Protocol Heparin Sodium (Porcine) (Heparin) 5,000 units SC Q8 [facility] Last Admin: 05/01/18 05:45 Dose: Not Given Meropenem 500 mg/ Sodium (Chloride) 100 mls @ 100 mls/hr IVPB DAILY@2200 [facility]; Protocol Last Admin: 05/02/18 21:26 Dose: 100 mls/hr Dextrose (Dextrose 5% In Water 1000 Ml) 1,000 mls @ 0 mls/hr IV .Q0M PRN; Protocol PRN Reason: Hypoglycemia Protocol Vancomycin HCl 500 mg/ Sodium (Chloride) 100 mls @ 100 mls/hr IVPB MWF [facility]; Protocol Insulin Human Regular (Novolin R) 0 unit SC ACHS [facility]; Protocol Last Admin: 05/03/18 08:15 Dose: Not Given Latanoprost (Xalatan Opht) 1 ml OU [facility] Last Admin: 05/02/18 21:26 Dose: 1 ml Levothyroxine Sodium (Synthroid) 25 mcg PO 0630 [facility] Last Admin: 05/03/18 07:06 Dose: Not Given Loratadine (Claritin) 10 mg PO HS [facility] Last Admin: 05/02/18 21:27 Dose: 10 mg Metoprolol Tartrate (Lopressor) 25 mg PO BID [facility] Last Admin: 05/02/18 17:32 Dose: 25 mg Montelukast Sodium (Singulair) 10 mg PO [facility] Last Admin: 05/02/18 21:27 Dose: 10 mg Multivitamins (Hexavitamin) 1 tab PO DAILY [facility] Last Admin: 05/02/18 09:37 Dose: Not Given Oeygm-6-Eepe Ethyl Esters (Lovaza) 2 gm PO BID [facility] Last Admin: 05/02/18 17:27 Dose: 2 gm Ondansetron HCl (Zofran Inj) 4 mg IVP Q6 PRN PRN Reason: Nausea/Vomiting Last Admin: 05/03/18 07:03 Dose: 4 mg Oxycodone/Acetaminophen (Percocet 5/325 Mg Tab) 1 tab PO Q4H PRN PRN Reason: Pain, moderate (4-7) Stop: 05/03/18 10:40 Last Admin: 05/02/18 18:39 Dose: 1 tab Pregabalin (Lyrica) 50 mg PO [facility] Last Admin: 05/02/18 21:27 Dose: 50 mg Rosuvastatin Calcium (Crestor) 10 mg PO [facility] Last Admin: 05/02/18 21:27 Dose: 10 mg Sevelamer Carbonate (Renvela) 2,400 mg PO ACTID [facility] Last Admin: 05/03/18 08:13 Dose: Not Given Simethicone (Mylicon Chew Tab) 80 mg PO QID [facility] Last Admin: 05/02/18 21:27 Dose: 80 mg - Labs Labs: 05/03/18 06:40 05/02/18 04:17 PT 21.1 SECONDS (9.7-12.2) H 05/03/18 06:40 INR 1.9 05/03/18 06:40 APTT 37 SECONDS (21-34) H 05/03/18 06:40 - Constitutional Appears: Non-toxic - Head Exam Head Exam: ATRAUMATIC, NORMOCEPHALIC - Eye Exam Eye Exam: EOMI, Normal appearance - ENT Exam ENT Exam: Mucous Membranes Moist - Neck Exam Neck Exam: Normal Inspection - Respiratory Exam Respiratory Exam: Clear to Ausculation Bilateral, NORMAL BREATHING PATTERN. absent: Accessory Muscle Use - Cardiovascular Exam Cardiovascular Exam: RRR, +S1, +S2 - GI/Abdominal Exam GI & Abdominal Exam: Soft, Normal Bowel Sounds - Extremities Exam Extremities Exam: Pedal Edema - Back Exam Back Exam: NORMAL INSPECTION - Neurological Exam Neurological Exam: Alert, Awake, Oriented x3 - Psychiatric Exam Psychiatric exam: Normal Affect, Normal Mood - Skin Skin Exam: Dry, Intact, Normal Color, Warm Assessment and Plan - Assessment and Plan (Free Text) Assessment: 1) ESRD - Continue with dialysis MWF - Re-dose Vancomycin and Meropenem after HD - Continue with Sevelamer 2) Coagulapathy - Continue with FFP - Consider hematology consult 3) Steal syndrome involving left arm AVF; DRIL procedure scheduled sometime in the future - Will remain in touch with surgery 4) CAD - Continue Metoprolol Case reviewed and discussed with Dr. Penny <Reginaldo Penny - Last Filed: 05/04/18 05:33> Objective - Vital Signs/Intake and Output Vital Signs (last 24 hours): Temp Pulse Resp BP Pulse Ox 98.1 F 62 20 123/62 98 05/03/18 23:10 05/03/18 23:30 05/03/18 23:10 05/03/18 23:10 05/03/18 23:10 Intake and Output: 05/03/18 05/04/18 18:59 06:59 Intake Total 460 100 Balance 460 100 - Medications Medications: Current Medications Acetaminophen (Tylenol 325mg Tab) 650 mg PO Q4 PRN PRN Reason: Pain, Mild (1-3) Last Admin: 05/04/18 02:17 Dose: 650 mg Aspirin (Ecotrin) 81 mg PO DAILY [facility] Last Admin: 04/30/18 09:45 Dose: 81 mg Dextrose (Dextrose 50% Inj) 50 ml IVP ONCE PRN PRN Reason: Hypoglycemia Dextrose (Dextrose 50% Inj) 0 ml IV STAT PRN; Protocol PRN Reason: Hypoglycemia Protocol Dextrose (Glutose 15) 0 gm PO ONCE PRN; Protocol PRN Reason: Hypoglycemia Protocol Diphenhydramine HCl (Benadryl) 25 mg PO HS PRN PRN Reason: Insomnia Last Admin: 05/03/18 21:51 Dose: 25 mg Glucagon (Glucagen Diagnostic Kit) 0 mg IM STAT PRN; Protocol PRN Reason: Hypoglycemia Protocol Heparin Sodium (Porcine) (Heparin) 5,000 units SC Q8 [facility] Last Admin: 05/03/18 21:51 Dose: 5,000 units Meropenem 500 mg/ Sodium (Chloride) 100 mls @ 100 mls/hr IVPB DAILY@2200 [facility]; Protocol Last Admin: 05/03/18 21:50 Dose: 100 mls/hr Dextrose (Dextrose 5% In Water 1000 Ml) 1,000 mls @ 0 mls/hr IV .Q0M PRN; Protocol PRN Reason: Hypoglycemia Protocol Vancomycin HCl 500 mg/ Sodium (Chloride) 100 mls @ 100 mls/hr IVPB MWF [facility]; Protocol Last Admin: 05/03/18 15:02 Dose: 100 mls/hr Insulin Human Regular (Novolin R) 0 unit SC ACHS [facility]; Protocol Last Admin: 05/03/18 17:42 Dose: Not Given Latanoprost (Xalatan Opht) 1 ml OU HS [facility] Last Admin: 05/03/18 22:02 Dose: 1 ml Levothyroxine Sodium (Synthroid) 25 mcg PO 0630 [facility] Last Admin: 05/03/18 07:06 Dose: Not Given Loratadine (Claritin) 10 mg PO HS [facility] Last Admin: 05/03/18 21:51 Dose: 10 mg Metoprolol Tartrate (Lopressor) 25 mg PO BID [facility] Last Admin: 05/03/18 17:38 Dose: 25 mg Montelukast Sodium (Singulair) 10 mg PO HS [facility] Last Admin: 05/03/18 21:51 Dose: 10 mg Multivitamins (Hexavitamin) 1 tab PO DAILY [facility] Last Admin: 05/03/18 10:00 Dose: Not Given [id number] Ethyl Esters (Lovaza) 2 gm PO BID [facility] Last Admin: 05/03/18 17:39 Dose: 2 gm Ondansetron HCl (Zofran Inj) 4 mg IVP Q6 PRN PRN Reason: Nausea/Vomiting Last Admin: 05/04/18 00:52 Dose: 4 mg Pregabalin (Lyrica) 50 mg PO HS [facility] Last Admin: 05/03/18 22:02 Dose: 50 mg Rosuvastatin Calcium (Crestor) 10 mg PO HS [facility] Last Admin: 05/03/18 21:51 Dose: 10 mg Sevelamer Carbonate (Renvela) 2,400 mg PO ACTID [facility] Last Admin: 05/03/18 17:39 Dose: 2,400 mg Simethicone (Mylicon Chew Tab) 80 mg PO QID [facility] Last Admin: 05/03/18 17:39 Dose: 80 mg - Labs Labs: 05/03/18 06:40 05/03/18 06:40 PT 21.1 SECONDS (9.7-12.2) H 05/03/18 06:40 INR 1.9 05/03/18 06:40 APTT 37 SECONDS (21-34) H 05/03/18 06:40 Assessment and Plan (1) ESRD on hemodialysis Status: Chronic (2) Steal syndrome dialysis vascular access Status: Acute (3) Anemia in CKD (chronic kidney disease) Status: Acute (4) Chronic kidney disease-mineral and bone disorder Status: Chronic (5) Hypertensive CKD, ESRD on dialysis Status: Chronic Attending/Attestation - Attestation I have personally seen and examined this patient.: Yes I have fully participated in the care of the patient.: Yes I have reviewed all pertinent clinical information, including history, physical exam and plan: Yes Notes (Text): Patient seen and examined; I agree with the resident's note as above with the following additions/edits: Patient with htn, dm, CAD s/p stent, pulm htn, ARASH, PAD s/p recent R BKA and ESRD on HD, admitted with necrotic L 3rd finger in the setting of distal arm arterial disease and steal syndrome from L arm AVF; Seen on HD, patient drowsy, reportedly nauseous earlier; DRIL procedure postponed until INR can be brought < 1.5; discussed with hem atologist who sent mixing study, thinks there may be an inhibitor as INR did not correct despite multiple FFP given; Otherwise stable electrolyte status but still markedly edematous in the setting of pulm htn; UF goal of 4 L today; will likely dialyze tomorrow (off-schedule) if patient will be going to OR Tuesday; Hypertensive ESRD, BP stable, continue metoprolol; Anemia of CKD, hgb at goal, will re-dose EPO periodically; CKD MBD, PTH previously oversuppressed; phos at goal, continue sevelamer 3 tabs w/ each meal;
[2018-05-03 08:21] LABS: ALB/GLOB RATIO 0.7 (1.0-2.1); ALBUMIN 3.1 g/dL (3.5-5.0); CALCIUM 8.7 mg/dl (8.6-10.4)
[2018-05-03] MEDS: Multiple Vitamins Tab PO SCH (10:00)
[2018-05-03] MEDS: Omega-3-Acid Ethyl Esters 1 GM Cap PO SCH ×2 (10:00→17:39)
[2018-05-03] MEDS: Simethicone 80 mg Chewtab PO SCH ×3 (10:00→17:39)
[2018-05-03] MEDS ORDERED: Phytonadione 10 mg/ml Inj (Adult) SC ONE ×2 (13:15→15:00)
--- NOTE | 2018-05-03 13:27 | CP.PCM.PN ---
Subjective - Date & Time of Evaluation Date of Evaluation: 05/03/18 Time of Evaluation: 07:45 - Subjective Subjective: Medicine Progress Note for Hospitalist Service Pt seen and examined at bedside this am. Denies any acute complaints. Reports nausea is improving. To have dialysis today. OR on hold due to elevated INR. No acute events reported overnight. Pain controlled. 12-point ROS obtained, otherwise neg as per pt. Objective - Vital Signs/Intake and Output Vital Signs (last 24 hours): Temp Pulse Resp BP Pulse Ox 97.5 F L 61 19 105/80 100 05/03/18 10:45 05/03/18 09:30 05/03/18 09:30 05/03/18 12:30 05/03/18 09:30 - Medications Medications: Current Medications Acetaminophen (Tylenol 325mg Tab) 650 mg PO Q4 PRN PRN Reason: Pain, Mild (1-3) Last Admin: 05/03/18 10:45 Dose: 650 mg Aspirin (Ecotrin) 81 mg PO DAILY [facility] Last Admin: 04/30/18 09:45 Dose: 81 mg Dextrose (Dextrose 50% Inj) 50 ml IVP ONCE PRN PRN Reason: Hypoglycemia Dextrose (Dextrose 50% Inj) 0 ml IV STAT PRN; Protocol PRN Reason: Hypoglycemia Protocol Dextrose (Glutose 15) 0 gm PO ONCE PRN; Protocol PRN Reason: Hypoglycemia Protocol Glucagon (Glucagen Diagnostic Kit) 0 mg IM STAT PRN; Protocol PRN Reason: Hypoglycemia Protocol Heparin Sodium (Porcine) (Heparin) 5,000 units SC Q8 [facility] Last Admin: 05/01/18 05:45 Dose: Not Given Meropenem 500 mg/ Sodium (Chloride) 100 mls @ 100 mls/hr IVPB DAILY@2200 [facility]; Protocol Last Admin: 05/02/18 21:26 Dose: 100 mls/hr Dextrose (Dextrose 5% In Water 1000 Ml) 1,000 mls @ 0 mls/hr IV .Q0M PRN; Protocol PRN Reason: Hypoglycemia Protocol Vancomycin HCl 500 mg/ Sodium (Chloride) 100 mls @ 100 mls/hr IVPB MWF [facility]; Protocol Insulin Human Regular (Novolin R) 0 unit SC ACHS [facility]; Protocol Last Admin: 05/03/18 08:15 Dose: Not Given Latanoprost (Xalatan Opht) 1 ml OU HS [facility] Last Admin: 05/02/18 21:26 Dose: 1 ml Levothyroxine Sodium (Synthroid) 25 mcg PO 0630 [facility] Last Admin: 05/03/18 07:06 Dose: Not Given Loratadine (Claritin) 10 mg PO [facility] Last Admin: 05/02/18 21:27 Dose: 10 mg Metoprolol Tartrate (Lopressor) 25 mg PO BID [facility] Last Admin: 05/02/18 17:32 Dose: 25 mg Montelukast Sodium (Singulair) 10 mg PO HS [facility] Last Admin: 05/02/18 21:27 Dose: 10 mg Multivitamins (Hexavitamin) 1 tab PO DAILY [facility] Last Admin: 05/02/18 09:37 Dose: Not Given Hnlzp-5-Oirj Ethyl Esters (Lovaza) 2 gm PO BID [facility] Last Admin: 05/02/18 17:27 Dose: 2 gm Ondansetron HCl (Zofran Inj) 4 mg IVP Q6 PRN PRN Reason: Nausea/Vomiting Last Admin: 05/03/18 07:03 Dose: 4 mg Pregabalin (Lyrica) 50 mg PO [facility] Last Admin: 05/02/18 21:27 Dose: 50 mg Rosuvastatin Calcium (Crestor) 10 mg PO [facility] Last Admin: 05/02/18 21:27 Dose: 10 mg Sevelamer Carbonate (Renvela) 2,400 mg PO ACTID [facility] Last Admin: 05/03/18 08:13 Dose: Not Given Simethicone (Mylicon Chew Tab) 80 mg PO QID [facility] Last Admin: 05/02/18 21:27 Dose: 80 mg - Labs Labs: 05/03/18 06:40 05/03/18 06:40 PT 21.1 SECONDS (9.7-12.2) H 05/03/18 06:40 INR 1.9 05/03/18 06:40 APTT 37 SECONDS (21-34) H 05/03/18 06:40 - Constitutional Appears: Non-toxic, No Acute Distress - Head Exam Head Exam: ATRAUMATIC, NORMOCEPHALIC - Eye Exam Eye Exam: EOMI, Normal appearance, PERRL - ENT Exam ENT Exam: Mucous Membranes Moist - Respiratory Exam Respiratory Exam: Clear to Ausculation Bilateral, NORMAL BREATHING PATTERN. absent: Rales, Rhonchi, Wheezes - Cardiovascular Exam Cardiovascular Exam: REGULAR RHYTHM, +S1, +S2. absent: Gallop, Rubs, Murmur - GI/Abdominal Exam GI & Abdominal Exam: Soft, Normal Bowel Sounds. absent: Distended, Firm, Guarding, Rigid, Tenderness, Organomegaly, Rebound - Extremities Exam Extremities Exam: Full ROM, Normal Capillary Refill. absent: Calf Tenderness Additional comments: Dressing over L middle finger C/d/i - Neurological Exam Neurological Exam: Alert, Awake, CN II-XII Intact, Oriented x3 - Skin Skin Exam: Dry, Intact, Warm Assessment and Plan - Assessment and Plan (Free Text) Assessment: 52 y o male PMhx ESRD on HD, PAD, CAD, COPD, CHF, pacemaker placement who presented as direct admit from [facility] to [facility] for possible DRIL of L middle finger with Dr. Burden. Plan: L necrotic 3rd finger 2/2 Dialysis associated steal syndrome Fistulogram by IR (Dr. Gaming) on 04/27 at [facility] demonstrated significant retrograde flow in L brachial artery distal to AV fistula anastomosis, likely represents steal syndrome; calcified but patent L radial and interosseous arteries, L ulnar artery diffusely diseased, significant L metacarpal and digital small vessel disease, pt may benefit from DRIL procedure. Percocet prn for pain control Dr. Foster consulted (ID), recs appreciated C/w Meropenem 500 mg daily; Vanco 500 mg MWF (renally dosed) added by Dr. Foster (1st dose given 04/30) L hand XR at [facility] demonstrated no signs of osteomyelitis Surgery consulted (Dr. Burden), recs appreciated OR postponed for Saturday 05/05 for DRIL +/or amputation; procedure deferred 2/2 elevated INR, today 1.9, s/p Vit K today Pt cleared by cardiology at [facility] (Dr. Jim) for procedure, deemed moderate risk for low-risk procedure Dr. Powell, Hematology, consulted. Help appreciated. PLT function tests Mixing study Coags daily ESRD On HD -Dialysis (MWF) -Dr. Penny consulted (Nephrology) recs appreciated -BUN/Cr was 65/6.5 at [facility], today 49/4.9, continue to trend IDDM -Home insulin held until pt post-op after procedure -C/w high sliding scale -Fingersticks achs -HHD -Zofran prn for nausea Hx CAD s/p stents C/w ASA, Crestor 10 mg PO hs Hx hypothyroidism C/w synthroid daily Hx HTN Metoprolol 25 mg PO bid DVT ppx: Heparin 5000U subQ [id number] GI ppx: not indicated at this time Pt seen, examined with, and plan discussed with Dr. Islas, attending. Jose Shields DO PGY-1, Associate Program Manager Pager #[phone]
--- NOTE | 2018-05-03 15:44 | CP.PCM.PN ---
Subjective - Date & Time of Evaluation Date of Evaluation: 05/03/18 Time of Evaluation: 08:00 - Subjective Subjective: iv rx renewed OR on hold till Tue nad all cultures negative Objective - Vital Signs/Intake and Output Vital Signs (last 24 hours): Temp Pulse Resp BP Pulse Ox 97 F L 61 19 103/47 L 100 05/03/18 13:00 05/03/18 13:00 05/03/18 13:00 05/03/18 13:00 05/03/18 13:00 - Medications Medications: Current Medications Acetaminophen (Tylenol 325mg Tab) 650 mg PO Q4 PRN PRN Reason: Pain, Mild (1-3) Last Admin: 05/03/18 10:45 Dose: 650 mg Aspirin (Ecotrin) 81 mg PO DAILY [facility] Last Admin: 04/30/18 09:45 Dose: 81 mg Dextrose (Dextrose 50% Inj) 50 ml IVP ONCE PRN PRN Reason: Hypoglycemia Dextrose (Dextrose 50% Inj) 0 ml IV STAT PRN; Protocol PRN Reason: Hypoglycemia Protocol Dextrose (Glutose 15) 0 gm PO ONCE PRN; Protocol PRN Reason: Hypoglycemia Protocol Glucagon (Glucagen Diagnostic Kit) 0 mg IM STAT PRN; Protocol PRN Reason: Hypoglycemia Protocol Heparin Sodium (Porcine) (Heparin) 5,000 units SC Q8 [facility] Last Admin: 05/01/18 05:45 Dose: Not Given Meropenem 500 mg/ Sodium (Chloride) 100 mls @ 100 mls/hr IVPB DAILY@2200 [facility]; Protocol Last Admin: 05/02/18 21:26 Dose: 100 mls/hr Dextrose (Dextrose 5% In Water 1000 Ml) 1,000 mls @ 0 mls/hr IV .Q0M PRN; Protocol PRN Reason: Hypoglycemia Protocol Vancomycin HCl 500 mg/ Sodium (Chloride) 100 mls @ 100 mls/hr IVPB MWF [facility]; Protocol Last Admin: 05/03/18 15:02 Dose: 100 mls/hr Insulin Human Regular (Novolin R) 0 unit SC ACHS [facility]; Protocol Last Admin: 05/03/18 12:30 Dose: Not Given Latanoprost (Xalatan Opht) 1 ml OU HS [facility] Last Admin: 05/02/18 21:26 Dose: 1 ml Levothyroxine Sodium (Synthroid) 25 mcg PO 0630 [facility] Last Admin: 05/03/18 07:06 Dose: Not Given Loratadine (Claritin) [address] [facility] Last Admin: 05/02/18 21:27 Dose: 10 mg Metoprolol Tartrate (Lopressor) 25 mg PO BID [facility] Last Admin: 05/03/18 10:00 Dose: Not Given Montelukast Sodium (Singulair) [address] [facility] Last Admin: 05/02/18 21:27 Dose: 10 mg Multivitamins (Hexavitamin) 1 tab PO DAILY [facility] Last Admin: 05/03/18 10:00 Dose: Not Given Vpwnk-4-Rtdz Ethyl Esters (Lovaza) 2 gm PO BID [facility] Last Admin: 05/03/18 10:00 Dose: Not Given Ondansetron HCl (Zofran Inj) 4 mg IVP Q6 PRN PRN Reason: Nausea/Vomiting Last Admin: 05/03/18 07:03 Dose: 4 mg Pregabalin (Lyrica) [address] [facility] Last Admin: 05/02/18 21:27 Dose: 50 mg Rosuvastatin Calcium (Crestor) [address] [facility] Last Admin: 05/02/18 21:27 Dose: 10 mg Sevelamer Carbonate (Renvela) 2,400 mg PO ACTID [facility] Last Admin: 05/03/18 12:30 Dose: Not Given Simethicone (Mylicon Chew Tab) 80 mg PO QID [facility] Last Admin: 05/03/18 14:17 Dose: Not Given - Labs Labs: 05/03/18 06:40 05/03/18 06:40 PT 21.1 SECONDS (9.7-12.2) H 05/03/18 06:40 INR 1.9 05/03/18 06:40 APTT 37 SECONDS (21-34) H 05/03/18 06:40 - Constitutional Appears: Non-toxic, Chronically Ill - Head Exam Head Exam: NORMOCEPHALIC - Eye Exam Eye Exam: PERRL - ENT Exam ENT Exam: Mucous Membranes Dry - Neck Exam Neck Exam: absent: Lymphadenopathy - Respiratory Exam Respiratory Exam: Decreased Breath Sounds - Cardiovascular Exam Cardiovascular Exam: REGULAR RHYTHM - GI/Abdominal Exam GI & Abdominal Exam: Distended - Rectal Exam Rectal Exam: Deferred - Exam Exam: NORMAL INSPECTION Assessment and Plan (1) Steal syndrome dialysis vascular access Status: Acute (2) Anemia in CKD (chronic kidney disease) Status: Acute - Assessment and Plan (Free Text) Assessment: infected gangrenous digit left hand secondary to steal syndrome for OR / revision AV fistula on Tuesday cont empiric antibiotics
--- NOTE | 2018-05-03 16:02 | CP.PCM.PN ---
Subjective - Date & Time of Evaluation Date of Evaluation: 05/03/18 Time of Evaluation: 07:00 - Subjective Subjective: Subjective: iv rx renewed OR on hold till Tue nad all cultures negative Objective - Vital Signs/Intake and Output Vital Signs (last 24 hours): Temp Pulse Resp BP Pulse Ox 97 F L 61 19 103/47 L 100 05/03/18 13:00 05/03/18 13:00 05/03/18 13:00 05/03/18 13:00 05/03/18 13:00 - Medications Medications: Current Medications Acetaminophen (Tylenol 325mg Tab) 650 mg PO Q4 PRN PRN Reason: Pain, Mild (1-3) Last Admin: 05/03/18 10:45 Dose: 650 mg Aspirin (Ecotrin) 81 mg PO DAILY [facility] Last Admin: 04/30/18 09:45 Dose: 81 mg Dextrose (Dextrose 50% Inj) 50 ml IVP ONCE PRN PRN Reason: Hypoglycemia Dextrose (Dextrose 50% Inj) 0 ml IV STAT PRN; Protocol PRN Reason: Hypoglycemia Protocol Dextrose (Glutose 15) 0 gm PO ONCE PRN; Protocol PRN Reason: Hypoglycemia Protocol Glucagon (Glucagen Diagnostic Kit) 0 mg IM STAT PRN; Protocol PRN Reason: Hypoglycemia Protocol Heparin Sodium (Porcine) (Heparin) 5,000 units SC Q8 [facility] Last Admin: 05/01/18 05:45 Dose: Not Given Meropenem 500 mg/ Sodium (Chloride) 100 mls @ 100 mls/hr IVPB DAILY@2200 [facility]; Protocol Last Admin: 05/02/18 21:26 Dose: 100 mls/hr Dextrose (Dextrose 5% In Water 1000 Ml) 1,000 mls @ 0 mls/hr IV .Q0M PRN; Protocol PRN Reason: Hypoglycemia Protocol Vancomycin HCl 500 mg/ Sodium (Chloride) 100 mls @ 100 mls/hr IVPB MWF [facility]; Protocol Last Admin: 05/03/18 15:02 Dose: 100 mls/hr Insulin Human Regular (Novolin R) 0 unit SC ACHS [facility]; Protocol Last Admin: 05/03/18 12:30 Dose: Not Given Latanoprost (Xalatan Opht) 1 ml OU HS [facility] Last Admin: 05/02/18 21:26 Dose: 1 ml Levothyroxine Sodium (Synthroid) 25 mcg PO 0630 [facility] Last Admin: 05/03/18 07:06 Dose: Not Given Loratadine (Claritin) 10 mg PO HS [facility] Last Admin: 05/02/18 21:27 Dose: 10 mg Metoprolol Tartrate (Lopressor) 25 mg PO BID [facility] Last Admin: 05/03/18 10:00 Dose: Not Given Montelukast Sodium (Singulair) 10 mg PO [facility] Last Admin: 05/02/18 21:27 Dose: 10 mg Multivitamins (Hexavitamin) 1 tab PO DAILY [facility] Last Admin: 05/03/18 10:00 Dose: Not Given Jysqb-6-Luvo Ethyl Esters (Lovaza) 2 gm PO BID [facility] Last Admin: 05/03/18 10:00 Dose: Not Given Ondansetron HCl (Zofran Inj) 4 mg IVP Q6 PRN PRN Reason: Nausea/Vomiting Last Admin: 05/03/18 07:03 Dose: 4 mg Pregabalin (Lyrica) 50 mg PO [facility] Last Admin: 05/02/18 21:27 Dose: 50 mg Rosuvastatin Calcium (Crestor) 10 mg PO [facility] Last Admin: 05/02/18 21:27 Dose: 10 mg Sevelamer Carbonate (Renvela) 2,400 mg PO ACTID [facility] Last Admin: 05/03/18 12:30 Dose: Not Given Simethicone (Mylicon Chew Tab) 80 mg PO QID [facility] Last Admin: 05/03/18 14:17 Dose: Not Given - Labs Labs: 05/03/18 06:40 05/03/18 06:40 PT 21.1 SECONDS (9.7-12.2) H 05/03/18 06:40 INR 1.9 05/03/18 06:40 APTT 37 SECONDS (21-34) H 05/03/18 06:40 Objective - Vital Signs/Intake and Output Vital Signs (last 24 hours): Temp Pulse Resp BP Pulse Ox 97 F L 61 19 103/47 L 100 05/03/18 13:00 05/03/18 13:00 05/03/18 13:00 05/03/18 13:00 05/03/18 13:00 - Medications Medications: Current Medications Acetaminophen (Tylenol 325mg Tab) 650 mg PO Q4 PRN PRN Reason: Pain, Mild (1-3) Last Admin: 05/03/18 10:45 Dose: 650 mg Aspirin (Ecotrin) 81 mg PO DAILY [facility] Last Admin: 04/30/18 09:45 Dose: 81 mg Dextrose (Dextrose 50% Inj) 50 ml IVP ONCE PRN PRN Reason: Hypoglycemia Dextrose (Dextrose 50% Inj) 0 ml IV STAT PRN; Protocol PRN Reason: Hypoglycemia Protocol Dextrose (Glutose 15) 0 gm PO ONCE PRN; Protocol PRN Reason: Hypoglycemia Protocol Glucagon (Glucagen Diagnostic Kit) 0 mg IM STAT PRN; Protocol PRN Reason: Hypoglycemia Protocol Heparin Sodium (Porcine) (Heparin) 5,000 units SC Q8 [facility] Last Admin: 05/01/18 05:45 Dose: Not Given Meropenem 500 mg/ Sodium (Chloride) 100 mls @ 100 mls/hr IVPB DAILY@2200 [facility]; Protocol Last Admin: 05/02/18 21:26 Dose: 100 mls/hr Dextrose (Dextrose 5% In Water 1000 Ml) 1,000 mls @ 0 mls/hr IV .Q0M PRN; Protocol PRN Reason: Hypoglycemia Protocol Vancomycin HCl 500 mg/ Sodium (Chloride) 100 mls @ 100 mls/hr IVPB MWF [facility]; Protocol Last Admin: 05/03/18 15:02 Dose: 100 mls/hr Insulin Human Regular (Novolin R) 0 unit SC ACHS [facility]; Protocol Last Admin: 05/03/18 12:30 Dose: Not Given Latanoprost (Xalatan Opht) 1 ml OU [facility] Last Admin: 05/02/18 21:26 Dose: 1 ml Levothyroxine Sodium (Synthroid) 25 mcg PO 0630 [facility] Last Admin: 05/03/18 07:06 Dose: Not Given Loratadine (Claritin) 10 mg PO HS [facility] Last Admin: 05/02/18 21:27 Dose: 10 mg Metoprolol Tartrate (Lopressor) 25 mg PO BID [facility] Last Admin: 05/03/18 10:00 Dose: Not Given Montelukast Sodium (Singulair) 10 mg PO HS [facility] Last Admin: 05/02/18 21:27 Dose: 10 mg Multivitamins (Hexavitamin) 1 tab PO DAILY [facility] Last Admin: 05/03/18 10:00 Dose: Not Given Qqnaq-8-Nyox Ethyl Esters (Lovaza) 2 gm PO BID [facility] Last Admin: 05/03/18 10:00 Dose: Not Given Ondansetron HCl (Zofran Inj) 4 mg IVP Q6 PRN PRN Reason: Nausea/Vomiting Last Admin: 05/03/18 07:03 Dose: 4 mg Pregabalin (Lyrica) 50 mg PO HS [facility] Last Admin: 05/02/18 21:27 Dose: 50 mg Rosuvastatin Calcium (Crestor) 10 mg PO HS [facility] Last Admin: 05/02/18 21:27 Dose: 10 mg Sevelamer Carbonate (Renvela) 2,400 mg PO ACTID [facility] Last Admin: 05/03/18 12:30 Dose: Not Given Simethicone (Mylicon Chew Tab) 80 mg PO QID [facility] Last Admin: 05/03/18 14:17 Dose: Not Given - Labs Labs: 05/03/18 06:40 05/03/18 06:40 PT 21.1 SECONDS (9.7-12.2) H 05/03/18 06:40 INR 1.9 05/03/18 06:40 APTT 37 SECONDS (21-34) H 05/03/18 06:40 - Constitutional Appears: Non-toxic, Chronically Ill - Head Exam Head Exam: NORMOCEPHALIC - Eye Exam Eye Exam: PERRL. absent: Scleral icterus - ENT Exam ENT Exam: Mucous Membranes Dry - Neck Exam Neck Exam: absent: Lymphadenopathy - Respiratory Exam Respiratory Exam: Decreased Breath Sounds - Cardiovascular Exam Cardiovascular Exam: REGULAR RHYTHM - GI/Abdominal Exam GI & Abdominal Exam: Distended, Soft - Rectal Exam Rectal Exam: Deferred - Extremities Exam Extremities Exam: absent: Calf Tenderness Additional comments: less left hand redness and swelling no discharge/ pus left 3rd digit right BKA + - Back Exam Back Exam: absent: CVA tenderness (L), CVA tenderness (R) - Neurological Exam Neurological Exam: Alert, Awake, CN II-XII Intact, Oriented x3 - Psychiatric Exam Psychiatric exam: Depressed - Skin Skin Exam: Dry Additional comments: less redness left hand Assessment and Plan (1) Steal syndrome dialysis vascular access Status: Acute (2) Anemia in CKD (chronic kidney disease) Status: Acute - Assessment and Plan (Free Text) Assessment: cont rx IV rx - pus on admission with redness / swelling left hand cultures neg thus far for OR Tuesday
--- NOTE | 2018-05-03 17:50 | CP.PCM.PCO ---
Physician Communication Note - Physician Communication Note Physician Communication Note: Plan for OR 10/5 for DRIL if INR </=1.5
[2018-05-03] MEDS: Meropenem 500 MG in Sodium Chloride 0.9% 100 ML IVPB SCH (21:50)
[2018-05-03] MEDS: Latanoprost 2.5 ml Opht Soln OU SCH (22:02)
--- NOTE | 2018-05-04 00:15 | CP.PCM.CON ---
History of Present Illness - History of Present Illness History of Present Illness: 52 year old male with a history of HTN, DM, CAD s/p stent, PAD s/p Right BKA, CVA, COPD, ARASH, ESRD on HD, steal syndrome requiring vascular surgery, with anemia and coagulopathy. The patient has received FFP and vit k with no improvement in PT/PTT. He denies abnormal bleeding and bruising. Past medical history: HTN, DM, CAD s/p stent, PAD s/p Right BKA, CVA, COPD, ARASH, ESRD on HD, steal syndrome Past surgical history: AVF, right bka Family history: Denies hematologic and oncologic problems Social history: Denies tobacco, alcohol, and illicit drug use. Allergies: Several, see list Review of systems: All remaining review of systems including HEENT, cardiovascular, respiratory, gastrointestinal, genitourinary, musculoskeletal, dermatologic, neurologic, and psychiatric are negative unless mentioned in the HPI. Past Patient History - Infectious Disease Hx of Infectious Diseases: None - Tetanus Immunizations Tetanus Immunization: Up to Date - Past Medical History & Family History Past Medical History?: Yes - Past Social History Smoking Status: Never Smoked - CARDIAC Hx Cardiac Disorders: Yes (mi) Hx Angina: No Hx Cardia Arrhythmia: Yes Hx Circulatory Problems: Yes Hx Congestive Heart Failure: Yes Hx Heart Murmur: Yes Hx Heart Transplant: Yes Hx Hypercholesterolemia: Yes Hx Hypertension: Yes Hx Internal Defibrillator: Yes Hx Pacemaker: Yes (medtronic) Hx Peripheral Edema: Yes Hx Peripheral Vascular Disease: Yes - PULMONARY Hx Respiratory Disorders: Yes Hx Asthma: Yes Hx Bronchitis: Yes Hx Chronic Obstructive Pulmonary Disease (COPD): Yes Hx Pneumonia: Yes Hx Respiratory Aspiration: No Hx Respiratory Tract Infection: Yes Hx Sleep Apnea: Yes Hx Tuberculosis: No - NEUROLOGICAL Hx Neurological Disorder: Yes HX Cerebrovascular Accident: Yes Hx Transient Ischemic Attacks (TIA): Yes - HEENT Hx HEENT Problems: Yes Hx Blind: No Hx Cataracts: Yes Hx Deafness: No Hx Difficulty Chewing: No - RENAL Hx Chronic Kidney Disease: Yes Hx Dialysis: Yes Date of Last Dialysis Treatment: 04/28/18 Hx Kidney Stones: Yes Hx Renal Failure: Yes - ENDOCRINE/METABOLIC Hx Endocrine Disorders: Yes Hx Adrenal Cancer: No Hx Diabetes Insipidus: Yes Hx Diabetes Mellitus Type 1: Yes Hx Hypothyroidism: Yes Hx Systemic Lupus Erythematosus: No - HEMATOLOGICAL/ONCOLOGICAL Hx AIDS: No Hx Anemia: Yes Hx Blood Transfusions: Yes Hx Blood Transfusion Reaction: No - INTEGUMENTARY Hx Dermatological Problems: No - MUSCULOSKELETAL/RHEUMATOLOGICAL Hx Musculoskeletal Disorders: Yes Hx Arthritis: Yes Hx Back Pain: Yes Hx Falls: Yes Hx Fractures: Yes Hx Gout: Yes Hx Unsteady Gait: Yes - GASTROINTESTINAL Hx Gastrointestinal Disorders: Yes Hx Colostomy: No Hx Liver Failure: Yes Hx Pancreatitis: Yes - GENITOURINARY/GYNECOLOGICAL Hx Genitourinary Disorders: Yes Hx Hematuria: Yes - PSYCHIATRIC Hx Psychophysiologic Disorder: Yes Hx Anxiety: Yes Hx Substance Use: No - SURGICAL HISTORY Hx Surgeries: Yes Hx Amputation: Yes Hx Cardiac Catheterization: Yes Hx Cholecystectomy: Yes Hx Coronary Stent: Yes Hx Musculoskeletal Surgery: Yes - ANESTHESIA Hx Anesthesia: Yes Hx Anesthesia Reactions: No Hx Malignant Hyperthermia: No Meds Allergies/Adverse Reactions: Allergies Allergy/AdvReac Type Severity Reaction Status Date / Time insulin aspart [From Novolog] Allergy Intermediate RASH Verified 04/26/18 15:49 moxifloxacin Allergy Intermediate RASH Verified 04/26/18 15:49 Penicillins Allergy Intermediate RASH Verified 04/26/18 15:49 insulin regular Allergy ITCHING Verified 04/26/18 15:49 [From Novolin R Regular U-100 Insuln] - Medications Medications: Current Medications Acetaminophen (Tylenol 325mg Tab) 650 mg PO Q4 PRN PRN Reason: Pain, Mild (1-3) Last Admin: 05/03/18 10:45 Dose: 650 mg Aspirin (Ecotrin) 81 mg PO DAILY [facility] Last Admin: 04/30/18 09:45 Dose: 81 mg Dextrose (Dextrose 50% Inj) 50 ml IVP ONCE PRN PRN Reason: Hypoglycemia Dextrose (Dextrose 50% Inj) 0 ml IV STAT PRN; Protocol PRN Reason: Hypoglycemia Protocol Dextrose (Glutose 15) 0 gm PO ONCE PRN; Protocol PRN Reason: Hypoglycemia Protocol Diphenhydramine HCl (Benadryl) 25 mg PO HS PRN PRN Reason: Insomnia Last Admin: 05/03/18 21:51 Dose: 25 mg Glucagon (Glucagen Diagnostic Kit) 0 mg IM STAT PRN; Protocol PRN Reason: Hypoglycemia Protocol Heparin Sodium (Porcine) (Heparin) 5,000 units SC Q8 [facility] Last Admin: 05/03/18 21:51 Dose: 5,000 units Meropenem 500 mg/ Sodium (Chloride) 100 mls @ 100 mls/hr IVPB DAILY@2200 [facility]; Protocol Last Admin: 05/03/18 21:50 Dose: 100 mls/hr Dextrose (Dextrose 5% In Water 1000 Ml) 1,000 mls @ 0 mls/hr IV .Q0M PRN; Protocol PRN Reason: Hypoglycemia Protocol Vancomycin HCl 500 mg/ Sodium (Chloride) 100 mls @ 100 mls/hr IVPB MWF [facility]; Protocol Last Admin: 05/03/18 15:02 Dose: 100 mls/hr Insulin Human Regular (Novolin R) 0 unit SC [facility]; Protocol Last Admin: 05/03/18 17:42 Dose: Not Given Latanoprost (Xalatan Opht) 1 ml OU [facility] Last Admin: 05/03/18 22:02 Dose: 1 ml Levothyroxine Sodium (Synthroid) 25 mcg PO 0630 [facility] Last Admin: 05/03/18 07:06 Dose: Not Given Loratadine (Claritin) 10 mg PO [facility] Last Admin: 05/03/18 21:51 Dose: 10 mg Metoprolol Tartrate (Lopressor) 25 mg PO BID [facility] Last Admin: 05/03/18 17:38 Dose: 25 mg Montelukast Sodium (Singulair) 10 mg PO [facility] Last Admin: 05/03/18 21:51 Dose: 10 mg Multivitamins (Hexavitamin) 1 tab PO DAILY [facility] Last Admin: 05/03/18 10:00 Dose: Not Given Yhoww-8-Dnep Ethyl Esters (Lovaza) 2 gm PO BID [facility] Last Admin: 05/03/18 17:39 Dose: 2 gm Ondansetron HCl (Zofran Inj) 4 mg IVP Q6 PRN PRN Reason: Nausea/Vomiting Last Admin: 05/03/18 07:03 Dose: 4 mg Pregabalin (Lyrica) 50 mg PO [facility] Last Admin: 05/03/18 22:02 Dose: 50 mg Rosuvastatin Calcium (Crestor) 10 mg PO [facility] Last Admin: 05/03/18 21:51 Dose: 10 mg Sevelamer Carbonate (Renvela) 2,400 mg PO ACTID [facility] Last Admin: 05/03/18 17:39 Dose: 2,400 mg Simethicone (Mylicon Chew Tab) 80 mg PO QID [facility] Last Admin: 05/03/18 17:39 Dose: 80 mg Physical Exam - Head Exam Head Exam: ATRAUMATIC - Eye Exam Eye Exam: Normal appearance - ENT Exam ENT Exam: Mucous Membranes Dry - Respiratory Exam Respiratory Exam: NORMAL BREATHING PATTERN - Cardiovascular Exam Cardiovascular Exam: +S1, +S2 - GI/Abdominal Exam GI & Abdominal Exam: Normal Bowel Sounds - Neurological Exam Neurological exam: Oriented x3 - Psychiatric Exam Psychiatric exam: Normal Affect, Normal Mood - Skin Skin Exam: Warm Results - Vital Signs Recent Vital Signs: Last Vital Signs Temp 97.5 F L 05/03/18 15:20 Pulse 60 05/03/18 17:00 Resp 20 05/03/18 15:20 BP 124/54 L 05/03/18 17:38 Pulse Ox 100 05/03/18 15:20 - Labs Result Diagrams: 05/03/18 06:40 05/03/18 06:40 Labs: Laboratory Results - last 24 hr 05/03/18 05/03/18 05/03/18 06:40 06:40 06:40 WBC 7.6 RBC 3.16 L Hgb 10.4 L Hct 31.5 L MCV 100.0 H MCH 33.1 H MCHC 33.1 RDW 18.7 H Plt Count 101 L MPV 11.6 Neut % (Auto) 76.8 H Lymph % (Auto) 11.6 L [place] % (Auto) 8.9 Eos % (Auto) 1.8 Baso % (Auto) 0.9 Neut # (Auto) 5.8 Lymph # (Auto) 0.9 L [place] # (Auto) 0.7 Eos # (Auto) 0.1 Baso # (Auto) 0.1 PT INR APTT Plt Function Assay 72 Sodium 138 Potassium 4.5 Chloride 94 L Carbon Dioxide 29 Anion Gap 19 BUN 49 H Creatinine 4.9 H Est GFR ( Amer) 15 Est GFR (Non-Af Amer) 12 POC Glucose (mg/dL) Random Glucose 246 H Calcium 8.7 Phosphorus 5.7 H Magnesium 2.1 Total Bilirubin 1.3 AST 82 H D ALT 39 Alkaline Phosphatase 96 Total Protein 7.5 Albumin 3.1 L Globulin 4.4 H Albumin/Globulin Ratio 0.7 L Hep Bs Antigen 05/03/18 05/03/18 05/03/18 06:40 06:40 10:16 WBC RBC Hgb Hct MCV MCH MCHC RDW Plt Count MPV Neut % (Auto) Lymph % (Auto) [place] % (Auto) Eos % (Auto) Baso % (Auto) Neut # (Auto) Lymph # (Auto) [place] # (Auto) Eos # (Auto) Baso # (Auto) PT 21.1 H INR 1.9 APTT 37 H Plt Function Assay Sodium Potassium Chloride Carbon Dioxide Anion Gap BUN Creatinine Est GFR ( Amer) Est GFR (Non-Af Amer) POC Glucose (mg/dL) 251 H Random Glucose Calcium Phosphorus Magnesium Total Bilirubin AST ALT Alkaline Phosphatase Total Protein Albumin Globulin Albumin/Globulin Ratio Hep Bs Antigen Negative 05/03/18 11:13 WBC RBC Hgb Hct MCV MCH MCHC RDW Plt Count MPV Neut % (Auto) Lymph % (Auto) [place] % (Auto) Eos % (Auto) Baso % (Auto) Neut # (Auto) Lymph # (Auto) [place] # (Auto) Eos # (Auto) Baso # (Auto) PT INR APTT Plt Function Assay Sodium Potassium Chloride Carbon Dioxide Anion Gap BUN Creatinine Est GFR ( Amer) Est GFR (Non-Af Amer) POC Glucose (mg/dL) 202 H Random Glucose Calcium Phosphorus Magnesium Total Bilirubin AST ALT Alkaline Phosphatase Total Protein Albumin Globulin Albumin/Globulin Ratio Hep Bs Antigen Assessment & Plan (1) Coagulopathy Assessment and Plan: no improvement with FFP and vit k suspect inhibitor mixing study sent pt not cleared for OR until mixing study resulted Status: Acute (2) Thrombocytopenia Assessment and Plan: mild ? antiphospholipid Ab ? ITP ? infection related plt dysfunction from uremia will send plt function test. Status: Acute (3) Anemia Assessment and Plan: anemia of CKD - SHANAE per renal retic count, b12, folate, ferritin Thank you for this interesting consult. Status: Acute
--- NOTE | 2018-05-04 00:26 | CP.PCM.PN ---
Subjective - Date & Time of Evaluation Date of Evaluation: 05/03/18 Time of Evaluation: 20:00 - Subjective Subjective: No complaints. Objective - Vital Signs/Intake and Output Vital Signs (last 24 hours): Temp Pulse Resp BP Pulse Ox 97.5 F L 60 20 124/54 L 100 05/03/18 15:20 05/03/18 17:00 05/03/18 15:20 05/03/18 17:38 05/03/18 15:20 Intake and Output: 05/03/18 05/04/18 18:59 06:59 Intake Total 460 100 Balance 460 100 - Medications Medications: Current Medications Acetaminophen (Tylenol 325mg Tab) 650 mg PO Q4 PRN PRN Reason: Pain, Mild (1-3) Last Admin: 05/03/18 10:45 Dose: 650 mg Aspirin (Ecotrin) 81 mg PO DAILY [facility] Last Admin: 04/30/18 09:45 Dose: 81 mg Dextrose (Dextrose 50% Inj) 50 ml IVP ONCE PRN PRN Reason: Hypoglycemia Dextrose (Dextrose 50% Inj) 0 ml IV STAT PRN; Protocol PRN Reason: Hypoglycemia Protocol Dextrose (Glutose 15) 0 gm PO ONCE PRN; Protocol PRN Reason: Hypoglycemia Protocol Diphenhydramine HCl (Benadryl) 25 mg PO HS PRN PRN Reason: Insomnia Last Admin: 05/03/18 21:51 Dose: 25 mg Glucagon (Glucagen Diagnostic Kit) 0 mg IM STAT PRN; Protocol PRN Reason: Hypoglycemia Protocol Heparin Sodium (Porcine) (Heparin) 5,000 units SC Q8 [facility] Last Admin: 05/03/18 21:51 Dose: 5,000 units Meropenem 500 mg/ Sodium (Chloride) 100 mls @ 100 mls/hr IVPB DAILY@2200 [facility]; Protocol Last Admin: 05/03/18 21:50 Dose: 100 mls/hr Dextrose (Dextrose 5% In Water 1000 Ml) 1,000 mls @ 0 mls/hr IV .Q0M PRN; Protocol PRN Reason: Hypoglycemia Protocol Vancomycin HCl 500 mg/ Sodium (Chloride) 100 mls @ 100 mls/hr IVPB MWF [facility]; Protocol Last Admin: 05/03/18 15:02 Dose: 100 mls/hr Insulin Human Regular (Novolin R) 0 unit SC ACHS [facility]; Protocol Last Admin: 05/03/18 17:42 Dose: Not Given Latanoprost (Xalatan Opht) 1 ml OU [facility] Last Admin: 05/03/18 22:02 Dose: 1 ml Levothyroxine Sodium (Synthroid) 25 mcg PO 0630 [facility] Last Admin: 05/03/18 07:06 Dose: Not Given Loratadine (Claritin) 10 mg PO [facility] Last Admin: 05/03/18 21:51 Dose: 10 mg Metoprolol Tartrate (Lopressor) 25 mg PO BID [facility] Last Admin: 05/03/18 17:38 Dose: 25 mg Montelukast Sodium (Singulair) 10 mg PO [facility] Last Admin: 05/03/18 21:51 Dose: 10 mg Multivitamins (Hexavitamin) 1 tab PO DAILY [facility] Last Admin: 05/03/18 10:00 Dose: Not Given [id number] Ethyl Esters (Lovaza) 2 gm PO BID [facility] Last Admin: 05/03/18 17:39 Dose: 2 gm Ondansetron HCl (Zofran Inj) 4 mg IVP Q6 PRN PRN Reason: Nausea/Vomiting Last Admin: 05/03/18 07:03 Dose: 4 mg Pregabalin (Lyrica) 50 mg PO [facility] Last Admin: 05/03/18 22:02 Dose: 50 mg Rosuvastatin Calcium (Crestor) 10 mg PO [facility] Last Admin: 05/03/18 21:51 Dose: 10 mg Sevelamer Carbonate (Renvela) 2,400 mg PO ACTID [facility] Last Admin: 05/03/18 17:39 Dose: 2,400 mg Simethicone (Mylicon Chew Tab) 80 mg PO QID [facility] Last Admin: 05/03/18 17:39 Dose: 80 mg - Labs Labs: 05/03/18 06:40 05/03/18 06:40 PT 21.1 SECONDS (9.7-12.2) H 05/03/18 06:40 INR 1.9 05/03/18 06:40 APTT 37 SECONDS (21-34) H 05/03/18 06:40 - Head Exam Head Exam: ATRAUMATIC - Eye Exam Eye Exam: Normal appearance - ENT Exam ENT Exam: Mucous Membranes Dry - Respiratory Exam Respiratory Exam: NORMAL BREATHING PATTERN - Cardiovascular Exam Cardiovascular Exam: +S1, +S2 - GI/Abdominal Exam GI & Abdominal Exam: Normal Bowel Sounds Assessment and Plan (1) Coagulopathy Assessment & Plan: no improvement with FFP and vit k suspect inhibitor mixing study sent pt not cleared for OR until mixing study resulted Status: Acute (2) Thrombocytopenia Assessment & Plan: mild ? antiphospholipid Ab ? ITP ? infection related plt dysfunction from uremia Status: Acute (3) Anemia Assessment & Plan: anemia of CKD - SHANAE per renal retic count, b12, folate, ferritin Status: Acute
[2018-05-04] MEDS: Levothyroxine 25 MCG TAB PO SCH (06:07)
[2018-05-04] MEDS: (Novolin R) Insulin Human Regular 100 units/ml vial SC SCH ×4 (08:28→22:17)
[2018-05-04] MEDS: Multiple Vitamins Tab PO SCH (10:00)
[2018-05-04] MEDS: Omega-3-Acid Ethyl Esters 1 GM Cap PO SCH ×2 (10:17→17:27)
--- NOTE | 2018-05-04 10:28 | CP.PCM.PN ---
Subjective - Date & Time of Evaluation Date of Evaluation: 05/04/18 Time of Evaluation: 06:40 - Subjective Subjective: Surgery Pt seen and examined. No new complaints. Awaiting clearance for surgery/mixing studies. Objective - Vital Signs/Intake and Output Vital Signs (last 24 hours): Temp Pulse Resp BP Pulse Ox 98.0 F 64 20 133/65 98 05/04/18 08:18 05/04/18 08:18 05/04/18 08:18 05/04/18 08:18 05/03/18 23:10 Intake and Output: 05/04/18 05/04/18 06:59 18:59 Intake Total 100 Balance 100 - Medications Medications: Current Medications Acetaminophen (Tylenol 325mg Tab) 650 mg PO Q4 PRN PRN Reason: Pain, Mild (1-3) Last Admin: 05/04/18 02:17 Dose: 650 mg Aspirin (Ecotrin) 81 mg PO DAILY [facility] Last Admin: 04/30/18 09:45 Dose: 81 mg Dextrose (Dextrose 50% Inj) 50 ml IVP ONCE PRN PRN Reason: Hypoglycemia Dextrose (Dextrose 50% Inj) 0 ml IV STAT PRN; Protocol PRN Reason: Hypoglycemia Protocol Dextrose (Glutose 15) 0 gm PO ONCE PRN; Protocol PRN Reason: Hypoglycemia Protocol Diphenhydramine HCl (Benadryl) 25 mg PO HS PRN PRN Reason: Insomnia Last Admin: 05/03/18 21:51 Dose: 25 mg Glucagon (Glucagen Diagnostic Kit) 0 mg IM STAT PRN; Protocol PRN Reason: Hypoglycemia Protocol Heparin Sodium (Porcine) (Heparin) 5,000 units SC Q8 [facility] Last Admin: 05/04/18 06:03 Dose: Not Given Meropenem 500 mg/ Sodium (Chloride) 100 mls @ 100 mls/hr IVPB DAILY@2200 [facility]; Protocol Last Admin: 05/03/18 21:50 Dose: 100 mls/hr Dextrose (Dextrose 5% In Water 1000 Ml) 1,000 mls @ 0 mls/hr IV .Q0M PRN; Protocol PRN Reason: Hypoglycemia Protocol Vancomycin HCl 500 mg/ Sodium (Chloride) 100 mls @ 100 mls/hr IVPB MWF [facility]; Protocol Last Admin: 05/03/18 15:02 Dose: 100 mls/hr Insulin Human Regular (Novolin R) 0 unit SC ACHS [facility]; Protocol Last Admin: 05/04/18 08:28 Dose: 8 units Latanoprost (Xalatan Opht) 1 ml OU [facility] Last Admin: 05/03/18 22:02 Dose: 1 ml Levothyroxine Sodium (Synthroid) 25 mcg PO 0630 [facility] Last Admin: 05/04/18 06:07 Dose: 25 mcg Loratadine (Claritin) 10 mg PO [facility] Last Admin: 05/03/18 21:51 Dose: 10 mg Metoprolol Tartrate (Lopressor) 25 mg PO BID [facility] Last Admin: 05/03/18 17:38 Dose: 25 mg Montelukast Sodium (Singulair) 10 mg PO [facility] Last Admin: 05/03/18 21:51 Dose: 10 mg Multivitamins (Hexavitamin) 1 tab PO DAILY [facility] Last Admin: 05/03/18 10:00 Dose: Not Given Clxfw-9-Xnbj Ethyl Esters (Lovaza) 2 gm PO BID [facility] Last Admin: 05/03/18 17:39 Dose: 2 gm Ondansetron HCl (Zofran Inj) 4 mg IVP Q6 PRN PRN Reason: Nausea/Vomiting Last Admin: 05/04/18 08:40 Dose: 4 mg Pregabalin (Lyrica) 50 mg PO [facility] Last Admin: 05/03/18 22:02 Dose: 50 mg Rosuvastatin Calcium (Crestor) 10 mg PO [facility] Last Admin: 05/03/18 21:51 Dose: 10 mg Sevelamer Carbonate (Renvela) 2,400 mg PO ACTID [facility] Last Admin: 05/04/18 08:15 Dose: Not Given Simethicone (Mylicon Chew Tab) 80 mg PO QID [facility] Last Admin: 05/03/18 17:39 Dose: 80 mg - Labs Labs: 05/03/18 06:40 05/03/18 06:40 PT 21.1 SECONDS (9.7-12.2) H 05/03/18 06:40 INR 1.9 05/03/18 06:40 APTT 37 SECONDS (21-34) H 05/03/18 06:40 - Constitutional Appears: Non-toxic, No Acute Distress - Head Exam Head Exam: ATRAUMATIC, NORMOCEPHALIC - Eye Exam Eye Exam: EOMI, PERRL - Respiratory Exam Respiratory Exam: NORMAL BREATHING PATTERN. absent: Respiratory Distress - Cardiovascular Exam Cardiovascular Exam: RRR, +S1, +S2 - GI/Abdominal Exam GI & Abdominal Exam: Soft. absent: Distended, Tenderness - Extremities Exam Extremities Exam: absent: Calf Tenderness, Pedal Edema Additional comments: L arm AVF in place. Hand dressing C/D/I - Neurological Exam Neurological Exam: Alert, Awake, Oriented x3 - Skin Skin Exam: Dry, Warm Assessment and Plan - Assessment and Plan (Free Text) Assessment: 52M with Steal syndrome of L hand Plan: -Planning for OR on Fri if cleared by Hematology -Hematology awaiting mixing studies -Plan to try DDAVP 6-8 hours prior to OR DW Dr. Jenise Hadley PGY4
[2018-05-04 10:58] LABS: BASO # 0.1 K/uL (0.0-0.2); BASO % 1.8 % (0.0-2.0); EOS # 0.2 K/uL (0.0-0.7); EOS % 2.1 % (0.0-4.0); HEMOGLOBIN 10.3 g/dL (12.0-18.0); LYMPH # 0.7 K/uL (1.0-4.3); LYMPH % 9.5 % (20.0-40.0); MEAN CORPUSCULAR HEMOGLOBIN 32.4 pg (27.0-31.0); MEAN CORPUSCULAR HGB CONC 32.1 g/dL (33.0-37.0); MEAN PLATELET VOLUME 11.4 fL (7.2-11.7); MONO # 0.7 K/uL (0.0-0.8); MONO % 8.9 % (0.0-10.0); NEUT # 5.8 K/uL (1.8-7.0); NEUT % 77.7 % (50.0-75.0); NRBC % 0.2 % (0.0-2.0); PLATELET COUNT 90 K/uL (130-400); RBC 3.17 Mil/uL (4.40-5.90); RED CELL DISTRIBUTION WIDTH 19.4 % (11.5-14.5); WHITE BLOOD COUNT 7.5 K/uL (4.8-10.8)
[2018-05-04] MEDS: Simethicone 80 mg Chewtab PO SCH ×4 (11:00→22:17)
[2018-05-04 11:07] LABS: INR 1.7; PROTHROMBIN TIME 18.5 SECONDS (9.7-12.2)
[2018-05-04 11:20] LABS: ALB/GLOB RATIO 0.8 (1.0-2.1); ALBUMIN 3.2 g/dL (3.5-5.0); CALCIUM 8.6 mg/dl (8.6-10.4)
[2018-05-04 11:30] LABS: EOSINOPHIL 5 % (0-4); LYMPHOCYTE 12 % (20-40); MONOCYTE 8 % (0-10); NEUTROPHIL 75 % (50-75); NUCLEATED RED BLOOD CELL 1 % (0-0); TOTAL CELLS COUNTED 100
[2018-05-04 11:31] LABS: ANISOCYTOSIS SLIGHT; PLATELET ESTIMATE DECREASED (NORMAL)
[2018-05-04 11:32] LABS: HYPOCHROMIC SLIGHT; POIKILOCYTOSIS SLIGHT
[2018-05-04 11:33] LABS: TARGET CELLS SLIGHT
[2018-05-04] MEDS ORDERED: Phytonadione 10 mg/ml Inj (Adult) SC ONE ×2 (14:30→15:00)
--- NOTE | 2018-05-04 15:05 | CP.PCM.PN ---
<Kalli Serrano P - Last Filed: 05/05/18 00:56> Subjective - Date & Time of Evaluation Date of Evaluation: 05/04/18 Time of Evaluation: 08:00 - Subjective Subjective: PGY-[address] Islas. Patient seen and examined at bedside. Patient complains of difficulty sleeping and moderate pain to L 3rd finger. Denies fever, chills, nausea, vomiting, chest pain and shortness of breath. Objective - Vital Signs/Intake and Output Vital Signs (last 24 hours): Temp Pulse Resp BP Pulse Ox 98.0 F 64 20 101/50 L 98 05/04/18 08:18 05/04/18 08:18 05/04/18 08:18 05/04/18 11:43 05/03/18 23:10 Intake and Output: 05/04/18 05/04/18 06:59 18:59 Intake Total 100 Balance 100 - Medications Medications: Current Medications Acetaminophen (Tylenol 325mg Tab) 650 mg PO Q4 PRN PRN Reason: Pain, Mild (1-3) Last Admin: 05/04/18 02:17 Dose: 650 mg Aspirin (Ecotrin) 81 mg PO DAILY [facility] Last Admin: 04/30/18 09:45 Dose: 81 mg Dextrose (Dextrose 50% Inj) 50 ml IVP ONCE PRN PRN Reason: Hypoglycemia Dextrose (Dextrose 50% Inj) 0 ml IV STAT PRN; Protocol PRN Reason: Hypoglycemia Protocol Dextrose (Glutose 15) 0 gm PO ONCE PRN; Protocol PRN Reason: Hypoglycemia Protocol Diphenhydramine HCl (Benadryl) 25 mg PO HS PRN PRN Reason: Insomnia Last Admin: 05/03/18 21:51 Dose: 25 mg Glucagon (Glucagen Diagnostic Kit) 0 mg IM STAT PRN; Protocol PRN Reason: Hypoglycemia Protocol Heparin Sodium (Porcine) (Heparin) 5,000 units SC Q8 [facility] Last Admin: 05/04/18 06:03 Dose: Not Given Meropenem 500 mg/ Sodium (Chloride) 100 mls @ 100 mls/hr IVPB DAILY@2200 [facility]; Protocol Last Admin: 05/03/18 21:50 Dose: 100 mls/hr Dextrose (Dextrose 5% In Water 1000 Ml) 1,000 mls @ 0 mls/hr IV .Q0M PRN; Protocol PRN Reason: Hypoglycemia Protocol Vancomycin HCl 500 mg/ Sodium (Chloride) 100 mls @ 100 mls/hr IVPB MWF [facility]; Protocol Last Admin: 05/03/18 15:02 Dose: 100 mls/hr Desmopressin Acetate 25 mcg/ (Sodium Chloride) 56.25 mls @ 100 mls/hr IV ONCE ONE Stop: 05/05/18 02:33 Insulin Human Regular (Novolin R) 0 unit SC [facility]; Protocol Last Admin: 05/04/18 12:29 Dose: Not Given Latanoprost (Xalatan Opht) 1 ml OU [facility] Last Admin: 05/03/18 22:02 Dose: 1 ml Levothyroxine Sodium (Synthroid) 25 mcg PO 0630 [facility] Last Admin: 05/04/18 06:07 Dose: 25 mcg Loratadine (Claritin) 10 mg PO [facility] Last Admin: 05/03/18 21:51 Dose: 10 mg Metoprolol Tartrate (Lopressor) 25 mg PO BID [facility] Last Admin: 05/04/18 10:13 Dose: Not Given Montelukast Sodium (Singulair) 10 mg PO [facility] Last Admin: 05/03/18 21:51 Dose: 10 mg Multivitamins (Hexavitamin) 1 tab PO DAILY [facility] Last Admin: 05/04/18 10:00 Dose: Not Given Sltpt-3-Dcyd Ethyl Esters (Lovaza) 2 gm PO BID [facility] Last Admin: 05/04/18 10:17 Dose: Not Given Ondansetron HCl (Zofran Inj) 4 mg IVP Q6 PRN PRN Reason: Nausea/Vomiting Last Admin: 05/04/18 08:40 Dose: 4 mg Pregabalin (Lyrica) 50 mg PO [facility] Last Admin: 05/03/18 22:02 Dose: 50 mg Rosuvastatin Calcium (Crestor) 10 mg PO [facility] Last Admin: 05/03/18 21:51 Dose: 10 mg Sevelamer Carbonate (Renvela) 2,400 mg PO ACTID [facility] Last Admin: 05/04/18 12:17 Dose: Not Given Simethicone (Mylicon Chew Tab) 80 mg PO QID [facility] Last Admin: 05/04/18 14:51 Dose: 80 mg - Labs Labs: 05/04/18 10:45 05/04/18 10:45 PT 18.5 SECONDS (9.7-12.2) H 05/04/18 10:45 INR 1.7 05/04/18 10:45 APTT 37 SECONDS (21-34) H 05/04/18 10:45 - Additional Findings Additional findings: - Constitutional Appears: Non-toxic, No Acute Distress - Head Exam Head Exam: ATRAUMATIC, NORMOCEPHALIC - Eye Exam Eye Exam: EOMI, PERRL - ENT Exam ENT Exam: Mucous Membranes Moist - Neck Exam Neck Exam: Full ROM, Normal Inspection - Respiratory Exam Respiratory Exam: Clear to Ausculation Bilateral, NORMAL BREATHING PATTERN. absent: Rales, Rhonchi, Wheezes - Cardiovascular Exam Cardiovascular Exam: +S1, +S2 - GI/Abdominal Exam GI & Abdominal Exam: Soft. absent: Guarding, Rigid, Tenderness, Rebound - Extremities Exam Additional comments: Dressing noted to L 3rd finger, + tender to palpation, L AV fistula, R BKA - Neurological Exam Neurological Exam: Alert, Awake - Psychiatric Exam Psychiatric exam: Normal Affect, Normal Mood - Skin Skin Exam: Dry, Intact, Normal Color, Warm Assessment and Plan - Assessment and Plan (Free Text) Plan: 52 y o male PMhx ESRD on HD, PAD, CAD, COPD, CHF, pacemaker placement who presented as direct admit from [facility] to [facility] for possible DRIL of L middle finger with Dr. Burden. Plan: L necrotic 3rd finger 2/2 Dialysis associated steal syndrome Fistulogram by IR (Dr. Gaming) on 04/27 at [facility] [place] [facility] demonstrated significant retrograde flow in L brachial artery distal to AV fistula anastomosis, likely represents steal syndrome; calcified but patent L radial and interosseous arteries, L ulnar artery diffusely diseased, significant L metacarpal and digital small vessel disease, pt may benefit from DRIL procedure. Percocet prn for pain control Dr. Foster consulted (ID), recs appreciated C/w Meropenem 500 mg daily; Vanco 500 mg MWF (renally dosed) added by Dr. Foster (1st dose given 04/30) L hand XR at [facility] demonstrated no signs of osteomyelitis Surgery consulted (Dr. Burden), recs appreciated OR postponed for Saturday 05/05 for DRIL +/or amputation pending INR of 1.5 or less, pt given vit K today, to recieve FFP and DDAVP overnight. Pt cleared by cardiology at [facility] (Dr. Jim) for procedure, deemed moderate risk for low-risk procedure Dr. Powell, Hematology, consulted. Help appreciated. PLT function tests Mixing study Coags daily ESRD On HD -Dialysis (MWF) -Dr. Penny consulted (Nephrology) recs appreciated IDDM -Home insulin held until pt post-op after procedure -C/w high sliding scale -Fingersticks achs -HHD -Zofran prn for nausea Hx CAD s/p stents C/w ASA, Crestor 10 mg PO hs Hx hypothyroidism C/w synthroid daily Hx HTN Metoprolol 25 mg PO bid DVT ppx: Heparin 5000U subQ [id number] GI ppx: not indicated at this time <Jim Islas - Last Filed: 05/05/18 07:23> Objective - Vital Signs/Intake and Output Vital Signs (last 24 hours): Temp Pulse Resp BP Pulse Ox 97.5 F L 62 20 108/59 L 98 05/05/18 04:00 05/05/18 04:00 05/05/18 04:00 05/05/18 04:00 05/05/18 03:00 - Medications Medications: Current Medications Acetaminophen (Tylenol 325mg Tab) 650 mg PO Q4 PRN PRN Reason: Pain, Mild (1-3) Last Admin: 05/05/18 03:07 Dose: 650 mg Aspirin (Ecotrin) 81 mg PO DAILY [facility] Last Admin: 04/30/18 09:45 Dose: 81 mg Dextrose (Dextrose 50% Inj) 50 ml IVP ONCE PRN PRN Reason: Hypoglycemia Dextrose (Dextrose 50% Inj) 0 ml IV STAT PRN; Protocol PRN Reason: Hypoglycemia Protocol Dextrose (Glutose 15) 0 gm PO ONCE PRN; Protocol PRN Reason: Hypoglycemia Protocol Diphenhydramine HCl (Benadryl) 25 mg PO HS PRN PRN Reason: Insomnia Last Admin: 05/04/18 22:58 Dose: 25 mg Glucagon (Glucagen Diagnostic Kit) 0 mg IM STAT PRN; Protocol PRN Reason: Hypoglycemia Protocol Heparin Sodium (Porcine) (Heparin) 5,000 units SC Q8 [facility] Last Admin: 05/04/18 06:03 Dose: Not Given Meropenem 500 mg/ Sodium (Chloride) 100 mls @ 100 mls/hr IVPB DAILY@2200 [facility]; Protocol Last Admin: 05/04/18 22:10 Dose: 100 mls/hr Dextrose (Dextrose 5% In Water 1000 Ml) 1,000 mls @ 0 mls/hr IV .Q0M PRN; Protocol PRN Reason: Hypoglycemia Protocol Vancomycin HCl 500 mg/ Sodium (Chloride) 100 mls @ 100 mls/hr IVPB MWF [facility]; Protocol Last Admin: 05/03/18 15:02 Dose: 100 mls/hr Insulin Human Regular (Novolin R) 0 unit SC [facility]; Protocol Last Admin: 05/04/18 22:17 Dose: 2 units Latanoprost (Xalatan Opht) 1 ml OU [facility] Last Admin: 05/04/18 22:12 Dose: 1 ml Levothyroxine Sodium (Synthroid) 25 mcg PO 0630 [facility] Last Admin: 05/05/18 05:30 Dose: 25 mcg Loratadine (Claritin) 10 mg PO [facility] Last Admin: 05/04/18 22:10 Dose: 10 mg Metoprolol Tartrate (Lopressor) 25 mg PO BID [facility] Last Admin: 05/04/18 21:46 Dose: Not Given Montelukast Sodium (Singulair) 10 mg PO [facility] Last Admin: 05/04/18 22:09 Dose: 10 mg Multivitamins (Hexavitamin) 1 tab PO DAILY [facility] Last Admin: 05/04/18 10:00 Dose: Not Given Odhjn-0-Xgqa Ethyl Esters (Lovaza) 2 gm PO BID [facility] Last Admin: 05/04/18 17:27 Dose: 1 gm Ondansetron HCl (Zofran Inj) 4 mg IVP Q6 PRN PRN Reason: Nausea/Vomiting Last Admin: 05/05/18 03:04 Dose: 4 mg Pregabalin (Lyrica) 50 mg PO [facility] Last Admin: 05/04/18 22:09 Dose: 50 mg Rosuvastatin Calcium (Crestor) 10 mg PO [facility] Last Admin: 05/04/18 22:09 Dose: 10 mg Sevelamer Carbonate (Renvela) 2,400 mg PO ACTID [facility] Last Admin: 05/04/18 17:28 Dose: 800 mg Simethicone (Mylicon Chew Tab) 80 mg PO QID [facility] Last Admin: 05/04/18 22:17 Dose: 80 mg - Labs Labs: 05/04/18 10:45 05/04/18 10:45 PT 18.5 SECONDS (9.7-12.2) H 05/04/18 10:45 INR 1.7 05/04/18 10:45 APTT 37 SECONDS (21-34) H 05/04/18 10:45 Attending/Attestation - Attestation I have personally seen and examined this patient.: Yes I have fully participated in the care of the patient.: Yes I have reviewed all pertinent clinical information, including history, physical exam and plan: Yes Notes (Text): 05/05/18 07:23 Medical attending: Patient was seen and examined by me, I reviewed the above note by medical detail representative and agree with the above note The patient was not in any acute distress when we came and saw them and was very eager to have the surgical procedure. We explained to the patient that the INR has decreased down to 1.7. Surgery is asking that the INR be less than 1.5 before the pending surgery. We will give additional vitamin K, as well as FFP in the morning before the procedure as well as give DDAVP. Hopefully this will help with the INR Thank you very much, Jim Islas
--- NOTE | 2018-05-04 17:03 | CP.PCM.PN ---
Subjective - Date & Time of Evaluation Date of Evaluation: 05/04/18 Time of Evaluation: 09:00 - Subjective Subjective: afebrile redness left hand less still has drainage left 3rd digit IV rx in progress for OR / fistula revision Objective - Vital Signs/Intake and Output Vital Signs (last 24 hours): Temp Pulse Resp BP Pulse Ox 97.7 F 59 L 20 112/54 L 95 05/04/18 15:43 05/04/18 15:43 05/04/18 15:43 05/04/18 15:43 05/04/18 15:43 Intake and Output: 05/04/18 05/04/18 06:59 18:59 Intake Total 100 Balance 100 - Medications Medications: Current Medications Acetaminophen (Tylenol 325mg Tab) 650 mg PO Q4 PRN PRN Reason: Pain, Mild (1-3) Last Admin: 05/04/18 02:17 Dose: 650 mg Aspirin (Ecotrin) 81 mg PO DAILY [facility] Last Admin: 04/30/18 09:45 Dose: 81 mg Dextrose (Dextrose 50% Inj) 50 ml IVP ONCE PRN PRN Reason: Hypoglycemia Dextrose (Dextrose 50% Inj) 0 ml IV STAT PRN; Protocol PRN Reason: Hypoglycemia Protocol Dextrose (Glutose 15) 0 gm PO ONCE PRN; Protocol PRN Reason: Hypoglycemia Protocol Diphenhydramine HCl (Benadryl) 25 mg PO HS PRN PRN Reason: Insomnia Last Admin: 05/03/18 21:51 Dose: 25 mg Glucagon (Glucagen Diagnostic Kit) 0 mg IM STAT PRN; Protocol PRN Reason: Hypoglycemia Protocol Heparin Sodium (Porcine) (Heparin) 5,000 units SC Q8 [facility] Last Admin: 05/04/18 06:03 Dose: Not Given Meropenem 500 mg/ Sodium (Chloride) 100 mls @ 100 mls/hr IVPB DAILY@2200 [facility]; Protocol Last Admin: 05/03/18 21:50 Dose: 100 mls/hr Dextrose (Dextrose 5% In Water 1000 Ml) 1,000 mls @ 0 mls/hr IV .Q0M PRN; Protocol PRN Reason: Hypoglycemia Protocol Vancomycin HCl 500 mg/ Sodium (Chloride) 100 mls @ 100 mls/hr IVPB MWF [facility]; Protocol Last Admin: 05/03/18 15:02 Dose: 100 mls/hr Desmopressin Acetate 25 mcg/ (Sodium Chloride) 56.25 mls @ 100 mls/hr IV ONCE ONE Stop: 05/05/18 02:33 Insulin Human Regular (Novolin R) 0 unit SC [facility]; Protocol Last Admin: 05/04/18 12:29 Dose: Not Given Latanoprost (Xalatan Opht) 1 ml OU [facility] Last Admin: 05/03/18 22:02 Dose: 1 ml Levothyroxine Sodium (Synthroid) 25 mcg PO 0630 [facility] Last Admin: 05/04/18 06:07 Dose: 25 mcg Loratadine (Claritin) 10 mg PO [facility] Last Admin: 05/03/18 21:51 Dose: 10 mg Metoprolol Tartrate (Lopressor) 25 mg PO BID [facility] Last Admin: 05/04/18 10:13 Dose: Not Given Montelukast Sodium (Singulair) 10 mg PO [facility] Last Admin: 05/03/18 21:51 Dose: 10 mg Multivitamins (Hexavitamin) 1 tab PO DAILY [facility] Last Admin: 05/04/18 10:00 Dose: Not Given Dufsh-2-Lavn Ethyl Esters (Lovaza) 2 gm PO BID [facility] Last Admin: 05/04/18 10:17 Dose: Not Given Ondansetron HCl (Zofran Inj) 4 mg IVP Q6 PRN PRN Reason: Nausea/Vomiting Last Admin: 05/04/18 08:40 Dose: 4 mg Pregabalin (Lyrica) 50 mg PO [facility] Last Admin: 05/03/18 22:02 Dose: 50 mg Rosuvastatin Calcium (Crestor) 10 mg PO [facility] Last Admin: 05/03/18 21:51 Dose: 10 mg Sevelamer Carbonate (Renvela) 2,400 mg PO ACTID [facility] Last Admin: 05/04/18 12:17 Dose: Not Given Simethicone (Mylicon Chew Tab) 80 mg PO QID [facility] Last Admin: 05/04/18 14:51 Dose: 80 mg - Labs Labs: 05/04/18 10:45 05/04/18 10:45 PT 18.5 SECONDS (9.7-12.2) H 05/04/18 10:45 INR 1.7 05/04/18 10:45 APTT 37 SECONDS (21-34) H 05/04/18 10:45 - Constitutional Appears: Non-toxic, Chronically Ill - Head Exam Head Exam: NORMOCEPHALIC - Eye Exam Eye Exam: PERRL - ENT Exam ENT Exam: Mucous Membranes Dry - Neck Exam Neck Exam: absent: Lymphadenopathy - Respiratory Exam Respiratory Exam: Decreased Breath Sounds - Cardiovascular Exam Cardiovascular Exam: REGULAR RHYTHM - GI/Abdominal Exam GI & Abdominal Exam: Distended - Rectal Exam Rectal Exam: Deferred - Exam Exam: NORMAL INSPECTION - Extremities Exam Extremities Exam: absent: Pedal Edema - Back Exam Back Exam: absent: CVA tenderness (L), CVA tenderness (R) Assessment and Plan (1) Steal syndrome dialysis vascular access Status: Acute (2) Anemia in CKD (chronic kidney disease) Status: Acute - Assessment and Plan (Free Text) Assessment: redness left hand less still has drainage left 3rd digit IV rx in progress for OR / fistula revision
--- NOTE | 2018-05-04 18:04 | CP.PCM.PN ---
Subjective - Date & Time of Evaluation Date of Evaluation: 05/04/18 Time of Evaluation: 15:00 - Subjective Subjective: No complaints. Mixing study not sent; will reorder, discussed with nursing. Objective - Vital Signs/Intake and Output Vital Signs (last 24 hours): Temp Pulse Resp BP Pulse Ox 97.7 F 59 L 20 112/54 L 95 05/04/18 15:43 05/04/18 15:43 05/04/18 15:43 05/04/18 15:43 05/04/18 15:43 Intake and Output: 05/04/18 05/04/18 06:59 18:59 Intake Total 100 Balance 100 - Medications Medications: Current Medications Acetaminophen (Tylenol 325mg Tab) 650 mg PO Q4 PRN PRN Reason: Pain, Mild (1-3) Last Admin: 05/04/18 02:17 Dose: 650 mg Aspirin (Ecotrin) 81 mg PO DAILY [facility] Last Admin: 04/30/18 09:45 Dose: 81 mg Dextrose (Dextrose 50% Inj) 50 ml IVP ONCE PRN PRN Reason: Hypoglycemia Dextrose (Dextrose 50% Inj) 0 ml IV STAT PRN; Protocol PRN Reason: Hypoglycemia Protocol Dextrose (Glutose 15) 0 gm PO ONCE PRN; Protocol PRN Reason: Hypoglycemia Protocol Diphenhydramine HCl (Benadryl) 25 mg PO HS PRN PRN Reason: Insomnia Last Admin: 05/03/18 21:51 Dose: 25 mg Glucagon (Glucagen Diagnostic Kit) 0 mg IM STAT PRN; Protocol PRN Reason: Hypoglycemia Protocol Heparin Sodium (Porcine) (Heparin) 5,000 units SC Q8 [facility] Last Admin: 05/04/18 06:03 Dose: Not Given Meropenem 500 mg/ Sodium (Chloride) 100 mls @ 100 mls/hr IVPB DAILY@2200 [facility]; Protocol Last Admin: 05/03/18 21:50 Dose: 100 mls/hr Dextrose (Dextrose 5% In Water 1000 Ml) 1,000 mls @ 0 mls/hr IV .Q0M PRN; Protocol PRN Reason: Hypoglycemia Protocol Vancomycin HCl 500 mg/ Sodium (Chloride) 100 mls @ 100 mls/hr IVPB MWF [facility]; Protocol Last Admin: 05/03/18 15:02 Dose: 100 mls/hr Desmopressin Acetate 25 mcg/ (Sodium Chloride) 56.25 mls @ 100 mls/hr IV ONCE ONE Stop: 05/05/18 02:33 Insulin Human Regular (Novolin R) 0 unit SC [facility]; Protocol Last Admin: 05/04/18 17:23 Dose: Not Given Latanoprost (Xalatan Opht) 1 ml OU [facility] Last Admin: 05/03/18 22:02 Dose: 1 ml Levothyroxine Sodium (Synthroid) 25 mcg PO 0630 [facility] Last Admin: 05/04/18 06:07 Dose: 25 mcg Loratadine (Claritin) 10 mg PO [facility] Last Admin: 05/03/18 21:51 Dose: 10 mg Metoprolol Tartrate (Lopressor) 25 mg PO BID [facility] Last Admin: 05/04/18 10:13 Dose: Not Given Montelukast Sodium (Singulair) 10 mg PO [facility] Last Admin: 05/03/18 21:51 Dose: 10 mg Multivitamins (Hexavitamin) 1 tab PO DAILY [facility] Last Admin: 05/04/18 10:00 Dose: Not Given Lcmzf-1-Sbii Ethyl Esters (Lovaza) 2 gm PO BID [facility] Last Admin: 05/04/18 17:27 Dose: 1 gm Ondansetron HCl (Zofran Inj) 4 mg IVP Q6 PRN PRN Reason: Nausea/Vomiting Last Admin: 05/04/18 17:24 Dose: 4 mg Pregabalin (Lyrica) 50 mg PO [facility] Last Admin: 05/03/18 22:02 Dose: 50 mg Rosuvastatin Calcium (Crestor) 10 mg PO [facility] Last Admin: 05/03/18 21:51 Dose: 10 mg Sevelamer Carbonate (Renvela) 2,400 mg PO ACTID [facility] Last Admin: 05/04/18 17:28 Dose: 800 mg Simethicone (Mylicon Chew Tab) 80 mg PO QID [facility] Last Admin: 05/04/18 17:28 Dose: 80 mg - Labs Labs: 05/04/18 10:45 05/04/18 10:45 PT 18.5 SECONDS (9.7-12.2) H 05/04/18 10:45 INR 1.7 05/04/18 10:45 APTT 37 SECONDS (21-34) H 05/04/18 10:45 - Head Exam Head Exam: ATRAUMATIC - Eye Exam Eye Exam: Normal appearance - ENT Exam ENT Exam: Mucous Membranes Dry - Respiratory Exam Respiratory Exam: NORMAL BREATHING PATTERN - Cardiovascular Exam Cardiovascular Exam: +S1, +S2 - GI/Abdominal Exam GI & Abdominal Exam: Normal Bowel Sounds Assessment and Plan (1) Coagulopathy Assessment & Plan: no improvement with FFP and vit k suspect inhibitor mixing study not sent; reordered today pt not cleared for OR until mixing study resulted Status: Acute (2) Thrombocytopenia Assessment & Plan: mild ? antiphospholipid Ab ? ITP ? infection related plt dysfunction from uremia Status: Acute (3) Anemia Assessment & Plan: anemia of CKD - SHANAE per renal retic count, b12, folate, ferritin Status: Acute
[2018-05-04] MEDS ORDERED: Lidocaine/Prilocaine 2.5%-2.5% Cream (5 gm) TOP STA (19:44)
[2018-05-04] MEDS: Meropenem 500 MG in Sodium Chloride 0.9% 100 ML IVPB SCH (22:10)
[2018-05-04] MEDS: Latanoprost 2.5 ml Opht Soln OU SCH (22:12)
--- NOTE | 2018-05-04 23:14 | CP.PCM.PN ---
Subjective - Date & Time of Evaluation Date of Evaluation: 05/04/18 Time of Evaluation: 13:00 - Subjective Subjective: Reports nausea; breathing is well; Objective - Vital Signs/Intake and Output Vital Signs (last 24 hours): Temp Pulse Resp BP Pulse Ox 97.7 F 59 L 20 112/54 L 95 05/04/18 15:43 05/04/18 16:00 05/04/18 15:43 05/04/18 15:43 05/04/18 15:43 - Medications Medications: Current Medications Acetaminophen (Tylenol 325mg Tab) 650 mg PO Q4 PRN PRN Reason: Pain, Mild (1-3) Last Admin: 05/04/18 02:17 Dose: 650 mg Aspirin (Ecotrin) 81 mg PO DAILY [facility] Last Admin: 04/30/18 09:45 Dose: 81 mg Dextrose (Dextrose 50% Inj) 50 ml IVP ONCE PRN PRN Reason: Hypoglycemia Dextrose (Dextrose 50% Inj) 0 ml IV STAT PRN; Protocol PRN Reason: Hypoglycemia Protocol Dextrose (Glutose 15) 0 gm PO ONCE PRN; Protocol PRN Reason: Hypoglycemia Protocol Diphenhydramine HCl (Benadryl) 25 mg PO HS PRN PRN Reason: Insomnia Last Admin: 05/04/18 22:58 Dose: 25 mg Glucagon (Glucagen Diagnostic Kit) 0 mg IM STAT PRN; Protocol PRN Reason: Hypoglycemia Protocol Heparin Sodium (Porcine) (Heparin) 5,000 units SC Q8 [facility] Last Admin: 05/04/18 06:03 Dose: Not Given Meropenem 500 mg/ Sodium (Chloride) 100 mls @ 100 mls/hr IVPB DAILY@2200 [facility]; Protocol Last Admin: 05/04/18 22:10 Dose: 100 mls/hr Dextrose (Dextrose 5% In Water 1000 Ml) 1,000 mls @ 0 mls/hr IV .Q0M PRN; Protocol PRN Reason: Hypoglycemia Protocol Vancomycin HCl 500 mg/ Sodium (Chloride) 100 mls @ 100 mls/hr IVPB MWF [facility]; Protocol Last Admin: 05/03/18 15:02 Dose: 100 mls/hr Desmopressin Acetate 25 mcg/ (Sodium Chloride) 56.25 mls @ 100 mls/hr IVP ONCE ONE Stop: 05/05/18 02:33 Insulin Human Regular (Novolin R) 0 unit SC ACHS [facility]; Protocol Last Admin: 05/04/18 22:17 Dose: 2 units Latanoprost (Xalatan Opht) [address] [facility] Last Admin: 05/04/18 22:12 Dose: 1 ml Levothyroxine Sodium (Synthroid) 25 mcg PO 0630 [facility] Last Admin: 05/04/18 06:07 Dose: 25 mcg Loratadine (Claritin) [address] [facility] Last Admin: 05/04/18 22:10 Dose: 10 mg Metoprolol Tartrate (Lopressor) 25 mg PO BID [facility] Last Admin: 05/04/18 21:46 Dose: Not Given Montelukast Sodium (Singulair) [address] [facility] Last Admin: 05/04/18 22:09 Dose: 10 mg Multivitamins (Hexavitamin) 1 tab PO DAILY [facility] Last Admin: 05/04/18 10:00 Dose: Not Given [id number]-9-[id number] Ethyl Esters (Lovaza) 2 gm PO BID [facility] Last Admin: 05/04/18 17:27 Dose: 1 gm Ondansetron HCl (Zofran Inj) 4 mg IVP Q6 PRN PRN Reason: Nausea/Vomiting Last Admin: 05/04/18 17:24 Dose: 4 mg Pregabalin (Lyrica) [address] [facility] Last Admin: 05/04/18 22:09 Dose: 50 mg Rosuvastatin Calcium (Crestor) [address] [facility] Last Admin: 05/04/18 22:09 Dose: 10 mg Sevelamer Carbonate (Renvela) 2,400 mg PO ACTID [facility] Last Admin: 05/04/18 17:28 Dose: 800 mg Simethicone (Mylicon Chew Tab) 80 mg PO QID [facility] Last Admin: 05/04/18 22:17 Dose: 80 mg - Labs Labs: 05/04/18 10:45 05/04/18 10:45 PT 18.5 SECONDS (9.7-12.2) H 05/04/18 10:45 INR 1.7 05/04/18 10:45 APTT 37 SECONDS (21-34) H 05/04/18 10:45 - Constitutional Appears: Non-toxic, No Acute Distress - Eye Exam Eye Exam: Normal appearance. absent: Scleral icterus - ENT Exam ENT Exam: Mucous Membranes Moist - Respiratory Exam Respiratory Exam: Clear to Ausculation Bilateral. absent: Respiratory Distress - Cardiovascular Exam Cardiovascular Exam: RRR, +S1, +S2 - GI/Abdominal Exam GI & Abdominal Exam: Soft. absent: Distended, Tenderness - Extremities Exam Additional comments: moderate leg edema, improved; - Neurological Exam Neurological Exam: Alert, Awake - Psychiatric Exam Psychiatric exam: Normal Mood. absent: Agitated - Skin Skin Exam: Warm. absent: Cyanosis Assessment and Plan (1) ESRD on hemodialysis Assessment & Plan: Stable electrolyte status; edema improving with UF on HD; next HD for tomorrow morning as OR tentatively scheduled for 1 pm; UF goal 4L over 3.5 hrs; Status: Chronic (2) Steal syndrome dialysis vascular access Assessment & Plan: For DRIL procedure tomorrow pending heme clearance and improving coagulopathy; on meropenem and vanco post HD empirically for necrotic L 3rd finger; Status: Acute (3) Anemia in CKD (chronic kidney disease) Assessment & Plan: Hgb at goal, re-dosing EPO tomorrow on HD; Status: Acute (4) Chronic kidney disease-mineral and bone disorder Assessment & Plan: Phos controlled, continue sevalmer 3 tabs w/ each meal; Status: Chronic (5) Hypertensive CKD, ESRD on dialysis Assessment & Plan: BP stable, continue metoprolol 25 mg bid; Status: Chronic
[2018-05-05] MEDS ORDERED: Desmopressin 4 mcg/ml Inj (1 ml) SC ONE (02:00)
[2018-05-05] MEDS: Levothyroxine 25 MCG TAB PO SCH (05:30)
[2018-05-05] MEDS ORDERED: Epoetin Alfa 10,000 unit/ml Dialysis IV ONE (07:45)
[2018-05-05] MEDS: (Novolin R) Insulin Human Regular 100 units/ml vial SC SCH ×4 (08:08→21:32)
[2018-05-05 09:11] LABS: HEMOGLOBIN 9.5 g/dL (12.0-18.0); LYMPH % 17.9 % (20.0-40.0); MEAN CORPUSCULAR HEMOGLOBIN 33.2 pg (27.0-31.0); MEAN CORPUSCULAR HGB CONC 33.2 g/dL (33.0-37.0); MEAN PLATELET VOLUME 11.4 fL (7.2-11.7); MONO % 11.7 % (0.0-10.0); NEUT % 68.3 % (50.0-75.0); RBC 2.86 Mil/uL (4.40-5.90); RED CELL DISTRIBUTION WIDTH 19.5 % (11.5-14.5); WHITE BLOOD COUNT 6.3 K/uL (4.8-10.8)
[2018-05-05 09:12] LABS: BASO % 0.8 % (0.0-2.0); EOS # 0.1 K/uL (0.0-0.7); EOS % 1.3 % (0.0-4.0); LYMPH # 1.1 K/uL (1.0-4.3); MONO # 0.7 K/uL (0.0-0.8); NEUT # 4.3 K/uL (1.8-7.0); NRBC % 0.1 % (0.0-2.0)
[2018-05-05 09:21] LABS: INR 1.6; PROTHROMBIN TIME 17.3 SECONDS (9.7-12.2)
[2018-05-05 09:31] LABS: ALB/GLOB RATIO 0.8 (1.0-2.1); ALBUMIN 3.3 g/dL (3.5-5.0); CALCIUM 8.7 mg/dl (8.6-10.4)
[2018-05-05] MEDS: Multiple Vitamins Tab PO SCH (10:14)
[2018-05-05] MEDS: Omega-3-Acid Ethyl Esters 1 GM Cap PO SCH ×2 (10:15→17:29)
[2018-05-05] MEDS: Simethicone 80 mg Chewtab PO SCH ×4 (10:15→21:33)
--- NOTE | 2018-05-05 13:04 | CP.PCM.PN ---
Subjective - Date & Time of Evaluation Date of Evaluation: 05/05/18 Time of Evaluation: 12:00 - Subjective Subjective: No complaints. Mixing study reviewed - suggestive of factor deficiency as opposed to inhibitor Objective - Vital Signs/Intake and Output Vital Signs (last 24 hours): Temp Pulse Resp BP Pulse Ox 97.5 F L 69 18 124/45 L 100 05/05/18 09:58 05/05/18 09:58 05/05/18 09:58 05/05/18 11:30 05/05/18 08:45 - Medications Medications: Current Medications Acetaminophen (Tylenol 325mg Tab) 650 mg PO Q4 PRN PRN Reason: Pain, Mild (1-3) Last Admin: 05/05/18 10:37 Dose: 650 mg Aspirin (Ecotrin) 81 mg PO DAILY [facility] Last Admin: 04/30/18 09:45 Dose: 81 mg Dextrose (Dextrose 50% Inj) 50 ml IVP ONCE PRN PRN Reason: Hypoglycemia Dextrose (Dextrose 50% Inj) 0 ml IV STAT PRN; Protocol PRN Reason: Hypoglycemia Protocol Dextrose (Glutose 15) 0 gm PO ONCE PRN; Protocol PRN Reason: Hypoglycemia Protocol Diphenhydramine HCl (Benadryl) 25 mg PO HS PRN PRN Reason: Insomnia Last Admin: 05/04/18 22:58 Dose: 25 mg Glucagon (Glucagen Diagnostic Kit) 0 mg IM STAT PRN; Protocol PRN Reason: Hypoglycemia Protocol Heparin Sodium (Porcine) (Heparin) 5,000 units SC Q8 [facility] Last Admin: 05/04/18 06:03 Dose: Not Given Meropenem 500 mg/ Sodium (Chloride) 100 mls @ 100 mls/hr IVPB DAILY@2200 [facility]; Protocol Last Admin: 05/04/18 22:10 Dose: 100 mls/hr Dextrose (Dextrose 5% In Water 1000 Ml) 1,000 mls @ 0 mls/hr IV .Q0M PRN; Protocol PRN Reason: Hypoglycemia Protocol Vancomycin HCl 500 mg/ Sodium (Chloride) 100 mls @ 100 mls/hr IVPB MWF [facility]; Protocol Last Admin: 05/03/18 15:02 Dose: 100 mls/hr Insulin Human Regular (Novolin R) 0 unit SC ACHS [facility]; Protocol Last Admin: 05/05/18 08:08 Dose: Not Given Latanoprost (Xalatan Opht) 1 ml OU [facility] Last Admin: 05/04/18 22:12 Dose: 1 ml Levothyroxine Sodium (Synthroid) 25 mcg PO 0630 [facility] Last Admin: 05/05/18 05:30 Dose: 25 mcg Loratadine (Claritin) 10 mg PO [facility] Last Admin: 05/04/18 22:10 Dose: 10 mg Metoprolol Tartrate (Lopressor) 25 mg PO BID [facility] Last Admin: 05/05/18 10:14 Dose: Not Given Montelukast Sodium (Singulair) 10 mg PO [facility] Last Admin: 05/04/18 22:09 Dose: 10 mg Multivitamins (Hexavitamin) 1 tab PO DAILY [facility] Last Admin: 05/05/18 10:14 Dose: Not Given Tbagi-4-Nzkw Ethyl Esters (Lovaza) 2 gm PO BID [facility] Last Admin: 05/05/18 10:15 Dose: Not Given Ondansetron HCl (Zofran Inj) 4 mg IVP Q6 PRN PRN Reason: Nausea/Vomiting Last Admin: 05/05/18 03:04 Dose: 4 mg Pregabalin (Lyrica) 50 mg PO [facility] Last Admin: 05/04/18 22:09 Dose: 50 mg Rosuvastatin Calcium (Crestor) 10 mg PO [facility] Last Admin: 05/04/18 22:09 Dose: 10 mg Sevelamer Carbonate (Renvela) 2,400 mg PO ACTID [facility] Last Admin: 05/05/18 08:08 Dose: Not Given Simethicone (Mylicon Chew Tab) 80 mg PO QID [facility] Last Admin: 05/05/18 10:15 Dose: Not Given - Labs Labs: 05/05/18 08:56 05/05/18 08:56 PT 17.3 SECONDS (9.7-12.2) H 05/05/18 08:56 INR 1.6 05/05/18 08:56 APTT 36 SECONDS (21-34) H 05/05/18 08:56 - Head Exam Head Exam: ATRAUMATIC - Eye Exam Eye Exam: Normal appearance - ENT Exam ENT Exam: Mucous Membranes Dry - Respiratory Exam Respiratory Exam: NORMAL BREATHING PATTERN - Cardiovascular Exam Cardiovascular Exam: +S1, +S2 - GI/Abdominal Exam GI & Abdominal Exam: Normal Bowel Sounds Assessment and Plan (1) Coagulopathy Assessment & Plan: 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
[2018-05-05] MEDS ORDERED: Phytonadione 10 mg/ml Inj (Adult) IV ONE (13:15)
--- NOTE | 2018-05-05 14:19 | CP.PCM.PN ---
<Jose Shields - Last Filed: 05/05/18 15:06> Subjective - Date & Time of Evaluation Date of Evaluation: 05/05/18 Time of Evaluation: 09:45 - Subjective Subjective: Medicine Progress Note for Hospitalist Service Pt seen and examined at bedside while receiving dialysis. No acute complaints this am. Reports pain well controlled with Percocet. OR on hold for elevated INR today. No acute events reported overnight. Received FFP and DDAVP overnight. 12- point ROS obtained, otherwise neg as per pt. Objective - Vital Signs/Intake and Output Vital Signs (last 24 hours): Temp Pulse Resp BP Pulse Ox 97.5 F L 69 18 102/46 L 100 05/05/18 09:58 05/05/18 09:58 05/05/18 09:58 05/05/18 12:15 05/05/18 08:45 - Medications Medications: Current Medications Acetaminophen (Tylenol 325mg Tab) 650 mg PO Q4 PRN PRN Reason: Pain, Mild (1-3) Last Admin: 05/05/18 10:37 Dose: 650 mg Aspirin (Ecotrin) 81 mg PO DAILY [facility] Last Admin: 04/30/18 09:45 Dose: 81 mg Dextrose (Dextrose 50% Inj) 50 ml IVP ONCE PRN PRN Reason: Hypoglycemia Dextrose (Dextrose 50% Inj) 0 ml IV STAT PRN; Protocol PRN Reason: Hypoglycemia Protocol Dextrose (Glutose 15) 0 gm PO ONCE PRN; Protocol PRN Reason: Hypoglycemia Protocol Diphenhydramine HCl (Benadryl) 25 mg PO HS PRN PRN Reason: Insomnia Last Admin: 05/04/18 22:58 Dose: 25 mg Glucagon (Glucagen Diagnostic Kit) 0 mg IM STAT PRN; Protocol PRN Reason: Hypoglycemia Protocol Heparin Sodium (Porcine) (Heparin) 5,000 units SC Q8 [facility] Last Admin: 05/04/18 06:03 Dose: Not Given Meropenem 500 mg/ Sodium (Chloride) 100 mls @ 100 mls/hr IVPB DAILY@2200 [facility]; Protocol Last Admin: 05/04/18 22:10 Dose: 100 mls/hr Dextrose (Dextrose 5% In Water 1000 Ml) 1,000 mls @ 0 mls/hr IV .Q0M PRN; Protocol PRN Reason: Hypoglycemia Protocol Vancomycin HCl 500 mg/ Sodium (Chloride) 100 mls @ 100 mls/hr IVPB MWF [facility]; Protocol Last Admin: 05/03/18 15:02 Dose: 100 mls/hr Insulin Human Regular (Novolin R) 0 unit SC ACHS [facility]; Protocol Last Admin: 05/05/18 08:08 Dose: Not Given Latanoprost (Xalatan Opht) 1 ml OU [facility] Last Admin: 05/04/18 22:12 Dose: 1 ml Levothyroxine Sodium (Synthroid) 25 mcg PO 0630 [facility] Last Admin: 05/05/18 05:30 Dose: 25 mcg Loratadine (Claritin) 10 mg PO [facility] Last Admin: 05/04/18 22:10 Dose: 10 mg Metoprolol Tartrate (Lopressor) 25 mg PO BID [facility] Last Admin: 05/05/18 10:14 Dose: Not Given Montelukast Sodium (Singulair) 10 mg PO [facility] Last Admin: 05/04/18 22:09 Dose: 10 mg Multivitamins (Hexavitamin) 1 tab PO DAILY [facility] Last Admin: 05/05/18 10:14 Dose: Not Given Jdere-2-Imsm Ethyl Esters (Lovaza) 2 gm PO BID [facility] Last Admin: 05/05/18 10:15 Dose: Not Given Ondansetron HCl (Zofran Inj) 4 mg IVP Q6 PRN PRN Reason: Nausea/Vomiting Last Admin: 05/05/18 13:15 Dose: 4 mg Oxycodone/Acetaminophen (Percocet 5/325 Mg Tab) 1 tab PO Q4H PRN PRN Reason: Pain, moderate (4-7) Stop: 05/08/18 13:51 Pregabalin (Lyrica) 50 mg PO [facility] Last Admin: 05/04/18 22:09 Dose: 50 mg Rosuvastatin Calcium (Crestor) 10 mg PO [facility] Last Admin: 05/04/18 22:09 Dose: 10 mg Sevelamer Carbonate (Renvela) 2,400 mg PO ACTID [facility] Last Admin: 05/05/18 08:08 Dose: Not Given Simethicone (Mylicon Chew Tab) 80 mg PO QID [facility] Last Admin: 05/05/18 10:15 Dose: Not Given - Labs Labs: 05/05/18 08:56 05/05/18 08:56 PT 17.3 SECONDS (9.7-12.2) H 05/05/18 08:56 INR 1.6 05/05/18 08:56 APTT 36 SECONDS (21-34) H 05/05/18 08:56 - Constitutional Appears: Non-toxic, No Acute Distress, Chronically Ill - Eye Exam Eye Exam: EOMI, Normal appearance, PERRL - ENT Exam ENT Exam: Mucous Membranes Moist - Respiratory Exam Respiratory Exam: Clear to Ausculation Bilateral, NORMAL BREATHING PATTERN. absent: Rales, Rhonchi, Wheezes - Cardiovascular Exam Cardiovascular Exam: +S1, +S2. absent: Gallop, Rubs, Murmur - GI/Abdominal Exam GI & Abdominal Exam: Soft, Normal Bowel Sounds. absent: Distended, Firm, Guarding, Rigid, Tenderness, Organomegaly, Rebound - Extremities Exam Additional comments: S/p R BKA; Dressing intact on L middle finger, dry, necrosis not extending past point of presentation on admission of PIP joint - Neurological Exam Neurological Exam: Alert, Awake, CN II-XII Intact, Oriented x3 - Psychiatric Exam Psychiatric exam: Flat Affect - Skin Skin Exam: Dry, Intact, Warm Assessment and Plan - Assessment and Plan (Free Text) Assessment: 52 y o male PMhx ESRD on HD, PAD, CAD, COPD, CHF, pacemaker placement who presented as direct admit from [facility] to [facility] for possible DRIL of L middle finger with Dr. Burden. Plan: L necrotic 3rd finger 2/2 Dialysis associated steal syndrome Fistulogram by IR (Dr. Gaming) on 04/27 at [facility] demonstrated significant retrograde flow in L brachial artery distal to AV fistula anastomosis, likely represents steal syndrome; calcified but patent L radial and interosseous arteries, L ulnar artery diffusely diseased, significant L metacarpal and digital small vessel disease, pt may benefit from DRIL procedure. Percocet prn for pain control Dr. Foster consulted (ID), recs appreciated C/w Meropenem 500 mg daily; Vanco 500 mg MWF (renally dosed) added by Dr. Foster (1st dose given 04/30) L hand XR at [facility] demonstrated no signs of osteomyelitis Surgery consulted (Dr. Burden), recs appreciated OR postponed for possible Mon/Tues 05/08 or 05/09 for DRIL +/or amputation pending INR of <1.5, pt given vit K today, s/p FFP and DDAVP overnight. Pt cleared by cardiology at [facility] (Dr. Jim) for procedure, deemed moderate risk for low-risk procedure Dr. Powell, Hematology, consulted. Help appreciated. PLT function tests Mixing study Coags daily ESRD On HD -Dialysis (MWF) -Dr. Penny consulted (Nephrology) recs appreciated IDDM -Home insulin held until pt post-op after procedure -C/w high sliding scale -Fingersticks achs -HHD -Zofran prn for nausea Hx CAD s/p stents C/w ASA, Crestor 10 mg PO hs Hx hypothyroidism C/w synthroid daily Hx HTN Metoprolol 25 mg PO bid DVT ppx: Heparin 5000U subQ [id number] GI ppx: not indicated at this time Pt seen, examined with, and plan discussed with Dr. Islas, attending. Jose Shields DO PGY-1, [employer] Pager #[phone] <Jim Islas - Last Filed: 05/05/18 15:20> Objective - Vital Signs/Intake and Output Vital Signs (last 24 hours): Temp Pulse Resp BP Pulse Ox 97.5 F L 60 18 102/46 L 100 05/05/18 09:58 05/05/18 13:52 05/05/18 09:58 05/05/18 12:15 05/05/18 08:45 Intake and Output: 05/05/18 05/05/18 06:59 18:59 Intake Total 120 Balance 120 - Medications Medications: Current Medications Acetaminophen (Tylenol 325mg Tab) 650 mg PO Q4 PRN PRN Reason: Pain, Mild (1-3) Last Admin: 05/05/18 10:37 Dose: 650 mg Aspirin (Ecotrin) 81 mg PO DAILY [facility] Last Admin: 04/30/18 09:45 Dose: 81 mg Dextrose (Dextrose 50% Inj) 50 ml IVP ONCE PRN PRN Reason: Hypoglycemia Dextrose (Dextrose 50% Inj) 0 ml IV STAT PRN; Protocol PRN Reason: Hypoglycemia Protocol Dextrose (Glutose 15) 0 gm PO ONCE PRN; Protocol PRN Reason: Hypoglycemia Protocol Diphenhydramine HCl (Benadryl) 25 mg PO HS PRN PRN Reason: Insomnia Last Admin: 05/04/18 22:58 Dose: 25 mg Glucagon (Glucagen Diagnostic Kit) 0 mg IM STAT PRN; Protocol PRN Reason: Hypoglycemia Protocol Heparin Sodium (Porcine) (Heparin) 5,000 units SC Q8 [facility] Last Admin: 05/04/18 06:03 Dose: Not Given Meropenem 500 mg/ Sodium (Chloride) 100 mls @ 100 mls/hr IVPB DAILY@2200 [facility]; Protocol Last Admin: 05/04/18 22:10 Dose: 100 mls/hr Dextrose (Dextrose 5% In Water 1000 Ml) 1,000 mls @ 0 mls/hr IV .Q0M PRN; Protocol PRN Reason: Hypoglycemia Protocol Vancomycin HCl 500 mg/ Sodium (Chloride) 100 mls @ 100 mls/hr IVPB MWF [facility]; Protocol Last Admin: 05/03/18 15:02 Dose: 100 mls/hr Insulin Human Regular (Novolin R) 0 unit SC ACHS [facility]; Protocol Last Admin: 05/05/18 12:28 Dose: Not Given Latanoprost (Xalatan Opht) 1 ml OU HS [facility] Last Admin: 05/04/18 22:12 Dose: 1 ml Levothyroxine Sodium (Synthroid) 25 mcg PO 0630 [facility] Last Admin: 05/05/18 05:30 Dose: 25 mcg Loratadine (Claritin) 10 mg PO HS [facility] Last Admin: 05/04/18 22:10 Dose: 10 mg Metoprolol Tartrate (Lopressor) 25 mg PO BID [facility] Last Admin: 05/05/18 10:14 Dose: Not Given Montelukast Sodium (Singulair) 10 mg PO [facility] Last Admin: 05/04/18 22:09 Dose: 10 mg Multivitamins (Hexavitamin) 1 tab PO DAILY [facility] Last Admin: 05/05/18 10:14 Dose: Not Given Goaax-7-Tclu Ethyl Esters (Lovaza) 2 gm PO BID [facility] Last Admin: 05/05/18 10:15 Dose: Not Given Ondansetron HCl (Zofran Inj) 4 mg IVP Q6 PRN PRN Reason: Nausea/Vomiting Last Admin: 05/05/18 13:15 Dose: 4 mg Oxycodone/Acetaminophen (Percocet 5/325 Mg Tab) 1 tab PO Q4H PRN PRN Reason: Pain, moderate (4-7) Stop: 05/08/18 13:51 Pregabalin (Lyrica) 50 mg PO HS [facility] Last Admin: 05/04/18 22:09 Dose: 50 mg Rosuvastatin Calcium (Crestor) 10 mg PO HS [facility] Last Admin: 05/04/18 22:09 Dose: 10 mg Sevelamer Carbonate (Renvela) 2,400 mg PO ACTID [facility] Last Admin: 05/05/18 13:00 Dose: Not Given Simethicone (Mylicon Chew Tab) 80 mg PO QID [facility] Last Admin: 05/05/18 10:15 Dose: Not Given - Labs Labs: 05/05/18 08:56 05/05/18 08:56 PT 17.3 SECONDS (9.7-12.2) H 05/05/18 08:56 INR 1.6 05/05/18 08:56 APTT 36 SECONDS (21-34) H 05/05/18 08:56 Attending/Attestation - Attestation I have personally seen and examined this patient.: Yes I have fully participated in the care of the patient.: Yes I have reviewed all pertinent clinical information, including history, physical exam and plan: Yes Notes (Text): 05/05/18 15:20 Medical attending: Patient was seen and examined by me while at hemodialysis. Reviewed the above note by the medical assistant secretary and agree with the above note. Surgery has placed the surgery on hold for the time being The patient was not in any acute distress insulin is tolerating hemodialysis well. The INR remains too high. At this moment we'll continue wait for the studies ordered by hematology oncology On examination of the finger as well as the hand is no additional erythema or necrosis. Thank you very much, Jim Islas
--- NOTE | 2018-05-05 15:47 | CP.PCM.PN ---
Subjective - Date & Time of Evaluation Date of Evaluation: 05/05/18 Time of Evaluation: 08:00 - Subjective Subjective: c/o necrotic foul smell from finger in NAD less swelling and redness of hand Objective - Vital Signs/Intake and Output Vital Signs (last 24 hours): Temp Pulse Resp BP Pulse Ox 97.5 F L 60 18 102/46 L 100 05/05/18 09:58 05/05/18 13:52 05/05/18 09:58 05/05/18 12:15 05/05/18 08:45 Intake and Output: 05/05/18 05/05/18 06:59 18:59 Intake Total 120 Balance 120 - Medications Medications: Current Medications Acetaminophen (Tylenol 325mg Tab) 650 mg PO Q4 PRN PRN Reason: Pain, Mild (1-3) Last Admin: 05/05/18 10:37 Dose: 650 mg Aspirin (Ecotrin) 81 mg PO DAILY [facility] Last Admin: 04/30/18 09:45 Dose: 81 mg Dextrose (Dextrose 50% Inj) 50 ml IVP ONCE PRN PRN Reason: Hypoglycemia Dextrose (Dextrose 50% Inj) 0 ml IV STAT PRN; Protocol PRN Reason: Hypoglycemia Protocol Dextrose (Glutose 15) 0 gm PO ONCE PRN; Protocol PRN Reason: Hypoglycemia Protocol Diphenhydramine HCl (Benadryl) 25 mg PO HS PRN PRN Reason: Insomnia Last Admin: 05/04/18 22:58 Dose: 25 mg Glucagon (Glucagen Diagnostic Kit) 0 mg IM STAT PRN; Protocol PRN Reason: Hypoglycemia Protocol Heparin Sodium (Porcine) (Heparin) 5,000 units SC Q8 [facility] Last Admin: 05/04/18 06:03 Dose: Not Given Meropenem 500 mg/ Sodium (Chloride) 100 mls @ 100 mls/hr IVPB DAILY@2200 [facility]; Protocol Last Admin: 05/04/18 22:10 Dose: 100 mls/hr Dextrose (Dextrose 5% In Water 1000 Ml) 1,000 mls @ 0 mls/hr IV .Q0M PRN; Protocol PRN Reason: Hypoglycemia Protocol Vancomycin HCl 500 mg/ Sodium (Chloride) 100 mls @ 100 mls/hr IVPB MWF [facility]; Protocol Last Admin: 05/03/18 15:02 Dose: 100 mls/hr Insulin Human Regular (Novolin R) 0 unit SC ACHS [facility]; Protocol Last Admin: 05/05/18 12:28 Dose: Not Given Latanoprost (Xalatan Opht) 1 ml OU [facility] Last Admin: 05/04/18 22:12 Dose: 1 ml Levothyroxine Sodium (Synthroid) 25 mcg PO 0630 [facility] Last Admin: 05/05/18 05:30 Dose: 25 mcg Loratadine (Claritin) 10 mg PO [facility] Last Admin: 05/04/18 22:10 Dose: 10 mg Metoprolol Tartrate (Lopressor) 25 mg PO BID [facility] Last Admin: 05/05/18 10:14 Dose: Not Given Montelukast Sodium (Singulair) 10 mg PO [facility] Last Admin: 05/04/18 22:09 Dose: 10 mg Multivitamins (Hexavitamin) 1 tab PO DAILY [facility] Last Admin: 05/05/18 10:14 Dose: Not Given [id number] Ethyl Esters (Lovaza) 2 gm PO BID [facility] Last Admin: 05/05/18 10:15 Dose: Not Given Ondansetron HCl (Zofran Inj) 4 mg IVP Q6 PRN PRN Reason: Nausea/Vomiting Last Admin: 05/05/18 13:15 Dose: 4 mg Oxycodone/Acetaminophen (Percocet 5/325 Mg Tab) 1 tab PO Q4H PRN PRN Reason: Pain, moderate (4-7) Stop: 05/08/18 13:51 Pregabalin (Lyrica) 50 mg PO [facility] Last Admin: 05/04/18 22:09 Dose: 50 mg Rosuvastatin Calcium (Crestor) 10 mg PO [facility] Last Admin: 05/04/18 22:09 Dose: 10 mg Sevelamer Carbonate (Renvela) 2,400 mg PO ACTID [facility] Last Admin: 05/05/18 13:00 Dose: Not Given Simethicone (Mylicon Chew Tab) 80 mg PO QID [facility] Last Admin: 05/05/18 10:15 Dose: Not Given - Labs Labs: 05/05/18 08:56 05/05/18 08:56 PT 17.3 SECONDS (9.7-12.2) H 05/05/18 08:56 INR 1.6 05/05/18 08:56 APTT 36 SECONDS (21-34) H 05/05/18 08:56 - Constitutional Appears: Non-toxic, Chronically Ill - Head Exam Head Exam: NORMOCEPHALIC - Eye Exam Eye Exam: PERRL - ENT Exam ENT Exam: Mucous Membranes Dry - Neck Exam Neck Exam: absent: Lymphadenopathy - Respiratory Exam Respiratory Exam: Decreased Breath Sounds - Cardiovascular Exam Cardiovascular Exam: REGULAR RHYTHM - GI/Abdominal Exam GI & Abdominal Exam: Distended, Soft - Rectal Exam Rectal Exam: Deferred - Exam Exam: NORMAL INSPECTION Assessment and Plan (1) Steal syndrome dialysis vascular access Status: Acute (2) Anemia in CKD (chronic kidney disease) Status: Acute - Assessment and Plan (Free Text) Assessment: necrosis 3rd digit same less cellulitis left hand pain controlled for OR revision shunt on Tuesday
--- NOTE | 2018-05-05 16:15 | CP.PCM.PN ---
Subjective - Date & Time of Evaluation Date of Evaluation: 05/05/18 Time of Evaluation: 14:00 - Subjective Subjective: Vascular surgery progress note for Dr. Burden Pt seen and examined at bedside this AM. No adverse events overnight. Patient's INR still elevated this AM, so OR for AVF revision postponed Objective - Vital Signs/Intake and Output Vital Signs (last 24 hours): Temp Pulse Resp BP Pulse Ox 97.5 F L 60 18 102/46 L 100 05/05/18 09:58 05/05/18 13:52 05/05/18 09:58 05/05/18 12:15 05/05/18 08:45 Intake and Output: 05/05/18 05/05/18 06:59 18:59 Intake Total 120 Balance 120 - Medications Medications: Current Medications Acetaminophen (Tylenol 325mg Tab) 650 mg PO Q4 PRN PRN Reason: Pain, Mild (1-3) Last Admin: 05/05/18 10:37 Dose: 650 mg Aspirin (Ecotrin) 81 mg PO DAILY [facility] Last Admin: 04/30/18 09:45 Dose: 81 mg Dextrose (Dextrose 50% Inj) 50 ml IVP ONCE PRN PRN Reason: Hypoglycemia Dextrose (Dextrose 50% Inj) 0 ml IV STAT PRN; Protocol PRN Reason: Hypoglycemia Protocol Dextrose (Glutose 15) 0 gm PO ONCE PRN; Protocol PRN Reason: Hypoglycemia Protocol Diphenhydramine HCl (Benadryl) 25 mg PO HS PRN PRN Reason: Insomnia Last Admin: 05/04/18 22:58 Dose: 25 mg Glucagon (Glucagen Diagnostic Kit) 0 mg IM STAT PRN; Protocol PRN Reason: Hypoglycemia Protocol Heparin Sodium (Porcine) (Heparin) 5,000 units SC Q8 [facility] Last Admin: 05/04/18 06:03 Dose: Not Given Meropenem 500 mg/ Sodium (Chloride) 100 mls @ 100 mls/hr IVPB DAILY@2200 [facility]; Protocol Last Admin: 05/04/18 22:10 Dose: 100 mls/hr Dextrose (Dextrose 5% In Water 1000 Ml) 1,000 mls @ 0 mls/hr IV .Q0M PRN; Protocol PRN Reason: Hypoglycemia Protocol Vancomycin HCl 500 mg/ Sodium (Chloride) 100 mls @ 100 mls/hr IVPB MWF [facility]; Protocol Last Admin: 05/05/18 16:10 Dose: 100 mls/hr Insulin Human Regular (Novolin R) [address] [facility]; Protocol Last Admin: 05/05/18 12:28 Dose: Not Given Latanoprost (Xalatan Opht) 1 ml OU [facility] Last Admin: 05/04/18 22:12 Dose: 1 ml Levothyroxine Sodium (Synthroid) 25 mcg PO 0630 [facility] Last Admin: 05/05/18 05:30 Dose: 25 mcg Loratadine (Claritin) 10 mg PO [facility] Last Admin: 05/04/18 22:10 Dose: 10 mg Metoprolol Tartrate (Lopressor) 25 mg PO BID [facility] Last Admin: 05/05/18 10:14 Dose: Not Given Montelukast Sodium (Singulair) 10 mg PO [facility] Last Admin: 05/04/18 22:09 Dose: 10 mg Multivitamins (Hexavitamin) 1 tab PO DAILY [facility] Last Admin: 05/05/18 10:14 Dose: Not Given [id number] Ethyl Esters (Lovaza) 2 gm PO BID [facility] Last Admin: 05/05/18 10:15 Dose: Not Given Ondansetron HCl (Zofran Inj) 4 mg IVP Q6 PRN PRN Reason: Nausea/Vomiting Last Admin: 05/05/18 13:15 Dose: 4 mg Oxycodone/Acetaminophen (Percocet 5/325 Mg Tab) 1 tab PO Q4H PRN PRN Reason: Pain, moderate (4-7) Stop: 05/08/18 13:51 Pregabalin (Lyrica) 50 mg PO [facility] Last Admin: 05/04/18 22:09 Dose: 50 mg Rosuvastatin Calcium (Crestor) 10 mg PO [facility] Last Admin: 05/04/18 22:09 Dose: 10 mg Sevelamer Carbonate (Renvela) 2,400 mg PO ACTID [facility] Last Admin: 05/05/18 13:00 Dose: Not Given Simethicone (Mylicon Chew Tab) 80 mg PO QID [facility] Last Admin: 05/05/18 10:15 Dose: Not Given - Labs Labs: 05/05/18 08:56 05/05/18 08:56 PT 17.3 SECONDS (9.7-12.2) H 05/05/18 08:56 INR 1.6 10/05/18 08:56 APTT 36 SECONDS (21-34) H 05/05/18 08:56 - Constitutional Appears: Well, Non-toxic, No Acute Distress - Head Exam Head Exam: ATRAUMATIC, NORMOCEPHALIC - Eye Exam Eye Exam: Normal appearance. absent: Conjunctival injection, Scleral icterus - ENT Exam ENT Exam: Mucous Membranes Moist, Normal Oropharynx - Respiratory Exam Respiratory Exam: NORMAL BREATHING PATTERN. absent: Accessory Muscle Use, Respiratory Distress - Cardiovascular Exam Cardiovascular Exam: RRR - GI/Abdominal Exam GI & Abdominal Exam: Soft. absent: Distended - Extremities Exam Extremities Exam: absent: Calf Tenderness Additional comments: left third finger with bandage in place C/D/I. Proximal phalanges with normal color and sensation intact, gross motor intact - Neurological Exam Neurological Exam: Alert, Awake, Oriented x3 - Psychiatric Exam Psychiatric exam: Normal Affect, Normal Mood - Skin Skin Exam: Dry, Normal Color, Warm Assessment and Plan - Assessment and Plan (Free Text) Assessment: 52M with dry gangrene of left third finger d/t steal syndrome from LAVF Plan: F/U heme/onc recommendations plan for OR on Tuesday if INR is <1.5 HD Tuesday AM prior to OR Continue antibiotics Continue prn pain medication Discussed with Dr. Jenise Gonzalez PGY2
[2018-05-05] MEDS: Oxycodone/Acetaminophen 5/325 mg Tab PO PRN ×2 (17:42→23:39)
[2018-05-05] MEDS: Meropenem 500 MG in Sodium Chloride 0.9% 100 ML IVPB SCH (21:33)
[2018-05-05] MEDS: Latanoprost 2.5 ml Opht Soln OU SCH (21:33)
--- NOTE | 2018-05-05 23:13 | CP.PCM.PN ---
Subjective - Date & Time of Evaluation Date of Evaluation: 05/05/18 Time of Evaluation: 15:00 - Subjective Subjective: 52 yo M w/ pmh of htn, dm, CAD s/p stent (09/2017), PAD s/p R BKA (03/2018), s/p CVA, ARASH not on CPAP, COPD w/ severe pulmonary htn and ESRD on HD, admitted with necrotic L 3rd finger secondary to PAD and steal syndrome from AVF; s/p HD earlier today; reports feeling tired; some nausea; Objective - Vital Signs/Intake and Output Vital Signs (last 24 hours): Temp Pulse Resp BP Pulse Ox 97.6 F 60 20 106/42 L 100 05/05/18 15:43 05/05/18 15:43 05/05/18 15:43 05/05/18 17:32 05/05/18 15:43 Intake and Output: 05/05/18 05/06/18 18:59 06:59 Intake Total 120 580 Balance 120 580 - Medications Medications: Current Medications Acetaminophen (Tylenol 325mg Tab) 650 mg PO Q4 PRN PRN Reason: Pain, Mild (1-3) Last Admin: 05/05/18 10:37 Dose: 650 mg Aspirin (Ecotrin) 81 mg PO DAILY [facility] Last Admin: 04/30/18 09:45 Dose: 81 mg Dextrose (Dextrose 50% Inj) 50 ml IVP ONCE PRN PRN Reason: Hypoglycemia Dextrose (Dextrose 50% Inj) 0 ml IV STAT PRN; Protocol PRN Reason: Hypoglycemia Protocol Dextrose (Glutose 15) 0 gm PO ONCE PRN; Protocol PRN Reason: Hypoglycemia Protocol Diphenhydramine HCl (Benadryl) 25 mg PO HS PRN PRN Reason: Insomnia Last Admin: 05/04/18 22:58 Dose: 25 mg Glucagon (Glucagen Diagnostic Kit) 0 mg IM STAT PRN; Protocol PRN Reason: Hypoglycemia Protocol Heparin Sodium (Porcine) (Heparin) 5,000 units SC Q8 [facility] Last Admin: 05/04/18 06:03 Dose: Not Given Meropenem 500 mg/ Sodium (Chloride) 100 mls @ 100 mls/hr IVPB DAILY@2200 [facility]; Protocol Last Admin: 05/05/18 21:33 Dose: 100 mls/hr Dextrose (Dextrose 5% In Water 1000 Ml) 1,000 mls @ 0 mls/hr IV .Q0M PRN; Protocol PRN Reason: Hypoglycemia Protocol Vancomycin HCl 500 mg/ Sodium (Chloride) 100 mls @ 100 mls/hr IVPB MWF [facility]; Protocol Last Admin: 05/05/18 16:17 Dose: Not Given Insulin Human Regular (Novolin R) 0 unit SC [facility]; Protocol Last Admin: 05/05/18 21:32 Dose: 4 units Latanoprost (Xalatan Opht) 1 ml OU [facility] Last Admin: 05/05/18 21:33 Dose: 1 ml Levothyroxine Sodium (Synthroid) 25 mcg PO 0630 [facility] Last Admin: 05/05/18 05:30 Dose: 25 mcg Loratadine (Claritin) 10 mg PO [facility] Last Admin: 05/05/18 21:32 Dose: 10 mg Metoprolol Tartrate (Lopressor) 25 mg PO BID [facility] Last Admin: 05/05/18 17:32 Dose: Not Given Montelukast Sodium (Singulair) 10 mg PO [facility] Last Admin: 05/05/18 21:32 Dose: 10 mg Multivitamins (Hexavitamin) 1 tab PO DAILY [facility] Last Admin: 05/05/18 10:14 Dose: Not Given [id number]-[id number] Ethyl Esters (Lovaza) 2 gm PO BID [facility] Last Admin: 05/05/18 17:29 Dose: 2 gm Ondansetron HCl (Zofran Inj) 4 mg IVP Q6 PRN PRN Reason: Nausea/Vomiting Last Admin: 05/05/18 17:43 Dose: 4 mg Oxycodone/Acetaminophen (Percocet 5/325 Mg Tab) 1 tab PO Q4H PRN PRN Reason: Pain, moderate (4-7) Stop: 05/08/18 13:51 Last Admin: 05/05/18 17:42 Dose: 1 tab Pregabalin (Lyrica) 50 mg PO [facility] Last Admin: 05/05/18 21:32 Dose: 50 mg Rosuvastatin Calcium (Crestor) 10 mg PO HS [facility] Last Admin: 05/05/18 21:32 Dose: 10 mg Sevelamer Carbonate (Renvela) 2,400 mg PO ACTID [facility] Last Admin: 05/05/18 17:28 Dose: 2,400 mg Simethicone (Mylicon Chew Tab) 80 mg PO QID [facility] Last Admin: 05/05/18 21:33 Dose: 80 mg - Labs Labs: 05/05/18 08:56 05/05/18 08:56 PT 17.3 SECONDS (9.7-12.2) H 05/05/18 08:56 INR 1.6 05/05/18 08:56 APTT 36 SECONDS (21-34) H 05/05/18 08:56 Assessment and Plan (1) ESRD on hemodialysis Assessment & Plan: Stable volume and electrolyte status; lower ext edema improving; has been tolerating 3.5-4L UF on HD; next HD for Tuesday; Status: Chronic (2) Steal syndrome dialysis vascular access Assessment & Plan: Needs DRIL procedure to try to corret steal; concern from hematology regarding possible inhibitor in blood which can cause uncontrolled bleeding; mixing study sent and awaiting results; -Re-dose antibiotics (vanco and meropenem) following HD; Status: Acute (3) Anemia in CKD (chronic kidney disease) Assessment & Plan: Hgb below goal, EPO given today; Status: Acute (4) Chronic kidney disease-mineral and bone disorder Assessment & Plan: Phos midly elevated, continue sevelamer 3 tabs; Status: Chronic (5) Hypertensive CKD, ESRD on dialysis Status: Chronic
[2018-05-06] MEDS: Oxycodone/Acetaminophen 5/325 mg Tab PO PRN (05:05)
[2018-05-06] MEDS: Levothyroxine 25 MCG TAB PO SCH (06:32)
[2018-05-06 07:13] LABS: BASO # 0.1 K/uL (0.0-0.2); EOS # 0.1 K/uL (0.0-0.7); HEMOGLOBIN 9.9 g/dL (12.0-18.0); LYMPH # 1.2 K/uL (1.0-4.3); MONO # 0.7 K/uL (0.0-0.8); NRBC % 0.3 % (0.0-2.0)
[2018-05-06 07:44] LABS: BASO % 1.4 % (0.0-2.0); EOS % 1.7 % (0.0-4.0); LYMPH % 22.6 % (20.0-40.0); MEAN CORPUSCULAR HEMOGLOBIN 33.7 pg (27.0-31.0); MEAN CORPUSCULAR HGB CONC 32.7 g/dL (33.0-37.0); MEAN PLATELET VOLUME 11.4 fL (7.2-11.7); MONO % 13.5 % (0.0-10.0); NEUT # 3.2 K/uL (1.8-7.0); NEUT % 60.8 % (50.0-75.0); RBC 2.94 Mil/uL (4.40-5.90); RED CELL DISTRIBUTION WIDTH 22.3 % (11.5-14.5); WHITE BLOOD COUNT 5.3 K/uL (4.8-10.8)
[2018-05-06 07:52] LABS: ALB/GLOB RATIO 0.8 (1.0-2.1); ALBUMIN 3.4 g/dL (3.5-5.0); CALCIUM 8.7 mg/dl (8.6-10.4)
[2018-05-06] MEDS: (Novolin R) Insulin Human Regular 100 units/ml vial SC SCH ×5 (08:13→22:57)
--- NOTE | 2018-05-06 08:47 | CP.PCM.PN ---
Subjective - Date & Time of Evaluation Date of Evaluation: 05/06/18 Time of Evaluation: 08:15 - Subjective Subjective: Patient was seen and examined by me. Patient had HD yesterday, patient says no acute events overnight. As mentioned previously surgery is currently on hold at the moment Denied chest pain, denied shortness of breath, denied headache, denied abdominal pain, denied arm pain - Denied headache, denied nausea + tenderness at the necrotic middle finger not changed from previous. We are currently waiting on additional hematological studies at this time. Objective - Vital Signs/Intake and Output Vital Signs (last 24 hours): Temp Pulse Resp BP Pulse Ox 97.4 F L 61 20 110/63 100 05/06/18 07:00 05/06/18 07:00 05/06/18 07:00 05/06/18 07:00 05/06/18 07:00 Intake and Output: 05/06/18 05/06/18 06:59 18:59 Intake Total 580 Balance 580 - Medications Medications: Current Medications Acetaminophen (Tylenol 325mg Tab) 650 mg PO Q4 PRN PRN Reason: Pain, Mild (1-3) Last Admin: 05/05/18 10:37 Dose: 650 mg Aspirin (Ecotrin) 81 mg PO DAILY [facility] Last Admin: 04/30/18 09:45 Dose: 81 mg Dextrose (Dextrose 50% Inj) 50 ml IVP ONCE PRN PRN Reason: Hypoglycemia Dextrose (Dextrose 50% Inj) 0 ml IV STAT PRN; Protocol PRN Reason: Hypoglycemia Protocol Dextrose (Glutose 15) 0 gm PO ONCE PRN; Protocol PRN Reason: Hypoglycemia Protocol Diphenhydramine HCl (Benadryl) 25 mg PO HS PRN PRN Reason: Insomnia Last Admin: 05/05/18 23:40 Dose: 25 mg Glucagon (Glucagen Diagnostic Kit) 0 mg IM STAT PRN; Protocol PRN Reason: Hypoglycemia Protocol Heparin Sodium (Porcine) (Heparin) 5,000 units SC Q8 [facility] Last Admin: 05/04/18 06:03 Dose: Not Given Meropenem 500 mg/ Sodium (Chloride) 100 mls @ 100 mls/hr IVPB DAILY@2200 [facility]; Protocol Last Admin: 05/05/18 21:33 Dose: 100 mls/hr Dextrose (Dextrose 5% In Water 1000 Ml) 1,000 mls @ 0 mls/hr IV .Q0M PRN; Pr otocol PRN Reason: Hypoglycemia Protocol Vancomycin HCl 500 mg/ Sodium (Chloride) 100 mls @ 100 mls/hr IVPB MWF [facility]; Protocol Last Admin: 05/05/18 16:17 Dose: Not Given Insulin Human Regular (Novolin R) 0 unit SC ACHS [facility]; Protocol Last Admin: 05/06/18 08:13 Dose: 8 units Latanoprost (Xalatan Opht) 1 ml OU HS [facility] Last Admin: 05/05/18 21:33 Dose: 1 ml Levothyroxine Sodium (Synthroid) 25 mcg PO 0630 [facility] Last Admin: 05/06/18 06:32 Dose: 25 mcg Loratadine (Claritin) 10 mg PO HS [facility] Last Admin: 05/05/18 21:32 Dose: 10 mg Metoprolol Tartrate (Lopressor) 25 mg PO BID [facility] Last Admin: 05/05/18 17:32 Dose: Not Given Montelukast Sodium (Singulair) 10 mg PO [facility] Last Admin: 05/05/18 21:32 Dose: 10 mg Multivitamins (Hexavitamin) 1 tab PO DAILY [facility] Last Admin: 05/05/18 10:14 Dose: Not Given [id number] Ethyl Esters (Lovaza) 2 gm PO BID [facility] Last Admin: 05/05/18 17:29 Dose: 2 gm Ondansetron HCl (Zofran Inj) 4 mg IVP Q6 PRN PRN Reason: Nausea/Vomiting Last Admin: 05/06/18 08:16 Dose: 4 mg Oxycodone/Acetaminophen (Percocet 5/325 Mg Tab) 1 tab PO Q4H PRN PRN Reason: Pain, moderate (4-7) Stop: 05/08/18 13:51 Last Admin: 05/06/18 05:05 Dose: 1 tab Pregabalin (Lyrica) 50 mg PO [facility] Last Admin: 05/05/18 21:32 Dose: 50 mg Rosuvastatin Calcium (Crestor) 10 mg PO HS [facility] Last Admin: 05/05/18 21:32 Dose: 10 mg Sevelamer Carbonate (Renvela) 2,400 mg PO ACTID [facility] Last Admin: 05/06/18 08:13 Dose: 2,400 mg Simethicone (Mylicon Chew Tab) 80 mg PO QID [facility] Last Admin: 05/05/18 21:33 Dose: 80 mg - Labs Labs: 05/06/18 07:03 05/06/18 07:03 PT 17.3 SECONDS (9.7-12.2) H 05/05/18 08:56 INR 1.6 05/05/18 08:56 APTT 36 SECONDS (21-34) H 05/05/18 08:56 - Constitutional Appears: No Acute Distress - Head Exam Head Exam: NORMAL INSPECTION, NORMOCEPHALIC - Eye Exam Eye Exam: EOMI, Normal appearance - ENT Exam ENT Exam: Mucous Membranes Moist - Respiratory Exam Respiratory Exam: Clear to Ausculation Bilateral, NORMAL BREATHING PATTERN - Cardiovascular Exam Cardiovascular Exam: REGULAR RHYTHM - GI/Abdominal Exam GI & Abdominal Exam: Soft. absent: Firm, Guarding, Rigid, Tenderness - Extremities Exam Additional comments: History of recent BKA Also middle finger is currently wrapped with guaze and dressing. - Neurological Exam Neurological Exam: Alert, Awake, Oriented x3 Neuro motor strength exam: Left Upper Extremity: 5, Right Upper Extremity: 5 - Skin Skin Exam: Normal Color, Warm Assessment and Plan - Assessment and Plan (Free Text) Assessment: 52 y o male PMhx ESRD on HD, PAD, CAD, COPD, CHF, pacemaker placement who presented as direct admit from [facility] to [facility] for possible DRIL of L middle finger with Dr. Burden. Plan: L necrotic 3rd finger 2/2 Dialysis associated steal syndrome 05/06: Currently waiting on additional hematological studies to return. In the mean time will again administer vitamin K. Fistulogram by [place] (Dr. Gaming) [place]27 [place] [facility] [place] significant retrograde flow in L brachial artery distal to AV fistula anastomosis, likely represents steal syndrome; calcified but patent L radial and interosseous arteries, L ulnar artery diffusely diseased, significant L metacarpal and digital small vessel disease, pt may benefit from DRIL procedure. Percocet prn for pain control Dr. Foster consulted (ID), recs appreciated C/w Meropenem 500 mg daily; Vanco 500 mg MWF (renally dosed) added by Dr. Foster (1st dose given 04/30) L hand XR at [facility] demonstrated no signs of osteomyelitis Surgery consulted (Dr. Burden), recs appreciated OR postponed for possible Mon/Tues 05/08 or 05/09 for DRIL +/or amputation pending INR of <1.5, pt given vit K today, s/p FFP and DDAVP overnight. Pt cleared by cardiology at [facility] (Dr. Jim) for procedure, deemed moderate risk for low-risk procedure Dr. Bradford, Hematology, consulted. Help appreciated. PLT function tests Mixing study Coags daily ESRD On HD, has steal syndrome 05/06: Tolerated HD well yesterday afternoon. -Dialysis (MWF) -Dr. Penny consulted (Nephrology) recs appreciated IDDM 05/06: Continue with the SSI at this time, recent accuchecks are 200 to 300 range, if goes higher may want additional coverage Home insulin held until pt post-op after procedure Fingersticks achs -HHD -Zofran prn for nausea Hx CAD s/p stents C/w ASA, Crestor 10 mg PO hs Hx hypothyroidism C/w synthroid daily Hx HTN Metoprolol 25 mg PO bid DVT ppx: Heparin 5000U subQ [id number] GI ppx: not indicated at this time
[2018-05-06] MEDS ORDERED: Phytonadione 10 mg/ml Inj (Adult) IV STA (08:53)
[2018-05-06] MEDS ORDERED: Phytonadione 10 MG in Sodium Chloride 0.9% 50 ML IV ONE (09:00)
[2018-05-06] MEDS: Omega-3-Acid Ethyl Esters 1 GM Cap PO SCH ×2 (09:54→19:01)
[2018-05-06] MEDS: Multiple Vitamins Tab PO SCH (09:55)
[2018-05-06] MEDS: Simethicone 80 mg Chewtab PO SCH ×5 (11:06→22:55)
--- NOTE | 2018-05-06 22:37 | CP.PCM.PN ---
Subjective - Date & Time of Evaluation Date of Evaluation: 05/06/18 Time of Evaluation: 18:00 - Subjective Subjective: SEEN ON RENAL F/U COVERING FOR DR MEDINA FEELS OK IN GENERAL C/O STEEL SYNDROME ON AVF ARM ON HD M W F Objective - Vital Signs/Intake and Output Vital Signs (last 24 hours): Temp Pulse Resp BP Pulse Ox 98.3 F 60 20 138/68 100 05/06/18 15:00 05/06/18 16:00 05/06/18 15:00 05/06/18 19:02 05/06/18 15:00 Intake and Output: 05/06/18 05/07/18 18:59 06:59 Intake Total 480 Balance 480 - Medications Medications: Current Medications Acetaminophen (Tylenol 325mg Tab) 650 mg PO Q4 PRN PRN Reason: Pain, Mild (1-3) Last Admin: 05/05/18 10:37 Dose: 650 mg Aspirin (Ecotrin) 81 mg PO DAILY [facility] Last Admin: 04/30/18 09:45 Dose: 81 mg Dextrose (Dextrose 50% Inj) 50 ml IVP ONCE PRN PRN Reason: Hypoglycemia Dextrose (Dextrose 50% Inj) 0 ml IV STAT PRN; Protocol PRN Reason: Hypoglycemia Protocol Dextrose (Glutose 15) 0 gm PO ONCE PRN; Protocol PRN Reason: Hypoglycemia Protocol Diphenhydramine HCl (Benadryl) 25 mg PO HS PRN PRN Reason: Insomnia Last Admin: 05/05/18 23:40 Dose: 25 mg Glucagon (Glucagen Diagnostic Kit) 0 mg IM STAT PRN; Protocol PRN Reason: Hypoglycemia Protocol Heparin Sodium (Porcine) (Heparin) 5,000 units SC Q8 [facility] Last Admin: 05/04/18 06:03 Dose: Not Given Meropenem 500 mg/ Sodium (Chloride) 100 mls @ 100 mls/hr IVPB DAILY@2200 [facility]; Protocol Last Admin: 05/05/18 21:33 Dose: 100 mls/hr Dextrose (Dextrose 5% In Water 1000 Ml) 1,000 mls @ 0 mls/hr IV .Q0M PRN; Protocol PRN Reason: Hypoglycemia Protocol Vancomycin HCl 500 mg/ Sodium (Chloride) 100 mls @ 100 mls/hr IVPB MWF [facility]; Protocol Last Admin: 05/05/18 16:17 Dose: Not Given Insulin Human Regular (Novolin R) 0 unit SC [facility]; Protocol Last Admin: 05/06/18 19:03 Dose: 4 units Latanoprost (Xalatan Opht) 1 ml OU [facility] Last Admin: 05/05/18 21:33 Dose: 1 ml Levothyroxine Sodium (Synthroid) 25 mcg PO 0630 [facility] Last Admin: 05/06/18 06:32 Dose: 25 mcg Loratadine (Claritin) 10 mg PO [facility] Last Admin: 05/05/18 21:32 Dose: 10 mg Metoprolol Tartrate (Lopressor) 25 mg PO BID [facility] Last Admin: 05/06/18 19:02 Dose: 25 mg Montelukast Sodium (Singulair) 10 mg PO [facility] Last Admin: 05/05/18 21:32 Dose: 10 mg Multivitamins (Hexavitamin) 1 tab PO DAILY [facility] Last Admin: 05/06/18 09:55 Dose: 1 tab Vzcay-2-[id number] Ethyl Esters (Lovaza) 2 gm PO BID [facility] Last Admin: 05/06/18 19:01 Dose: 2 gm Ondansetron HCl (Zofran Inj) 4 mg IVP Q6 PRN PRN Reason: Nausea/Vomiting Last Admin: 05/06/18 08:16 Dose: 4 mg Oxycodone/Acetaminophen (Percocet 5/325 Mg Tab) 1 tab PO Q4H PRN PRN Reason: Pain, moderate (4-7) Stop: 05/08/18 13:51 Last Admin: 05/06/18 05:05 Dose: 1 tab Pregabalin (Lyrica) 50 mg PO [facility] Last Admin: 05/05/18 21:32 Dose: 50 mg Rosuvastatin Calcium (Crestor) 10 mg PO [facility] Last Admin: 05/05/18 21:32 Dose: 10 mg Sevelamer Carbonate (Renvela) 2,400 mg PO ACTID [facility] Last Admin: 05/06/18 19:02 Dose: 2,400 mg Simethicone (Mylicon Chew Tab) 80 mg PO QID [facility] Last Admin: 05/06/18 20:36 Dose: 80 mg - Labs Labs: 05/06/18 07:03 05/06/18 07:03 PT 17.3 SECONDS (9.7-12.2) H 05/05/18 08:56 INR 1.6 05/05/18 08:56 APTT 36 SECONDS (21-34) H 05/05/18 08:56 Assessment and Plan - Assessment and Plan (Free Text) Assessment: (1) ESRD on hemodialysis Assessment & Plan: Stable volume and electrolyte status; lower ext edema improving; has been tolerating 3.5-4L UF on HD; next HD for Tuesday; Status: Chronic (2) Steal syndrome dialysis vascular access Assessment & Plan: Needs DRIL procedure to try to corret steal; concern from hematology regarding possible inhibitor in blood which can cause uncontrolled bleeding; mixing study sent and awaiting results; -Re-dose antibiotics (vanco and meropenem) following HD; Status: Acute (3) Anemia in CKD (chronic kidney disease) Assessment & Plan: Hgb below goal, EPO given today; Status: Acute (4) Chronic kidney disease-mineral and bone disorder Assessment & Plan: Phos midly elevated, continue sevelamer 3 tabs; Status: Chronic (5) Hypertensive CKD, ESRD on dialysis Status: Chronic
[2018-05-06] MEDS: Latanoprost 2.5 ml Opht Soln OU SCH (22:58)
[2018-05-06] MEDS: Meropenem 500 MG in Sodium Chloride 0.9% 100 ML IVPB SCH (23:00)
[2018-05-07] MEDS: Oxycodone/Acetaminophen 5/325 mg Tab PO PRN ×2 (00:58→04:59)
[2018-05-07 05:18] LABS: CARDIOLIPIN AB (IGA) <11 APL (<=11); CARDIOLIPIN AB (IGG) <14 GPL (<=14)
[2018-05-07] MEDS: Levothyroxine 25 MCG TAB PO SCH (05:44)
[2018-05-07 07:31] LABS: BASO # 0.1 K/uL (0.0-0.2); EOS # 0.1 K/uL (0.0-0.7); EOS % 1.7 % (0.0-4.0); HEMOGLOBIN 9.7 g/dL (12.0-18.0); INR 1.7; LYMPH # 1.4 K/uL (1.0-4.3); LYMPH % 22.7 % (20.0-40.0); MEAN CELL VOLUME 101.6 fL (80.0-94.0); MEAN CORPUSCULAR HEMOGLOBIN 33.8 pg (27.0-31.0); MEAN CORPUSCULAR HGB CONC 33.3 g/dL (33.0-37.0); MEAN PLATELET VOLUME 11.8 fL (7.2-11.7); MONO # 0.7 K/uL (0.0-0.8); MONO % 11.4 % (0.0-10.0); NEUT # 3.8 K/uL (1.8-7.0); NEUT % 63.2 % (50.0-75.0); NRBC % 0.3 % (0.0-2.0); PROTHROMBIN TIME 18.4 SECONDS (9.7-12.2); RBC 2.86 Mil/uL (4.40-5.90); RED CELL DISTRIBUTION WIDTH 20.5 % (11.5-14.5)
[2018-05-07 08:00] LABS: ALB/GLOB RATIO 0.8 (1.0-2.1); ALBUMIN 3.1 g/dL (3.5-5.0); CALCIUM 8.7 mg/dl (8.6-10.4)
[2018-05-07] MEDS: (Novolin R) Insulin Human Regular 100 units/ml vial SC SCH ×4 (08:30→21:49)
--- NOTE | 2018-05-07 09:05 | CP.PCM.PN ---
Subjective - Date & Time of Evaluation Date of Evaluation: 05/07/18 Time of Evaluation: 05:00 - Subjective Subjective: PGY-1 progress note for hospitalist. Patient seen and examined at bedside. Patient's peripheral line was lost yesterday. Many attempts have been made to insert a new IV line without success. Patient now refusing due to multiple attempts. Missed a dose of IV merrem yesterday. Patient states he is tired of having pain all over his body. Denies fever, chills, abdominal pain, diarrhea. Objective - Vital Signs/Intake and Output Vital Signs (last 24 hours): Temp Pulse Resp BP Pulse Ox 97.4 F L 63 20 123/56 L 100 05/07/18 08:27 05/07/18 08:27 05/07/18 08:27 05/07/18 08:27 05/07/18 08:27 Intake and Output: 05/07/18 05/07/18 06:59 18:59 Intake Total 100 Balance 100 - Medications Medications: Current Medications Acetaminophen (Tylenol 325mg Tab) 650 mg PO Q4 PRN PRN Reason: Pain, Mild (1-3) Last Admin: 05/05/18 10:37 Dose: 650 mg Aspirin (Ecotrin) 81 mg PO DAILY [facility] Last Admin: 04/30/18 09:45 Dose: 81 mg Dextrose (Dextrose 50% Inj) 50 ml IVP ONCE PRN PRN Reason: Hypoglycemia Dextrose (Dextrose 50% Inj) 0 ml IV STAT PRN; Protocol PRN Reason: Hypoglycemia Protocol Dextrose (Glutose 15) 0 gm PO ONCE PRN; Protocol PRN Reason: Hypoglycemia Protocol Diphenhydramine HCl (Benadryl) 25 mg PO HS PRN PRN Reason: Insomnia Last Admin: 05/07/18 00:56 Dose: 25 mg Glucagon (Glucagen Diagnostic Kit) 0 mg IM STAT PRN; Protocol PRN Reason: Hypoglycemia Protocol Heparin Sodium (Porcine) (Heparin) 5,000 units SC Q8 [facility] Last Admin: 05/04/18 06:03 Dose: Not Given Meropenem 500 mg/ Sodium (Chloride) 100 mls @ 100 mls/hr IVPB DAILY@2200 [facility]; Protocol Last Admin: 05/06/18 23:00 Dose: Not Given Dextrose (Dextrose 5% In Water 1000 Ml) 1,000 mls @ 0 mls/hr IV .Q0M PRN; Protocol PRN Reason: Hypoglycemia Protocol Vancomycin HCl 500 mg/ Sodium (Chloride) 100 mls @ 100 mls/hr IVPB MWF [facility]; Protocol Last Admin: 05/05/18 16:17 Dose: Not Given Insulin Human Regular (Novolin R) 0 unit SC ACHS [facility]; Protocol Last Admin: 05/07/18 08:30 Dose: 2 units Latanoprost (Xalatan Opht) 1 ml OU [facility] Last Admin: 05/06/18 22:58 Dose: Not Given Levothyroxine Sodium (Synthroid) 25 mcg PO 30 [facility] Last Admin: 05/07/18 05:44 Dose: 25 mcg Loratadine (Claritin) 10 mg PO [facility] Last Admin: 05/06/18 22:55 Dose: 10 mg Metoprolol Tartrate (Lopressor) 25 mg PO BID [facility] Last Admin: 05/06/18 19:02 Dose: 25 mg Montelukast Sodium (Singulair) 10 mg PO [facility] Last Admin: 05/06/18 22:55 Dose: 10 mg Multivitamins (Hexavitamin) 1 tab PO DAILY [facility] Last Admin: 05/06/18 09:55 Dose: 1 tab Krkcn-5-Lmod Ethyl Esters (Lovaza) 2 gm PO BID [facility] Last Admin: 05/06/18 19:01 Dose: 2 gm Ondansetron HCl (Zofran Inj) 4 mg IVP Q6 PRN PRN Reason: Nausea/Vomiting Last Admin: 05/06/18 08:16 Dose: 4 mg Oxycodone/Acetaminophen (Percocet 5/325 Mg Tab) 1 tab PO Q4H PRN PRN Reason: Pain, moderate (4-7) Stop: 05/08/18 13:51 Last Admin: 05/07/18 04:59 Dose: 1 tab Pregabalin (Lyrica) 50 mg PO [facility] Last Admin: 05/06/18 22:55 Dose: 50 mg Rosuvastatin Calcium (Crestor) 10 mg PO HS [facility] Last Admin: 05/06/18 22:55 Dose: 10 mg Sevelamer Carbonate (Renvela) 2,400 mg PO ACTID [facility] Last Admin: 05/07/18 08:30 Dose: 2,400 mg Simethicone (Mylicon Chew Tab) 80 mg PO QID [facility] Last Admin: 05/06/18 22:55 Dose: 80 mg - Labs Labs: 05/07/18 07:16 05/07/18 07:16 PT 18.4 SECONDS (9.7-12.2) H 05/07/18 07:16 INR 1.7 05/07/18 07:16 APTT 37 SECONDS (21-34) H 05/07/18 07:16 - Additional Findings Additional findings: - Constitutional Appears: Non-toxic, No Acute Distress - Head Exam Head Exam: ATRAUMATIC, NORMOCEPHALIC - Eye Exam Eye Exam: EOMI, PERRL - ENT Exam ENT Exam: Mucous Membranes Moist - Neck Exam Neck Exam: Full ROM, Normal Inspection - Respiratory Exam Respiratory Exam: Clear to Ausculation Bilateral, NORMAL BREATHING PATTERN. absent: Rales, Rhonchi, Wheezes - Cardiovascular Exam Cardiovascular Exam: +S1, +S2 - GI/Abdominal Exam GI & Abdominal Exam: Soft. absent: Guarding, Rigid, Tenderness, Rebound - Extremities Exam Additional comments: Dressing noted to L 3rd finger, + tender to palpation, L AV fistula, R BKA - Neurological Exam Neurological Exam: Alert, Awake, oriented x3 - Psychiatric Exam Psychiatric exam: Anxious - Skin Skin Exam: Dry, Normal Color, Warm Assessment and Plan - Assessment and Plan (Free Text) Plan: 52 y o male PMhx ESRD on HD, PAD, CAD, COPD, CHF, pacemaker placement who presented as direct admit from [facility] to [facility] for possible DRIL of L middle finger with Dr. Burden. Plan: L necrotic 3rd finger 2/2 Dialysis associated steal syndrome Possible OR tomorrow [place] (Dr. Gaming) [place] [facility] [place] significant retrograde flow in L brachial artery distal to AV fistula anastomosis, likely represents steal syndrome; calcified but patent L radial and interosseous arteries, L ulnar artery diffusely diseased, significant L metacarpal and digital small vessel disease, pt may benefit from DRIL procedure. Percocet prn for pain control Dr. Foster consulted (ID), recs appreciated C/w Meropenem 500 mg daily; Vanco 500 mg MWF (renally dosed) added by Dr. Foster (1st dose given 04/30) L [place] [facility] [place] no signs of osteomyelitis Surgery consulted (Dr. Burden), recs appreciated OR postponed for possible Mon/Tu05/08 or 05/09 for DRIL +/or amputation pending INR of <1.5 Pt cleared by cardiology [place] [facility] [place] for procedure, deemed moderate risk for low-risk procedure Dr. Powell, Hematology, consulted. Help appreciated. Mixing study-pending Coags daily ESRD On HD -Dialysis (MWF) -Dr. Penny consulted (Nephrology) recs appreciated IDDM -Need to control sugars <200 for OR -Home insulin held until pt post-op after procedure -C/w high sliding scale -Fingersticks achs -HHD -Zofran prn for nausea Hx CAD s/p stents C/w ASA, Crestor 10 mg PO hs Hx hypothyroidism C/w synthroid daily Hx HTN Metoprolol 25 mg PO bid DVT ppx: Heparin 5000U subQ [id number] GI ppx: not indicated at this time.
--- NOTE | 2018-05-07 09:47 | CP.PCM.PN ---
Subjective - Date & Time of Evaluation Date of Evaluation: 05/07/18 Time of Evaluation: 07:30 - Subjective Subjective: Vascular surgery progress note for Dr. Burden Pt seen and examined overnight. Pt reports pain in left hand/finger unchanged, denies fevers, nausea, or any other symptoms. Objective - Vital Signs/Intake and Output Vital Signs (last 24 hours): Temp Pulse Resp BP Pulse Ox 97.4 F L 63 20 123/56 L 100 05/07/18 08:27 05/07/18 08:27 05/07/18 08:27 05/07/18 08:27 05/07/18 08:27 Intake and Output: 05/07/18 05/07/18 06:59 18:59 Intake Total 100 Balance 100 - Medications Medications: Current Medications Acetaminophen (Tylenol 325mg Tab) 650 mg PO Q4 PRN PRN Reason: Pain, Mild (1-3) Last Admin: 05/05/18 10:37 Dose: 650 mg Aspirin (Ecotrin) 81 mg PO DAILY [facility] Last Admin: 04/30/18 09:45 Dose: 81 mg Dextrose (Dextrose 50% Inj) 50 ml IVP ONCE PRN PRN Reason: Hypoglycemia Dextrose (Dextrose 50% Inj) 0 ml IV STAT PRN; Protocol PRN Reason: Hypoglycemia Protocol Dextrose (Glutose 15) 0 gm PO ONCE PRN; Protocol PRN Reason: Hypoglycemia Protocol Diphenhydramine HCl (Benadryl) 25 mg PO HS PRN PRN Reason: Insomnia Last Admin: 05/07/18 00:56 Dose: 25 mg Glucagon (Glucagen Diagnostic Kit) 0 mg IM STAT PRN; Protocol PRN Reason: Hypoglycemia Protocol Heparin Sodium (Porcine) (Heparin) 5,000 units SC Q8 [facility] Last Admin: 05/04/18 06:03 Dose: Not Given Meropenem 500 mg/ Sodium (Chloride) 100 mls @ 100 mls/hr IVPB DAILY@2200 [facility]; Protocol Last Admin: 05/06/18 23:00 Dose: Not Given Dextrose (Dextrose 5% In Water 1000 Ml) 1,000 mls @ 0 mls/hr IV .Q0M PRN; Protocol PRN Reason: Hypoglycemia Protocol Vancomycin HCl 500 mg/ Sodium (Chloride) 100 mls @ 100 mls/hr IVPB MWF [facility]; Protocol Last Admin: 05/05/18 16:17 Dose: Not Given Insulin Human Regular (Novolin R) 0 unit SC ACHS [facility]; Protocol Last Admin: 05/07/18 08:30 Dose: 2 units Latanoprost (Xalatan Opht) 1 ml OU [facility] Last Admin: 05/06/18 22:58 Dose: Not Given Levothyroxine Sodium (Synthroid) 25 mcg PO 0630 [facility] Last Admin: 05/07/18 05:44 Dose: 25 mcg Loratadine (Claritin) 10 mg PO [facility] Last Admin: 05/06/18 22:55 Dose: 10 mg Metoprolol Tartrate (Lopressor) 25 mg PO BID [facility] Last Admin: 05/06/18 19:02 Dose: 25 mg Montelukast Sodium (Singulair) 10 mg PO [facility] Last Admin: 05/06/18 22:55 Dose: 10 mg Multivitamins (Hexavitamin) 1 tab PO DAILY [facility] Last Admin: 05/06/18 09:55 Dose: 1 tab Flwwl-1-Rofv Ethyl Esters (Lovaza) 2 gm PO BID [facility] Last Admin: 05/06/18 19:01 Dose: 2 gm Ondansetron HCl (Zofran Inj) 4 mg IVP Q6 PRN PRN Reason: Nausea/Vomiting Last Admin: 05/06/18 08:16 Dose: 4 mg Oxycodone/Acetaminophen (Percocet 5/325 Mg Tab) 1 tab PO Q4H PRN PRN Reason: Pain, moderate (4-7) Stop: 05/08/18 13:51 Last Admin: 05/07/18 04:59 Dose: 1 tab Phytonadione (Vitamin K Tab) 5 mg PO DAILY [facility] Pregabalin (Lyrica) 50 mg PO [facility] Last Admin: 05/06/18 22:55 Dose: 50 mg Rosuvastatin Calcium (Crestor) 10 mg PO [facility] Last Admin: 05/06/18 22:55 Dose: 10 mg Sevelamer Carbonate (Renvela) 2,400 mg PO ACTID [facility] Last Admin: 05/07/18 08:30 Dose: 2,400 mg Simethicone (Mylicon Chew Tab) 80 mg PO QID [facility] Last Admin: 05/06/18 22:55 Dose: 80 mg - Labs Labs: 05/07/18 07:16 10/07/18 07:16 PT 18.4 SECONDS (9.7-12.2) H 05/07/18 07:16 INR 1.7 05/07/18 07:16 APTT 37 SECONDS (21-34) H 05/07/18 07:16 - Constitutional Appears: Well, Non-toxic, No Acute Distress - Head Exam Head Exam: ATRAUMATIC, NORMOCEPHALIC - Eye Exam Eye Exam: Normal appearance. absent: Conjunctival injection, Scleral icterus - ENT Exam ENT Exam: Mucous Membranes Moist, Normal Oropharynx - Respiratory Exam Respiratory Exam: Wheezes. absent: Accessory Muscle Use, Respiratory Distress - Cardiovascular Exam Cardiovascular Exam: RRR - GI/Abdominal Exam GI & Abdominal Exam: Soft. absent: Distended, Tenderness - Extremities Exam Additional comments: right leg s/p amputation, dressing C/d/i. Left 3rd finger with bandage C/D/I, proximal finger with normal color, sensation intact, motor function intact - Neurological Exam Neurological Exam: Alert, Awake, Oriented x3 - Psychiatric Exam Psychiatric exam: Normal Affect, Normal Mood - Skin Skin Exam: Dry, Normal Color, Warm Assessment and Plan - Assessment and Plan (Free Text) Assessment: 52F with steal syndrome from left arm AVF causing left finger necrosis Plan: administer vit K today F/U INR--up to 1.7 this AM OR for revision of left AVF if INR 1.5 or below tomorrow NPO after midnight PRN pain medication Discusse w/Dr. Jenise Gonzalez, PGY2
[2018-05-07] MEDS: Multiple Vitamins Tab PO SCH (10:30)
[2018-05-07] MEDS: Omega-3-Acid Ethyl Esters 1 GM Cap PO SCH ×2 (10:33→17:15)
[2018-05-07] MEDS: Simethicone 80 mg Chewtab PO SCH ×3 (10:33→23:21)
--- NOTE | 2018-05-07 16:52 | CP.PCM.PN ---
Subjective - Date & Time of Evaluation Date of Evaluation: 05/07/18 Time of Evaluation: 08:00 - Subjective Subjective: await left av fistula revision infection/ cellulitis improved necrotic left 3rd digit remains iv rx renewed Objective - Vital Signs/Intake and Output Vital Signs (last 24 hours): Temp Pulse Resp BP Pulse Ox 98.2 F 65 20 127/78 97 05/07/18 15:00 05/07/18 15:00 05/07/18 15:00 05/07/18 15:00 05/07/18 15:00 Intake and Output: 05/07/18 05/07/18 06:59 18:59 Intake Total 100 600 Balance 100 600 - Medications Medications: Current Medications Acetaminophen (Tylenol 325mg Tab) 650 mg PO Q4 PRN PRN Reason: Pain, Mild (1-3) Last Admin: 05/05/18 10:37 Dose: 650 mg Aspirin (Ecotrin) 81 mg PO DAILY [facility] Last Admin: 04/30/18 09:45 Dose: 81 mg Dextrose (Dextrose 50% Inj) 50 ml IVP ONCE PRN PRN Reason: Hypoglycemia Dextrose (Dextrose 50% Inj) 0 ml IV STAT PRN; Protocol PRN Reason: Hypoglycemia Protocol Dextrose (Glutose 15) 0 gm PO ONCE PRN; Protocol PRN Reason: Hypoglycemia Protocol Diphenhydramine HCl (Benadryl) 25 mg PO HS PRN PRN Reason: Insomnia Last Admin: 05/07/18 00:56 Dose: 25 mg Glucagon (Glucagen Diagnostic Kit) 0 mg IM STAT PRN; Protocol PRN Reason: Hypoglycemia Protocol Heparin Sodium (Porcine) (Heparin) 5,000 units SC Q8 [facility] Last Admin: 05/04/18 06:03 Dose: Not Given Meropenem 500 mg/ Sodium (Chloride) 100 mls @ 100 mls/hr IVPB DAILY@2200 [facility]; Protocol Last Admin: 05/06/18 23:00 Dose: Not Given Dextrose (Dextrose 5% In Water 1000 Ml) 1,000 mls @ 0 mls/hr IV .Q0M PRN; Protocol PRN Reason: Hypoglycemia Protocol Vancomycin HCl 500 mg/ Sodium (Chloride) 100 mls @ 100 mls/hr IVPB MWF [facility]; Protocol Last Admin: 05/05/18 16:17 Dose: Not Given Desmopressin Acetate 25 mcg/ (Sodium Chloride) 56.25 mls @ 100 mls/hr IV ONCE ONE Stop: 05/08/18 03:33 Insulin Glargine (Lantus) 15 unit SC QPM [facility] Insulin Human Regular (Novolin R) 0 unit SC ACHS [facility]; Protocol Last Admin: 05/07/18 12:22 Dose: 2 units Latanoprost (Xalatan Opht) 1 ml OU [facility] Last Admin: 05/06/18 22:58 Dose: Not Given Levothyroxine Sodium (Synthroid) 25 mcg PO 0630 [facility] Last Admin: 05/07/18 05:44 Dose: 25 mcg Loratadine (Claritin) 10 mg PO HS [facility] Last Admin: 05/06/18 22:55 Dose: 10 mg Metoprolol Tartrate (Lopressor) 25 mg PO BID [facility] Last Admin: 05/07/18 10:34 Dose: 25 mg Montelukast Sodium (Singulair) 10 mg PO [facility] Last Admin: 05/06/18 22:55 Dose: 10 mg Multivitamins (Hexavitamin) 1 tab PO DAILY [facility] Last Admin: 05/07/18 10:30 Dose: 1 tab Dtuec-1-[id number] Ethyl Esters (Lovaza) 2 gm PO BID [facility] Last Admin: 05/07/18 10:33 Dose: 2 gm Ondansetron HCl (Zofran Inj) 4 mg IVP Q6 PRN PRN Reason: Nausea/Vomiting Last Admin: 05/07/18 14:40 Dose: 4 mg Oxycodone/Acetaminophen (Percocet 5/325 Mg Tab) 1 tab PO Q4H PRN PRN Reason: Pain, moderate (4-7) Stop: 05/08/18 13:51 Last Admin: 05/07/18 04:59 Dose: 1 tab Phytonadione (Vitamin K Tab) 5 mg PO DAILY [facility] Last Admin: 05/07/18 10:29 Dose: 5 mg Pregabalin (Lyrica) 50 mg PO [facility] Last Admin: 05/06/18 22:55 Dose: 50 mg Rosuvastatin Calcium (Crestor) 10 mg PO HS [facility] Last Admin: 05/06/18 22:55 Dose: 10 mg Sevelamer Carbonate (Renvela) 2,400 mg PO ACTID [facility] Last Admin: 05/07/18 12:21 Dose: 2,400 mg Simethicone (Mylicon Chew Tab) 80 mg PO QID [facility] Last Admin: 05/07/18 10:33 Dose: 80 mg - Labs Labs: 05/07/18 07:16 05/07/18 07:16 PT 18.4 SECONDS (9.7-12.2) H 05/07/18 07:16 INR 1.7 05/07/18 07:16 APTT 37 SECONDS (21-34) H 05/07/18 07:16 - Constitutional Appears: Non-toxic, Chronically Ill - Head Exam Head Exam: NORMOCEPHALIC - Eye Exam Eye Exam: PERRL - ENT Exam ENT Exam: Mucous Membranes Dry - Neck Exam Neck Exam: absent: Lymphadenopathy - Respiratory Exam Respiratory Exam: Decreased Breath Sounds - Cardiovascular Exam Cardiovascular Exam: REGULAR RHYTHM - GI/Abdominal Exam GI & Abdominal Exam: Distended, Soft - Rectal Exam Rectal Exam: Deferred - Exam Exam: NORMAL INSPECTION Assessment and Plan (1) Steal syndrome dialysis vascular access Status: Acute (2) Anemia in CKD (chronic kidney disease) Status: Acute - Assessment and Plan (Free Text) Assessment: iv rx renewed may need amputation of digit
[2018-05-07] MEDS: (Lantus) Insulin Glargine, Recombinant SC SCH (17:26)
--- NOTE | 2018-05-07 21:49 | CP.PCM.PN ---
Subjective - Date & Time of Evaluation Date of Evaluation: 05/06/18 Time of Evaluation: 17:00 - Subjective Subjective: No complaints, family at bedside discussed with Dr. Islas. Objective - Vital Signs/Intake and Output Vital Signs (last 24 hours): Temp Pulse Resp BP Pulse Ox 98.2 F 65 20 127/78 97 05/07/18 15:00 05/07/18 15:00 05/07/18 15:00 05/07/18 17:14 05/07/18 15:00 Intake and Output: 05/07/18 05/08/18 18:59 06:59 Intake Total 600 Balance 600 - Medications Medications: Current Medications Acetaminophen (Tylenol 325mg Tab) 650 mg PO Q4 PRN PRN Reason: Pain, Mild (1-3) Last Admin: 05/05/18 10:37 Dose: 650 mg Aspirin (Ecotrin) 81 mg PO DAILY [facility] Last Admin: 04/30/18 09:45 Dose: 81 mg Dextrose (Dextrose 50% Inj) 50 ml IVP ONCE PRN PRN Reason: Hypoglycemia Dextrose (Dextrose 50% Inj) 0 ml IV STAT PRN; Protocol PRN Reason: Hypoglycemia Protocol Dextrose (Glutose 15) 0 gm PO ONCE PRN; Protocol PRN Reason: Hypoglycemia Protocol Diphenhydramine HCl (Benadryl) 25 mg PO HS PRN PRN Reason: Insomnia Last Admin: 05/07/18 00:56 Dose: 25 mg Glucagon (Glucagen Diagnostic Kit) 0 mg IM STAT PRN; Protocol PRN Reason: Hypoglycemia Protocol Heparin Sodium (Porcine) (Heparin) 5,000 units SC Q8 [facility] Last Admin: 05/04/18 06:03 Dose: Not Given Meropenem 500 mg/ Sodium (Chloride) 100 mls @ 100 mls/hr IVPB DAILY@2200 [facility]; Protocol Last Admin: 05/06/18 23:00 Dose: Not Given Dextrose (Dextrose 5% In Water 1000 Ml) 1,000 mls @ 0 mls/hr IV .Q0M PRN; Hector col PRN Reason: Hypoglycemia Protocol Vancomycin HCl 500 mg/ Sodium (Chloride) 100 mls @ 100 mls/hr IVPB MWF [facility]; Protocol Last Admin: 05/05/18 16:17 Dose: Not Given Desmopressin Acetate 25 mcg/ (Sodium Chloride) 56.25 mls @ 100 mls/hr IV ONCE ONE Stop: 05/08/18 03:33 Insulin Glargine (Lantus) 15 unit SC QPM [facility] Last Admin: 05/07/18 17:26 Dose: Not Given Insulin Human Regular (Novolin R) 0 unit SC ACHS [facility]; Protocol Last Admin: 05/07/18 17:15 Dose: Not Given Latanoprost (Xalatan Opht) 1 ml OU [facility] Last Admin: 05/06/18 22:58 Dose: Not Given Levothyroxine Sodium (Synthroid) 25 mcg PO 0630 [facility] Last Admin: 05/07/18 05:44 Dose: 25 mcg Loratadine (Claritin) 10 mg PO HS [facility] Last Admin: 05/06/18 22:55 Dose: 10 mg Metoprolol Tartrate (Lopressor) 25 mg PO BID [facility] Last Admin: 05/07/18 17:14 Dose: 25 mg Montelukast Sodium (Singulair) 10 mg PO [facility] Last Admin: 05/06/18 22:55 Dose: 10 mg Multivitamins (Hexavitamin) 1 tab PO DAILY [facility] Last Admin: 05/07/18 10:30 Dose: 1 tab Reqbs-0-Jijc Ethyl Esters (Lovaza) 2 gm PO BID [facility] Last Admin: 05/07/18 17:15 Dose: 2 gm Ondansetron HCl (Zofran Inj) 4 mg IVP Q6 PRN PRN Reason: Nausea/Vomiting Last Admin: 05/07/18 14:40 Dose: 4 mg Oxycodone/Acetaminophen (Percocet 5/325 Mg Tab) 1 tab PO Q4H PRN PRN Reason: Pain, moderate (4-7) Stop: 05/08/18 13:51 Last Admin: 05/07/18 04:59 Dose: 1 tab Phytonadione (Vitamin K Tab) 5 mg PO DAILY [facility] Last Admin: 05/07/18 10:29 Dose: 5 mg Pregabalin (Lyrica) 50 mg PO [facility] Last Admin: 05/06/18 22:55 Dose: 50 mg Rosuvastatin Calcium (Crestor) 10 mg PO HS [facility] Last Admin: 05/06/18 22:55 Dose: 10 mg Sevelamer Carbonate (Renvela) 2,400 mg PO ACTID [facility] Last Admin: 05/07/18 17:14 Dose: 2,400 mg Simethicone (Mylicon Chew Tab) 80 mg PO QID [facility] Last Admin: 05/07/18 17:14 Dose: 80 mg - Labs Labs: 05/07/18 07:16 05/07/18 07:16 PT 18.4 SECONDS (9.7-12.2) H 05/07/18 07:16 INR 1.7 05/07/18 07:16 APTT 37 SECONDS (21-34) H 05/07/18 07:16 - Head Exam Head Exam: ATRAUMATIC - Eye Exam Eye Exam: Normal appearance - ENT Exam ENT Exam: Mucous Membranes Dry - Respiratory Exam Respiratory Exam: NORMAL BREATHING PATTERN - Cardiovascular Exam Cardiovascular Exam: +S1, +S2 - GI/Abdominal Exam GI & Abdominal Exam: Normal Bowel Sounds Assessment and Plan (1) Coagulopathy Assessment & Plan: mixing study suggestive of factor deficiency likely nutritional; redose vit k FFP as need to correct coagulopathy for surgical procedure - should be hopper sfused with good IV access coags should nromalize with vit k and FFP cleared for OR for INR < 1.5 Status: Acute (2) Thrombocytopenia Assessment & Plan: likely acute illness 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
--- NOTE | 2018-05-07 21:50 | CP.PCM.PN ---
Subjective - Date & Time of Evaluation Date of Evaluation: 05/07/18 Time of Evaluation: 18:00 - Subjective Subjective: No complaints. Objective - Vital Signs/Intake and Output Vital Signs (last 24 hours): Temp Pulse Resp BP Pulse Ox 98.2 F 65 20 127/78 97 05/07/18 15:00 05/07/18 15:00 05/07/18 15:00 05/07/18 17:14 05/07/18 15:00 Intake and Output: 05/07/18 05/08/18 18:59 06:59 Intake Total 600 Balance 600 - Medications Medications: Current Medications Acetaminophen (Tylenol 325mg Tab) 650 mg PO Q4 PRN PRN Reason: Pain, Mild (1-3) Last Admin: 05/05/18 10:37 Dose: 650 mg Aspirin (Ecotrin) 81 mg PO DAILY [facility] Last Admin: 04/30/18 09:45 Dose: 81 mg Dextrose (Dextrose 50% Inj) 50 ml IVP ONCE PRN PRN Reason: Hypoglycemia Dextrose (Dextrose 50% Inj) 0 ml IV STAT PRN; Protocol PRN Reason: Hypoglycemia Protocol Dextrose (Glutose 15) 0 gm PO ONCE PRN; Protocol PRN Reason: Hypoglycemia Protocol Diphenhydramine HCl (Benadryl) 25 mg PO HS PRN PRN Reason: Insomnia Last Admin: 05/07/18 00:56 Dose: 25 mg Glucagon (Glucagen Diagnostic Kit) 0 mg IM STAT PRN; Protocol PRN Reason: Hypoglycemia Protocol Heparin Sodium (Porcine) (Heparin) 5,000 units SC Q8 [facility] Last Admin: 05/04/18 06:03 Dose: Not Given Meropenem 500 mg/ Sodium (Chloride) 100 mls @ 100 mls/hr IVPB DAILY@2200 [facility]; Protocol Last Admin: 05/06/18 23:00 Dose: Not Given Dextrose (Dextrose 5% In Water 1000 Ml) 1,000 mls @ 0 mls/hr IV .Q0M PRN; Protocol PRN Reason: Hypoglycemia Protocol Vancomycin HCl 500 mg/ Sodium (Chloride) 100 mls @ 100 mls/hr IVPB MWF [facility]; Protocol Last Admin: 05/05/18 16:17 Dose: Not Given Desmopressin Acetate 25 mcg/ (Sodium Chloride) 56.25 mls @ 100 mls/hr IV ONCE ONE Stop: 05/08/18 03:33 Insulin Glargine (Lantus) 15 unit SC QPM [facility] Last Admin: 05/07/18 17:26 Dose: Not Given Insulin Human Regular (Novolin R) 0 unit SC ACHS [facility]; Protocol Last Admin: 05/07/18 17:15 Dose: Not Given Latanoprost (Xalatan Opht) 1 ml OU [facility] Last Admin: 05/06/18 22:58 Dose: Not Given Levothyroxine Sodium (Synthroid) 25 mcg PO 0630 [facility] Last Admin: 05/07/18 05:44 Dose: 25 mcg Loratadine (Claritin) 10 mg PO HS [facility] Last Admin: 05/06/18 22:55 Dose: 10 mg Metoprolol Tartrate (Lopressor) 25 mg PO BID [facility] Last Admin: 05/07/18 17:14 Dose: 25 mg Montelukast Sodium (Singulair) 10 mg PO [facility] Last Admin: 05/06/18 22:55 Dose: 10 mg Multivitamins (Hexavitamin) 1 tab PO DAILY [facility] Last Admin: 05/07/18 10:30 Dose: 1 tab Neifa-3-Pfvr Ethyl Esters (Lovaza) 2 gm PO BID [facility] Last Admin: 05/07/18 17:15 Dose: 2 gm Ondansetron HCl (Zofran Inj) 4 mg IVP Q6 PRN PRN Reason: Nausea/Vomiting Last Admin: 05/07/18 14:40 Dose: 4 mg Oxycodone/Acetaminophen (Percocet 5/325 Mg Tab) 1 tab PO Q4H PRN PRN Reason: Pain, moderate (4-7) Stop: 05/08/18 13:51 Last Admin: 05/07/18 04:59 Dose: 1 tab Phytonadione (Vitamin K Tab) 5 mg PO DAILY [facility] Last Admin: 05/07/18 10:29 Dose: 5 mg Pregabalin (Lyrica) 50 mg PO [facility] Last Admin: 05/06/18 22:55 Dose: 50 mg Rosuvastatin Calcium (Crestor) 10 mg PO HS [facility] Last Admin: 05/06/18 22:55 Dose: 10 mg Sevelamer Carbonate (Renvela) 2,400 mg PO ACTID [facility] Last Admin: 05/07/18 17:14 Dose: 2,400 mg Simethicone (Mylicon Chew Tab) 80 mg PO QID [facility] Last Admin: 05/07/18 17:14 Dose: 80 mg - Labs Labs: 05/07/18 07:16 05/07/18 07:16 PT 18.4 SECONDS (9.7-12.2) H 05/07/18 07:16 INR 1.7 05/07/18 07:16 APTT 37 SECONDS (21-34) H 05/07/18 07:16 - Head Exam Head Exam: ATRAUMATIC - Eye Exam Eye Exam: Normal appearance - ENT Exam ENT Exam: Mucous Membranes Dry - Respiratory Exam Respiratory Exam: NORMAL BREATHING PATTERN - Cardiovascular Exam Cardiovascular Exam: +S1, +S2 - GI/Abdominal Exam GI & Abdominal Exam: Normal Bowel Sounds Assessment and Plan (1) Coagulopathy Assessment & Plan: 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
[2018-05-07] MEDS: Latanoprost 2.5 ml Opht Soln OU SCH (22:26)
[2018-05-07] MEDS: Meropenem 500 MG in Sodium Chloride 0.9% 100 ML IVPB SCH (22:26)
[2018-05-08 02:57] LABS: PHOSPHATIDYLSERINE AB IGG <10 U/mL (<10); PHOSPHATIDYLSERINE AB IGM <25 U/mL (<25)
[2018-05-08] MEDS: Oxycodone/Acetaminophen 5/325 mg Tab PO PRN ×3 (03:06→21:04)
[2018-05-08 03:55] LABS: B2 GLYCOPROTEIN I AB(IGA) <9 SAU (<=20); B2 GLYCOPROTEIN I AB(IGG) <9 SGU (<=20); B2 GLYCOPROTEIN I AB(IGM) <9 SMU (<=20); CARDIOLIPIN AB (IGM) <12 MPL (<=12); PHOSPHATIDYLSERINE AB IGA <20 U/mL (<20)
[2018-05-08] MEDS: Levothyroxine 25 MCG TAB PO SCH (06:13)
--- NOTE | 2018-05-08 07:49 | CP.PCM.PCO ---
Physician Communication Note - Physician Communication Note Physician Communication Note: hold dialysis til after OR - labs pending
[2018-05-08 08:20] LABS: BASO # 0.1 K/uL (0.0-0.2); BASO % 1.2 % (0.0-2.0); EOS # 0.1 K/uL (0.0-0.7); EOS % 1.6 % (0.0-4.0); LYMPH # 1.4 K/uL (1.0-4.3); LYMPH % 22.8 % (20.0-40.0); MEAN CELL VOLUME 102.6 fL (80.0-94.0); MEAN CORPUSCULAR HEMOGLOBIN 33.3 pg (27.0-31.0); MEAN CORPUSCULAR HGB CONC 32.4 g/dL (33.0-37.0); MEAN PLATELET VOLUME 11.8 fL (7.2-11.7); MONO # 0.5 K/uL (0.0-0.8); NEUT # 4.1 K/uL (1.8-7.0); NEUT % 66.4 % (50.0-75.0); NRBC % 0.2 % (0.0-2.0); RBC 3.32 Mil/uL (4.40-5.90); RED CELL DISTRIBUTION WIDTH 21.4 % (11.5-14.5); WHITE BLOOD COUNT 6.1 K/uL (4.8-10.8)
[2018-05-08] MEDS: (Novolin R) Insulin Human Regular 100 units/ml vial SC SCH ×4 (08:20→21:24)
[2018-05-08 08:33] LABS: INR 1.8; PROTHROMBIN TIME 19.9 SECONDS (9.7-12.2)
[2018-05-08 08:53] LABS: ALB/GLOB RATIO 0.8 (1.0-2.1); ALBUMIN 3.3 g/dL (3.5-5.0); CALCIUM 8.7 mg/dl (8.6-10.4)
[2018-05-08] MEDS: Multiple Vitamins Tab PO SCH (09:08)
[2018-05-08] MEDS: Simethicone 80 mg Chewtab PO SCH ×4 (09:12→21:21)
[2018-05-08] MEDS: Omega-3-Acid Ethyl Esters 1 GM Cap PO SCH ×2 (09:12→18:47)
--- NOTE | 2018-05-08 09:24 | CP.PCM.PN ---
Subjective - Date & Time of Evaluation Date of Evaluation: 05/08/18 Time of Evaluation: 08:15 - Subjective Subjective: Medicine Progress Note for Hospitalist Service Pt seen and examined at bedside this am. Per RN, overnight staff had difficult time finding IV access due to pt being a tough stick. Pt received DDAVP overnight, to receive 3 FFP during dialysis session today. Pt denies any acute complaints this am, reports pain controlled in L middle finger currently. Denies headache, dizziness, chest pain, sob, n/v/d/c, abd pain, urinary complaints or other symptoms. Objective - Vital Signs/Intake and Output Vital Signs (last 24 hours): Temp Pulse Resp BP Pulse Ox 97.3 F L 60 18 135/60 96 05/08/18 07:00 05/08/18 07:00 05/08/18 07:00 05/08/18 09:09 05/08/18 07:00 Intake and Output: 05/08/18 05/08/18 06:59 18:59 Intake Total 370 Balance 370 - Medications Medications: Current Medications Acetaminophen (Tylenol 325mg Tab) 650 mg PO Q4 PRN PRN Reason: Pain, Mild (1-3) Last Admin: 05/05/18 10:37 Dose: 650 mg Aspirin (Ecotrin) 81 mg PO DAILY [facility] Last Admin: 04/30/18 09:45 Dose: 81 mg Dextrose (Dextrose 50% Inj) 50 ml IVP ONCE PRN PRN Reason: Hypoglycemia Dextrose (Dextrose 50% Inj) 0 ml IV STAT PRN; Protocol PRN Reason: Hypoglycemia Protocol Dextrose (Glutose 15) 0 gm PO ONCE PRN; Protocol PRN Reason: Hypoglycemia Protocol Diphenhydramine HCl (Benadryl) 25 mg PO HS PRN PRN Reason: Insomnia Last Admin: 05/07/18 00:56 Dose: 25 mg Glucagon (Glucagen Diagnostic Kit) 0 mg IM STAT PRN; Protocol PRN Reason: Hypoglycemia Protocol Heparin Sodium (Porcine) (Heparin) 5,000 units SC Q8 [facility] Last Admin: 05/04/18 06:03 Dose: Not Given Meropenem 500 mg/ Sodium (Chloride) 100 mls @ 100 mls/hr IVPB DAILY@2200 [facility]; Protocol Last Admin: 05/07/18 22:26 Dose: 100 mls/hr Dextrose (Dextrose 5% In Water 1000 Ml) 1,000 mls @ 0 mls/hr IV .Q0M PRN; Protocol PRN Reason: Hypoglycemia Protocol Vancomycin HCl 500 mg/ Sodium (Chloride) 100 mls @ 100 mls/hr IVPB MWF [facility]; Protocol Last Admin: 05/08/18 08:36 Dose: 100 mls/hr Insulin Glargine (Lantus) 15 unit SC QPM [facility] Last Admin: 05/07/18 17:26 Dose: Not Given Insulin Human Regular (Novolin R) 0 unit SC ACHS [facility]; Protocol Last Admin: 05/08/18 08:20 Dose: Not Given Latanoprost (Xalatan Opht) 1 ml OU HS [facility] Last Admin: 05/07/18 22:26 Dose: 1 ml Levothyroxine Sodium (Synthroid) 25 mcg PO 0630 [facility] Last Admin: 05/08/18 06:13 Dose: Not Given Loratadine (Claritin) 10 mg PO [facility] Last Admin: 05/07/18 22:26 Dose: 10 mg Metoprolol Tartrate (Lopressor) 25 mg PO BID [facility] Last Admin: 05/08/18 09:09 Dose: 25 mg Montelukast Sodium (Singulair) 10 mg PO [facility] Last Admin: 05/07/18 22:26 Dose: 10 mg Multivitamins (Hexavitamin) 1 tab PO DAILY [facility] Last Admin: 05/08/18 09:08 Dose: 1 tab Ugpqf-2-Ezav Ethyl Esters (Lovaza) 2 gm PO BID [facility] Last Admin: 05/08/18 09:12 Dose: 2 gm Ondansetron HCl (Zofran Inj) 4 mg IVP Q6 PRN PRN Reason: Nausea/Vomiting Last Admin: 05/07/18 23:32 Dose: 4 mg Oxycodone/Acetaminophen (Percocet 5/325 Mg Tab) 1 tab PO Q4H PRN PRN Reason: Pain, moderate (4-7) Stop: 05/08/18 13:51 Last Admin: 05/08/18 03:06 Dose: 1 tab Phytonadione (Vitamin K Tab) 5 mg PO DAILY [facility] Last Admin: 05/08/18 09:12 Dose: 5 mg Pregabalin (Lyrica) 50 mg PO [facility] Last Admin: 05/07/18 22:26 Dose: 50 mg Rosuvastatin Calcium (Crestor) 10 mg PO HS [facility] Last Admin: 05/07/18 22:26 Dose: 10 mg Sevelamer Carbonate (Renvela) 2,400 mg PO ACTID [facility] Last Admin: 05/08/18 08:19 Dose: Not Given Simethicone (Mylicon Chew Tab) 80 mg PO QID [facility] Last Admin: 05/08/18 09:12 Dose: 80 mg - Labs Labs: 05/08/18 08:13 05/08/18 08:13 PT 19.9 SECONDS (9.7-12.2) H 05/08/18 08:13 INR 1.8 05/08/18 08:13 APTT 38 SECONDS (21-34) H 05/08/18 08:13 - Constitutional Appears: Non-toxic, No Acute Distress, Chronically Ill - Head Exam Head Exam: ATRAUMATIC, NORMOCEPHALIC - Eye Exam Eye Exam: EOMI, Normal appearance, PERRL - ENT Exam ENT Exam: Mucous Membranes Moist - Respiratory Exam Respiratory Exam: Clear to Ausculation Bilateral, NORMAL BREATHING PATTERN. absent: Rales, Rhonchi, Wheezes - Cardiovascular Exam Cardiovascular Exam: REGULAR RHYTHM, +S1, +S2. absent: Gallop, Rubs, Murmur - GI/Abdominal Exam GI & Abdominal Exam: Soft, Normal Bowel Sounds. absent: Distended, Firm, Guarding, Rigid, Tenderness, Organomegaly, Rebound - Extremities Exam Extremities Exam: Normal Capillary Refill. absent: Calf Tenderness, Pedal Edema Additional comments: Dressing wrapped around L middle finger c/d/i, s/p R BKA - Neurological Exam Neurological Exam: Alert, Awake, CN II-XII Intact, Oriented x3 - Psychiatric Exam Psychiatric exam: Normal Affect, Normal Mood - Skin Skin Exam: Dry, Intact, Warm Assessment and Plan - Assessment and Plan (Free Text) Assessment: 52 y o male PMhx ESRD on HD, PAD, CAD, COPD, CHF, pacemaker placement who presented as direct admit from [facility] to [facility] for possible DRIL of L middle finger with Dr. Burden. Plan: L necrotic 3rd finger 2/2 Dialysis associated steal syndrome OR on hold til 05/10 due to hyperkalemia and elevated INR this am Fistulogram by IR (Dr. Gaming) on 04/27 at [facility] demonstrated significant retrograde flow in L brachial artery distal to AV fistula anastomosis, likely represents steal syndrome; calcified but patent L radial and interosseous arteries, L ulnar artery diffusely diseased, significant L metacarpal and digital small vessel disease, pt may benefit from DRIL procedure. Percocet prn for pain control Dr. Foster consulted (ID), recs appreciated C/w Meropenem 500 mg daily; Vanco 500 mg MWF (renally dosed) added by Dr. Foster (1st dose given 04/30) L hand XR at [facility] demonstrated no signs of osteomyelitis Surgery consulted (Dr. Burden), recs appreciated Pt cleared by cardiology at [facility] (Dr. Jim) for procedure, deemed moderate risk for low-risk procedure Dr. Bradford, Hematology, consulted. Help appreciated. Mixing study-pending Coags daily Pt received DDAVP overnight, to receive 3 FFP during HD today ESRD On HD -Dialysis (MWF) -Dr. Penny consulted (Nephrology) recs appreciated IDDM -Need to control sugars <200 for OR -Home insulin held until pt post-op after procedure -C/w high sliding scale -Fingersticks achs -HHD -Zofran prn for nausea Hx CAD s/p stents C/w ASA, Crestor 10 mg PO hs Hx hypothyroidism C/w synthroid daily Hx HTN Metoprolol 25 mg PO bid DVT ppx: Heparin 5000U subQ q8h GI ppx: not indicated at this time. Pt seen, examined with, and plan d/w Dr. Garber, attending. Jose Shields DO PGY-1, Physician Intensivist Pager #[phone]
[2018-05-08] MEDS ORDERED: Iohexol 240 200 ML ONE (09:25)
[2018-05-08] MEDS ORDERED: HEPARIN-NS 5,000 UNITS/500 ML 0 UNIT/0 ML BAG IV ONE (09:25)
--- NOTE | 2018-05-08 09:46 | PCM.ANES ---
Assessment/Plan - Assessment and Plan (Free Text) Assessment: Pt is a 52 yo m ho ESRD scheduled for dril procedure with dr. jameson. At this time, case will be postponed due to hyperkalemia of 6.1. Spoke with Dr. Penny. Pt will receive HD today and partial HD tomorrow prior to surgical procedure to optimize fluid status and electrolytes. Case d/w Ellen and patient.
[2018-05-08] MEDS ORDERED: Sod Polystyrene Sulf 15 gm/60 ml Susp PO ONE (09:56)
--- NOTE | 2018-05-08 10:37 | CP.PCM.PN ---
Subjective - Date & Time of Evaluation Date of Evaluation: 05/08/18 Time of Evaluation: 08:00 - Subjective Subjective: Vascular surgery progress note for Dr. Burden Pt seen and examined at bedside this AM. Patient was scheduled for OR for DRIL but patient's K was 6.1 this AM, so case was postponed until Tuesday. Patient is discouraged but denies any change in his symptoms. Objective - Vital Signs/Intake and Output Vital Signs (last 24 hours): Temp Pulse Resp BP Pulse Ox 97.3 F L 60 18 135/60 96 05/08/18 07:00 05/08/18 07:00 05/08/18 07:00 05/08/18 09:09 05/08/18 07:00 Intake and Output: 05/08/18 05/08/18 06:59 18:59 Intake Total 370 Balance 370 - Medications Medications: Current Medications Acetaminophen (Tylenol 325mg Tab) 650 mg PO Q4 PRN PRN Reason: Pain, Mild (1-3) Last Admin: 05/05/18 10:37 Dose: 650 mg Aspirin (Ecotrin) 81 mg PO DAILY [facility] Last Admin: 04/30/18 09:45 Dose: 81 mg Dextrose (Dextrose 50% Inj) 50 ml IVP ONCE PRN PRN Reason: Hypoglycemia Dextrose (Dextrose 50% Inj) 0 ml IV STAT PRN; Protocol PRN Reason: Hypoglycemia Protocol Dextrose (Glutose 15) 0 gm PO ONCE PRN; Protocol PRN Reason: Hypoglycemia Protocol Diphenhydramine HCl (Benadryl) 25 mg PO HS PRN PRN Reason: Insomnia Last Admin: 05/07/18 00:56 Dose: 25 mg Glucagon (Glucagen Diagnostic Kit) 0 mg IM STAT PRN; Protocol PRN Reason: Hypoglycemia Protocol Heparin Sodium (Porcine) (Heparin) 5,000 units SC Q8 [facility] Last Admin: 05/04/18 06:03 Dose: Not Given Meropenem 500 mg/ Sodium (Chloride) 100 mls @ 100 mls/hr IVPB DAILY@2200 [facility]; Protocol Last Admin: 05/07/18 22:26 Dose: 100 mls/hr Dextrose (Dextrose 5% In Water 1000 Ml) 1,000 mls @ 0 mls/hr IV .Q0M PRN; Protocol PRN Reason: Hypoglycemia Protocol Vancomycin HCl 500 mg/ Sodium (Chloride) 100 mls @ 100 mls/hr IVPB MWF [facility]; Protocol Last Admin: 05/08/18 08:36 Dose: 100 mls/hr Insulin Glargine (Lantus) 15 unit SC QPM [facility] Last Admin: 05/07/18 17:26 Dose: Not Given Insulin Human Regular (Novolin R) 0 unit SC ACHS [facility]; Protocol Last Admin: 05/08/18 08:20 Dose: Not Given Latanoprost (Xalatan Opht) 1 ml OU [facility] Last Admin: 05/07/18 22:26 Dose: 1 ml Levothyroxine Sodium (Synthroid) 25 mcg PO 0630 [facility] Last Admin: 05/08/18 06:13 Dose: Not Given Loratadine (Claritin) 10 mg PO [facility] Last Admin: 05/07/18 22:26 Dose: 10 mg Metoprolol Tartrate (Lopressor) 25 mg PO BID [facility] Last Admin: 05/08/18 09:09 Dose: 25 mg Montelukast Sodium (Singulair) 10 mg PO [facility] Last Admin: 05/07/18 22:26 Dose: 10 mg Multivitamins (Hexavitamin) 1 tab PO DAILY [facility] Last Admin: 05/08/18 09:08 Dose: 1 tab Iuapx-3-Ngwy Ethyl Esters (Lovaza) 2 gm PO BID [facility] Last Admin: 05/08/18 09:12 Dose: 2 gm Ondansetron HCl (Zofran Inj) 4 mg IVP Q6 PRN PRN Reason: Nausea/Vomiting Last Admin: 05/07/18 23:32 Dose: 4 mg Oxycodone/Acetaminophen (Percocet 5/325 Mg Tab) 1 tab PO Q4H PRN PRN Reason: Pain, moderate (4-7) Stop: 05/08/18 13:51 Last Admin: 05/08/18 03:06 Dose: 1 tab Phytonadione (Vitamin K Tab) 5 mg PO DAILY [facility] Last Admin: 05/08/18 09:12 Dose: 5 mg Pregabalin (Lyrica) 50 mg PO [facility] Last Admin: 05/07/18 22:26 Dose: 50 mg Rosuvastatin Calcium (Crestor) 10 mg PO [facility] Last Admin: 05/07/18 22:26 Dose: 10 mg Sevelamer Carbonate (Renvela) 2,400 mg PO ACTID [facility] Last Admin: 05/08/18 08:19 Dose: Not Given Simethicone (Mylicon Chew Tab) 80 mg PO QID [facility] Last Admin: 05/08/18 09:12 Dose: 80 mg - Labs Labs: 05/08/18 08:13 05/08/18 08:13 PT 19.9 SECONDS (9.7-12.2) H 05/08/18 08:13 INR 1.8 05/08/18 08:13 APTT 38 SECONDS (21-34) H 05/08/18 08:13 - Constitutional Appears: Well, Non-toxic, No Acute Distress - Head Exam Head Exam: ATRAUMATIC, NORMOCEPHALIC - Eye Exam Eye Exam: Normal appearance. absent: Conjunctival injection, Scleral icterus - ENT Exam ENT Exam: Mucous Membranes Moist, Normal Oropharynx - Respiratory Exam Respiratory Exam: NORMAL BREATHING PATTERN. absent: Accessory Muscle Use, Respiratory Distress - Cardiovascular Exam Cardiovascular Exam: RRR - GI/Abdominal Exam GI & Abdominal Exam: Soft. absent: Distended - Extremities Exam Additional comments: left third finger with dressing C/D/I, normal motor function, right BKA site with dressing on C/D/I - Neurological Exam Neurological Exam: Alert, Awake, Oriented x3 - Psychiatric Exam Psychiatric exam: Depressed, Normal Affect - Skin Skin Exam: Dry, Normal Color, Warm Assessment and Plan - Assessment and Plan (Free Text) Assessment: 52M w/steal syndrome from AVF of the left arm with dry necrosis of the third left finger Plan: Plan for OR on Tuesday for DRIL procedure HD today and tomorrow Administer FFP during dialysis Continue to follow up heme/onc, nephrology, and ID recs Discussed with Dr. Burden,who agrees with above Maryjane Gonzalez, PGY2
--- NOTE | 2018-05-08 18:38 | CARD ---
APPROVED REPORT Date of service: 05/07/2018 EKG Measurement Heart [id number] <Conclusion> Sinus rhythm with short UT Left axis deviation Nonspecific intraventricular block Possible Lateral infarct, age undetermined Inferior infarct, age undetermined Abnormal ECG
[2018-05-08] MEDS: (Lantus) Insulin Glargine, Recombinant SC SCH (18:47)
[2018-05-08] MEDS: Latanoprost 2.5 ml Opht Soln OU SCH (21:21)
[2018-05-08] MEDS: Meropenem 500 MG in Sodium Chloride 0.9% 100 ML IVPB SCH (21:24)
--- NOTE | 2018-05-08 21:31 | CP.PCM.PN ---
Subjective - Date & Time of Evaluation Date of Evaluation: 05/08/18 Time of Evaluation: 12:00 - Subjective Subjective: Patient upset that OR again postponed; melancholic; Objective - Vital Signs/Intake and Output Vital Signs (last 24 hours): Temp Pulse Resp BP Pulse Ox 97.6 F 65 20 114/65 97 05/08/18 18:23 05/08/18 18:23 05/08/18 18:23 05/08/18 18:47 05/08/18 18:23 - Medications Medications: Current Medications Acetaminophen (Tylenol 325mg Tab) 650 mg PO Q4 PRN PRN Reason: Pain, Mild (1-3) Last Admin: 05/05/18 10:37 Dose: 650 mg Aspirin (Ecotrin) 81 mg PO DAILY [facility] Last Admin: 04/30/18 09:45 Dose: 81 mg Dextrose (Dextrose 50% Inj) 50 ml IVP ONCE PRN PRN Reason: Hypoglycemia Dextrose (Dextrose 50% Inj) 0 ml IV STAT PRN; Protocol PRN Reason: Hypoglycemia Protocol Dextrose (Glutose 15) 0 gm PO ONCE PRN; Protocol PRN Reason: Hypoglycemia Protocol Diphenhydramine HCl (Benadryl) 25 mg PO HS PRN PRN Reason: Insomnia Last Admin: 05/07/18 00:56 Dose: 25 mg Glucagon (Glucagen Diagnostic Kit) 0 mg IM STAT PRN; Protocol PRN Reason: Hypoglycemia Protocol Heparin Sodium (Porcine) (Heparin) 5,000 units SC Q8 [facility] Last Admin: 05/04/18 06:03 Dose: Not Given Meropenem 500 mg/ Sodium (Chloride) 100 mls @ 100 mls/hr IVPB DAILY@2200 [facility]; Protocol Last Admin: 05/08/18 21:24 Dose: 100 mls/hr Dextrose (Dextrose 5% In Water 1000 Ml) 1,000 mls @ 0 mls/hr IV .Q0M PRN; Protocol PRN Reason: Hypoglycemia Protocol Vancomycin HCl 500 mg/ Sodium (Chloride) 100 mls @ 100 mls/hr IVPB MWF [facility]; Protocol Last Admin: 05/08/18 08:36 Dose: 100 mls/hr Insulin Glargine (Lantus) 15 unit SC QPM [facility] Last Admin: 05/08/18 18:47 Dose: Not Given Insulin Human Regular (Novolin R) 0 unit SC ACHS [facility]; Protocol Last Admin: 05/08/18 21:24 Dose: Not Given Latanoprost (Xalatan Opht) 1 ml OU [facility] Last Admin: 05/08/18 21:21 Dose: 1 ml Levothyroxine Sodium (Synthroid) 25 mcg PO 0630 [facility] Last Admin: 05/08/18 06:13 Dose: Not Given Loratadine (Claritin) 10 mg PO [facility] Last Admin: 05/08/18 21:12 Dose: 10 mg Metoprolol Tartrate (Lopressor) 25 mg PO BID [facility] Last Admin: 05/08/18 18:47 Dose: Not Given Montelukast Sodium (Singulair) 10 mg PO [facility] Last Admin: 05/08/18 21:21 Dose: 10 mg Multivitamins (Hexavitamin) 1 tab PO DAILY [facility] Last Admin: 05/08/18 09:08 Dose: 1 tab Dzrhb-1-Qxdv Ethyl Esters (Lovaza) 2 gm PO BID [facility] Last Admin: 05/08/18 18:47 Dose: 2 gm Ondansetron HCl (Zofran Inj) 4 mg IVP Q6 PRN PRN Reason: Nausea/Vomiting Last Admin: 05/08/18 18:46 Dose: 4 mg Oxycodone/Acetaminophen (Percocet 5/325 Mg Tab) 1 tab PO Q4H PRN PRN Reason: Pain, moderate (4-7) Stop: 05/11/18 19:21 Last Admin: 05/08/18 21:04 Dose: 1 tab Phytonadione (Vitamin K Tab) 5 mg PO DAILY [facility] Last Admin: 05/08/18 09:12 Dose: 5 mg Pregabalin (Lyrica) 50 mg PO [facility] Last Admin: 05/08/18 21:21 Dose: 50 mg Rosuvastatin Calcium (Crestor) 10 mg PO [facility] Last Admin: 05/08/18 21:21 Dose: 10 mg Sevelamer Carbonate (Renvela) 2,400 mg PO ACTID [facility] Last Admin: 05/08/18 18:48 Dose: 2,400 mg Simethicone (Mylicon Chew Tab) 80 mg PO QID [facility] Last Admin: 05/08/18 21:21 Dose: 80 mg - Labs Labs: 05/08/18 08:13 10/08/18 08:13 PT 19.9 SECONDS (9.7-12.2) H 05/08/18 08:13 INR 1.8 05/08/18 08:13 APTT 38 SECONDS (21-34) H 05/08/18 08:13 - Constitutional Appears: Non-toxic, No Acute Distress - Eye Exam Eye Exam: Normal appearance - Respiratory Exam Respiratory Exam: Clear to Ausculation Bilateral. absent: Respiratory Distress - Cardiovascular Exam Cardiovascular Exam: RRR, +S1, +S2 - GI/Abdominal Exam GI & Abdominal Exam: Soft - Extremities Exam Additional comments: moderately edematous legs; - Psychiatric Exam Psychiatric exam: absent: Agitated - Skin Additional comments: distal UE cool; Assessment and Plan (1) ESRD on hemodialysis Assessment & Plan: Hyperkalemia noted on pre-HD labs today (although not totally unexpected); dialyzing today for UF and clearance; Status: Chronic (2) Steal syndrome dialysis vascular access Assessment & Plan: Procedure now for Tuesday; will plan for HD tomorrow to optimize and avoid another delay; Status: Acute (3) Anemia in CKD (chronic kidney disease) Status: Acute (4) Chronic kidney disease-mineral and bone disorder Status: Chronic (5) Hypertensive CKD, ESRD on dialysis Assessment & Plan: BP controlled, continue current meds; Status: Chronic
[2018-05-09] MEDS: Oxycodone/Acetaminophen 5/325 mg Tab PO PRN ×2 (05:24→15:28)
[2018-05-09] MEDS: Levothyroxine 25 MCG TAB PO SCH (06:48)
[2018-05-09 07:02] LABS: BASO # 0.1 K/uL (0.0-0.2); BASO % 1.1 % (0.0-2.0); EOS # 0.1 K/uL (0.0-0.7); EOS % 1.1 % (0.0-4.0); HEMOGLOBIN 9.9 g/dL (12.0-18.0); LYMPH % 19.1 % (20.0-40.0); MEAN CELL VOLUME 102.1 fL (80.0-94.0); MEAN CORPUSCULAR HEMOGLOBIN 33.2 pg (27.0-31.0); MEAN CORPUSCULAR HGB CONC 32.5 g/dL (33.0-37.0); MEAN PLATELET VOLUME 12.8 fL (7.2-11.7); MONO # 0.6 K/uL (0.0-0.8); NEUT # 3.7 K/uL (1.8-7.0); NEUT % 67.7 % (50.0-75.0); NRBC % 0.2 % (0.0-2.0); RED CELL DISTRIBUTION WIDTH 20.7 % (11.5-14.5); WHITE BLOOD COUNT 5.4 K/uL (4.8-10.8)
[2018-05-09 07:06] LABS: INR 1.7; PROTHROMBIN TIME 18.1 SECONDS (9.7-12.2)
[2018-05-09 07:40] LABS: ALB/GLOB RATIO 0.8 (1.0-2.1); ALBUMIN 3.5 g/dL (3.5-5.0); CALCIUM 8.9 mg/dl (8.6-10.4)
[2018-05-09] MEDS: (Novolin R) Insulin Human Regular 100 units/ml vial SC SCH ×5 (08:27→21:35)
--- NOTE | 2018-05-09 08:31 | CP.PCM.PN ---
Subjective - Date & Time of Evaluation Date of Evaluation: 05/09/18 Time of Evaluation: 08:29 - Subjective Subjective: Surgery PT seen and examined., No acute events. Surgery cancelled yesterday for electrolyte abnormality. Had HD yesterday. Possible HD today. Objective - Vital Signs/Intake and Output Vital Signs (last 24 hours): Temp Pulse Resp BP Pulse Ox 97.7 F 65 18 146/69 95 05/09/18 07:00 05/09/18 07:00 05/09/18 07:00 05/09/18 07:00 05/09/18 07:00 Intake and Output: 05/09/18 05/09/18 06:59 18:59 Intake Total 100 Balance 100 - Medications Medications: Current Medications Acetaminophen (Tylenol 325mg Tab) 650 mg PO Q4 PRN PRN Reason: Pain, Mild (1-3) Last Admin: 05/05/18 10:37 Dose: 650 mg Aspirin (Ecotrin) 81 mg PO DAILY [facility] Last Admin: 04/30/18 09:45 Dose: 81 mg Dextrose (Dextrose 50% Inj) 50 ml IVP ONCE PRN PRN Reason: Hypoglycemia Dextrose (Dextrose 50% Inj) 0 ml IV STAT PRN; Protocol PRN Reason: Hypoglycemia Protocol Dextrose (Glutose 15) 0 gm PO ONCE PRN; Protocol PRN Reason: Hypoglycemia Protocol Diphenhydramine HCl (Benadryl) 25 mg PO HS PRN PRN Reason: Insomnia Last Admin: 05/09/18 03:11 Dose: 25 mg Glucagon (Glucagen Diagnostic Kit) 0 mg IM STAT PRN; Protocol PRN Reason: Hypoglycemia Protocol Heparin Sodium (Porcine) (Heparin) 5,000 units SC Q8 [facility] Last Admin: 05/04/18 06:03 Dose: Not Given Meropenem 500 mg/ Sodium (Chloride) 100 mls @ 100 mls/hr IVPB DAILY@2200 [facility]; Protocol Last Admin: 05/08/18 21:24 Dose: 100 mls/hr Dextrose (Dextrose 5% In Water 1000 Ml) 1,000 mls @ 0 mls/hr IV .Q0M PRN; Protocol PRN Reason: Hypoglycemia Protocol Vancomycin HCl 500 mg/ Sodium (Chloride) 100 mls @ 100 mls/hr IVPB MWF [facility]; Protocol Last Admin: 05/08/18 08:36 Dose: 100 mls/hr Insulin Glargine (Lantus) 15 unit SC QPM [facility] Last Admin: 05/08/18 18:47 Dose: Not Given Insulin Human Regular (Novolin R) 0 unit SC ACHS [facility]; Protocol Last Admin: 05/09/18 08:27 Dose: 4 units Latanoprost (Xalatan Opht) 1 ml OU HS [facility] Last Admin: 05/08/18 21:21 Dose: 1 ml Levothyroxine Sodium (Synthroid) 25 mcg PO 0630 [facility] Last Admin: 05/09/18 06:48 Dose: 25 mcg Loratadine (Claritin) 10 mg PO HS [facility] Last Admin: 05/08/18 21:12 Dose: 10 mg Metoprolol Tartrate (Lopressor) 25 mg PO BID [facility] Last Admin: 05/08/18 18:47 Dose: Not Given Montelukast Sodium (Singulair) 10 mg PO [facility] Last Admin: 05/08/18 21:21 Dose: 10 mg Multivitamins (Hexavitamin) 1 tab PO DAILY [facility] Last Admin: 05/08/18 09:08 Dose: 1 tab Evoxe-7-Ezru Ethyl Esters (Lovaza) 2 gm PO BID [facility] Last Admin: 05/08/18 18:47 Dose: 2 gm Ondansetron HCl (Zofran Inj) 4 mg IVP Q6 PRN PRN Reason: Nausea/Vomiting Last Admin: 05/09/18 08:26 Dose: 4 mg Oxycodone/Acetaminophen (Percocet 5/325 Mg Tab) 1 tab PO Q4H PRN PRN Reason: Pain, moderate (4-7) Stop: 05/11/18 19:21 Last Admin: 05/09/18 05:24 Dose: 1 tab Phytonadione (Vitamin K Tab) 5 mg PO DAILY [facility] Last Admin: 05/08/18 09:12 Dose: 5 mg Pregabalin (Lyrica) 50 mg PO [facility] Last Admin: 05/08/18 21:21 Dose: 50 mg Rosuvastatin Calcium (Crestor) 10 mg PO HS [facility] Last Admin: 05/08/18 21:21 Dose: 10 mg Sevelamer Carbonate (Renvela) 2,400 mg PO ACTID [facility] Last Admin: 05/09/18 08:25 Dose: 2,400 mg Simethicone (Mylicon Chew Tab) 80 mg PO QID [facility] Last Admin: 05/08/18 21:21 Dose: 80 mg - Labs Labs: 05/09/18 06:52 05/09/18 06:52 PT 18.1 SECONDS (9.7-12.2) H 05/09/18 06:52 INR 1.7 05/09/18 06:52 APTT 38 SECONDS (21-34) H 05/09/18 06:52 - Constitutional Appears: No Acute Distress - Head Exam Head Exam: ATRAUMATIC, NORMAL INSPECTION, NORMOCEPHALIC - Eye Exam Eye Exam: EOMI, Normal appearance, PERRL Pupil Exam: NORMAL ACCOMODATION, PERRL - ENT Exam ENT Exam: Mucous Membranes Moist, Normal Exam - Neck Exam Neck Exam: Full ROM - Respiratory Exam Respiratory Exam: NORMAL BREATHING PATTERN - Cardiovascular Exam Cardiovascular Exam: REGULAR RHYTHM, +S1, +S2. absent: Murmur - GI/Abdominal Exam GI & Abdominal Exam: Soft. absent: Distended - Extremities Exam Extremities Exam: Full ROM, Tenderness. absent: Normal Inspection Additional comments: L arm AVF in place. L finger dressing in place. No bleeding. R BKA - Back Exam Back Exam: NORMAL INSPECTION - Neurological Exam Neurological Exam: Alert, Awake, CN II-XII Intact, Oriented x3 - Psychiatric Exam Psychiatric exam: Normal Affect, Normal Mood - Skin Skin Exam: Warm. absent: Dry, Intact Assessment and Plan - Assessment and Plan (Free Text) Assessment: 52M w/steal syndrome from AVF of the left arm with dry necrosis of the third left finger Plan: Plan for OR on Tuesday for DRIL procedure recommend HD today Administer FFP during dialysis Continue to follow up heme/onc, nephrology, and ID recs Will Discuss with Dr. Burden
[2018-05-09] MEDS: Simethicone 80 mg Chewtab PO SCH ×5 (10:05→21:33)
[2018-05-09] MEDS: Omega-3-Acid Ethyl Esters 1 GM Cap PO SCH ×2 (10:05→17:24)
[2018-05-09] MEDS: Multiple Vitamins Tab PO SCH (10:05)
--- NOTE | 2018-05-09 12:30 | CP.PCM.PN ---
Subjective - Date & Time of Evaluation Date of Evaluation: 05/09/18 Time of Evaluation: 10:00 - Subjective Subjective: afeb nad iv rx in progress possible PO rx on discharge Objective - Vital Signs/Intake and Output Vital Signs (last 24 hours): Temp Pulse Resp BP Pulse Ox 97.8 F 62 18 118/56 L 100 05/09/18 10:40 05/09/18 11:00 05/09/18 11:00 05/09/18 11:00 05/09/18 11:00 Intake and Output: 05/09/18 05/09/18 06:59 18:59 Intake Total 100 Balance 100 - Medications Medications: Current Medications Acetaminophen (Tylenol 325mg Tab) 650 mg PO Q4 PRN PRN Reason: Pain, Mild (1-3) Last Admin: 05/09/18 11:57 Dose: 650 mg Aspirin (Ecotrin) 81 mg PO DAILY [facility] Last Admin: 04/30/18 09:45 Dose: 81 mg Dextrose (Dextrose 50% Inj) 50 ml IVP ONCE PRN PRN Reason: Hypoglycemia Dextrose (Dextrose 50% Inj) 0 ml IV STAT PRN; Protocol PRN Reason: Hypoglycemia Protocol Dextrose (Glutose 15) 0 gm PO ONCE PRN; Protocol PRN Reason: Hypoglycemia Protocol Diphenhydramine HCl (Benadryl) 25 mg PO HS PRN PRN Reason: Insomnia Last Admin: 05/09/18 03:11 Dose: 25 mg Glucagon (Glucagen Diagnostic Kit) 0 mg IM STAT PRN; Protocol PRN Reason: Hypoglycemia Protocol Heparin Sodium (Porcine) (Heparin) 5,000 units SC Q8 [facility] Last Admin: 05/04/18 06:03 Dose: Not Given Meropenem 500 mg/ Sodium (Chloride) 100 mls @ 100 mls/hr IVPB DAILY@2200 [facility]; Protocol Last Admin: 05/08/18 21:24 Dose: 100 mls/hr Dextrose (Dextrose 5% In Water 1000 Ml) 1,000 mls @ 0 mls/hr IV .Q0M PRN; Prot ocol PRN Reason: Hypoglycemia Protocol Vancomycin HCl 500 mg/ Sodium (Chloride) 100 mls @ 100 mls/hr IVPB MWF [facility]; Protocol Last Admin: 05/08/18 08:36 Dose: 100 mls/hr Insulin Glargine (Lantus) 15 unit SC QPM [facility] Last Admin: 05/08/18 18:47 Dose: Not Given Insulin Human Regular (Novolin R) 0 unit SC ACHS [facility]; Protocol Last Admin: 05/09/18 08:36 Dose: 4 units Latanoprost (Xalatan Opht) 1 ml OU [facility] Last Admin: 05/08/18 21:21 Dose: 1 ml Levothyroxine Sodium (Synthroid) 25 mcg PO 0630 [facility] Last Admin: 05/09/18 06:48 Dose: 25 mcg Loratadine (Claritin) 10 mg PO [facility] Last Admin: 05/08/18 21:12 Dose: 10 mg Metoprolol Tartrate (Lopressor) 25 mg PO BID [facility] Last Admin: 05/09/18 09:54 Dose: Not Given Montelukast Sodium (Singulair) 10 mg PO [facility] Last Admin: 05/08/18 21:21 Dose: 10 mg Multivitamins (Hexavitamin) 1 tab PO DAILY [facility] Last Admin: 05/09/18 10:05 Dose: 1 tab Ulbkx-9-Krji Ethyl Esters (Lovaza) 2 gm PO BID [facility] Last Admin: 05/09/18 10:05 Dose: 2 gm Ondansetron HCl (Zofran Inj) 4 mg IVP Q6 PRN PRN Reason: Nausea/Vomiting Last Admin: 05/09/18 08:26 Dose: 4 mg Oxycodone/Acetaminophen (Percocet 5/325 Mg Tab) 1 tab PO Q4H PRN PRN Reason: Pain, moderate (4-7) Stop: 05/11/18 19:21 Last Admin: 05/09/18 05:24 Dose: 1 tab Phytonadione (Vitamin K Tab) 5 mg PO DAILY [facility] Last Admin: 05/09/18 10:04 Dose: 5 mg Pregabalin (Lyrica) 50 mg PO [facility] Last Admin: 05/08/18 21:21 Dose: 50 mg Rosuvastatin Calcium (Crestor) 10 mg PO [facility] Last Admin: 05/08/18 21:21 Dose: 10 mg Sevelamer Carbonate (Renvela) 2,400 mg PO ACTID [facility] Last Admin: 05/09/18 08:25 Dose: 2,400 mg Simethicone (Mylicon Chew Tab) 80 mg PO QID [facility] Last Admin: 05/09/18 10:05 Dose: 80 mg - Labs Labs: 05/09/18 06:52 05/09/18 06:52 PT 18.1 SECONDS (9.7-12.2) H 05/09/18 06:52 INR 1.7 05/09/18 06:52 APTT 38 SECONDS (21-34) H 05/09/18 06:52 - Constitutional Appears: Non-toxic, Chronically Ill - Head Exam Head Exam: NORMOCEPHALIC - Eye Exam Eye Exam: PERRL - ENT Exam ENT Exam: Mucous Membranes Dry - Neck Exam Neck Exam: absent: Lymphadenopathy - Respiratory Exam Respiratory Exam: Decreased Breath Sounds - Cardiovascular Exam Cardiovascular Exam: REGULAR RHYTHM - GI/Abdominal Exam GI & Abdominal Exam: Distended, Soft - Rectal Exam Rectal Exam: Deferred - Exam Exam: NORMAL INSPECTION - Extremities Exam Extremities Exam: absent: Pedal Edema - Back Exam Back Exam: absent: CVA tenderness (L), CVA tenderness (R) Assessment and Plan (1) Steal syndrome dialysis vascular access Status: Acute (2) Anemia in CKD (chronic kidney disease) Status: Acute
--- NOTE | 2018-05-09 14:59 | CP.PCM.PN ---
Subjective - Date & Time of Evaluation Date of Evaluation: 05/09/18 Time of Evaluation: 08:00 - Subjective Subjective: Nephrology Progress Note for Dr. Penny Patient was seen and examined at bedside in the AM. Patient states he is going for his surgery tomorrow. Patient states he just feels tired. Patient also states he has had 2 episodes of soft stool last inght and this morning. Patient denies chest pain, shortness of breath, nausea, vomiting, fever or chills. Objective - Vital Signs/Intake and Output Vital Signs (last 24 hours): Temp Pulse Resp BP Pulse Ox 97.8 F 60 16 110/75 100 05/09/18 10:40 05/09/18 13:52 05/09/18 13:45 05/09/18 13:45 05/09/18 13:45 Intake and Output: 05/09/18 05/09/18 06:59 18:59 Intake Total 100 Balance 100 - Medications Medications: Current Medications Acetaminophen (Tylenol 325mg Tab) 650 mg PO Q4 PRN PRN Reason: Pain, Mild (1-3) Last Admin: 05/09/18 11:57 Dose: 650 mg Aspirin (Ecotrin) 81 mg PO DAILY [facility] Last Admin: 04/30/18 09:45 Dose: 81 mg Dextrose (Dextrose 50% Inj) 50 ml IVP ONCE PRN PRN Reason: Hypoglycemia Dextrose (Dextrose 50% Inj) 0 ml IV STAT PRN; Protocol PRN Reason: Hypoglycemia Protocol Dextrose (Glutose 15) 0 gm PO ONCE PRN; Protocol PRN Reason: Hypoglycemia Protocol Diphenhydramine HCl (Benadryl) 25 mg PO HS PRN PRN Reason: Insomnia Last Admin: 05/09/18 03:11 Dose: 25 mg Glucagon (Glucagen Diagnostic Kit) 0 mg IM STAT PRN; Protocol PRN Reason: Hypoglycemia Protocol Heparin Sodium (Porcine) (Heparin) 5,000 units SC Q8 [facility] Last Admin: 05/04/18 06:03 Dose: Not Given Meropenem 500 mg/ Sodium (Chloride) 100 mls @ 100 mls/hr IVPB DAILY@2200 [facility]; Protocol Last Admin: 05/08/18 21:24 Dose: 100 mls/hr Dextrose (Dextrose 5% In Water 1000 Ml) 1,000 mls @ 0 mls/hr IV .Q0M PRN; Protocol PRN Reason: Hypoglycemia Protocol Vancomycin HCl 500 mg/ Sodium (Chloride) 100 mls @ 100 mls/hr IVPB MWF [facility]; Protocol Last Admin: 05/08/18 08:36 Dose: 100 mls/hr Insulin Glargine (Lantus) 15 unit SC QPM [facility] Last Admin: 05/08/18 18:47 Dose: Not Given Insulin Human Regular (Novolin R) 0 unit SC ACHS [facility]; Protocol Last Admin: 05/09/18 11:30 Dose: Not Given Latanoprost (Xalatan Opht) 1 ml OU HS [facility] Last Admin: 05/08/18 21:21 Dose: 1 ml Levothyroxine Sodium (Synthroid) 25 mcg PO 0630 [facility] Last Admin: 05/09/18 06:48 Dose: 25 mcg Loratadine (Claritin) 10 mg PO [facility] Last Admin: 05/08/18 21:12 Dose: 10 mg Metoprolol Tartrate (Lopressor) 25 mg PO BID [facility] Last Admin: 05/09/18 09:54 Dose: Not Given Montelukast Sodium (Singulair) 10 mg PO [facility] Last Admin: 05/08/18 21:21 Dose: 10 mg Multivitamins (Hexavitamin) 1 tab PO DAILY [facility] Last Admin: 05/09/18 10:05 Dose: 1 tab Tgsic-6-Xqdh Ethyl Esters (Lovaza) 2 gm PO BID [facility] Last Admin: 05/09/18 10:05 Dose: 2 gm Ondansetron HCl (Zofran Inj) 4 mg IVP Q6 PRN PRN Reason: Nausea/Vomiting Last Admin: 05/09/18 08:26 Dose: 4 mg Oxycodone/Acetaminophen (Percocet 5/325 Mg Tab) 1 tab PO Q4H PRN PRN Reason: Pain, moderate (4-7) Stop: 05/11/18 19:21 Last Admin: 05/09/18 05:24 Dose: 1 tab Phytonadione (Vitamin K Tab) 5 mg PO DAILY [facility] Last Admin: 05/09/18 10:04 Dose: 5 mg Pregabalin (Lyrica) 50 mg PO [facility] Last Admin: 05/08/18 21:21 Dose: 50 mg Rosuvastatin Calcium (Crestor) 10 mg PO [facility] Last Admin: 05/08/18 21:21 Dose: 10 mg Saccharomyces Boulardii (Florastor) 250 mg PO BID [facility] Sevelamer Carbonate (Renvela) 1,600 mg PO ACTID [facility] Simethicone (Mylicon Chew Tab) 80 mg PO QID [facility] Last Admin: 05/09/18 10:05 Dose: 80 mg - Labs Labs: 05/09/18 06:52 05/09/18 06:52 PT 18.1 SECONDS (9.7-12.2) H 05/09/18 06:52 INR 1.7 05/09/18 06:52 APTT 38 SECONDS (21-34) H 05/09/18 06:52 - Constitutional Appears: No Acute Distress, Chronically Ill - Head Exam Head Exam: ATRAUMATIC, NORMAL INSPECTION - Eye Exam Eye Exam: EOMI, Normal appearance - ENT Exam ENT Exam: Mucous Membranes Moist - Respiratory Exam Respiratory Exam: Clear to Ausculation Bilateral, NORMAL BREATHING PATTERN - Cardiovascular Exam Cardiovascular Exam: REGULAR RHYTHM, +S1, +S2 - GI/Abdominal Exam GI & Abdominal Exam: Soft. absent: Tenderness - Extremities Exam Extremities Exam: Pedal Edema Additional comments: left third finger with dressing C/D/I, right BKA site with dressing on C/D/I - Neurological Exam Neurological Exam: Alert, Awake, Oriented x3 Assessment and Plan - Assessment and Plan (Free Text) Assessment: 52 year old male with steal syndrome from AVF of the left arm with dry necrosis of the third left finger. ESRD - Continue with dialysis MWF - Patient also had dialysis 05/09/18; Next Dialysis will be 05/11/18 - Continue with Vancomycin MWF and Meropenem 500mg daily - Continue with Sevelamer ACTID Steal syndrome involving left arm AVF - Plan for OR on Tuesday for DRIL procedure Case discussed with Dr. Zohaib Ruano PGY-2
[2018-05-09] MEDS: Saccharomyces Boulardi 250 mg Cap PO SCH (17:24)
[2018-05-09] MEDS: (Lantus) Insulin Glargine, Recombinant SC SCH (17:30)
--- NOTE | 2018-05-09 19:49 | CP.PCM.PN ---
Subjective - Date & Time of Evaluation Date of Evaluation: 05/08/18 Time of Evaluation: 19:00 - Subjective Subjective: No complaints. Objective - Vital Signs/Intake and Output Vital Signs (last 24 hours): Temp Pulse Resp BP Pulse Ox 97.7 F 60 20 125/70 99 05/09/18 15:34 05/09/18 16:00 05/09/18 15:34 05/09/18 17:23 05/09/18 15:34 - Medications Medications: Current Medications Acetaminophen (Tylenol 325mg Tab) 650 mg PO Q4 PRN PRN Reason: Pain, Mild (1-3) Last Admin: 05/09/18 11:57 Dose: 650 mg Aspirin (Ecotrin) 81 mg PO DAILY [facility] Last Admin: 04/30/18 09:45 Dose: 81 mg Dextrose (Dextrose 50% Inj) 50 ml IVP ONCE PRN PRN Reason: Hypoglycemia Dextrose (Dextrose 50% Inj) 0 ml IV STAT PRN; Protocol PRN Reason: Hypoglycemia Protocol Dextrose (Glutose 15) 0 gm PO ONCE PRN; Protocol PRN Reason: Hypoglycemia Protocol Diphenhydramine HCl (Benadryl) 25 mg PO HS PRN PRN Reason: Insomnia Last Admin: 05/09/18 03:11 Dose: 25 mg Glucagon (Glucagen Diagnostic Kit) 0 mg IM STAT PRN; Protocol PRN Reason: Hypoglycemia Protocol Meropenem 500 mg/ Sodium (Chloride) 100 mls @ 100 mls/hr IVPB DAILY@2200 [facility]; P rotocol Last Admin: 05/08/18 21:24 Dose: 100 mls/hr Dextrose (Dextrose 5% In Water 1000 Ml) 1,000 mls @ 0 mls/hr IV .Q0M PRN; Protocol PRN Reason: Hypoglycemia Protocol Vancomycin HCl 500 mg/ Sodium (Chloride) 100 mls @ 100 mls/hr IVPB MWF [facility]; Protocol Last Admin: 05/08/18 08:36 Dose: 100 mls/hr Insulin Glargine (Lantus) 15 unit SC QPM [facility] Last Admin: 05/09/18 17:30 Dose: Not Given Insulin Human Regular (Novolin R) 0 unit SC ACHS [facility]; Protocol Last Admin: 05/09/18 17:29 Dose: Not Given Latanoprost (Xalatan Opht) 1 ml OU HS [facility] Last Admin: 05/08/18 21:21 Dose: 1 ml Levothyroxine Sodium (Synthroid) 25 mcg PO 0630 [facility] Last Admin: 05/09/18 06:48 Dose: 25 mcg Loratadine (Claritin) 10 mg PO [facility] Last Admin: 05/08/18 21:12 Dose: 10 mg Metoprolol Tartrate (Lopressor) 25 mg PO BID [facility] Last Admin: 05/09/18 17:23 Dose: 25 mg Montelukast Sodium (Singulair) 10 mg PO [facility] Last Admin: 05/08/18 21:21 Dose: 10 mg Multivitamins (Hexavitamin) 1 tab PO DAILY [facility] Last Admin: 05/09/18 10:05 Dose: 1 tab Qdieo-5-Mosr Ethyl Esters (Lovaza) 2 gm PO BID [facility] Last Admin: 05/09/18 17:24 Dose: 2 gm Ondansetron HCl (Zofran Inj) 4 mg IVP Q6 PRN PRN Reason: Nausea/Vomiting Last Admin: 05/09/18 15:27 Dose: 4 mg Oxycodone/Acetaminophen (Percocet 5/325 Mg Tab) 1 tab PO Q4H PRN PRN Reason: Pain, moderate (4-7) Stop: 05/11/18 19:21 Last Admin: 05/09/18 15:28 Dose: 1 tab Phytonadione (Vitamin K Tab) 5 mg PO DAILY [facility] Last Admin: 05/09/18 10:04 Dose: 5 mg Pregabalin (Lyrica) 50 mg PO [facility] Last Admin: 05/08/18 21:21 Dose: 50 mg Rosuvastatin Calcium (Crestor) 10 mg PO [facility] Last Admin: 05/08/18 21:21 Dose: 10 mg Saccharomyces Boulardii (Florastor) 250 mg PO BID [facility] Last Admin: 05/09/18 17:24 Dose: 250 mg Sevelamer Carbonate (Renvela) 1,600 mg PO ACTID [facility] Last Admin: 05/09/18 17:24 Dose: 1,600 mg Simethicone (Mylicon Chew Tab) 80 mg PO QID [facility] Last Admin: 05/09/18 17:24 Dose: 80 mg - Labs Labs: 05/09/18 06:52 05/09/18 06:52 PT 18.1 SECONDS (9.7-12.2) H 05/09/18 06:52 INR 1.7 05/09/18 06:52 APTT 38 SECONDS (21-34) H 05/09/18 06:52 - Head Exam Head Exam: ATRAUMATIC - Eye Exam Eye Exam: Normal appearance - ENT Exam ENT Exam: Mucous Membranes Dry - Respiratory Exam Respiratory Exam: NORMAL BREATHING PATTERN - Cardiovascular Exam Cardiovascular Exam: +S1, +S2 - GI/Abdominal Exam GI & Abdominal Exam: Normal Bowel Sounds Assessment and Plan (1) Coagulopathy Assessment & Plan: 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
--- NOTE | 2018-05-09 19:51 | CP.PCM.PN ---
Subjective - Date & Time of Evaluation Date of Evaluation: 05/09/18 Time of Evaluation: 18:00 - Subjective Subjective: No complaints. Objective - Vital Signs/Intake and Output Vital Signs (last 24 hours): Temp Pulse Resp BP Pulse Ox 97.7 F 60 20 125/70 99 05/09/18 15:34 05/09/18 16:00 05/09/18 15:34 05/09/18 17:23 05/09/18 15:34 - Medications Medications: Current Medications Acetaminophen (Tylenol 325mg Tab) 650 mg PO Q4 PRN PRN Reason: Pain, Mild (1-3) Last Admin: 05/09/18 11:57 Dose: 650 mg Aspirin (Ecotrin) 81 mg PO DAILY [facility] Last Admin: 04/30/18 09:45 Dose: 81 mg Dextrose (Dextrose 50% Inj) 50 ml IVP ONCE PRN PRN Reason: Hypoglycemia Dextrose (Dextrose 50% Inj) 0 ml IV STAT PRN; Protocol PRN Reason: Hypoglycemia Protocol Dextrose (Glutose 15) 0 gm PO ONCE PRN; Protocol PRN Reason: Hypoglycemia Protocol Diphenhydramine HCl (Benadryl) 25 mg PO HS PRN PRN Reason: Insomnia Last Admin: 05/09/18 03:11 Dose: 25 mg Glucagon (Glucagen Diagnostic Kit) 0 mg IM STAT PRN; Protocol PRN Reason: Hypoglycemia Protocol Meropenem 500 mg/ Sodium (Chloride) 100 mls @ 100 mls/hr IVPB DAILY@2200 [facility]; P rotocol Last Admin: 05/08/18 21:24 Dose: 100 mls/hr Dextrose (Dextrose 5% In Water 1000 Ml) 1,000 mls @ 0 mls/hr IV .Q0M PRN; Protocol PRN Reason: Hypoglycemia Protocol Vancomycin HCl 500 mg/ Sodium (Chloride) 100 mls @ 100 mls/hr IVPB MWF [facility]; Protocol Last Admin: 05/08/18 08:36 Dose: 100 mls/hr Insulin Glargine (Lantus) 15 unit SC QPM [facility] Last Admin: 05/09/18 17:30 Dose: Not Given Insulin Human Regular (Novolin R) 0 unit SC ACHS [facility]; Protocol Last Admin: 05/09/18 17:29 Dose: Not Given Latanoprost (Xalatan Opht) 1 ml OU HS [facility] Last Admin: 05/08/18 21:21 Dose: 1 ml Levothyroxine Sodium (Synthroid) 25 mcg PO 0630 [facility] Last Admin: 05/09/18 06:48 Dose: 25 mcg Loratadine (Claritin) 10 mg PO [facility] Last Admin: 05/08/18 21:12 Dose: 10 mg Metoprolol Tartrate (Lopressor) 25 mg PO BID [facility] Last Admin: 05/09/18 17:23 Dose: 25 mg Montelukast Sodium (Singulair) 10 mg PO [facility] Last Admin: 05/08/18 21:21 Dose: 10 mg Multivitamins (Hexavitamin) 1 tab PO DAILY [facility] Last Admin: 05/09/18 10:05 Dose: 1 tab Ekeck-8-Ddzz Ethyl Esters (Lovaza) 2 gm PO BID [facility] Last Admin: 05/09/18 17:24 Dose: 2 gm Ondansetron HCl (Zofran Inj) 4 mg IVP Q6 PRN PRN Reason: Nausea/Vomiting Last Admin: 05/09/18 15:27 Dose: 4 mg Oxycodone/Acetaminophen (Percocet 5/325 Mg Tab) 1 tab PO Q4H PRN PRN Reason: Pain, moderate (4-7) Stop: 05/11/18 19:21 Last Admin: 05/09/18 15:28 Dose: 1 tab Phytonadione (Vitamin K Tab) 5 mg PO DAILY [facility] Last Admin: 05/09/18 10:04 Dose: 5 mg Pregabalin (Lyrica) 50 mg PO [facility] Last Admin: 05/08/18 21:21 Dose: 50 mg Rosuvastatin Calcium (Crestor) 10 mg PO [facility] Last Admin: 05/08/18 21:21 Dose: 10 mg Saccharomyces Boulardii (Florastor) 250 mg PO BID [facility] Last Admin: 05/09/18 17:24 Dose: 250 mg Sevelamer Carbonate (Renvela) 1,600 mg PO ACTID [facility] Last Admin: 05/09/18 17:24 Dose: 1,600 mg Simethicone (Mylicon Chew Tab) 80 mg PO QID [facility] Last Admin: 05/09/18 17:24 Dose: 80 mg - Labs Labs: 05/09/18 06:52 05/09/18 06:52 PT 18.1 SECONDS (9.7-12.2) H 05/09/18 06:52 INR 1.7 05/09/18 06:52 APTT 38 SECONDS (21-34) H 05/09/18 06:52 - Head Exam Head Exam: ATRAUMATIC - Eye Exam Eye Exam: Normal appearance - ENT Exam ENT Exam: Mucous Membranes Dry - Respiratory Exam Respiratory Exam: NORMAL BREATHING PATTERN - Cardiovascular Exam Cardiovascular Exam: +S1, +S2 - GI/Abdominal Exam GI & Abdominal Exam: Normal Bowel Sounds Assessment and Plan (1) Coagulopathy Assessment & Plan: 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
--- NOTE | 2018-05-09 19:57 | CP.PCM.PN ---
Subjective - Date & Time of Evaluation Date of Evaluation: 05/09/18 Time of Evaluation: 08:00 - Subjective Subjective: PGY-[address] Garber. Patient was seen and examined by bedside this AM. Patient was sitting in bed comfortably in NAD. DRIL procedure has been rescheduled for Thursday 05/10 due to an elevated potassium. Patient feels discouraged due to having the surgery postponed. Patient reports gas-like abdominal pain and 2 soft bowel movements. Pt admits to mild shortness of breath with exertion which improves with nasal cannula. Patient underwent dialysis yesterday and again today. Denies headaches, dizziness, or any urinary symptoms. Objective - Vital Signs/Intake and Output Vital Signs (last 24 hours): Temp Pulse Resp BP Pulse Ox 97.7 F 60 20 125/70 99 05/09/18 15:34 05/09/18 16:00 05/09/18 15:34 05/09/18 17:23 05/09/18 15:34 - Medications Medications: Current Medications Acetaminophen (Tylenol 325mg Tab) 650 mg PO Q4 PRN PRN Reason: Pain, Mild (1-3) Last Admin: 05/09/18 11:57 Dose: 650 mg Aspirin (Ecotrin) 81 mg PO DAILY [facility] Last Admin: 04/30/18 09:45 Dose: 81 mg Dextrose (Dextrose 50% Inj) 50 ml IVP ONCE PRN PRN Reason: Hypoglycemia Dextrose (Dextrose 50% Inj) 0 ml IV STAT PRN; Protocol PRN Reason: Hypoglycemia Protocol Dextrose (Glutose 15) 0 gm PO ONCE PRN; Protocol PRN Reason: Hypoglycemia Protocol Diphenhydramine HCl (Benadryl) 25 mg PO HS PRN PRN Reason: Insomnia Last Admin: 05/09/18 03:11 Dose: 25 mg Glucagon (Glucagen Diagnostic Kit) 0 mg IM STAT PRN; Protocol PRN Reason: Hypoglycemia Protocol Meropenem 500 mg/ Sodium (Chloride) 100 mls @ 100 mls/hr IVPB DAILY@2200 [facility]; Protocol Last Admin: 05/08/18 21:24 Dose: 100 mls/hr Dextrose (Dextrose 5% In Water 1000 Ml) 1,000 mls @ 0 mls/hr IV .Q0M PRN; Protocol PRN Reason: Hypoglycemia Protocol Vancomycin HCl 500 mg/ Sodium (Chloride) 100 mls @ 100 mls/hr IVPB MWF [facility]; Protocol Last Admin: 05/08/18 08:36 Dose: 100 mls/hr Insulin Glargine (Lantus) 15 unit SC QPM [facility] Last Admin: 05/09/18 17:30 Dose: Not Given Insulin Human Regular (Novolin R) 0 unit SC ACHS [facility]; Protocol Last Admin: 05/09/18 17:29 Dose: Not Given Latanoprost (Xalatan Opht) 1 ml OU HS [facility] Last Admin: 05/08/18 21:21 Dose: 1 ml Levothyroxine Sodium (Synthroid) 25 mcg PO 0630 [facility] Last Admin: 05/09/18 06:48 Dose: 25 mcg Loratadine (Claritin) 10 mg PO [facility] Last Admin: 05/08/18 21:12 Dose: 10 mg Metoprolol Tartrate (Lopressor) 25 mg PO BID [facility] Last Admin: 05/09/18 17:23 Dose: 25 mg Montelukast Sodium (Singulair) 10 mg PO [facility] Last Admin: 05/08/18 21:21 Dose: 10 mg Multivitamins (Hexavitamin) 1 tab PO DAILY [facility] Last Admin: 05/09/18 10:05 Dose: 1 tab [id number]-2-Pocd Ethyl Esters (Lovaza) 2 gm PO BID [facility] Last Admin: 05/09/18 17:24 Dose: 2 gm Ondansetron HCl (Zofran Inj) 4 mg IVP Q6 PRN PRN Reason: Nausea/Vomiting Last Admin: 05/09/18 15:27 Dose: 4 mg Oxycodone/Acetaminophen (Percocet 5/325 Mg Tab) 1 tab PO Q4H PRN PRN Reason: Pain, moderate (4-7) Stop: 05/11/18 19:21 Last Admin: 05/09/18 15:28 Dose: 1 tab Phytonadione (Vitamin K Tab) 5 mg PO DAILY [facility] Last Admin: 05/09/18 10:04 Dose: 5 mg Pregabalin (Lyrica) 50 mg PO [facility] Last Admin: 05/08/18 21:21 Dose: 50 mg Rosuvastatin Calcium (Crestor) 10 mg PO HS [facility] Last Admin: 05/08/18 21:21 Dose: 10 mg Saccharomyces Boulardii (Florastor) 250 mg PO BID [facility] Last Admin: 05/09/18 17:24 Dose: 250 mg Sevelamer Carbonate (Renvela) 1,600 mg PO ACTID [facility] Last Admin: 05/09/18 17:24 Dose: 1,600 mg Simethicone (Mylicon Chew Tab) 80 mg PO QID [facility] Last Admin: 05/09/18 17:24 Dose: 80 mg - Labs Labs: 05/09/18 06:52 05/09/18 06:52 PT 18.1 SECONDS (9.7-12.2) H 05/09/18 06:52 INR 1.7 05/09/18 06:52 APTT 38 SECONDS (21-34) H 05/09/18 06:52 - Additional Findings Additional findings: - Constitutional Appears: Non-toxic, No Acute Distress - Head Exam Head Exam: ATRAUMATIC, NORMOCEPHALIC - Eye Exam Eye Exam: EOMI, PERRL - ENT Exam ENT Exam: Mucous Membranes Moist - Neck Exam Neck Exam: Full ROM, Normal Inspection - Respiratory Exam Respiratory Exam: Clear to Ausculation Bilateral, NORMAL BREATHING PATTERN. absent: Rales, Rhonchi, Wheezes - Cardiovascular Exam Cardiovascular Exam: Regular rate, +S1, +S2 - GI/Abdominal Exam GI & Abdominal Exam: Soft. absent: Guarding, Rigid, Tenderness, Rebound - Extremities Exam Additional comments: Dressing noted to L 3rd finger, + tender to palpation, L AV fistula, R BKA, Swelling to L lower extremity and R upper extremity - Neurological Exam Neurological Exam: Alert, Awake, oriented x3 - Psychiatric Exam Psychiatric exam: Anxious - Skin Skin Exam: Dry, Normal Color, Warm Assessment and Plan - Assessment and Plan (Free Text) Plan: 52 y o male PMhx ESRD on HD, PAD, CAD, COPD, CHF, pacemaker placement who presented as direct admit from [facility] to [facility] for possible DRIL of L middle finger with Dr. Burden. Plan: L necrotic 3rd finger 2/2 Dialysis associated steal syndrome OR on hold til 05/10 due to hyperkalemia and elevated INR Fistulogram by IR (Dr. Gaming) on 04/27 at [facility] demonstrated significant retrograde flow in L brachial artery distal to AV fistula anastomosis, likely represents steal syndrome; calcified but patent L radial and interosseous arteries, L ulnar artery diffusely diseased, significant L metacarpal and digital small vessel disease, pt may benefit from DRIL procedure. Percocet prn for pain control Dr. Foster consulted (ID), recs appreciated C/w Meropenem 500 mg daily; Vanco 500 mg MWF (renally dosed) added by Dr. Foster (1st dose given 04/30) L hand XR at [facility] demonstrated no signs of osteomyelitis Does not recommend PICC line placement at this time for access issues Possible PO abx upon discharge Surgery consulted (Dr. Burden), recs appreciated Pt cleared by cardiology at [facility] (Dr. Jim) for procedure, deemed moderate risk for low-risk procedure Vitamin K 5mg PO daily Dr. Bradford, Hematology, consulted. Help appreciated. Mixing study demonstrated clotting factor deficiency Coags daily Pt received DDAVP 05/08/18, to receive 3 FFP during HD 05/08/18 ESRD On HD -Dialysis ([facility]) -Dr. Penny consulted (Nephrology) recs appreciated additional dialysis 05/09/18 IDDM -Need to control sugars <200 for OR -Lantus 15 HS added -C/w high sliding scale -Fingersticks achs -HHD -Zofran prn for nausea Hx CAD s/p stents C/w ASA, Crestor 10 mg PO hs Hx hypothyroidism C/w synthroid daily Hx HTN Metoprolol 25 mg PO bid DVT ppx: Heparin 5000U subQ q8h- Hold GI ppx: not indicated at this time.
[2018-05-09] MEDS ORDERED: Phytonadione 10 mg/ml Inj (Adult) SC STA (20:27)
[2018-05-09] MEDS: Meropenem 500 MG in Sodium Chloride 0.9% 100 ML IVPB SCH (21:34)
[2018-05-09] MEDS: Latanoprost 2.5 ml Opht Soln OU SCH (22:21)
[2018-05-10] MEDS: Oxycodone/Acetaminophen 5/325 mg Tab PO PRN ×3 (05:57→23:09)
[2018-05-10] MEDS: Levothyroxine 25 MCG TAB PO SCH (06:00)
[2018-05-10 07:22] LABS: BASO # 0.1 K/uL (0.0-0.2); EOS # 0.1 K/uL (0.0-0.7); HEMOGLOBIN 10.5 g/dL (12.0-18.0); LYMPH # 1.3 K/uL (1.0-4.3); LYMPH % 22.9 % (20.0-40.0); MEAN CELL VOLUME 101.9 fL (80.0-94.0); MEAN CORPUSCULAR HEMOGLOBIN 33.4 pg (27.0-31.0); MEAN CORPUSCULAR HGB CONC 32.8 g/dL (33.0-37.0); MONO # 0.7 K/uL (0.0-0.8); MONO % 12.6 % (0.0-10.0); NEUT # 3.4 K/uL (1.8-7.0); NEUT % 62.5 % (50.0-75.0); NRBC % 0.1 % (0.0-2.0); RBC 3.14 Mil/uL (4.40-5.90); RED CELL DISTRIBUTION WIDTH 20.8 % (11.5-14.5); WHITE BLOOD COUNT 5.5 K/uL (4.8-10.8)
[2018-05-10 07:28] LABS: INR 1.7; PROTHROMBIN TIME 19.1 SECONDS (9.7-12.2)
[2018-05-10 07:36] LABS: ALB/GLOB RATIO 0.8 (1.0-2.1); ALBUMIN 3.5 g/dL (3.5-5.0)
--- NOTE | 2018-05-10 08:17 | CARD ---
APPROVED REPORT Date of service: 05/08/2018 EKG Measurement Heart [id number] ID [id number] <Conclusion> Atrial-sensed ventricular-paced rhythm Abnormal ECG
[2018-05-10] MEDS: (Novolin R) Insulin Human Regular 100 units/ml vial SC SCH ×4 (08:32→21:19)
[2018-05-10] MEDS: Saccharomyces Boulardi 250 mg Cap PO SCH ×2 (09:57→18:08)
[2018-05-10] MEDS: Multiple Vitamins Tab PO SCH (09:58)
[2018-05-10] MEDS: Simethicone 80 mg Chewtab PO SCH ×4 (09:58→21:18)
[2018-05-10] MEDS: Omega-3-Acid Ethyl Esters 1 GM Cap PO SCH ×2 (09:58→18:08)
--- NOTE | 2018-05-10 10:05 | CP.PCM.PN ---
<Solitario Green - Last Filed: 05/10/18 15:07> Subjective - Date & Time of Evaluation Date of Evaluation: 05/10/18 Time of Evaluation: 07:45 - Subjective Subjective: Nephrology progress note for Dr Penny: Pt seen and examined at bedside. No acute events overnight. Patient NPO for DRIL procedure today. No complaints. Denies any garland, dizziness, fever, chills, sob, cp, abd pain, n/v/d. 12 Point ROS performed and neg other than stated above. Objective - Vital Signs/Intake and Output Vital Signs (last 24 hours): Temp Pulse Resp BP Pulse Ox 98.2 F 65 20 126/67 100 05/10/18 07:00 05/10/18 08:00 05/10/18 07:00 05/10/18 07:00 05/10/18 07:00 - Medications Medications: Current Medications Acetaminophen (Tylenol 325mg Tab) 650 mg PO Q4 PRN PRN Reason: Pain, Mild (1-3) Last Admin: 05/09/18 11:57 Dose: 650 mg Aspirin (Ecotrin) 81 mg PO DAILY [facility] Last Admin: 04/30/18 09:45 Dose: 81 mg Dextrose (Dextrose 50% Inj) 50 ml IVP ONCE PRN PRN Reason: Hypoglycemia Dextrose (Dextrose 50% Inj) 0 ml IV STAT PRN; Protocol PRN Reason: Hypoglycemia Protocol Dextrose (Glutose 15) 0 gm PO ONCE PRN; Protocol PRN Reason: Hypoglycemia Protocol Diphenhydramine HCl (Benadryl) 25 mg PO HS PRN PRN Reason: Insomnia Last Admin: 05/09/18 21:33 Dose: 25 mg Glucagon (Glucagen Diagnostic Kit) 0 mg IM STAT PRN; Protocol PRN Reason: Hypoglycemia Protocol Meropenem 500 mg/ Sodium (Chloride) 100 mls @ 100 mls/hr IVPB DAILY@2200 [facility]; Protocol Last Admin: 05/09/18 21:34 Dose: 100 mls/hr Dextrose (Dextrose 5% In Water 1000 Ml) 1,000 mls @ 0 mls/hr IV .Q0M PRN; Protocol PRN Reason: Hypoglycemia Protocol Vancomycin HCl 500 mg/ Sodium (Chloride) 100 mls @ 100 mls/hr IVPB MWF [facility]; Protocol Last Admin: 05/08/18 08:36 Dose: 100 mls/hr Insulin Glargine (Lantus) 15 unit SC QPM [facility] Last Admin: 05/09/18 17:30 Dose: Not Given Insulin Human Regular (Novolin R) 0 unit SC ACHS [facility]; Protocol Last Admin: 05/10/18 08:32 Dose: Not Given Latanoprost (Xalatan Opht) 1 ml OU HS [facility] Last Admin: 05/09/18 22:21 Dose: 1 ml Levothyroxine Sodium (Synthroid) 25 mcg PO 0630 [facility] Last Admin: 05/10/18 06:00 Dose: Not Given Loratadine (Claritin) 10 mg PO [facility] Last Admin: 05/09/18 21:33 Dose: 10 mg Metoprolol Tartrate (Lopressor) 25 mg PO BID [facility] Last Admin: 05/09/18 17:23 Dose: 25 mg Montelukast Sodium (Singulair) 10 mg PO [facility] Last Admin: 05/09/18 21:33 Dose: 10 mg Multivitamins (Hexavitamin) 1 tab PO DAILY [facility] Last Admin: 05/10/18 09:58 Dose: Not Given [id number] Ethyl Esters (Lovaza) 2 gm PO BID [facility] Last Admin: 05/10/18 09:58 Dose: Not Given Ondansetron HCl (Zofran Inj) 4 mg IVP Q6 PRN PRN Reason: Nausea/Vomiting Last Admin: 05/09/18 15:27 Dose: 4 mg Oxycodone/Acetaminophen (Percocet 5/325 Mg Tab) 1 tab PO Q4H PRN PRN Reason: Pain, moderate (4-7) Stop: 05/11/18 19:21 Last Admin: 05/10/18 05:57 Dose: 1 tab Phytonadione (Vitamin K Tab) 5 mg PO DAILY [facility] Last Admin: 05/09/18 10:04 Dose: 5 mg Pregabalin (Lyrica) 50 mg PO [facility] Last Admin: 05/09/18 21:33 Dose: 50 mg Rosuvastatin Calcium (Crestor) 10 mg PO HS [facility] Last Admin: 05/09/18 21:33 Dose: 10 mg Saccharomyces Boulardii (Florastor) 250 mg PO BID [facility] Last Admin: 05/10/18 09:57 Dose: Not Given Sevelamer Carbonate (Renvela) 1,600 mg PO ACTID [facility] Last Admin: 05/10/18 08:33 Dose: Not Given Simethicone (Mylicon Chew Tab) 80 mg PO QID [facility] Last Admin: 05/10/18 09:58 Dose: Not Given - Labs Labs: 05/10/18 07:15 05/10/18 07:15 PT 19.1 SECONDS (9.7-12.2) H 05/10/18 07:15 INR 1.7 05/10/18 07:15 APTT 40 SECONDS (21-34) H 05/10/18 07:15 - Constitutional Appears: No Acute Distress - Head Exam Head Exam: ATRAUMATIC, NORMOCEPHALIC - Eye Exam Eye Exam: EOMI - ENT Exam ENT Exam: Mucous Membranes Moist - Respiratory Exam Respiratory Exam: Clear to Ausculation Bilateral. absent: Wheezes - Cardiovascular Exam Cardiovascular Exam: REGULAR RHYTHM, +S1, +S2 - GI/Abdominal Exam GI & Abdominal Exam: Soft. absent: Distended, Tenderness - Extremities Exam Extremities Exam: absent: Calf Tenderness Additional comments: 3rd L digit dressing in place - Neurological Exam Neurological Exam: Alert, Awake, CN II-XII Intact - Skin Skin Exam: Dry, Intact Assessment and Plan - Assessment and Plan (Free Text) Assessment: 52 year old male with steal syndrome from AVF of the left arm with dry necrosis of the third left finger. NPO today for DRIL procedure. - Pain control - HD on MWF - Patient had dialysis 05/09/18; Next Dialysis will be 05/11/18 - Continue with renal dose of Vancomycin MWF and Meropenem 500mg daily - Continue with Sevelamer ACTID - F/u surgical consult and recs 12 Point ROS performed and neg other than stated above. <Reginaldo Penny - Last Filed: 05/11/18 08:58> Objective - Vital Signs/Intake and Output Vital Signs (last 24 hours): Temp Pulse Resp BP Pulse Ox 97.4 F L 60 20 117/65 96 05/11/18 04:00 05/11/18 04:00 05/11/18 04:00 05/11/18 04:00 05/11/18 04:00 Intake and Output: 05/11/18 05/11/18 06:59 18:59 Intake Total 240 Balance 240 - Medications Medications: Current Medications Acetaminophen (Tylenol 325mg Tab) 650 mg PO Q4 PRN PRN Reason: Pain, Mild (1-3) Last Admin: 05/09/18 11:57 Dose: 650 mg Aspirin (Ecotrin) 81 mg PO DAILY [facility] Last Admin: 04/30/18 09:45 Dose: 81 mg Dextrose (Dextrose 50% Inj) 50 ml IVP ONCE PRN PRN Reason: Hypoglycemia Dextrose (Dextrose 50% Inj) 0 ml IV STAT PRN; Protocol PRN Reason: Hypoglycemia Protocol Dextrose (Glutose 15) 0 gm PO ONCE PRN; Protocol PRN Reason: Hypoglycemia Protocol Diphenhydramine HCl (Benadryl) 25 mg PO HS PRN PRN Reason: Insomnia Last Admin: 05/09/18 21:33 Dose: 25 mg Epoetin Alexey (Procrit) 10,000 unit IV ONCE ONE Stop: 05/11/18 08:53 Glucagon (Glucagen Diagnostic Kit) 0 mg IM STAT PRN; Protocol PRN Reason: Hypoglycemia Protocol Hydromorphone HCl (Dilaudid) 0.2 mg IVP Q4H PRN PRN Reason: Pain, severe (8-10) Last Admin: 05/11/18 03:28 Dose: 0.2 mg Meropenem 500 mg/ Sodium (Chloride) 100 mls @ 100 mls/hr IVPB DAILY@2200 [facility]; Protocol Last Admin: 05/10/18 21:19 Dose: 100 mls/hr Dextrose (Dextrose 5% In Water 1000 Ml) 1,000 mls @ 0 mls/hr IV .Q0M PRN; Protocol PRN Reason: Hypoglycemia Protocol Vancomycin HCl 500 mg/ Sodium (Chloride) 100 mls @ 100 mls/hr IVPB MWF [facility]; Protocol Last Admin: 05/10/18 12:24 Dose: Not Given Insulin Glargine (Lantus) 15 unit SC QPM [facility] Last Admin: 05/10/18 18:17 Dose: Not Given Insulin Human Regular (Novolin R) 0 unit SC ACHS [facility]; Protocol Last Admin: 05/11/18 08:30 Dose: 6 units Latanoprost (Xalatan Opht) 1 ml OU HS [facility] Last Admin: 05/10/18 21:19 Dose: 1 ml Levothyroxine Sodium (Synthroid) 25 mcg PO 0630 [facility] Last Admin: 05/11/18 06:36 Dose: 25 mcg Loratadine (Claritin) 10 mg PO HS [facility] Last Admin: 05/10/18 21:18 Dose: 10 mg Metoprolol Tartrate (Lopressor) 25 mg PO BID [facility] Last Admin: 05/10/18 18:17 Dose: Not Given Montelukast Sodium (Singulair) 10 mg PO HS [facility] Last Admin: 05/10/18 21:18 Dose: 10 mg Multivitamins (Hexavitamin) 1 tab PO DAILY [facility] Last Admin: 05/10/18 09:58 Dose: Not Given Jvvjh-1-Pxzj Ethyl Esters (Lovaza) 2 gm PO BID [facility] Last Admin: 05/10/18 18:08 Dose: 2 gm Ondansetron HCl (Zofran Inj) 4 mg IVP Q6 PRN PRN Reason: Nausea/Vomiting Last Admin: 05/11/18 08:30 Dose: 4 mg Oxycodone/Acetaminophen (Percocet 5/325 Mg Tab) 1 tab PO Q4H PRN PRN Reason: Pain, moderate (4-7) Stop: 05/11/18 19:21 Last Admin: 05/11/18 06:36 Dose: 1 tab Phytonadione (Vitamin K Tab) 5 mg PO DAILY [facility] Last Admin: 05/10/18 10:06 Dose: 5 mg Pregabalin (Lyrica) 50 mg PO [facility] Last Admin: 05/10/18 21:18 Dose: 50 mg Rosuvastatin Calcium (Crestor) 10 mg PO HS [facility] Last Admin: 05/10/18 21:18 Dose: 10 mg Saccharomyces Boulardii (Florastor) 250 mg PO BID [facility] Last Admin: 05/10/18 18:08 Dose: 250 mg Sevelamer Carbonate (Renvela) 1,600 mg PO ACTID [facility] Last Admin: 05/11/18 07:31 Dose: 1,600 mg Simethicone (Mylicon Chew Tab) 80 mg PO QID [facility] Last Admin: 05/10/18 21:18 Dose: 80 mg - Labs Labs: 05/11/18 07:06 05/11/18 07:06 PT 18.5 SECONDS (9.7-12.2) H 05/11/18 07:06 INR 1.7 05/11/18 07:06 APTT 37 SECONDS (21-34) H 05/11/18 07:06 Assessment and Plan (1) ESRD on hemodialysis Status: Chronic (2) Steal syndrome dialysis vascular access Status: Acute (3) Anemia in CKD (chronic kidney disease) Status: Acute (4) Chronic kidney disease-mineral and bone disorder Status: Chronic (5) Hypertensive CKD, ESRD on dialysis Status: Chronic Attending/Attestation - Attestation I have personally seen and examined this patient.: Yes I have fully participated in the care of the patient.: Yes I have reviewed all pertinent clinical information, including history, physical exam and plan: Yes Notes (Text): Patient seen and examined; I agree with the resident's note as above with the following additions/edits: 52 yo M w/ htn, DM, PAD s/p R BKA (03/2018), pulm htn, ESRD on HD, admitted for L 3rd necrotic finger and steal syndrome related to L arm AVF; Underwent 3rd digit amputation earlier today; DRIL procedure could not be done due to concern for ongoing coagulopathy and worsening thrombocytopenia; Otherwise stable volume and electrolyte status; last HD yesterday, off schedule due to OR today; next HD planned for tomorrow before potential d/c and f/u at outpatient HD center on Tuesday; BP controlled, continue metoprolol; Anemia stable, will re-dose aranesp on HD; Phos controlled on sevelamer 2 tabs w/ each meal, continue;
[2018-05-10] MEDS ORDERED: Propofol 10 mg/ml Inj (20 ML) ONE ×2 (10:38→11:50)
[2018-05-10] MEDS ORDERED: Lidocaine 1% 20 MG/2 ML PF AMP ONE (10:43)
[2018-05-10] MEDS ORDERED: Lidocaine 2% MPF (5 ml) Inj ONE (10:43)
[2018-05-10] MEDS ORDERED: Midazolam 2 MG/2 ML VIAL ONE ×3 (11:05→11:50)
[2018-05-10] MEDS ORDERED: Etomidate 20 mg/10ml Inj IV ONE (11:05)
[2018-05-10] MEDS ORDERED: ePHEDrine 50 mg/ml Inj ONE (12:32)
[2018-05-10] MEDS ORDERED: Vasopressin 20 Units/ml Inj ONE (12:32)
[2018-05-10] MEDS ORDERED: HYDROmorphone 0.5 mg/0.5 ml ISec IVP PRN ×2 (12:41→12:49)
--- NOTE | 2018-05-10 12:51 | PCM.SURG1 ---
Surgeon's Initial Post Op Note - Surgeon's Notes Surgeon: Dr. Burden Operating Room Specialist: Rakesh Alonso PGY3 Type of Anesthesia: General LMA Anesthesia Administered By: Valentin Pre-Operative Diagnosis: necrotic L middle finger Operative Findings: necrotic L middle finger Post-Operative Diagnosis: Same Operation Performed: L middle finger amputation Specimen/Specimens Removed: L middle finger Estimated Blood Loss: EBL {In ML}: 5 Blood Products Given: N/A Drains Used: No Drains Post-Op Condition: Good Date of Surgery/Procedure: 05/10/18 Time of Surgery/Procedure: 12:51
--- NOTE | 2018-05-10 16:22 | CP.PCM.PN ---
Subjective - Date & Time of Evaluation Date of Evaluation: 05/10/18 Time of Evaluation: 07:50 - Subjective Subjective: Medicine Progress Note for Hospitalist Service Pt seen and examined at bedside this am. Denies any acute complaints. Tolerating PO diet, pain controlled. No acute events reported overnight. Pt to go to OR today for possible DRIL/L middle finger amputation. Denies fever, chills, chest pain, sob, n/v/d/c, abd pain, urinary complaints, or other symptoms. Objective - Vital Signs/Intake and Output Vital Signs (last 24 hours): Temp Pulse Resp BP Pulse Ox 97.1 F L 60 20 126/81 95 05/10/18 15:48 05/10/18 15:48 05/10/18 15:48 05/10/18 15:48 05/10/18 15:48 Intake and Output: 05/10/18 05/10/18 06:59 18:59 Intake Total 870 Balance 870 - Medications Medications: Current Medications Acetaminophen (Tylenol 325mg Tab) 650 mg PO Q4 PRN PRN Reason: Pain, Mild (1-3) Last Admin: 05/09/18 11:57 Dose: 650 mg Aspirin (Ecotrin) 81 mg PO DAILY [facility] Last Admin: 04/30/18 09:45 Dose: 81 mg Dextrose (Dextrose 50% Inj) 50 ml IVP ONCE PRN PRN Reason: Hypoglycemia Dextrose (Dextrose 50% Inj) 0 ml IV STAT PRN; Protocol PRN Reason: Hypoglycemia Protocol Dextrose (Glutose 15) 0 gm PO ONCE PRN; Protocol PRN Reason: Hypoglycemia Protocol Diphenhydramine HCl (Benadryl) 25 mg PO HS PRN PRN Reason: Insomnia Last Admin: 05/09/18 21:33 Dose: 25 mg Glucagon (Glucagen Diagnostic Kit) 0 mg IM STAT PRN; Protocol PRN Reason: Hypoglycemia Protocol Hydromorphone HCl (Dilaudid) 0.2 mg IVP Q4H PRN PRN Reason: Pain, severe (8-10) Meropenem 500 mg/ Sodium (Chloride) 100 mls @ 100 mls/hr IVPB DAILY@2200 [facility]; Protocol Last Admin: 05/09/18 21:34 Dose: 100 mls/hr Dextrose (Dextrose 5% In Water 1000 Ml) 1,000 mls @ 0 mls/hr IV .Q0M PRN; Protocol PRN Reason: Hypoglycemia Protocol Vancomycin HCl 500 mg/ Sodium (Chloride) 100 mls @ 100 mls/hr IVPB MWF [facility]; Protocol Last Admin: 05/10/18 12:24 Dose: Not Given Insulin Glargine (Lantus) 15 unit SC QPM [facility] Last Admin: 05/09/18 17:30 Dose: Not Given Insulin Human Regular (Novolin R) 0 unit SC ACHS [facility]; Protocol Last Admin: 05/10/18 12:24 Dose: Not Given Latanoprost (Xalatan Opht) 1 ml OU HS [facility] Last Admin: 05/09/18 22:21 Dose: 1 ml Levothyroxine Sodium (Synthroid) 25 mcg PO 0630 [facility] Last Admin: 05/10/18 06:00 Dose: Not Given Loratadine (Claritin) 10 mg PO [facility] Last Admin: 05/09/18 21:33 Dose: 10 mg Metoprolol Tartrate (Lopressor) 25 mg PO BID [facility] Last Admin: 05/10/18 10:09 Dose: Not Given Montelukast Sodium (Singulair) 10 mg PO [facility] Last Admin: 05/09/18 21:33 Dose: 10 mg Multivitamins (Hexavitamin) 1 tab PO DAILY [facility] Last Admin: 05/10/18 09:58 Dose: Not Given Xmvep-2-Rsyn Ethyl Esters (Lovaza) 2 gm PO BID [facility] Last Admin: 05/10/18 09:58 Dose: Not Given Ondansetron HCl (Zofran Inj) 4 mg IVP Q6 PRN PRN Reason: Nausea/Vomiting Last Admin: 05/10/18 10:07 Dose: 4 mg Oxycodone/Acetaminophen (Percocet 5/325 Mg Tab) 1 tab PO Q4H PRN PRN Reason: Pain, moderate (4-7) Stop: 05/11/18 19:21 Last Admin: 05/10/18 05:57 Dose: 1 tab Phytonadione (Vitamin K Tab) 5 mg PO DAILY [facility] Last Admin: 05/10/18 10:06 Dose: 5 mg Pregabalin (Lyrica) 50 mg PO [facility] Last Admin: 05/09/18 21:33 Dose: 50 mg Rosuvastatin Calcium (Crestor) 10 mg PO [facility] Last Admin: 05/09/18 21:33 Dose: 10 mg Saccharomyces Boulardii (Florastor) 250 mg PO BID [facility] Last Admin: 05/10/18 09:57 Dose: Not Given Sevelamer Carbonate (Renvela) 1,600 mg PO ACTID [facility] Last Admin: 05/10/18 12:24 Dose: Not Given Simethicone (Mylicon Chew Tab) 80 mg PO QID [facility] Last Admin: 05/10/18 14:11 Dose: Not Given - Labs Labs: 05/10/18 07:15 05/10/18 07:15 PT 19.1 SECONDS (9.7-12.2) H 05/10/18 07:15 INR 1.7 05/10/18 07:15 APTT 40 SECONDS (21-34) H 05/10/18 07:15 - Constitutional Appears: Non-toxic, No Acute Distress, Chronically Ill - Eye Exam Eye Exam: EOMI, Normal appearance, PERRL - ENT Exam ENT Exam: Mucous Membranes Moist - Respiratory Exam Respiratory Exam: Clear to Ausculation Bilateral, NORMAL BREATHING PATTERN. absent: Rales, Rhonchi, Wheezes - Cardiovascular Exam Cardiovascular Exam: REGULAR RHYTHM, +S1, +S2. absent: Gallop, Rubs, Murmur - GI/Abdominal Exam GI & Abdominal Exam: Soft, Normal Bowel Sounds. absent: Distended, Firm, Guarding, Rigid, Tenderness, Organomegaly, Rebound - Extremities Exam Extremities Exam: absent: Tenderness Additional comments: S/p R BKA; Dressing dry and intact on L middle finger - Neurological Exam Neurological Exam: Alert, Awake, CN II-XII Intact, Oriented x3 - Psychiatric Exam Psychiatric exam: Normal Affect, Normal Mood - Skin Skin Exam: Dry, Intact, Warm Assessment and Plan - Assessment and Plan (Free Text) Assessment: 52 y o male PMhx ESRD on HD, PAD, CAD, COPD, CHF, pacemaker placement who presented as direct admit from [facility] to [facility] for possible DRIL of L middle finger with Dr. Burden. Plan: L necrotic 3rd finger 2/2 Dialysis associated steal syndrome OR Wed 05/10 for DRIL/possible amputation of L middle finger; INR 1.7 today Fistulogram by IR (Dr. Gaming) on 04/27 at [facility] demonstrated significant retrograde flow in L brachial artery distal to AV fistula anastomosis, likely represents steal syndrome; calcified but patent L radial and interosseous arteries, L ulnar artery diffusely diseased, significant L metacarpal and digital small vessel disease, pt may benefit from DRIL procedure. Percocet prn for pain control Dr. Foster consulted (ID), recs appreciated C/w Meropenem 500 mg daily; Vanco 500 mg MWF (renally dosed) added by Dr. Foster (1st dose given 04/30) L hand XR at [facility] demonstrated no signs of osteomyelitis Does not recommend PICC line placement at this time for access issues Possible PO abx upon discharge Surgery consulted (Dr. Burden), recs appreciated Pt cleared by cardiology at [facility] (Dr. Jim) for procedure, deemed moderate risk for low-risk procedure Vitamin K 5mg PO daily Dr. Bradford, Hematology, consulted. Help appreciated. Mixing study demonstrated clotting factor deficiency Coags daily Pt received DDAVP 05/08/18, received 3 FFP during HD 05/08/18, s/p 1 FFP on 05/09/18 ESRD On HD -Dialysis (MWF) -Dr. Penny consulted (Nephrology) recs appreciated additional dialysis 05/09/18 IDDM -Need to control sugars <200 for OR -Lantus 15 HS added -C/w high sliding scale -Fingersticks achs -HHD -Zofran prn for nausea Hx CAD s/p stents C/w ASA, Crestor 10 mg PO hs Hx hypothyroidism C/w synthroid daily Hx HTN Metoprolol 25 mg PO bid DVT ppx: Heparin 5000U subQ q8h- Hold GI ppx: not indicated at this time Pt seen, examined with, and plan d/w Dr. Garber, attending physician. Jose Shields, PGY-1, Marketing Mgr Pager #[phone]
[2018-05-10] MEDS: (Lantus) Insulin Glargine, Recombinant SC SCH (18:17)
[2018-05-10] MEDS: HYDROmorphone 0.5 mg/0.5 ml ISec IVP PRN (21:17)
[2018-05-10] MEDS: Latanoprost 2.5 ml Opht Soln OU SCH (21:19)
[2018-05-10] MEDS: Meropenem 500 MG in Sodium Chloride 0.9% 100 ML IVPB SCH (21:19)
--- NOTE | 2018-05-11 | OP ---
PROCEDURE DATE: 05/10/2018 PREOPERATIVE DIAGNOSIS: Gangrene, left third middle finger. POSTOPERATIVE DIAGNOSIS: Gangrene, left third middle finger. PROCEDURE CARRIED OUT: Amputation of phalangeal of left third finger. SURGEON: Jesus Burden Jr., MD MACHINE DESIGN ENGINEER: Rakesh Alonso DO ANESTHESIA: General. ANESTHESIOLOGIST: Ruben Hanson MD INDICATIONS FOR PROCEDURE: A 52-year-old, on dialysis with previous right below-knee amputation. AV fistula in the left arm by angiography done at [facility] demonstrating retrograde flow. OPERATIVE FINDINGS: We made multiple attempts to carry out the above procedure on this patient. It was ordered by his platelet count, his elevated INR, and his potassium levels on and off basis. Given this situation and difficulty getting him by proceeded to have a major operation done, we amputated the finger. The patient is well aware of the fact that this may not heal adequately. It will give us some time to allow for additional medical optimization prior to any other interventions. DESCRIPTION OF PROCEDURE: The patient was given general anesthesia and intravenous antibiotics. The finger was prepped. A volar flap was created after removal of the finger, which was gangrenous and the bone. This was flapped together. The wound was then closed. Dressing was applied. Blood loss for the procedure was 10 mL. Operation carried out was amputation of left third finger. There appeared to be adequate vascularity at the amputation site. Jesus Burden Jr., MD cc: 1. Octavio Head MD at [place] 2. Reginaldo Penny MD 3. David Machuca MD
[2018-05-11] MEDS: HYDROmorphone 0.5 mg/0.5 ml ISec IVP PRN (03:28)
[2018-05-11] MEDS: Levothyroxine 25 MCG TAB PO SCH (06:36)
[2018-05-11] MEDS: Oxycodone/Acetaminophen 5/325 mg Tab PO PRN ×3 (06:36→16:24)
[2018-05-11 07:22] LABS: BASO # 0.1 K/uL (0.0-0.2); BASO % 1.2 % (0.0-2.0); EOS # 0.1 K/uL (0.0-0.7); EOS % 1.4 % (0.0-4.0); HEMOGLOBIN 9.9 g/dL (12.0-18.0); LYMPH # 0.9 K/uL (1.0-4.3); LYMPH % 17.5 % (20.0-40.0); MEAN CELL VOLUME 102.2 fL (80.0-94.0); MEAN CORPUSCULAR HEMOGLOBIN 33.3 pg (27.0-31.0); MEAN CORPUSCULAR HGB CONC 32.6 g/dL (33.0-37.0); MEAN PLATELET VOLUME 11.8 fL (7.2-11.7); MONO # 0.6 K/uL (0.0-0.8); MONO % 12.7 % (0.0-10.0); NEUT # 3.3 K/uL (1.8-7.0); NEUT % 67.2 % (50.0-75.0); NRBC % 0.1 % (0.0-2.0); RBC 2.97 Mil/uL (4.40-5.90); RED CELL DISTRIBUTION WIDTH 19.7 % (11.5-14.5)
[2018-05-11 07:31] LABS: INR 1.7; PROTHROMBIN TIME 18.5 SECONDS (9.7-12.2)
[2018-05-11 07:52] LABS: ALB/GLOB RATIO 0.8 (1.0-2.1); ALBUMIN 3.4 g/dL (3.5-5.0)
[2018-05-11] MEDS: (Novolin R) Insulin Human Regular 100 units/ml vial SC SCH ×4 (08:30→16:41)
--- NOTE | 2018-05-11 08:32 | CP.PCM.PN ---
Subjective - Date & Time of Evaluation Date of Evaluation: 05/11/18 Time of Evaluation: 08:29 - Subjective Subjective: Surgery Pt seen and examined. No acute events. Pt underwent L finger amputation yesterday. Denies fevevr, nausea, vomiting, diarrhea. Pain controlled. Dressing In place. Objective - Vital Signs/Intake and Output Vital Signs (last 24 hours): Temp Pulse Resp BP Pulse Ox 97.4 F L 60 20 117/65 96 05/11/18 04:00 05/11/18 04:00 05/11/18 04:00 05/11/18 04:00 05/11/18 04:00 Intake and Output: 05/11/18 05/11/18 06:59 18:59 Intake Total 240 Balance 240 - Medications Medications: Current Medications Acetaminophen (Tylenol 325mg Tab) 650 mg PO Q4 PRN PRN Reason: Pain, Mild (1-3) Last Admin: 05/09/18 11:57 Dose: 650 mg Aspirin (Ecotrin) 81 mg PO DAILY [facility] Last Admin: 04/30/18 09:45 Dose: 81 mg Dextrose (Dextrose 50% Inj) 50 ml IVP ONCE PRN PRN Reason: Hypoglycemia Dextrose (Dextrose 50% Inj) 0 ml IV STAT PRN; Protocol PRN Reason: Hypoglycemia Protocol Dextrose (Glutose 15) 0 gm PO ONCE PRN; Protocol PRN Reason: Hypoglycemia Protocol Diphenhydramine HCl (Benadryl) 25 mg PO HS PRN PRN Reason: Insomnia Last Admin: 05/09/18 21:33 Dose: 25 mg Glucagon (Glucagen Diagnostic Kit) 0 mg IM STAT PRN; Protocol PRN Reason: Hypoglycemia Protocol Hydromorphone HCl (Dilaudid) 0.2 mg IVP Q4H PRN PRN Reason: Pain, severe (8-10) Last Admin: 05/11/18 03:28 Dose: 0.2 mg Meropenem 500 mg/ Sodium (Chloride) 100 mls @ 100 mls/hr IVPB DAILY@2200 [facility]; Protocol Last Admin: 05/10/18 21:19 Dose: 100 mls/hr Dextrose (Dextrose 5% In Water 1000 Ml) 1,000 mls @ 0 mls/hr IV .Q0M PRN; Protocol PRN Reason: Hypoglycemia Protocol Vancomycin HCl 500 mg/ Sodium (Chloride) 100 mls @ 100 mls/hr IVPB MWF [facility]; Protocol Last Admin: 05/10/18 12:24 Dose: Not Given Insulin Glargine (Lantus) 15 unit SC QPM [facility] Last Admin: 05/10/18 18:17 Dose: Not Given Insulin Human Regular (Novolin R) 0 unit SC ACHS [facility]; Protocol Last Admin: 05/10/18 21:19 Dose: Not Given Latanoprost (Xalatan Opht) 1 ml OU HS [facility] Last Admin: 05/10/18 21:19 Dose: 1 ml Levothyroxine Sodium (Synthroid) 25 mcg PO 0630 [facility] Last Admin: 05/11/18 06:36 Dose: 25 mcg Loratadine (Claritin) 10 mg PO HS [facility] Last Admin: 05/10/18 21:18 Dose: 10 mg Metoprolol Tartrate (Lopressor) 25 mg PO BID [facility] Last Admin: 05/10/18 18:17 Dose: Not Given Montelukast Sodium (Singulair) 10 mg PO HS [facility] Last Admin: 05/10/18 21:18 Dose: 10 mg Multivitamins (Hexavitamin) 1 tab PO DAILY [facility] Last Admin: 05/10/18 09:58 Dose: Not Given Jiynm-4-Plvo Ethyl Esters (Lovaza) 2 gm PO BID [facility] Last Admin: 05/10/18 18:08 Dose: 2 gm Ondansetron HCl (Zofran Inj) 4 mg IVP Q6 PRN PRN Reason: Nausea/Vomiting Last Admin: 05/11/18 01:25 Dose: 4 mg Oxycodone/Acetaminophen (Percocet 5/325 Mg Tab) 1 tab PO Q4H PRN PRN Reason: Pain, moderate (4-7) Stop: 05/11/18 19:21 Last Admin: 05/11/18 06:36 Dose: 1 tab Phytonadione (Vitamin K Tab) 5 mg PO DAILY [facility] Last Admin: 05/10/18 10:06 Dose: 5 mg Pregabalin (Lyrica) 50 mg PO [facility] Last Admin: 05/10/18 21:18 Dose: 50 mg Rosuvastatin Calcium (Crestor) 10 mg PO HS [facility] Last Admin: 05/10/18 21:18 Dose: 10 mg Saccharomyces Boulardii (Florastor) 250 mg PO BID [facility] Last Admin: 05/10/18 18:08 Dose: 250 mg Sevelamer Carbonate (Renvela) 1,600 mg PO ACTID [facility] Last Admin: 05/10/18 18:08 Dose: 1,600 mg Simethicone (Mylicon Chew Tab) 80 mg PO QID [facility] Last Admin: 05/10/18 21:18 Dose: 80 mg - Labs Labs: 05/11/18 07:06 05/11/18 07:06 PT 18.5 SECONDS (9.7-12.2) H 05/11/18 07:06 INR 1.7 05/11/18 07:06 APTT 37 SECONDS (21-34) H 05/11/18 07:06 - Constitutional Appears: Well - Head Exam Head Exam: ATRAUMATIC, NORMAL INSPECTION, NORMOCEPHALIC - Eye Exam Eye Exam: EOMI, Normal appearance, PERRL Pupil Exam: NORMAL ACCOMODATION, PERRL - ENT Exam ENT Exam: Mucous Membranes Moist, Normal Exam - Neck Exam Neck Exam: Full ROM, Normal Inspection. absent: Lymphadenopathy - Respiratory Exam Respiratory Exam: NORMAL BREATHING PATTERN - GI/Abdominal Exam GI & Abdominal Exam: Soft - Extremities Exam Extremities Exam: Tenderness. absent: Normal Inspection Additional comments: L hand dressing C/D/I. - Back Exam Back Exam: NORMAL INSPECTION - Neurological Exam Neurological Exam: Alert, Awake, CN II-XII Intact, Oriented x3 - Psychiatric Exam Psychiatric exam: Normal Affect, Normal Mood - Skin Skin Exam: Dry, Intact, Normal Color, Warm Assessment and Plan - Assessment and Plan (Free Text) Assessment: POD 1 s/p L middle finger amputation -WIll plan on DRIL procedure electively -pain control -follow up at Dr. Hughes's office in 1-2 weeks after DC to get stitches removed and schedule for DRIL Will DW Dr. Hughes
[2018-05-11] MEDS ORDERED: Epoetin Alfa 10,000 unit/ml Dialysis SC ONE ×2 (10:00→12:45)
--- NOTE | 2018-05-11 10:42 | CP.PCM.PN ---
Subjective - Date & Time of Evaluation Date of Evaluation: 05/11/18 Time of Evaluation: 07:00 - Subjective Subjective: Surgery progress note for Dr. Burden Patient seen and examined this AM. No adverse events overnight. Patient reports pain but it is currently well controlled on pain regimen. Patient denies any fevers, chills, or any new symptoms. Objective - Vital Signs/Intake and Output Vital Signs (last 24 hours): Temp Pulse Resp BP Pulse Ox 97.4 F L 69 20 157/64 H 100 05/11/18 08:00 05/11/18 08:19 05/11/18 08:00 05/11/18 08:00 05/11/18 08:00 Intake and Output: 05/11/18 05/11/18 06:59 18:59 Intake Total 240 Balance 240 - Medications Medications: Current Medications Acetaminophen (Tylenol 325mg Tab) 650 mg PO Q4 PRN PRN Reason: Pain, Mild (1-3) Last Admin: 05/09/18 11:57 Dose: 650 mg Aspirin (Ecotrin) 81 mg PO DAILY [facility] Last Admin: 04/30/18 09:45 Dose: 81 mg Dextrose (Dextrose 50% Inj) 50 ml IVP ONCE PRN PRN Reason: Hypoglycemia Dextrose (Dextrose 50% Inj) 0 ml IV STAT PRN; Protocol PRN Reason: Hypoglycemia Protocol Dextrose (Glutose 15) 0 gm PO ONCE PRN; Protocol PRN Reason: Hypoglycemia Protocol Diphenhydramine HCl (Benadryl) 25 mg PO HS PRN PRN Reason: Insomnia Last Admin: 05/09/18 21:33 Dose: 25 mg Glucagon (Glucagen Diagnostic Kit) 0 mg IM STAT PRN; Protocol PRN Reason: Hypoglycemia Protocol Hydromorphone HCl (Dilaudid) 0.2 mg IVP Q4H PRN PRN Reason: Pain, severe (8-10) Last Admin: 05/11/18 03:28 Dose: 0.2 mg Meropenem 500 mg/ Sodium (Chloride) 100 mls @ 100 mls/hr IVPB DAILY@2200 [facility]; Protocol Last Admin: 05/10/18 21:19 Dose: 100 mls/hr Dextrose (Dextrose 5% In Water 1000 Ml) 1,000 mls @ 0 mls/hr IV .Q0M PRN; Prot ocol PRN Reason: Hypoglycemia Protocol Vancomycin HCl 500 mg/ Sodium (Chloride) 100 mls @ 100 mls/hr IVPB MWF [facility]; Protocol Last Admin: 05/10/18 12:24 Dose: Not Given Insulin Glargine (Lantus) 15 unit SC QPM [facility] Last Admin: 05/10/18 18:17 Dose: Not Given Insulin Human Regular (Novolin R) 0 unit SC ACHS [facility]; Protocol Last Admin: 05/11/18 08:30 Dose: 6 units Latanoprost (Xalatan Opht) 1 ml OU HS [facility] Last Admin: 05/10/18 21:19 Dose: 1 ml Levothyroxine Sodium (Synthroid) 25 mcg PO 0630 [facility] Last Admin: 05/11/18 06:36 Dose: 25 mcg Loratadine (Claritin) 10 mg PO HS [facility] Last Admin: 05/10/18 21:18 Dose: 10 mg Metoprolol Tartrate (Lopressor) 25 mg PO BID [facility] Last Admin: 05/10/18 18:17 Dose: Not Given Montelukast Sodium (Singulair) 10 mg PO [facility] Last Admin: 05/10/18 21:18 Dose: 10 mg Multivitamins (Hexavitamin) 1 tab PO DAILY [facility] Last Admin: 05/10/18 09:58 Dose: Not Given Ntijp-1-Smae Ethyl Esters (Lovaza) 2 gm PO BID [facility] Last Admin: 05/10/18 18:08 Dose: 2 gm Ondansetron HCl (Zofran Inj) 4 mg IVP Q6 PRN PRN Reason: Nausea/Vomiting Last Admin: 05/11/18 08:30 Dose: 4 mg Oxycodone/Acetaminophen (Percocet 5/325 Mg Tab) 1 tab PO Q4H PRN PRN Reason: Pain, moderate (4-7) Stop: 05/11/18 19:21 Last Admin: 05/11/18 06:36 Dose: 1 tab Phytonadione (Vitamin K Tab) 5 mg PO DAILY [facility] Last Admin: 05/10/18 10:06 Dose: 5 mg Pregabalin (Lyrica) 50 mg PO [facility] Last Admin: 05/10/18 21:18 Dose: 50 mg Rosuvastatin Calcium (Crestor) 10 mg PO [facility] Last Admin: 05/10/18 21:18 Dose: 10 mg Saccharomyces Boulardii (Florastor) 250 mg PO BID [facility] Last Admin: 05/10/18 18:08 Dose: 250 mg Sevelamer Carbonate (Renvela) 1,600 mg PO ACTID [facility] Last Admin: 05/11/18 07:31 Dose: 1,600 mg Simethicone (Mylicon Chew Tab) 80 mg PO QID [facility] Last Admin: 05/10/18 21:18 Dose: 80 mg - Labs Labs: 05/11/18 07:06 05/11/18 07:06 PT 18.5 SECONDS (9.7-12.2) H 05/11/18 07:06 INR 1.7 05/11/18 07:06 APTT 37 SECONDS (21-34) H 05/11/18 07:06 - Constitutional Appears: Well, Non-toxic, No Acute Distress - Head Exam Head Exam: ATRAUMATIC, NORMOCEPHALIC - Eye Exam Eye Exam: Normal appearance. absent: Conjunctival injection, Scleral icterus - ENT Exam ENT Exam: Mucous Membranes Moist, Normal Oropharynx - Respiratory Exam Respiratory Exam: NORMAL BREATHING PATTERN. absent: Accessory Muscle Use, Respiratory Distress - Cardiovascular Exam Cardiovascular Exam: RRR - GI/Abdominal Exam GI & Abdominal Exam: Soft. absent: Distended - Extremities Exam Additional comments: left hand with surgical dressing intact, clean, dry, no drainage or surrounding erythema - Neurological Exam Neurological Exam: Alert, Awake, Oriented x3 - Psychiatric Exam Psychiatric exam: Normal Affect, Normal Mood - Skin Skin Exam: Dry, Normal Color, Warm Assessment and Plan - Assessment and Plan (Free Text) Assessment: 52M POD#1 s/p left 3rd finger amputation Plan: Patient is clear for discharge from a surgical standpoint once tolerating pain with only PO pain medication. Follow up with Dr. Burden in his office 1 week after discharge for post op evaluation and possibl DRIL procedure planning if patient's INR is able to be controlled. Continue medical management per ID, heme/onc, nerphrology and primary PRN pain medication Discussed with Dr. Jenise Gonzalez, PGY2
--- NOTE | 2018-05-11 11:16 | CP.PCM.PN ---
Subjective - Date & Time of Evaluation Date of Evaluation: 05/11/18 Time of Evaluation: 08:00 - Subjective Subjective: Nephrology progress note for Dr Penny: Pt seen and examined at bedside. No acute events overnight. Patient s/p L middle finger amputation yesterday. complains of some mild pain but well controlled at this time. Denies any garland, dizziness, fever, chills, sob, cp, abd pain, n/v/d. 12 Point ROS performed and neg other than stated above. Objective - Vital Signs/Intake and Output Vital Signs (last 24 hours): Temp Pulse Resp BP Pulse Ox 97.7 F 68 16 149/78 100 05/11/18 09:45 05/11/18 09:45 05/11/18 09:45 05/11/18 10:15 05/11/18 09:45 Intake and Output: 05/11/18 05/11/18 06:59 18:59 Intake Total 240 Balance 240 - Medications Medications: Current Medications Acetaminophen (Tylenol 325mg Tab) 650 mg PO Q4 PRN PRN Reason: Pain, Mild (1-3) Last Admin: 05/09/18 11:57 Dose: 650 mg Aspirin (Ecotrin) 81 mg PO DAILY YSABEL Last Admin: 04/30/18 09:45 Dose: 81 mg Dextrose (Dextrose 50% Inj) 50 ml IVP ONCE PRN PRN Reason: Hypoglycemia Dextrose (Dextrose 50% Inj) 0 ml IV STAT PRN; Protocol PRN Reason: Hypoglycemia Protocol Dextrose (Glutose 15) 0 gm PO ONCE PRN; Protocol PRN Reason: Hypoglycemia Protocol Diphenhydramine HCl (Benadryl) 25 mg PO HS PRN PRN Reason: Insomnia Last Admin: 05/09/18 21:33 Dose: 25 mg Glucagon (Glucagen Diagnostic Kit) 0 mg IM STAT PRN; Protocol PRN Reason: Hypoglycemia Protocol Meropenem 500 mg/ Sodium (Chloride) 100 mls @ 100 mls/hr IVPB DAILY@2200 YSABEL; Protocol Last Admin: 05/10/18 21:19 Dose: 100 mls/hr Dextrose (Dextrose 5% In Water 1000 Ml) 1,000 mls @ 0 mls/hr IV .Q0M PRN; Protocol PRN Reason: Hypoglycemia Protocol Vancomycin HCl 500 mg/ Sodium (Chloride) 100 mls @ 100 mls/hr IVPB MWF YSABEL; Pro tocol Last Admin: 05/10/18 12:24 Dose: Not Given Insulin Glargine (Lantus) 15 unit SC QPM [facility] Last Admin: 05/10/18 18:17 Dose: Not Given Insulin Human Regular (Novolin R) 0 unit SC ACHS [facility]; Protocol Last Admin: 05/11/18 08:30 Dose: 6 units Latanoprost (Xalatan Opht) 1 ml OU HS [facility] Last Admin: 05/10/18 21:19 Dose: 1 ml Levothyroxine Sodium (Synthroid) 25 mcg PO 0630 [facility] Last Admin: 05/11/18 06:36 Dose: 25 mcg Loratadine (Claritin) 10 mg PO [facility] Last Admin: 05/10/18 21:18 Dose: 10 mg Metoprolol Tartrate (Lopressor) 25 mg PO BID [facility] Last Admin: 05/10/18 18:17 Dose: Not Given Montelukast Sodium (Singulair) 10 mg PO [facility] Last Admin: 05/10/18 21:18 Dose: 10 mg Multivitamins (Hexavitamin) 1 tab PO DAILY [facility] Last Admin: 05/10/18 09:58 Dose: Not Given [id number]-[id number] Ethyl Esters (Lovaza) 2 gm PO BID [facility] Last Admin: 05/10/18 18:08 Dose: 2 gm Ondansetron HCl (Zofran Inj) 4 mg IVP Q6 PRN PRN Reason: Nausea/Vomiting Last Admin: 05/11/18 08:30 Dose: 4 mg Oxycodone/Acetaminophen (Percocet 5/325 Mg Tab) 1 tab PO Q4H PRN PRN Reason: Pain, moderate (4-7) Stop: 05/11/18 19:21 Last Admin: 05/11/18 06:36 Dose: 1 tab Phytonadione (Vitamin K Tab) 5 mg PO DAILY [facility] Last Admin: 05/10/18 10:06 Dose: 5 mg Pregabalin (Lyrica) 50 mg PO [facility] Last Admin: 05/10/18 21:18 Dose: 50 mg Rosuvastatin Calcium (Crestor) 10 mg PO [facility] Last Admin: 05/10/18 21:18 Dose: 10 mg Saccharomyces Boulardii (Florastor) 250 mg PO BID [facility] Last Admin: 05/10/18 18:08 Dose: 250 mg Sevelamer Carbonate (Renvela) 1,600 mg PO ACTID [facility] Last Admin: 05/11/18 07:31 Dose: 1,600 mg Simethicone (Mylicon Chew Tab) 80 mg PO QID [facility] Last Admin: 05/10/18 21:18 Dose: 80 mg - Labs Labs: 05/11/18 07:06 05/11/18 07:06 PT 18.5 SECONDS (9.7-12.2) H 05/11/18 07:06 INR 1.7 05/11/18 07:06 APTT 37 SECONDS (21-34) H 05/11/18 07:06 - Constitutional Appears: No Acute Distress - Head Exam Head Exam: ATRAUMATIC, NORMOCEPHALIC - Eye Exam Eye Exam: EOMI - ENT Exam ENT Exam: Mucous Membranes Moist - Respiratory Exam Respiratory Exam: Clear to Ausculation Bilateral. absent: Rales, Wheezes - Cardiovascular Exam Cardiovascular Exam: REGULAR RHYTHM, +S1, +S2 - GI/Abdominal Exam GI & Abdominal Exam: Soft. absent: Distended, Tenderness - Extremities Exam Extremities Exam: absent: Calf Tenderness - Neurological Exam Neurological Exam: Alert, Awake, CN II-XII Intact - Skin Skin Exam: Dry, Intact Assessment and Plan - Assessment and Plan (Free Text) Assessment: 52 year old male with PMHx of htn, DM, PAD s/p R BKA (03/2018), pulm htn, ESRD on HD, presents with steal syndrome from AVF of the left arm with dry necrosis of the third left finger. s/p L 3rd digit amputation POD1 - Dialysis today, f/u at outpatient HD center tomorrow; HD on MWF - Dril procedure as an outpatient, and not performed yesterday due to thrombocytopenia and coagulopathy - Pain control - Continue with renal dose of Vancomycin MWF and Meropenem 500mg daily - Continue with Sevelamer ACTID - continue metoprolol; - F/u surgical consult and recs Case and plan was reviewed and discussed with Dr Penny.
[2018-05-11] MEDS: Saccharomyces Boulardi 250 mg Cap PO SCH ×2 (11:56→18:28)
[2018-05-11] MEDS: Multiple Vitamins Tab PO SCH (11:57)
[2018-05-11] MEDS: Omega-3-Acid Ethyl Esters 1 GM Cap PO SCH ×2 (12:01→18:28)
[2018-05-11] MEDS: Simethicone 80 mg Chewtab PO SCH ×3 (12:02→18:28)
[2018-05-11 15:58] VITALS: BP 111/57; PULSE 90; RESP 20; TEMP 96; O2SAT 96
[2018-05-11] MEDS: (Lantus) Insulin Glargine, Recombinant SC SCH (17:47)
--- NOTE | 2018-05-11 19:12 | CP.PCM.DIS ---
Provider - Provider Date of Admission: 04/28/18 15:49 Attending physician: Merritt Garber MD Primary care physician: Dr. Nakul Cunningham Consults: General Surgery/Vascular - Dr. Burden Nephrology - Dr. Penny Infectious Disease - Dr. Foster Hematology/Oncology - Dr. Bradford Time Spent in preparation of Discharge (in minutes): 45 Diagnosis - Discharge Diagnosis (1) Status post amputation of finger of left hand Status: Acute (2) Coagulopathy Status: Acute (3) Steal syndrome dialysis vascular access Status: Acute (4) Thrombocytopenia Status: Acute (5) Necrosis of finger Status: Acute (6) S/P BKA (below knee amputation) Status: Chronic (7) Uncontrolled diabetes mellitus Status: Chronic (8) Weakness Status: Chronic (9) CAD (coronary artery disease) Status: Chronic (10) ESRD (end stage renal disease) on dialysis Status: Chronic (11) Hypertension Status: Chronic Priority: Medium Hospital Course - Lab Results Lab Results: Most Recent Lab Values WBC 5.0 K/uL (4.8-10.8) 05/11/18 07:06 RBC 2.97 Mil/uL (4.40-5.90) L 05/11/18 07:06 Hgb 9.9 g/dL (12.0-18.0) L 05/11/18 07:06 Hct 30.3 % (35.0-51.0) L 05/11/18 07:06 MCV 102.2 fL (80.0-94.0) H 05/11/18 07:06 MCH 33.3 pg (27.0-31.0) H 05/11/18 07:06 MCHC 32.6 g/dL (33.0-37.0) L 05/11/18 07:06 RDW 19.7 % (11.5-14.5) H 05/11/18 07:06 Plt Count 86 K/uL (130-400) L D 05/11/18 07:06 MPV 11.8 fL (7.2-11.7) H 05/11/18 07:06 Neut % (Auto) 67.2 % (50.0-75.0) 05/11/18 07:06 Lymph % (Auto) 17.5 % (20.0-40.0) L 05/11/18 07:06 [place] % (Auto) 12.7 % (0.0-10.0) H 05/11/18 07:06 Eos % (Auto) 1.4 % (0.0-4.0) 05/11/18 07:06 Baso % (Auto) 1.2 % (0.0-2.0) 05/11/18 07:06 Neut # (Auto) 3.3 K/uL (1.8-7.0) 05/11/18 07:06 Lymph # (Auto) 0.9 K/uL (1.0-4.3) L 05/11/18 07:06 [place] # (Auto) 0.6 K/uL (0.0-0.8) 05/11/18 07:06 Eos # (Auto) 0.1 K/uL (0.0-0.7) 05/11/18 07:06 Baso # (Auto) 0.1 K/uL (0.0-0.2) 05/11/18 07:06 Neutrophils % (Manual) 75 % (50-75) 05/04/18 10:45 Lymphocytes % (Manual) 12 % (20-40) L 05/04/18 10:45 Monocytes % (Manual) 8 % (0-10) 05/04/18 10:45 Eosinophils % (Manual) 5 % (0-4) H 05/04/18 10:45 Nucleated RBC % 1 % (0-0) H 05/04/18 10:45 Differential Comment 05/10/18 07:15 Platelet Estimate Decreased (NORMAL) L 05/04/18 10:45 Hypochromasia (manual) Slight 05/04/18 10:45 Poikilocytosis (manual Slight 05/04/18 10:45 Anisocytosis (manual) Slight 05/04/18 10:45 Target Cells Slight 05/04/18 10:45 PT 18.5 SECONDS (9.7-12.2) H 05/11/18 07:06 INR 1.7 05/11/18 07:06 APTT 37 SECONDS (21-34) H 05/11/18 07:06 PT Patient Pre-Incubat 13.8 SECS (9.7-12.2) H 05/05/18 10:00 PT Mix Interpretation Correction noted 05/05/18 10:00 PTT Patient Pre-Incubat 32 SECS (21-34) 05/05/18 10:00 PTT Mix Interpretation Correction noted 05/05/18 10:00 Plt Function Assay 72 K/uL 05/03/18 06:40 Sodium 140 mmol/L (132-148) 05/11/18 07:06 Potassium 4.6 mmol/L (3.6-5.2) 05/11/18 07:06 Chloride 95 mmol/L (98-107) L 05/11/18 07:06 Carbon Dioxide 30 mmol/L (22-30) 05/11/18 07:06 Anion Gap 20 (10-20) 05/11/18 07:06 BUN 43 mg/dL (9-20) H 05/11/18 07:06 Creatinine 5.4 mg/dL (0.8-1.5) H 05/11/18 07:06 Est GFR ( Amer) 13 05/11/18 07:06 Est GFR (Non-Af Amer) 11 05/11/18 07:06 POC Glucose (mg/dL) 125 mg/dL (65-110) H 05/11/18 16:25 Random Glucose 265 mg/dL (75-110) H 05/11/18 07:06 Calcium 9.0 mg/dl (8.6-10.4) 05/11/18 07:06 Phosphorus 5.3 mg/dL (2.5-4.5) H 05/11/18 07:06 Magnesium 2.1 mg/dL (1.6-2.3) 05/11/18 07:06 Total Bilirubin 1.1 mg/dL (0.2-1.3) 05/11/18 07:06 AST 43 U/L (17-59) 05/11/18 07:06 ALT 17 U/L (21-72) L 05/11/18 07:06 Alkaline Phosphatase 97 U/L (38-126) 05/11/18 07:06 Total Protein 7.8 g/dL (6.3-8.3) 05/11/18 07:06 Albumin 3.4 g/dL (3.5-5.0) L 05/11/18 07:06 Globulin 4.4 gm/dL (2.2-3.9) H 05/11/18 07:06 Albumin/Globulin Ratio 0.8 (1.0-2.1) L 05/11/18 07:06 Ujki-6-[id number] Ab <9 LINDA (<=20) 05/04/18 10:45 Beta-2 GPI IgG Ab <9 SGU (<=20) 05/04/18 10:45 Beta-2 GPI IgM Ab <9 SMU (<=20) 05/04/18 10:45 Phosphatidylserine IgG <10 U/mL (<10) 05/04/18 10:45 Phosphatidylserine IgA <20 U/mL (<20) 05/04/18 10:45 Phosphatidylserine IgM <25 U/mL (<25) 05/04/18 10:45 Anti-Phospholipid Intrp see note 05/04/18 10:45 Anti-Cardiolipin IgG Ab <14 GPL (<=14) 05/04/18 10:45 Anti-Cardiolipin IgA Ab <11 APL (<=11) 05/04/18 10:45 Anti-Cardiolipin IgM Ab <12 MPL (<=12) 05/04/18 10:45 Hep Bs Antigen Negative (NEGATIVE) 05/03/18 10:16 Blood Type B POSITIVE 05/10/18 08:59 Antibody Screen Negative 05/10/18 08:59 Crossmatch See Detail 05/10/18 08:59 - Hospital Course Hospital Course: Medicine Discharge Summary for Hospitalist Service Jose Shields DO PGY-1, [employer]of[employer] Assistant Admission Dates: 04/28/18-05/11/18 Pt admitted directly from [facility] for DRIL procedure and possible L third finger amputation, 2/2 complication of vascular prosthetic dev graft 2/2 steal syndrome. Fistulogram by Interventional Radiology (Dr. Gaming) on 04/27/18 at [facility] demonstrated significant retrograde flow in L brachial artery distal to AV fistula anastomosis, likely represents steal syndrome CXR on prior admission at [facility] demonstrated vascular congestion. Pt was cleared by cardiology at [facility] (Dr. Jim) for procedure, deemed moderate risk for low-risk procedure. Pt was treated for L 3rd finger necrosis with antibiotics Meropenem and Vancomycin as per ID (Dr. Foster). Pt was discharged home to continue same antibiotic regimen. Pt had hemodialysis while inpatient, Nephrology consulted (Dr. Mughni). Pt had coagulopathy and elevated INR which was deemed unsafe for patient to have OR procedure until levels within therapeutic range. Hematology/Oncology (Dr. Bradford) was consulted. Mixing study demonstrated clotting factor deficiency. Pt was given FFP and Vitamin K while inpatient to normalize levels. Also received DDAVP on 05/08/18. Pt's INR improved and was deemed safe for OR procedure to be done. Pt had amputation of the L third finger 2/2 steal syndrome, performed by Dr. Burden (Vascular Surgery) on 05/10/18. Tolerated procedure well, pain well controlled on medication. Pt was discharged to home in stable condition on 05/11/18. Instructed to follow-up with Dr. Nakul Cunningham within 1 week of discharge. Instructed to follow-up with Dr. Burden within 1-2 weeks of discharge for suture removal and post-op follow-up. Pt to receive hemodialysis outpatient tomorrow. All questions and concerns addressed with pt and he was agreeable to plan. Pt discharged to home with home care services. Discharge Exam - Head Exam Head Exam: ATRAUMATIC, NORMOCEPHALIC - Eye Exam Eye Exam: EOMI, Normal appearance, PERRL - ENT Exam ENT Exam: Mucous Membranes Moist - Respiratory Exam Respiratory Exam: Clear to PA & Lateral, NORMAL BREATHING PATTERN, UNREMARKABLE - Cardiovascular Exam Cardiovascular Exam: REGULAR RHYTHM, +S1, +S2. absent: Gallop, Rubs, Systolic Murmur - GI/Abdominal Exam GI & Abdominal Exam: Normal Bowel Sounds, Soft, Unremarkable. absent: Distended, Firm, Guarding, Tenderness - Neurological Exam Neurological exam: Alert, CN II-XII Intact, Oriented x3 - Skin Skin Exam: Dry, Intact, Warm Discharge Plan - Discharge Medications Prescriptions: Vancomycin [Vancomycin Inj] 500 mg IVPB MWF #6 dose - Follow Up Plan Condition: GOOD Disposition: HOME/ ROUTINE Instructions: Dialysis Diet , Heart Failure, Adult (DC), End Stage Kidney Disease (DC), Normocytic Normochromic Anemia (DC), Amputation of the Finger or Fingertip (DC), Dialysis and Diet Additional Instructions: Patient is medically stable and safe for discharge home by Dr. Garber. Patient should continue taking his home medications as originally prescribed, except Hydralazine. Do not take Hydralazine. Please take Percocet 5/325 mg one tab by mouth four times a day as needed for pain, 6 hours apart Prescription provided to dialysis site by CM/SW for instructions to infuse Vancomycin 500 mg three times a week (with dialysis) for 2 weeks. Patient should follow up with his PMD within 1 week of discharge. Follow up at Dr. Burdne's office in 1-2 weeks to get stitches removed and schedule for DRIL surgery. Instructions explained to the patient, who understands and agrees with discharge plan. Referrals: Jesus Burden Jr., MD [Staff Provider] -
== END 2018-05-11 20:45 | disposition home or self-care (01) | DRG 255 ==
LOC: C.6T 15:49
PROVIDERS: ADMIT Hospitalist; ATTEND Internal Medicine
PROC: 5A1D70Z Performance of Urinary Filtration, Intermittent, Less than 6 Hours Per Day (ICD-10-PCS; 2018-04-30)
PROC: 5A1D70Z Performance of Urinary Filtration, Intermittent, Less than 6 Hours Per Day (ICD-10-PCS; 2018-05-01)
PROC: 30233K1 Transfusion of Nonautologous Frozen Plasma into Peripheral Vein, Percutaneous Approach (ICD-10-PCS; 2018-05-02)
PROC: 30233K1 Transfusion of Nonautologous Frozen Plasma into Peripheral Vein, Percutaneous Approach (ICD-10-PCS; 2018-05-02)
PROC: 5A1D70Z Performance of Urinary Filtration, Intermittent, Less than 6 Hours Per Day (ICD-10-PCS; 2018-05-03)
PROC: 5A1D70Z Performance of Urinary Filtration, Intermittent, Less than 6 Hours Per Day (ICD-10-PCS; 2018-05-05)
PROC: 5A1D70Z Performance of Urinary Filtration, Intermittent, Less than 6 Hours Per Day (ICD-10-PCS; 2018-05-08)
PROC: 30233K1 Transfusion of Nonautologous Frozen Plasma into Peripheral Vein, Percutaneous Approach (ICD-10-PCS; 2018-05-08)
PROC: 0X6R0Z0 Detachment at Left Middle Finger, Complete, Open Approach (ICD-10-PCS; principal; 2018-05-10 10:30)
PROC: 5A1D70Z Performance of Urinary Filtration, Intermittent, Less than 6 Hours Per Day (ICD-10-PCS; 2018-05-11)
DX: E10.52 Type 1 diabetes mellitus with diabetic peripheral angiopathy with gangrene (principal); N18.6 End stage renal disease; I13.2 Hypertensive heart and chronic kidney disease with heart failure and with stage 5 chronic kidney disease, or end stage renal disease; T82.898A Other specified complication of vascular prosthetic devices, implants and grafts, initial encounter; N25.81 Secondary hyperparathyroidism of renal origin; D68.9 Coagulation defect, unspecified; D69.3 Immune thrombocytopenic purpura; L03.114 Cellulitis of left upper limb; D68.2 Hereditary deficiency of other clotting factors; M89.9 Disorder of bone, unspecified; J44.9 Chronic obstructive pulmonary disease, unspecified; Y83.8 Other surgical procedures as the cause of abnormal reaction of the patient, or of later complication, without mention of misadventure at the time of the procedure; Z53.8 Procedure and treatment not carried out for other reasons; I50.9 Heart failure, unspecified; I27.20 Pulmonary hypertension, unspecified; I25.10 Atherosclerotic heart disease of native coronary artery without angina pectoris; D63.1 Anemia in chronic kidney disease; E03.9 Hypothyroidism, unspecified; E10.22 Type 1 diabetes mellitus with diabetic chronic kidney disease; G47.33 Obstructive sleep apnea (adult) (pediatric); E10.65 Type 1 diabetes mellitus with hyperglycemia; E78.00 Pure hypercholesterolemia, unspecified; E87.5 Hyperkalemia; Z89.511 Acquired absence of right leg below knee; Z95.0 Presence of cardiac pacemaker; Z95.5 Presence of coronary angioplasty implant and graft; Z99.2 Dependence on renal dialysis; Z79.4 Long term (current) use of insulin; Z90.49 Acquired absence of other specified parts of digestive tract; Z86.73 Personal history of transient ischemic attack (TIA), and cerebral infarction without residual deficits; Z87.01 Personal history of pneumonia (recurrent); Z79.899 Other long term (current) drug therapy; Z79.82 Long term (current) use of aspirin; Z87.442 Personal history of urinary calculi